=== PATIENT | female | born 1990 | race Caucasian/White ===

== ENCOUNTER 2025-02-07 14:58 | Inpatient (IN) | payer OTHER, SELFPAY ==
[2025-02-07] VITALS (12 sets, daily range): BP systolic 97–109; BP diastolic 59–80; PULSE 79–98; RESP 16–17; TEMP 36.7; O2SAT 99–100
--- NOTE | ~2025-02-07 | CT_ITS ---
EXAMINATION: CT pelvis w con DATE: 02/07/2025 20:36 INDICATION: Right patella compression, necrotic TECHNIQUE: Computed tomography (CT) of the pelvis was performed without intravenous contrast. Automat ed exposure control and iterative reconstruction technique were employed. The dose-length product was 733.20 mGy-cm. COMPARISON: X-ray hips and pelvis, same date FINDINGS: Skin defects over the posterior medial upper left thigh and the medial upper right thigh an d perineal soft tissues, with induration extending to the tissues of the vagina, anus, and distal tru cyx. Subcutaneous stranding largely involving the medial left ischial and peroneal fat. No definite o sseous erosion. Postsurgical or congenital posterior fusion defects at multiple levels in the lower l umbar spine. Gracile bones. Bilateral coxa valga. Osteopenia. Bilateral hip joint effusions with syno vial thickening. Large volume of colonic stool. The distal end of a catheter is seen in the lower abd omen. Irregular trabeculation of the bladder with wall edema. IMPRESSION: Medial facet thigh and perineal skin defects with underlying cellulitis, likely extending to and invo lving the vagina and anus. No definite findings of acute or chronic ostium myelitis, although the induration does extend to the tip of the coccyx. No focal soft tissue fluid collection to suggest abscess. Bilateral hip joint effusions with synovitis, septic arthritis is not excluded. Cystitis. Reviewed, dictated and finalized at location K. IMPRESSION: Medial facet thigh and perineal skin defects with underlying cellulitis, likely extending to and involving the vagina and anus. No definite findings of acute or chronic ostium myelitis, although the indurati on does extend to the tip of the coccyx. No focal soft tissue fluid collection to suggest abscess. Bilateral hip joint effusions with synovitis, septic arthritis is not excluded. Cystitis.
--- NOTE | ~2025-02-07 | XR_ITS ---
EXAMINATION: XR hip BI 2V w AP pelvis DATE: 02/07/2025 16:03 INDICATION: Enlarging sore posterior to the right hip. TECHNIQUE: Anteroposterior view of the pelvis and anteroposterior and frog-leg lateral views of the l eft hip and anteroposterior and frog-leg lateral views of the right hip and were obtained. COMPARISON: None. FINDINGS: Bilateral coxa valga with gracile bones consistent with provided history of paraplegia. No fracture. No cortical erosions or periosteal reaction to suggest osteomyelitis. Catheter projects across the ab domen. Large amount of colonic stool which can be seen with constipation. Soft tissues are unremarkab le. IMPRESSION: 1. No cortical erosion/osteolysis or periosteal reaction to suggest osteomyelitis. 2. Gracile bones and bilateral coxa valga consistent with provided history of paraplegia. Reviewed, dictated and finalized at location A. IMPRESSION: 1. No cortical erosion/osteolysis or periosteal reaction to suggest osteomyelit is. 2. Gracile bones and bilateral coxa valga consistent with provided history of p araplegia.
--- NOTE | 2025-02-07 15:37 | ED.SKABFB ---
HPI - Skin/Abscess/Foreign Bdy General Chief complaint: Skin/Abscess/Foreign Body <Tracey Sarmiento APRN - Last Filed: 02/07/25 19:35> Stated complaint: Wound under right thigh-wheelchair bound <Tracey Sarmiento APRN - Last Filed: 02/07/25 19:35> Time Seen by Provider: 02/07/25 15:10 <Tracey Sarmiento APRN - Last Filed: 02/07/25 19:35> Focused HPI: Patient is a 34-year-old female who presents to the ER with concerns of a wound on her right thigh. She has a history of spina bifida and does not feel anything from her waist down. Patient's mother reports she 1st noticed the wound last week. She reports it started out as a small black area in patient's mother tried to treat it. Patient's mother reports the area has gotten larger and is approximately 2 in in size at this time. She also endorses redness around the site. Patient denies any recent fevers, shortness of breath, chills. According to patient medical records she has a history of PRACTICE REPRESENTATIVE shunt and seizures. GENERAL: Well-appearing, well-nourished, and in no acute distress. HEAD: Normocephalic, atraumatic. CHEST: Clear to auscultation. ?No respiratory distress. HEART: Regular rate and rhythm.? NEURO: ?Alert and oriented x3. Patient screened in triage and initial orders placed.? ?Additional care and disposition to be based upon?diagnostic testing and treatment. <Tracey Sarmiento APRN - Last Filed: 02/07/25 19:35> Source: patient <Antelmo Perkins PA-C - Last Filed: 02/08/25 02:53> Mode of arrival: wheelchair <Antelmo Perkins PA-C - Last Filed: 02/08/25 02:53> Limitations: no limitations <Antelmo Perkins PA-C - Last Filed: 02/08/25 02:53> History of Present Illness HPI narrative: Agree with MSE note above. <Antelmo Perkins PA-C - Last Filed: 02/08/25 02:53> Related Data Home medications: Home Medications ?Medication ?Instructions ?Recorded ?Confirmed ?Last Taken ?Type bupropion HCl 150 mg 24 hr tablet, 150 mg PO DAILY 02/08/25 02/08/25 Unknown History extended release (Wellbutrin XL) docusate sodium 100 mg capsule 100 mg PO DAILY 02/08/25 02/08/25 Unknown History (Colace) fluoxetine 20 mg capsule 20 mg PO DAILY 02/08/25 02/08/25 Unknown History lamotrigine 100 mg tablet 300 mg PO QHS 02/08/25 02/08/25 Unknown History (Lamictal) lamotrigine 200 mg tablet 200 mg PO QAM 02/08/25 02/08/25 Unknown History (Lamictal) topiramate 50 mg tablet (Topamax) 50 mg PO Q12H PRN migraine headache 02/08/25 02/08/25 Unknown History <Tracey Sarmiento APRN - Last Filed: 02/07/25 19:35> Allergies/Adverse reactions: Allergies Allergy/AdvReac Type Severity Reaction Status Date / Time latex Allergy Severe Rash Verified 02/07/25 15:01 amoxicillin Allergy Intermediate Rash Verified 02/07/25 15:01 <Tracey Sarmiento APRN - Last Filed: 02/07/25 19:35> Review of Systems Review of Systems: All systems as dictated in HPI <Antelmo Perkins PA-C - Last Filed: 02/08/25 02:53> [facility] Past Medical History Medical History: Medical History Constipation History of seizures History of myelomeningocoele Spina bifida <Tracey Sarmiento APRN - Last Filed: 02/07/25 19:35> Surgical History Surgical History: Surgical History S/P PRACTICE REPRESENTATIVE shunt History of cholecystectomy <Tracey Sarmiento APRN - Last Filed: 02/07/25 19:35> Family History Family History: Family History Mother Diabetes mellitus Hypertension Breast cancer Father Diabetes mellitus Grandparent Diabetes mellitus Acute myocardial infarction Hypertension <Tracey Sarmiento APRN - Last Filed: 02/07/25 19:35> Social History Social History: Social History Smoking status: Never smoker Alcohol intake: never Substance use: never Do You Feel Safe in your Home?: Yes Lack of Transportation: No Lack of Food: Never True Current Housing: I Have Housing Concerned About Future Housing: No Difficulty Paying Gas/Electric Bills: No Difficulty Paying for Meds: No Currently Unemployed: No Education: High School Diploma/GED Difficulty w/ Childcare or Family Care: No Spiritual care concerns: No <Tracey LulyAny Sarmiento, BOX TOE BUFFER - Last Filed: 02/07/25 19:35> Exam Narrative: GENERAL: Well-appearing, well-nourished, and in no acute distress. HEAD: Normocephalic, atraumatic. EYES: PERRLA and EOMI. ENT: Nares clear, no rhinorrhea or epistaxis. Mucous membranes moist. Oropharynx without tonsillar hypertrophy exudate or other lesions. NECK: Supple. No adenopathy or masses. CHEST: No respiratory distress. Clear to auscultation. No wheezes rales or rhonchi HEART: Regular rate and rhythm. No murmur heard. Normal peripheral pulses. ABDOMEN: Soft, nontender, nondistended, normal active bowel sounds. MSK: Normal range of motion. No edema. SKIN: There is a 5-6 cm diameter pressure ulcer noted to the left inferior buttock/posterior thigh. Most of the area of wound bed is dark, necrotic appearing and surrounded by a thin line of erythematous appearing granulation tissue. The wound has a very small amount of erythema surrounding. It is not warm. There is no active purulent drainage. No surrounding indurated or necrotic appearing tissue. NEURO: Alert and oriented x4. No focal deficits. PSYCH: Normal mood and affect. <Antelmo Perkins PA-C - Last Filed: 02/08/25 02:53> Course PROGRAM DIRECTOR/TRAFFIC DIRECTOR/PA Physician Supervision Patient's HPI, Exam, and MDM were reviewed and I agreed with the workup and disposition done in the emergency department by the MLP. I was available for consultation, but was not directly involved with patient's care nor did I evaluate the patient. <Vinh Ely MD - Last Filed: 02/08/25 22:09> Vital Signs Vital signs: Vital Signs Temperature 36.7 C 02/07/25 15:02 Pulse Rate 98 02/07/25 15:02 Respiratory Rate 16 02/07/25 15:02 Blood Pressure 105/62 02/07/25 15:02 Pulse Oximetry 99 02/07/25 15:02 Oxygen Delivery Room Air 02/07/25 15:02 Temperature 37.0 C 02/08/25 21:56 Pulse Rate 112 H 02/08/25 21:56 Respiratory Rate 16 02/08/25 21:56 Blood Pressure 107/65 02/08/25 21:56 Pulse Oximetry 99 02/08/25 21:56 Oxygen Delivery Room Air 02/08/25 20:00 <Tracey Sarmiento APRN - Last Filed: 02/07/25 19:35> Vital Signs Temperature 36.7 C 02/07/25 15:02 Pulse Rate 98 02/07/25 15:02 Respiratory Rate 16 02/07/25 15:02 Blood Pressure 105/62 02/07/25 15:02 Pulse Oximetry 99 02/07/25 15:02 Oxygen Delivery Room Air 02/07/25 15:02 Temperature 37.0 C 02/08/25 21:56 Pulse Rate 112 H 02/08/25 21:56 Respiratory Rate 16 02/08/25 21:56 Blood Pressure 107/65 02/08/25 21:56 Pulse Oximetry 99 02/08/25 21:56 Oxygen Delivery Room Air 02/08/25 20:00 <Antelmo Perkins PA-C - Last Filed: 02/08/25 02:53> Vital Signs Temperature 36.7 C 02/07/25 15:02 Pulse Rate 98 02/07/25 15:02 Respiratory Rate 16 02/07/25 15:02 Blood Pressure 105/62 02/07/25 15:02 Pulse Oximetry 99 02/07/25 15:02 Oxygen Delivery Room Air 02/07/25 15:02 Temperature 37.0 C 02/08/25 21:56 Pulse Rate 112 H 02/08/25 21:56 Respiratory Rate 16 02/08/25 21:56 Blood Pressure 107/65 02/08/25 21:56 Pulse Oximetry 99 02/08/25 21:56 Oxygen Delivery Room Air 02/08/25 20:00 <Vinh Ely MD - Last Filed: 02/08/25 22:09> MDM - Skin/Abscess/Foreign Bdy MDM Narrative Medical decision making narrative: This is a 34-year-old female who with PMH of and bifida, paraplegia who presents to the ED for likely pressure ulcer to the posterior buttock. Vitals are normal on arrival. Exam remarkable for the above with a 5-6 cm pressure ulcer noted with necrotic appearing skin. There does appear to be some surrounding cellulitis. Lab work does show normal white count on CBC. ESR elevated at 23 and CRP elevated at 12.5. Pelvis CT: IMPRESSION: Medial facet thigh and perineal skin defects with underlying cellulitis, likely extending to and involving the vagina and anus. No definite findings of acute or chronic ostium myelitis, although the induration does extend to the tip of the coccyx. No focal soft tissue fluid collection to suggest abscess. Bilateral hip joint effusions with synovitis, septic arthritis is not excluded. Cystitis. Presentation consistent with necrotic pressure ulcer with surrounding cellulitis. There does not appear to be evidence of neck driving fasciitis or Cristine's gangrene on exam today. Vitals remained stable or throughout the entirety of her visit in the ED. She was started on 2 L of fluids for elevated lactate of 3.2. Lactate has normalized to 1.3 with use of fluids. She was started on Levaquin and Flagyl per Infectious ulcer protocol with potential allergy to Zosyn. Discussed the case with General surgery the patient will likely need wound debridement. They will consult on the patient and recommend admitting to Medicine. Discussed with hospitalist as well who agrees to admit the patient to medical floor. Patient and family are understanding and agreeable with this plan of admission. <Antelmo Perkins PA-C - Last Filed: 02/08/25 02:53> Lab Data Result diagrams: 02/07/25 16:40 02/07/25 16:40 <Tracey Sarmiento APRN - Last Filed: 02/07/25 19:35> Labs: Lab Results 02/07/25 02/07/25 02/07/25 Range/Units 16:40 21:11 21:28 WBC 10.0 (4.5-10.0) K/mm3 RBC 4.88 (4.2-5.4) M/mm3 Hgb 11.4 L (12.0-15.0) g/dL Hct 39.2 (37.0-47.0) % MCV 80.3 (80-100) fl MCH 23.4 L (26-34) pg MCHC 29.1 L (32-36) g/dl RDW 25.5 H (11.5-14.5) % Plt Count 405 H (150-375) k/mm3 MPV 9.0 (7.4-10.4) fl Immature Gran % (Auto) 1.7 H (0-0.5) % Neut % (Auto) 82.5 H (45.5-73.1) % Lymph % (Auto) 9.5 L (18.3-44.2) % [place] % (Auto) 4.8 (2.6-8.5) % Eos % (Auto) 1.1 (0-4.4) % Baso % (Auto) 0.4 (0.2-1.2) % Lymph # (Auto) 0.95 (0.9-3.2) K/mm3 [place] # (Auto) 0.5 (0.1-0.6) K/mm3 Eos # (Auto) 0.1 (0-0.3) K/mm3 Baso # (Auto) 0.0 (0.0-0.1) K/mm3 Abs Immat Gran (auto) 0.17 H (0.00-0.031) K/mm3 Absolute Neuts (auto) 8.3 H (1.3-6.7) K/mm3 Absolute Nucleated RBC 0.000 (0.0-0.012) K/mm3 Band Neutrophils % Not Reportable Nucleated RBC % 0.0 (0.0-0.2) % Platelet Estimate Adequate (Adequate) Hypochromasia 1+ Anisocytosis 1+ Ovalocytes 1+ Schistocytes None seen ESR 23 H (0-20) mm/hr PT 15.1 H (11.1-14.7) Seconds INR 1.1 APTT 31.0 (22.3-36.8) Seconds Sodium 139 (137-145) mmol/L Potassium 3.7 (3.4-5.0) mmol/L Chloride 105 (98-107) mmol/L Carbon Dioxide 22 (22-30) mmol/L Anion Gap 12 (4-12) mmol/L BUN 14 (7-17) mg/dL Creatinine 0.44 L (0.7-1.0) mg/dL Estim Creat Clear Calc Not Reportable Estimated GFR > 60 (59 - ) Glucose 153 H (65-110) mg/dL Lactic Acid 3.2 H 1.3 (0.7-2.0) mmol/L Calcium 8.9 (8.4-10.2) mg/dL Total Bilirubin 0.3 (0.2-1.3) mg/dL AST 13 L (14-36) U/L ALT 14 (6-35) U/L Alkaline Phosphatase 99 (38-126) U/L C-Reactive Protein 12.5 H (<1.0) mg/dL Total Protein 7.0 (6.3-8.2) g/dL Albumin 4.1 (3.5-5.1) g/dL Urine Color Yellow (Yellow) Urine Appearance Cloudy H (Clear) Urine pH 7.5 (5.0-9.0) Ur Specific [place] 1.034 (1.001-1.035) Urine Protein Negative (Negative) mg/dL Urine Glucose (UA) Negative (Negative) mg/dL Urine Ketones Negative (Negative) mg/dL Ur Blood (Man) Negative (Negative) Urine Nitrate Positive H (Negative) Urine Bilirubin Negative (Negative) Urine Urobilinogen 1.0 (<2.0) mg/dL Add Ur Microanalysis Reviewed Leukocyte Esterase Rfl 1+ H (Negative) HANNAH/UL Urine RBC 0-2 (0-2) /hpf Urine WBC 21-50 H (0-3) /hpf Ur Squamous Epith Cells Few (Few) /hpf Urine Bacteria 4+ H /hpf Urine Casts 3-5 <Tracey Sarmiento, BOX TOE BUFFER - Last Filed: 02/07/25 19:35> Lab Results 02/07/25 02/07/25 02/07/25 Range/Units 16:40 21:11 21:28 WBC 10.0 (4.5-10.0) K/mm3 RBC 4.88 (4.2-5.4) M/mm3 Hgb 11.4 L (12.0-15.0) g/dL Hct 39.2 (37.0-47.0) % MCV 80.3 (80-100) fl MCH 23.4 L (26-34) pg MCHC 29.1 L (32-36) g/dl RDW 25.5 H (11.5-14.5) % Plt Count 405 H (150-375) k/mm3 MPV 9.0 (7.4-10.4) fl Immature Gran % (Auto) 1.7 H (0-0.5) % Neut % (Auto) 82.5 H (45.5-73.1) % Lymph % (Auto) 9.5 L (18.3-44.2) % [place] % (Auto) 4.8 (2.6-8.5) % Eos % (Auto) 1.1 (0-4.4) % Baso % (Auto) 0.4 (0.2-1.2) % Lymph # (Auto) 0.95 (0.9-3.2) K/mm3 [place] # (Auto) 0.5 (0.1-0.6) K/mm3 Eos # (Auto) 0.1 (0-0.3) K/mm3 Baso # (Auto) 0.0 (0.0-0.1) K/mm3 Abs Immat Gran (auto) 0.17 H (0.00-0.031) K/mm3 Absolute Neuts (auto) 8.3 H (1.3-6.7) K/mm3 Absolute Nucleated RBC 0.000 (0.0-0.012) K/mm3 Band Neutrophils % Not Reportable Nucleated RBC % 0.0 (0.0-0.2) % Platelet Estimate Adequate (Adequate) Hypochromasia 1+ Anisocytosis 1+ Ovalocytes 1+ Schistocytes None seen ESR 23 H (0-20) mm/hr PT 15.1 H (11.1-14.7) Seconds INR 1.1 APTT 31.0 (22.3-36.8) Seconds Sodium 139 (137-145) mmol/L Potassium 3.7 (3.4-5.0) mmol/L Chloride 105 (98-107) mmol/L Carbon Dioxide 22 (22-30) mmol/L Anion Gap 12 (4-12) mmol/L BUN 14 (7-17) mg/dL Creatinine 0.44 L (0.7-1.0) mg/dL Estim Creat Clear Calc Not Reportable Estimated GFR > 60 (59 - ) Glucose 153 H (65-110) mg/dL Lactic Acid 3.2 H 1.3 (0.7-2.0) mmol/L Calcium 8.9 (8.4-10.2) mg/dL Total Bilirubin 0.3 (0.2-1.3) mg/dL AST 13 L (14-36) U/L ALT 14 (6-35) U/L Alkaline Phosphatase 99 (38-126) U/L C-Reactive Protein 12.5 H (<1.0) mg/dL Total Protein 7.0 (6.3-8.2) g/dL Albumin 4.1 (3.5-5.1) g/dL Urine Color Yellow (Yellow) Urine Appearance Cloudy H (Clear) Urine pH 7.5 (5.0-9.0) Ur Specific [place] 1.034 (1.001-1.035) Urine Protein Negative (Negative) mg/dL Urine Glucose (UA) Negative (Negative) mg/dL Urine Ketones Negative (Negative) mg/dL Ur Blood (Man) Negative (Negative) Urine Nitrate Positive H (Negative) Urine Bilirubin Negative (Negative) Urine Urobilinogen 1.0 (<2.0) mg/dL Add Ur Microanalysis Reviewed Leukocyte Esterase Rfl 1+ H (Negative) HANNAH/UL Urine RBC 0-2 (0-2) /hpf Urine WBC 21-50 H (0-3) /hpf Ur Squamous Epith Cells Few (Few) /hpf Urine Bacteria 4+ H /hpf Urine Casts 3-5 <Antelmo Perkins PA-C - Last Filed: 02/08/25 02:53> Lab Results 02/07/25 02/07/25 02/07/25 Range/Units 16:40 21:11 21:28 WBC 10.0 (4.5-10.0) K/mm3 RBC 4.88 (4.2-5.4) M/mm3 Hgb 11.4 L (12.0-15.0) g/dL Hct 39.2 (37.0-47.0) % MCV 80.3 (80-100) fl MCH 23.4 L (26-34) pg MCHC 29.1 L (32-36) g/dl RDW 25.5 H (11.5-14.5) % Plt Count 405 H (150-375) k/mm3 MPV 9.0 (7.4-10.4) fl Immature Gran % (Auto) 1.7 H (0-0.5) % Neut % (Auto) 82.5 H (45.5-73.1) % Lymph % (Auto) 9.5 L (18.3-44.2) % [place] % (Auto) 4.8 (2.6-8.5) % Eos % (Auto) 1.1 (0-4.4) % Baso % (Auto) 0.4 (0.2-1.2) % Lymph # (Auto) 0.95 (0.9-3.2) K/mm3 [place] # (Auto) 0.5 (0.1-0.6) K/mm3 Eos # (Auto) 0.1 (0-0.3) K/mm3 Baso # (Auto) 0.0 (0.0-0.1) K/mm3 Abs Immat Gran (auto) 0.17 H (0.00-0.031) K/mm3 Absolute Neuts (auto) 8.3 H (1.3-6.7) K/mm3 Absolute Nucleated RBC 0.000 (0.0-0.012) K/mm3 Band Neutrophils % Not Reportable Nucleated RBC % 0.0 (0.0-0.2) % Platelet Estimate Adequate (Adequate) Hypochromasia 1+ Anisocytosis 1+ Ovalocytes 1+ Schistocytes None seen ESR 23 H (0-20) mm/hr PT 15.1 H (11.1-14.7) Seconds INR 1.1 APTT 31.0 (22.3-36.8) Seconds Sodium 139 (137-145) mmol/L Potassium 3.7 (3.4-5.0) mmol/L Chloride 105 (98-107) mmol/L Carbon Dioxide 22 (22-30) mmol/L Anion Gap 12 (4-12) mmol/L BUN 14 (7-17) mg/dL Creatinine 0.44 L (0.7-1.0) mg/dL Estim Creat Clear Calc Not Reportable Estimated GFR > 60 (59 - ) Glucose 153 H (65-110) mg/dL Lactic Acid 3.2 H 1.3 (0.7-2.0) mmol/L Calcium 8.9 (8.4-10.2) mg/dL Total Bilirubin 0.3 (0.2-1.3) mg/dL AST 13 L (14-36) U/L ALT 14 (6-35) U/L Alkaline Phosphatase 99 (38-126) U/L C-Reactive Protein 12.5 H (<1.0) mg/dL Total Protein 7.0 (6.3-8.2) g/dL Albumin 4.1 (3.5-5.1) g/dL Urine Color Yellow (Yellow) Urine Appearance Cloudy H (Clear) Urine pH 7.5 (5.0-9.0) Ur Specific [place] 1.034 (1.001-1.035) Urine Protein Negative (Negative) mg/dL Urine Glucose (UA) Negative (Negative) mg/dL Urine Ketones Negative (Negative) mg/dL Ur Blood (Man) Negative (Negative) Urine Nitrate Positive H (Negative) Urine Bilirubin Negative (Negative) Urine Urobilinogen 1.0 (<2.0) mg/dL Add Ur Microanalysis Reviewed Leukocyte Esterase Rfl 1+ H (Negative) HANNAH/UL Urine RBC 0-2 (0-2) /hpf Urine WBC 21-50 H (0-3) /hpf Ur Squamous Epith Cells Few (Few) /hpf Urine Bacteria 4+ H /hpf Urine Casts 3-5 <Vinh Ely MD - Last Filed: 02/08/25 22:09> Discharge Plan Discharge Clinical Impression: Pressure ulcer due to spina bifida, Cellulitis <Tracey Sarmiento APRN - Last Filed: 02/07/25 19:35> Patient Disposition: Still a Patient <Tracey Sarmiento APRN - Last Filed: 02/07/25 19:35> Condition: Stable <Tracey Sarmiento APRN - Last Filed: 02/07/25 19:35>
--- NOTE | 2025-02-07 16:41 | PC.NURSE ---
this RN attempts to get blood work from pt with no success. quality control lab technician Liza able to get blood work and one set of cultures. unable to find venous access for 2nd set at this time. pt sent back to waiting room while waiting for ED room assignment.
[2025-02-07 16:47] LABS: Basophils Percent Auto 0.4 % (0.2-1.2); Eosinophils Absolute Auto 0.1 K/mm3 (0-0.3); Eosinophils Percent Auto 1.1 % (0-4.4); Hematocrit 39.2 % (37.0-47.0); Hemoglobin 11.4 g/dL (12.0-15.0); Immature Granulocyte Absolute 0.17 K/mm3 (0.00-0.031); Immature Granulocyte Percent A 1.7 % (0-0.5); Lymphocytes Absolute Auto 0.95 K/mm3 (0.9-3.2); Lymphocytes Percent Auto 9.5 % (18.3-44.2); Mean Corpuscular HGB Conc 29.1 g/dl (32-36); Mean Corpuscular Hemoglobin 23.4 pg (26-34); Mean Corpuscular Volume 80.3 fl (80-100); Monocytes Absolute Auto 0.5 K/mm3 (0.1-0.6); Monocytes Percent Auto 4.8 % (2.6-8.5); Neutrophils Absolute Auto 8.3 K/mm3 (1.3-6.7); Neutrophils Percent Auto 82.5 % (45.5-73.1); Platelet Count Result 405 k/mm3 (150-375); Red Blood Count 4.88 M/mm3 (4.2-5.4); Red Cell Distribution Width 25.5 % (11.5-14.5)
[2025-02-07 16:56] LABS: Lactic Acid Reflex 3.2 mmol/L (0.7-2.0)
--- OUTSIDE RECORDS SUMMARY | 2025-02-07 16:58 | XMS_ITS | Encounter Summary ---
Author Organization [facility] Address [address] [place] [id number] Care Team Providers Care Powerhouse Mechanic Name Role Phone Juarez Alaniz DO Primary Care Provider [phone] Encounter Details Date Type Department Care Team (Late st Contact Info) Description 03/26/2023 [employer] Message Enc [facility] Medical Group Family Medicine [address] [phone] [facility], [facility] Provider [employer] Social History Tobacco Use Types Packs/Day Years Used Date Smoking Tobacco: Never Smokeless Tobacco: Never Alcohol Use Standard Drinks/Week Comments Never 0 (1 standard drink = 0.6 oz pur e alcohol) PHQ-2 Answer Date Recorded Patient Health Questionnaire-2 Score 0 01/16/2023 Comments No Sex and Gender Information Value Date Recorded Sex Assigned at Not on file Legal Sex Female 5:02 PM CDT Gender Identity Not on file Sexual Orientation Not on file documented as of this encounter Plan of Treatment Not on file documented as of this encounter Visit Diagnoses Not on filedocumented in this encounter Care Teams Powerhouse Mechanic Relationship Specialty Start Date End Date Juarez Alaniz DO [address] [place] [id number] PCP - General FAMILY PRACTICE 01/03/23 documented as of this encounter
--- OUTSIDE RECORDS SUMMARY | 2025-02-07 16:58 | XMS_ITS | Data Portability ---
Author Organization [facility]N Lucia ala, [facility], [facility], [facility] Address [address] [place] [address] Care Team Providers Care Rehabilitation Psychologist Name Role Phone [facility] Referring Provide r Assessment Encounter Date Assessment Date Assessment LastModified by Organization Details LastModified Time 08/25/2017 08/25/2017 Seizures, absence seizures, myoclonic seizures, Generalized tonic clonic seizures. She is unable to give too many details about her seizures. T12 spina bifida, paraplegia, hydrocephalus, s/p BURN [employer]W [employer]BER shunt placement, neurogenic bowel and bladder. Comorbid medical conditions include depression, anxiety disorder. Order EEG for further characterization of the spells/seizures. Continue Keppra 250mg bid, Trileptal 300mg am and 450mg pm. We had a long discussion about the seizures, risks due to seizures including the risk for Sudden Unexpectedly in Epilepsy (SUDEP). We also discussed the importance of not being left alone and turning the patient to the side while seizing. We have discussed the factors that lower the seizure threshold, which include alcohol, sleep deprivation, infections etc. Our seizure protocol and handouts were provided. Advised the patient/Family to contact our office for any adverse effects with the medications we prescribed and for any breakthrough seizures. As most seizures usually last for less then 3 minutes, if a patient has a seizure that lasts for >3 min or if there is no recovery of consciousness in between seizures, patient needs to be transported to the nearest ER. Advised to maintain a seizure log and triggers. Patient/Family was ready to learn and no apparent learning barriers were identified. Explained the diagnosis and treatment plan, patient/Family expressed understanding of the content. Not available 08/26/2017 23:03:59 09/29/2017 09/29/2017 Miss Bauer is being followed in our clinic for Seizures, she has absence seizures, myoclonic seizures, Generalized tonic clonic seizures. She is unable to give too many details about her seizures. Her mom reports intractable staring spells concerning for complex partial seizures. T12 spina bifida, paraplegia, hydrocephalus, s/p BURN [employer] MEMBER shunt placement, neurogenic bowel and bladder. Comorbid medical conditions include depression, anxiety disorder. Continue Keppra 250mg bid, Trileptal 300mg am and 450mg pm. Add Vimpat 50mg bid and advace as tolerated, slowly taper off the Keppra. We had a long discussion about the seizures, risks due to seizures including the risk for Sudden Unexpectedly in Epilepsy (SUDEP). We also discussed the importance of not being left alone and turning the patient to the side while seizing. We have discussed the factors that lower the seizure threshold, which include alcohol, sleep deprivation, infections etc. Our seizure protocol and handouts were provided. Advised the patient/Family to contact our office for any adverse effects with the medications we prescribed and for any breakthrough seizures. As most seizures usually last for less then 3 minutes, if a patient has a seizure that lasts for >3 min or if there is no recovery of consciousness in between seizures, patient needs to be transported to the nearest ER. Advised to maintain a seizure log and triggers. Patient/Family was ready to learn and no apparent learning barriers were identified. Explained the diagnosis and treatment plan, patient/Family expressed understanding of the content. Not available 10/05/2017 17:22:10 Plan of Treatment Reminders Order Date Submit Date Provider Last Modified By Organization Details Last Modified Time Details Appointments None recorded . Lab None recorded . Referral None recorded . Procedures None recorded . Surgeries None recorded . Imaging None recorded . Medication Orders Vimpat 50 mg tablet 017 09/29/20 17 [id number], [address] [facility], [place], [place], [id number], 7 12:54:19 Patient TargetsNo targets recorded. Patient InstructionsNo instructions recorded. Reason for Referral None Reported. Results Created Date Observation Date Name Description Value Unit Range Abnormal Flag Note LastModifiedBy Organization Detail LastModifiedTime 09/17/20 17 elect roenc ephal ogram No observ ation record ed. [email or web address] Not Available 09/19 12:48:27 Result Notes None recorded. Procedures Surgical History Date Name Laterality Status Provider Name and Address Organization Details Recorded Time 09/10/20 17 EEG completed Nkechi Salgado MD [address] [facility] [address], [place], [address], ROSELYN Salgado MD, 09/15/2017 12:19:39 10/20/19 03 Carotid Endarterectomy completed Rosana Salgado [facility] 08/25/2017 16:24:43 10/20/18 88 Carotid Endarterectomy completed Rosana Salgado MD, PC 08/25/2017 16:22:11 Carotid Endarterectomy completed Rosana Salgado MD, [facility] 08/25/2017 16:22:44 Imaging Results Imaging Date Name Status LastModified by Organization Details LastModified Time 09/17/2017 electroencephalogram completed Inf ormation not available 09/29/2017 12:48:27 Procedure Notes None recorded. Medical Equipment None Reported. Allergies Allergen ID Allergen Name Allergen Category Reaction Reaction Severity Criticality Documentation Date Start Date Code Code System Note Provider Name and Address Organization Details Recorded Time 34321 latex environme nt,medica tion rash Not available Not available 08/25/2017 76031 91 RxNorm sneez ing, swell ing [facility]N Paredes [facility] 7 16:14:42 80984 amoxicill in medicatio n rash Not available Not available 08/25/2017 723 RxNorm body [facility] P[facility]es [facility] 7 16:15:03 Medications Name Sig Start Date Stop Date Status Note LastModified by Organization Details LastModified Time oxcarbazepin e 150 mg tablet 2 tab po am & 3 tab po PM active Not Available Not Available No t Available Colace 100 mg capsule Take 1 capsule every day by oral route. active Not Available Not Available No t Available venlafaxine ER 37.5 mg capsule,exte nded release 24 hr 08/25 completed Not Available Not Available Not Available nitrofuranto in macrocrystal 50 mg capsule 08/25 completed Not Available Not Available Not Available levetiraceta m 500 mg tablet .5 tab bid active Not Available Not Available No t Available oxcarbazepin e 300 mg tablet 08/25 completed Not Available Not Available Not Available citalopram 20 mg tablet 1 tab po qd active Not Available Not Available No t Available nitrofuranto in monohydrate/ macrocrystal s 100 mg capsule 08/25 completed Not Available Not Available Not Available Tylenol 250 mg po bid prn active Not Available Not Available No t Available Vimpat 50 mg tablet Take 1 tablet twice a day by oral route. active Not Available Not Available No t Available Vitals Date Recorded Body weight Body height Body mass index (BMI) Oxygen saturation Oxygen saturation in Arterial blood by Pulse oximetry Heart rate Respiratory rate Body temperature Systolic blood pressure Diastolic blood pressure Provider Name and Address Organization Details Last Updated DateTime 7 30748.1 9 g 167.64 cm 21.3 kg/m2 98 % 98 % 102 /min 19 /min 97.8 [degF] 132 mm[Hg] 84 mm[Hg] Cecelia Salgado [facility] 7 16:21:10 Date Recorded Body height Body mass index (BMI) Body weight Body temperature Respiratory rate Heart rate Oxygen saturation Oxygen saturation in Arterial blood by Pulse oximetry Systolic blood pressure Diastolic blood pressure Provider Name and Address Organization Details Last Updated DateTime 7 167.64 cm 21.8 kg/m2 54703.9 7 g 97.7 [degF] 20 /min 85 /min 95 % 95 % 118 mm[Hg] 84 mm[Hg] Norma Salgado [facility] 7 12:42:43 Social History Question Answer Notes LastModified by Organizat ion Details LastModified Time Tobacco Smoking Status Never Smoker [facility] 08/25/2017 16:20:40 What Is Your Level Of Alcohol Consumption? Occasional [email or web address] Information not available 09/29/2017 How Much Tobacco Do You Chew? None Information not available 08/25/2017 As A Passenger In A Car For An Hour Without A Break 2 Information not available 08/25/2017 Chance Of Dozing Sitting, Inactive In A Public Place (e.g. A Theatre Or A Meeting) 0 Information not available 08/25/2017 Chance Of Dozing Sitting And Reading? 1 Information not available 08/25/2017 Chance Of Dozing Watching TV? 1 Information not available 08/25/2017 In A Car, While Stopped For A Few Minutes In The Traffic 2 Information not available 08/25/2017 Lying Down To Rest In The Afternoon When Circumstances Permit 2 Information not available 08/25/2017 Sitting And Talking To Someone 0 Information n ot available 08/25/2017 Sitting Quietly After A Lunch Without Alcohol 2 Information not available 08/25/2017 Any Illicit Drug Usage No Information not available 08/25/2017 Marital Status Single Informatio n not available 08/25/2017 What Was The Date Of Your Most Recent Tobacco Screening? 09/29/2017 Information not available 05/13/2019 How Much Tobacco Do You Smoke? No Information not available 08/25/2017 Sex: Unknown Functional Status None recorded. Mental Status None recorded. Family History Relationship Description Onset Age of this Age Resolved Age Notes LastModified by Organization Details LastModified Time Mother Depressive disorder 53 Not available 08/25 16:15:32 Mother Bipolar disorder 53 Not available 08/25 16:15:50 Mother Sleep apnea 53 Not avai lable 08/25/2017 16:16:08 Mother Acid reflux 53 Not avai lable 08/25/2017 16:16:31 Mother Malignant neoplastic disease 53 Ductal carcin jerry in situ (DCIS) Not available 08/25/2017 16:18:19 Father Diabetes mellitus 54 Not available 08/25 16:18:31 Father Hypokalemia 54 Not avai lable 08/25/2017 16:18:56 Maternal Grandmother Hypertensive disorder 78 Not available 08/25 16:19:15 Maternal Grandmother Heart disease 78 Not available 08/25 16:19:29 Maternal Grandmother Thyroiditis 78 Not available 08/25/2017 16:19:52 Maternal Grandfather Heart disease 59 Not available 08/25 16:20:09 Paternal Grandfather Diabetes mellitus 66 Not available 08/25 16:20:23 Sister Asthma 27 Not available 08/25/2017 16:20:34 Medical History Condition Response Anxiety Disorder Y Circulation problems Y Seizures/Epilepsy Y Kidney/Bladder problems Y Headaches Y Back Problems Y Depression Y Gynecological HistoryNo gynecological history recorded. Obstetrics History GPAL:G 0 P 0 0 0 0 Past Encounters Encounter ID Performer Location Encounter Start Date Encounter Closed Date Diagnosis/Indication Diagnosis SNOMED-CT Code Diagnosis ICD10 Code Diagnosis Note [id number] Nkechi Salgado MD [address] [address] 08/25/2017 16:02:48 08/25/2017 17:21:27 Epilepsy 51010738 G40.909 Spina bifida 76089718 Q0 5.1 Depressive disorder 3548 9007 F33.0 Ventricula r shunt in situ 515061110 Z98.2 [id number] Nkechi Salgado MD [address] [address] 09/10/2017 14:25:09 09/10/2017 16:33:24 Seizure 21754025 R56.9 [id number] Nkechi Salgado MD [address] [address] 09/29/2017 12:23:28 09/29/2017 13:03:01 Epilepsy 38027578 G40.919 Spina bifida 69946655 Q0 5.1 Depressive disorder 3548 9007 F33.0 Ventricula r shunt in situ 178156056 Z98.2 Health Concerns Section Related Observation LastModified by Organization Detai ls LastModified Time None Recorded Concern Status LastModified by Organization Details LastModified Time None Recorded Advance Directives Directive None Recorded Payers Encounter Date Sequence Insurance Name Policy Number Policy Gtz Covered Member ID Gtz Member ID Guarantor Name 08/25/2017 1 [place] Vera Bauer [id number] Vera Bauer 09/10/2017 1 [place] Bauer [id number] Vera Bauer 09/29/2017 1 [place] Vera Bauer [id number] Vera Bauer Notes Date Note Type Note Provider Name and Address Organization Details Recorded Time 08/25/2017 text/html Generic HPI TemplateReported bypatient.Problem:China boyd is a right handed / female who presents to the clinic as a referral for a seizure disorder. Patient also has a diagnosis of spina bifida at T12, and hydrocephalus, she is s/p BURN CREW MEMBER shunt placement. She cant walk, she has neurogenic bladder, she does straight cath herself. Onset of seizures started in 2003. She has documented episodes of Grand mal, petit mal, starring episodes, and myoclonic jerks. Confirms tongue and cheek biting. She uses a straight catheter daily after a bladder augmentation. Patient is amnesiac of episodes and expresses memory loss after episodes. Reports trouble falling asleep. Experiences stomach, arm and neck weakness and pain. Has no feeling from the waist down. Patient states she has nightmares/terrors after seizure episodes. Denies knowledge of seizure activity. Patient states she gets a warning in the form of a ringing, or voices in her head before her seizures occur as well as an arm weakness. Patient states she hears voices and sees people who are not there. Her last seizure was unknown. Duration:30-120 seconds Onset/Timing:Patient had first grand mal [place] age of 14 [place]. Quality:Grand mal, petit mal, starring episodes, and myoclonic jerks. Confirms tongue and cheek biting. Experiences stomach, arm and neck weakness and pain, muscle spasms. Denies knowledge of nocturnal seizure activity. Aggravating factors/Triggers:Lack of sleep, dehydration, stress, heat, and low blood sugar are all triggers that the patient is aware of for her seizures. Alleviating factors:none Associated Symptoms:Patient states she has nightmares/terrors after seizure episodes. Patient uses a straight catheter. Possible visual and auditory hallucinations. Imaging:No recent or pertinent imaging Labs:Labs ordered last week, pending results with Dr. Moore. Treatments/Meds/Proced ures/Therapies tried so far:Trileptal 300mg am and 450mg pm and Keppra 250mg bid effective in controlling seizure activity. Medical history:Spina bifida, Hydrocephalus, Epilepsy, Bladder Augmentation. Anxiety disorder. She has stage 2 heel ulcer on [facility] left foot. Mood symptoms:Anxiety and depressive disorder taking citalopram 20 mg. Alcohol or any recreational drug abuse:none reported.Notes:She lives with her parents. Nkechi Salgado MD [address] [address], [place], [address], [facility] - Nkechi Salgado MD, 08/26/2017 23:04:17 09/29/2017 text/html Generic HPI TemplateReported bypatient.Problem:China boyd is a right handed / female who presents to the clinic as a referral for a seizure disorder. Patient also has a diagnosis of spina bifida at T12, and hydrocephalus, she is s/p BURN CREW MEMBER shunt placement. She cant walk, she has neurogenic bladder, she does straight cath herself. Onset of seizures started in 2003. She has documented episodes of Grand mal, petit mal, starring episodes, and myoclonic jerks. Confirms tongue and cheek biting. She uses a straight catheter daily after a bladder augmentation. Patient is amnesiac of episodes and expresses memory loss after episodes. Reports trouble falling asleep. Experiences stomach, arm and neck weakness and pain. Has no feeling from the waist down. Patient states she has nightmares/terrors after seizure episodes. Denies knowledge of seizure activity. Patient states she gets a warning in the form of a ringing, or voices in her head before her seizures occur as well as an arm weakness. Patient states she hears voices and sees people who are not there. Her last seizure was unknown. Duration:30-120 seconds Onset/Timing:Patient had first grand mal seizure at the age of 14 [place]. Quality:Grand mal, petit mal, starring episodes, and myoclonic jerks. Confirms tongue and cheek biting. Experiences stomach, arm and neck weakness and pain, muscle spasms. Denies knowledge of nocturnal seizure activity. Aggravating factors/Triggers:Lack of sleep, dehydration, stress, heat, and low blood sugar are all triggers that the patient is aware of for her seizures. Alleviating factors:none Associated Symptoms:Patient states she has nightmares/terrors after seizure episodes. Patient uses a straight catheter. Possible visual and auditory hallucinations. Imaging:No recent or pertinent imaging Treatments/Meds/Proced ures/Therapies tried so far:Trileptal 300mg am and 450mg pm and Keppra 250mg bid effective in controlling seizure activity. Medical history:Spina bifida, Hydrocephalus, Epilepsy, Bladder Augmentation. Anxiety disorder. She has stage 2 heel ulcer on hitesh left foot. Mood symptoms:Anxiety and depressive disorder taking citalopram 20 mg. Alcohol or any recreational drug abuse:none reported.Notes:She lives with her parents. INTERVAL CHANGES She comes with her mom today. Her 90 min EEG was normal. Her mom reports frequent staring spells concerning for seizures. Nkechi Salgado MD [address], [address], [facility] - Nkechi Salgado MD, 10/05/2017 17:22:24 OBGyn Episode No OBEpisode recorded.
--- OUTSIDE RECORDS SUMMARY | 2025-02-07 16:58 | XMS_ITS | Encounter Summary ---
Author Organization [facility] Address [facility] [place] [address] Care Team Providers Care Tool Crib Lead Name Role Phone Juarez Alaniz DO Primary Care Provider [phone] Encounter Details Date Type Department Care Team (Late st Contact Info) Description 03/12/2023 MyCTruVitalst Message Enc [facility] Family Medicine - [address] [phone] Juarez Alaniz DO [address] [place] [id number] [employer] Social History Tobacco Use Types Packs/Day Years [...] on file documented as of this encounter Progress Notes * Sujatha Gardner MA - 03/26/2023 3:36 PM CDT [facility] [place] [phone]. She said the case was closed when Janet (Patient's mom) called to let them know that she was going to go with a different company. She said that since the patient lives in [place] now the case will need to be opened with [employer] in [place]. The phone number is [phone]. * Sujatha Gardner MA - 03/25/2023 5:28 PM CDT I have a call into the company, have not heard back. I will f/u tomorrow to see what they need fromus for the parts. * Sujatha Gardner MA - 03/13/2023 4:00 PM CDT Called [employer] [phone], spoke to Rosanna. She said that Vera's mother called yesterday and cancelled the order since it is taking so long to get parts. Called Janet (patient's mom) and told her that I spoke to [employer]. She said she cancelled that order. I told her that there is a company in [place] that might be able to help with the parts for the wheelchair. I gave her the number for [employer] and told her they might be able to help her or at least get her in the right direction to order parts. She said ok andthanked me. documented in this encounter Plan of Treatment Not on file documented as of this encounter Visit Diagnoses Not on filedocumented in this encounter Care Teams Tool Crib Lead Relationship Specialty Start Date End Date Juarez Alaniz DO [address] [place] [address] PCP - General FAMILY PRACTICE 01/03/23 documented as of this encounter
--- OUTSIDE RECORDS SUMMARY | 2025-02-07 16:58 | XMS_ITS | Encounter Summary ---
Author Organization [facility] Address [address] [place] [address] Phone Care Team Providers Care Visual And Stock Associate Name Role Phone Kandis Robb NP Primary Care Provider [phone] Encounter Details Date Type Department Care Team (Late st Contact Info) Description 01/24/2025 Results Follow-Up [facility] [address] [facility] Medicine 12th [place] [address] [place] [address] Rosanna Partida NP [address] [place] [address] Social History Tobacco Use Types Packs/Day Years Used Date Smoking Tobacco: Never Passive Smoke Exposure: Past Smokeless Tobacco: Never AUDIT-C Answer Date Recorded Q1: How often do you have a drink containing alc ohol? Never 01/20/2024 Average Number of Drinks Not on file 024 Frequency of Binge Drinking Not on file 11/2023 PHQ-2 Answer Date Recorded PHQ-2 Total Score (If total score is 3 or more points, staff should administer the PHQ-9) 5 01/19/2025 PHQ-9 Answer Date Recorded PHQ-9 Total Score 14 01/19/2025 Personal Safety Answer Date Recorded Have you ever been in or are you currently in a harmful physical or emotional relationship or is someone making you feel afraid or unsafe? Denies 01/20/2024 Comments No Sex and Gender Information Value Date Recorded Sex Assigned at Not on file Legal Sex Female 9:03 PM CORPORATE INTERN Gender Identity Female 04/06/2023 2:19 PM CDT Sexual Orientation Straight 04/06/2023 2: 19 PM CDT documented as of this encounter Miscellaneous Notes * Result Encounter Note - Rosanna Partida NP - 01/24/2025 1:54 AM CDT ALP improved, down to 133. Normal GGT. Will repeat HFP with alk phos isoenzyme in 3 months. Sent [employer] message. documented in this encounter Plan of Treatment Not on file documented as of this encounter Visit Diagnoses Not on filedocumented in this encounter Care Teams Visual And Stock Associate Relationship Specialty Start Date End Date Kandis Robb NP PCP - General Nurse Practitioner 05/13/24 documented as of this encounter
--- OUTSIDE RECORDS SUMMARY | 2025-02-07 16:58 | XMS_ITS | Referral Summary ---
Author Organization [facility] [address] [facility] Address [address] [place] [address] Care Team Providers Care Activity Therapist Name Role Phone Kandis Robb SHEET ROCK APPLICATOR Primary Care Provider [phone] Encounters Date Type Department Care Team Description 01/24/2025 Documentation [facility] Gastroenterology [address] [facility] 12th [place] [address] [place] [address] Sai Mack, SAVANNA 01/24/2025 Results Follow-Up [facility] Gasteroenterology [address] [facility] 12th [place] [address] [place] [address] Rosanna Partida NP 01/21/2025 Telephone [facility] Complete Care [address] [place] [address] [address], [address] [place] [address] Georgia Fairchild, SAVANNA 01/20/2025 Telephone [facility] [address] [place] [address] [address], [address] [place] [address] Edith Miguel RN Forms/questionnaires 01/20/2025 Results Follow-Up [facility] Clinic [address] [facility] 12th [place] [address] [place] [address] Kandis Robb NP 01/19/2025 7:15 PM CDT Lab [facility] ([facility]) [address] [place] [phone] Liver lesion 01/19/2025 7:00 PM CDT Lab [facility] ([facility]) [address] [place] [phone] Screening for diabetes mellitus; Screening for cholesterol level 01/19/2025 3:40 PM CDT Office Visit [facility] [address] [place] [address] 12th [place] [address] [place] [address] Kandis Robb NP Wellness examination (Primary Dx); Screening for diabetes mellitus; Screening for cholesterol level; Iron deficiency anemia, unspecified iron deficiency anemia type; Anxiety disorder, unspecified type; Spina bifida, unspecified hydrocephalus presence, unspecified spinal region (HCC) 01/18/2025 3:00 PM CDT Infusion [facility] [address] [facility] [address] [place] [address] Iron deficiency anemia, unspecified iron deficiency anemia type (Primary Dx) 01/11/2025 3:00 PM CDT Infusion [facility] - Infusion [address] 6 [place] [address] Iron deficiency anemia, unspecified iron deficiency anemia type (Primary Dx) 01/04/2025 3:00 PM CDT Infusion [facility]fusion [address] 6 [place] [address] Iron deficiency anemia, unspecified iron deficiency anemia type (Primary Dx) 12/22/2024 Telephone [facility] Gastroenterology [address] [place] [address] 12th [place] [address] [place] [address] Genesis Silverman Labs due late December to late 12/20/2024 Orders Only [facility] Hematology [facility] Floor 6 [place] [address] Fiordaliza, Fidelina M., RN Iron deficiency anemia, unspecified iron deficiency anemia type (Primary Dx) 12/16/2024 Orders Only [facility] Hematology [address] [facility] Floor 6 [place] [phone] Maya Farfan 12/15/2024 Results Follow-Up [facility] Gasteroenterology [address] [facility] 12th [place] [address] [place] [address] Rosnana Partida NP 12/11/2024 Documentation [facility] Surgery [address] [place] [address] Ashley Alexandra 12/09/2024 10:35 AM AGENT BROKER Lab [facility] ([facility]) [address] [place] [phone] Iron deficiency anemia due to chronic blood loss 12/09/2024 9:00 AM AGENT BROKER Office Visit [facility] Gastroenterology [address] [place] [address] 12th [place] [address] [place] [address] Rosanna Partida NP Iron deficiency anemia due to chronic blood loss (Primary Dx); Liver lesion from Last 3 Months Allergies Active Allergy Reactions Criticality Noted Date Comments Amoxicillin Rash Medium 11/28/2014 Banana Rash,Other (See comments) Medium 08/28/2021 Allergic to the peel Cefazolin Other (See comments),Unknown Low 07/24/2023 Pt states she had some mild allergy reactions. Kiwi Unknown 09/16/2023 Latex Anaphylaxis,Shortnes s of breath,Itching,Nausea And Vomiting,Swelling,Rash High 11/28/2014 Penicillins Unknown 02/06/2023 Medications docusate sodium (Colace) 100 mg capsuleIndicatio ns:constipation Take 1 capsule (100 mg total) by mouth daily as needed for constipation Active multivit with calcium,iron,min (WOMEN'S DAILY MULTIVITAMIN ORAL)Indications :Supplement Take 1 tablet by mouth orthotist prosthetist before breakfast Active acetaminophen (TYLENOL) 325 mg tabletIndication s:Pain Take 2 tablets (650 mg total) by mouth every 6 (six) hours as needed for pain Active FLUoxetine (PROzac) 20 mg capsuleIndicatio ns:depression,An xiety Take 1 capsule (20 mg total) by mouth daily 90 capsule 1 07/30/20 24 Active lamoTRIgine (LaMICtal) 100 mg tablet Take 2 tablets (200 mg total) by mouth daily AND 3 tablets (300 mg total) nightly. 450 tablet 3 08/18/20 24 025 Active topiramate (TOPAMAX) 25 mg tablet Take 1 tablet (25 mg total) by mouth 2 (two) times a day 180 tablet 3 08/18/20 24 025 Active lamoTRIgine (LaMICtal) 200 mg tablet TAKE 1 TABLET BY MOUTH EVERY DAY IN THE EVENING WITH 100MG TABLET 09/30/20 24 Active buPROPion XL (WELLBUTRIN XL) 300 mg 24 hr tablet Take 1 tablet (300 mg total) by mouth daily 01/03/20 25 Active buPROPion XL (WELLBUTRIN XL) 150 mg 24 hr tablet Take 1 tablet (150 mg total) by mouth every morning 04/28/20 24 025 Discontin ued(Thera py completed ) Active Problems Problem Noted Date Diagnosed Date Liver lesion 12/09/2024 Assessment & Plan (12/09/2024 9:50 AM AGENT BROKER): Patient with liver lesions incidentally found during workup for anemia. Lesion in right posterior section is likely hepatic adenoma, 3.5 cm. For this, patient will need annual surveillance imaging with MR given it's low risk for malignant transformation. She is to avoid estrogen/oral contraception and work on weight loss. Her next MR will be done with eovist and occur in September. She is to contact me if she develops any abnormal abdominal symptoms. 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 No follow-up imaging or workup is needed for FNH as these are benign. I will get updated liver labs on patient as it has been 6 months since her last set of labs. She will return to clinic in 1 year. Wound of abdomen 05/13/2024 Overview (05/13/2024): -wound present for 2 weeks -due to diaper rubbing skin -mother has been applying some wound care at home, unsure names of what she is using -encouraged warm soap and water, no scrubbing, can apply gauze as barrier -denies fevers Wound care clinic referral placed. Acne 07/24/2023 Attention deficit hyperactivity disorder (ADHD) 07/24/2023 Clubfoot 07/24/2023 Decubitus ulcer 07/24/2023 Hyperglycemia 07/24/2023 Overview (07/24/2023): Repeat fasting glucose Major depression, recurrent 07/24/2023 Myopia 07/24/2023 Overview (07/24/2023): SRx: MR Assessment & Plan (10/21/2024 2:13 PM AGENT BROKER): Update specs as desired. Nosophobia 07/24/2023 Overview (07/24/2023): No UTI. Encouraged increase of PO fluids. F/U prn. Neurogenic bowel 07/24/2023 Obesity 07/24/2023 Palpitations 07/24/2023 Peripheral venous insufficiency 07/24/2023 Recurrent urinary tract infection 07/24/2023 Severe episode of recurrent major depressive disorder, with psychotic features 07/24/2023 Symptoms involving urinary system 07/24/2023 Overview (07/24/2023): Patient with most likely at UTI causing recent fever, urine color/smell changes, and overall tired feelings. May have decreased seizure threshold last evening. Will do UA/Ucx and give Cipro and start treating today. If UA/Ucx negative will stop abx. Chose Cipro based on her last UTI--E.coli sensitive to this. Will call mom tomorrow with results and discuss treatment plan. If patient has po intolerance, develops pain, mental status changes, persistent seizures mom to bring her into clinic/ED. Otherwise she will follow up next Friday. Unspecified otitis externa, bilateral 07/24/2023 Seizure disorder 07/24/2023 Overview (07/24/2023): Folic acid refilled. 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 Acute serous otitis media, right ear 06/27/2023 Suppurative otitis media, unspecified, left ear 06/27/2023 Acute streptococcal tonsillitis, unspecified 02/2023 Otitis media, unspecified, bilateral 06/24/2023 Chronic antral gastritis 06/09/2023 Localization-related (focal) (partial) symptomatic epilepsy and epileptic syndromes with simple partial seizures, intractable, without status epilepticus 06/09/2023 Neurogenic bladder 06/09/2023 Pica 06/09/2023 Spina bifida without hydrocephalus 06/09/2023 Chiari malformation type II 01/16/2023 Clubfoot of both lower extremities 01/16/2023 Hydrocephalus with operating shunt 01/16/2023 Assessment & Plan (10/21/2024 2:15 PM AGENT BROKER): Stable exam with excellent visual function (BCVA, color and Ladd visual field (HVF)). No evidence of papilledema on exam and stable OCT RNFL. Will continue to monitor. TO call / RTC w any vision changes Assessment & Plan (07/25/2023 1:21 PM CDT): Excellent afferent function without evidence of papilledema, distinct margins both eyes (OU). Excellent BCVA, color vision, and no evidence of disc swelling with DFE or OCT. No retinal holes/tears/detachments noted in either eye. Educated on findings. Will monitor again in 6mo or sooner with any new/worsening visual symptoms. Will continue close f/u with neurology Intellectual disability 01/16/2023 Iron deficiency anemia 01/16/2023 Overview (01/20/2025): -follows with hematology -last infusion yesterday Assessment & Plan (12/09/2024 9:51 AM AGENT BROKER): Has upcoming appt with hematology. Ordered CBC, ferritin and iron profile as she is complaining of feeling cold, tired, and eating ice. She may need to restart iron infusions. Anxiety state 01/16/2023 Neuromuscular dysfunction of bladder 01/16/2023 Overview (05/13/2024): -follows with urology -suprapubic catheter use Continue with urology. Suprapubic catheter 01/16/2023 Nonintractable epilepsy without status epileptic us 01/16/2023 Spina bifida of thoracic region with hydrocephal us 01/16/2023 Overview (05/13/2024): -follows with Dr. Kevin in ortho spine -no movement in lower extremities -she is able to transfer self in electric chair at home -she is in need of a new transfer board, wood and is creating slivers -she needs a new shower chair, at least 9 years old, the seat is loose Continue with ortho, will assist with slide board and chair. Anxiety disorder, unspecified 11/25/2022 Overview (01/20/2025): -follows with psychiatry monthly -fluoxetine 20mg daily -wellbutrin 300mg, dose recently increased due to anxiety Continue with psychiatrist. Localization-related epilepsy, intractable 04/10 Meningomyelocele 04/10/2018 Paraparesis 04/10/2018 Arnold-Chiari malformation, type II 04/10/2018 Hydrocephalus 04/10/2018 Lumbar spina bifida without hydrocephalus 2014 Scoliosis 04/21/2015 Immunizations Immunization Administration Dates Next Due Influenza, Quadrivalent, Spl it, Preservative Free, Intramuscular 08/01/2015 Influenza, Unspecified 08/01/2015 Social History Tobacco Use Types Packs/Day Years Used Date Smoking Tobacco: Never Passive Smoke Exposure: Past Smokeless Tobacco: Never AUDIT-C Answer Date Recorded Q1: How often do you have a drink containing alc ohol? Never 01/20/2024 Average Number of Drinks Not on file Frequency of Binge Drinking Not on file [...] on file Legal Sex Female 9:03 PM AGENT BROKER Gender Identity Female 04/06/2023 2:19 PM CDT Sexual Orientation Straight 04/06/2023 2: 19 PM CDT Last Filed Vital Signs Vital Sign Reading Time Taken Comments Blood Pressure 107/66 01/19/2025 3:38 PM CDT Pulse 82 01/19/2025 3:38 PM CDT Temperature 36.9 C (98.4 F) 01/19/2025 3:38 PM CDT Respiratory Rate 18 01/18/2025 5:07 PM CDT Oxygen Saturation 100% 01/18/2025 5:0 7 PM CDT Inhaled Oxygen Concentration - - Weight 74.8 kg (165 lb) 11/03/2024 2:07 PM AGENT BROKER manufacture chair weighs 138.6lb + 165.0lbs total would equal 303lbs. Patient also stated possible weight Height 149.9 cm (4' 11 ) 01/19/2025 3:3 8 PM CDT Body Mass Index 33.33 08/18/2024 10:43 AM CDT Plan of Treatment Not on file Medical Devices Implanted Type Area Amf Mechanic Device Identifier Shelf Expiration Date Model / Serial / Lot Shunt Shunt Neck Procedures Procedure Name Priority Date/Time Associated Diagnosis Comments HEPATIC FUNCTION PANEL Routine 5:02 PM CDT Liver lesion GAMMA GT Routine 01/19/2025 5:02 PM CDT Liver lesion LIPID PANEL Routine 01/19/2025 5:02 PM CDT Screening for cholesterol level HEMOGLOBIN A1C Routine 01/19/2025 5:02 PM CDT Screening for diabetes mellitus COMPREHENSIVE METABOLIC PANEL Routine 12/09/2024 10:35 AM AGENT BROKER Iron deficiency anemia due to chronic blood loss EGFR Routine 12/09/2024 10:35 AM AGENT BROKER FERRITIN Routine 12/09/2024 10:35 AM AGENT BROKER Iron deficiency anemia due to chronic blood loss IRON PROFILE W/ IBC Routine 12/09/2024 1 0:35 AM AGENT BROKER Iron deficiency anemia due to chronic blood loss DIFFERENTIAL AUTO Routine 12/09/2024 10: 07 AM AGENT BROKER Iron deficiency anemia due to chronic blood loss CBC WITH AUTO DIFFERENTIAL Routine 12/09/2024 10:07 AM AGENT BROKER Iron deficiency anemia due to chronic blood loss from Last 3 Months Results * Hemoglobin A1c (01/19/2025 5:02 PM CDT) Hgb A1C 4.8 4.0 - 5.6 % Estimated Average Glucose 91 mg/dL [facility] Comment: The ADA recommends reporting an estimated Average Glucose (eAG) with all Hemoglobin A1c results using the equation derived from a study of 507 normal and diabetic adults. Minority populations were underrepresented and children were not included. (Diabetes Care 2020; 43(S1): S66-S76). The eAG is not equivalent to a fasting glucose. Blood 01/19/2025 5:02 PM CDT 01/19/2025 5:39 PM CDT us Kandis Robb SHEET ROCK APPLICATOR LAB BLOOD ORDERABLES Katie l Result Performing Organization Address [facility] Co de Phone Number [facility] Department [place] [address] * Gamma GT (01/19/2025 5:02 PM CDT) Pathologist [facility] GGT 9 5 - 35 Units/L Blood 01/19/2025 5:02 PM CDT 01/19/2025 5:39 PM CDT Narrative [facility] - 01/19/2025 6:19 PM CDT Vera, Please take these orders to any lab to be completed in late December . If you do not use a [place] lab, please call [phone] when you complete the lab with the name of the lab so we can obtain results. Please fax results to [phone] call [phone] with any questions. Rosanna Partida SHEET ROCK APPLICATOR LAB BLOOD ORDERABLES Fin al Result Performing Organization Address [facility] Co de Phone Number [facility] Department [place] [address] * (ABNORMAL) Hepatic function panel (01/19/2025 5:02 PM CDT) [facility] Bilirubin, total 0.2 0.1 - 1.2 mg/dL Bilirubin, direct <0.2 0.1 - 0.3 mg/dL [facility] Protein, pl 6.9 6.5 - 8.5 g/dL [facility] Albumin 4.4 3.5 - 5.0 g/dL [facility] Alk phos 133(H) 40 - 130 Units/L [facility] ALT 14 7 - 45 Units/L [facility] AST 13 10 - 45 Units/L [facility] Blood 01/19/2025 5:02 PM CDT 01/19/2025 5:39 PM CDT Narrative [facility] - 01/19/2025 6:19 PM CDT Vera, Please take these orders to any lab to be completed in late December . If you do not use a [place] lab, please call [phone] when you complete the lab with the name of the lab so we can obtain results. Please fax results to [phone] call [phone] with any questions. us Rosanna Partida NP LAB BLOOD ORDERABLES Fin al Result [facility] Department [place] [address] * Lipid panel (01/19/2025 5:02 PM CDT) Cholesterol 139 30 - 199 mg/dL Comment: Interpretive Data Ages < or = 19 years Acceptable: <170 mg/dL Borderline high: 170-199 mg/dL High: >or= 200 mg/dL Ages > or = 20 years Desirable: <200 mg/dL Borderline high: 200-239 mg/dL High: >or= 240 mg/dL Literature References: 1. Expert Panel on Integrated Guidelines for Cardiovascular Health and Risk Reduction in Children and Adolescents. Pediatrics 2011;128:S213 2. NCEP Expert Panel. Circulation 2004;110:227 Current Interpretive Data was last revised on 2018. Triglycerides 60 <=149 mg/dL [facility] Comment: Interpretive Data Ages < or = 9 years Acceptable: <75 mg/dL Borderline high: 75-99 mg/dL High: >or= 100 mg/dL Ages 10 to 20 years Acceptable: <90 mg/dL Borderline high: 90-129 mg/dL High: >or= 130 mg/dL Ages > or = 20 years Desirable: <150 mg/dL Borderline high: 150-199 mg/dL High: 200-499 mg/dL Very high: >or= 499 mg/dL Literature References: 1. Expert Panel on Integrated Guidelines for Cardiovascular Health and Risk Reduction in Children and Adolescents. Pediatrics 2011;128:S213 2. NCEP Expert Panel. Circulation 2004;110:227 Current Interpretive Data was last revised on 2018. HDL 51 >=40 mg/dL [facility] Comment: Interpretive Data Ages < or = 19 years Acceptable: >45 mg/dL Borderline low: 40-45 mg/dL Low: <40 mg/dL Ages > or = 20 years Desirable: >or= 60 mg/dL Low: <40 mg/dL Literature References: 1. Expert Panel on Integrated Guidelines for Cardiovascular Health and Risk Reduction in Children and Adolescents. Pediatrics 2011;128:S213 2. NCEP Expert Panel. Circulation 2004;110:227 Current Interpretive Data was last revised on 2018. LDL, calculated 75 <=129 mg/dL [facility] Comment: Interpretive Data Ages < or = 19 years Acceptable: <110 mg/dL Borderline high: 110-129 mg/dL High: >or= 130 mg/dL Ages > or = 20 years Optimal: <100 mg/dL Near optimal: 100-129 mg/dL Borderline high: 130-159 mg/dL High: >160 mg/dL Calculated using the Vladislav LDL-C estimating equation. This equation was implemented on 2024. Prior to this date LDL-C was estimated using the Friedewald equation. Literature References: 1. Expert Panel on Integrated Guidelines for Cardiovascular Health and Risk Reduction in Children and Adolescents. Pediatrics 2011;128:S213 2. NCEP Expert Panel. Circulation 2004;110:227 3. Vladislav Alford et al. EDITH Cardiol. 2019February 17;5(5):540-548. doi: 10.1001/jamacardio.2020.0013 Current Interpretive Data was last revised on 2024. Non-HDL Cholesterol 88 mg/dL [facility] Comment: Interpretive Data Ages < or = 19 years Acceptable: <120 mg/dL Borderline high: 120-144 mg/dL High: >145 mg/dL Ages > or = 20 years When triglycerides are >200 mg/dL, Non-HDL cholesterol is a secondary target of therapy with treatment goals that are 30 mg/dL greater than the LDL cholesterol target. Literature References: 1. Expert Panel on Integrated Guidelines for Cardiovascular Health and Risk Reduction in Children and Adolescents. Pediatrics 2011;128:S213 2. NCEP Expert Panel. Circulation 2004;110:227 Current Interpretive Data was last revised on 2018. Chol/HDL ratio 3 [facility] Blood 01/19/2025 5:02 PM CDT 01/19/2025 5:39 PM CDT us Kandis Edouard Robb SHEET ROCK APPLICATOR LAB BLOOD ORDERABLES Katie l Result Performing Organization Address [facility] Co de Phone Number [facility] Department [place] [address] * eGFR (12/09/2024 10:35 AM AGENT BROKER) eGFR >90 >=60 mL/min/1. 73 m2 Comment: Interpretive Data Reference Interval Normal >/= 90 mL/min/1.73m2 Mildly decreased* 60 - 89 mL/min/1.73m2 Mildly to moderately decreased 45 - 59 mL/min/1.73m2 Moderately to severely decreased 30 - 44 mL/min/1.73m2 Severely decreased 15 - 29 mL/min/1.73m2 Kidney Failure < 15 mL/min/1.73m2 *Relative to young adult level Estimated glomerular filtration rate is determined by the 2020 CKD-EPI equation recommended by the National Kidney Foundation (A Unifying Approach to GFR Estimation: Recommendations of the NKF-ASK Task Force on Reassessing the Inclusion of Race in Diagnosing Kidney Disease, JASN 2020). The CKD-EPI equation should not be used for patients with unstable renal function and has not been validated in children and those over 70. Current interpretive data was last reviewed 2021. Blood 12/09/2024 10:3 5 AM AGENT BROKER 12/09/2024 10:49 AM AGENT BROKER us Rosanna Partida SHEET ROCK APPLICATOR LAB BLOOD ORDERABLES Fin al Result Performing Organization Address [facility] Co de Phone Number [facility] Department [place] [address] * (ABNORMAL) Iron profile w/ IBC (12/09/2024 10:35 AM AGENT BROKER) Iron 18(L) 35 - 145 mcg/dL TIBC 239(L) 250 - 400 mcg/dL [facility] Transferrin saturation 8(L) 20 - 50 % [facility] Blood 12/09/2024 10:3 5 AM AGENT BROKER 12/09/2024 10:35 AM AGENT BROKER Rosanna Partida SHEET ROCK APPLICATOR LAB BLOOD ORDERABLES Fin al Result Performing Organization Address [facility] Co de Phone Number [facility] Department [place] [address] * Ferritin (12/09/2024 10:35 AM AGENT BROKER) [facility] Ferritin 45 13 - 150 ng/mL Blood 12/09/2024 10:3 5 AM AGENT BROKER 12/09/2024 10:35 AM AGENT BROKER Rosanna Partida SHEET ROCK APPLICATOR LAB BLOOD ORDERABLES Fin al Result Performing Organization Address [facility] de Phone Number [facility] Department [place] [address] * (ABNORMAL) Comprehensive metabolic panel (12/09/2024 10:35 AM AGENT BROKER) [facility] Sodium 145 135 - 145 mmol/L Potassium, pl 4.9 3.3 - 4.9 mmol/L [facility] Chloride 111(H) 97 - 110 mmol/L [facility] CO2 25 22 - 32 mmol/L [facility] Anion gap 9 2 - 15 mmol/L [facility] BUN 14 6 - 25 mg/dL [facility] Creatinine 0.40(L) 0.60 - 1.10 mg/dL [facility] Glucose 88 70 - 199 mg/dL [facility] Comment: Interpretive Data Fasting glucose >/= 126 mg/dl is diagnostic for diabetes. Fasting is defined as no caloric intake for at least 8 hours. Fasting glucose between 100 mg/dl to 125 mg/dl is diagnostic of prediabetes. In a patient with classic symptoms of hyperglycemia or hyperglycemic crisis, a random glucose >/= 200 mg/dl is diagnostic for diabetes. In the absence of unequivocal hyperglycemia, results should be confirmed by repeat testing. The classification and Diagnosis of Diabetes Diabetes Care 2021; 46: S19-S40. Current interpretive data was last revised 2022. Calcium 9.2 8.5 - 10.3 mg/dL [facility] Bilirubin, total 0.2 0.1 - 1.2 mg/dL [facility] SYSTEMS Protein, pl 6.9 6.5 - 8.5 g/dL [facility] Albumin 4.4 3.5 - 5.0 g/dL [facility] Alk phos 155(H) 40 - 130 Units/L [facility] ALT 13 7 - 45 Units/L [facility] AST 16 10 - 45 Units/L [facility] Blood 12/09/2024 10:3 5 AM AGENT BROKER 12/09/2024 10:35 AM AGENT BROKER Rosanna Partida SHEET ROCK APPLICATOR LAB BLOOD ORDERABLES Fin al Result [facility] Department [place] [address] * Differential, auto (12/09/2024 10:07 AM AGENT BROKER) Neutrophil abs 3.7 1.5 - 6.5 K/cumm Imm gran abs 0.0 0.0 - 0.1 K/cumm [facility] Lymphocyte abs 1.1 0.8 - 3.3 K/cumm [facility] Monocyte abs 0.3 0.2 - 0.8 K/cumm [facility] Eosinophil abs 0.0 0.0 - 0.5 K/cumm [facility] Basophil abs 0.0 0.0 - 0.1 K/cumm [facility] Neutrophil pct 71.1 % [facility] Comment: Interpretive Data Percent cell count reference ranges are not reported, since discordance with absolute values may lead to misinterpretation of CBC data. Current Interpretive Data was last revised on 2018. Imm gran pct 0.4 % [facility] Comment: Interpretive Data Percent cell count reference ranges are not reported, since discordance with absolute values may lead to misinterpretation of CBC data. Current Interpretive Data was last revised on 2018. Lymphocyte pct 21.9 % [facility] Comment: Interpretive Data Percent cell count reference ranges are not reported, since discordance with absolute values may lead to misinterpretation of CBC data. Current Interpretive Data was last revised on 2018. Monocyte pct 6.0 % [facility] Comment: Interpretive Data Percent cell count reference ranges are not reported, since discordance with absolute values may lead to misinterpretation of CBC data. Current Interpretive Data was last revised on 2018. Eosinophil pct 0.2 % [facility] Comment: Interpretive Data Percent cell count reference ranges are not reported, since discordance with absolute values may lead to misinterpretation of CBC data. Current Interpretive Data was last revised on 2018. Basophil pct 0.4 % [facility] Comment: Interpretive Data Percent cell count reference ranges are not reported, since discordance with absolute values may lead to misinterpretation of CBC data. Current Interpretive Data was last revised on 2018. Blood 12/09/2024 10:0 7 AM AGENT BROKER 12/09/2024 10:49 AM AGENT BROKER Rosanna Partida SHEET ROCK APPLICATOR LAB BLOOD ORDERABLES Fin al Result [facility] Department [place] [address] * (ABNORMAL) CBC with auto differential (12/09/2024 10:07 AM AGENT BROKER) WBC 5.2 3.8 - 9.9 K/cumm Hgb 9.5(L) 11.9 - 15.5 g/dL [facility] Hct 34.3(L) 35.6 - 45.5 % [facility] Plt 339 150 - 400 K/cumm [facility] MPV 9.9 9.1 - 12.3 fL [facility] RBC 4.70 3.90 - 5.20 M/cumm [facility] MCV 73.0(L) 81.3 - 96.4 fL [facility] MCH 20.2(L) 27.1 - 33.3 pg [facility] MCHC 27.7(L) 32.3 - 35.7 g/dL [facility] RDW CV 21.1(H) 11.1 - 14.9 % [facility] RDW SD 55.0(H) 35.7 - 48.1 fL [facility] NRBC abs 0.00 0.00 - 0.01 K/cumm [facility] Blood 12/09/2024 10:0 7 AM AGENT BROKER 12/09/2024 10:49 AM AGENT BROKER Rosanna Partida SHEET ROCK APPLICATOR LAB BLOOD ORDERABLES Fin al Result [facility] Department [place] [address] from Last [address] [place] [address] [place] [address] [place] [address] [facility] Advance Directives For more information, please contact: [phone] * Full Code (Latest Code Status on File) Date Activated Date Inactivated Comments 01/20/2024 9:37 AM 01/20/2024 5:42 PM * Full Code Date Activated Date Inactivated Comments 04/29/2023 10:54 AM 04/30/2023 5:26 AM Care Teams Activity Therapist Relationship Specialty Start Date End Date Kandis Robb NP PCP - General Nurse Practitioner 05/13/24
--- OUTSIDE RECORDS SUMMARY | 2025-02-07 16:58 | XMS_ITS | Clinical Summary ---
Author Organization [facility] Address [facility] [place] [address] Care Team Providers Care Vamp Presser Name Role Phone Katty Juarez Prashanth Primary Care Provider [phone] Allergies Active Allergy Reactions Criticality Noted Date Comments Amoxicillin Rash Low 01/16/2023 Latex Itching,Nausea and Vomiting,Rash,Shortness of Breath,Swelling,Unknown High 01/30/2015 Medications acetaminophen (TYLENOL) 500 MG tablet Tylenol 250 mg po bid prn Active lamoTRIgine (LAMICTAL) 200 MG tabletIndication s:Nonintractable epilepsy without status epilepticus, unspecified epilepsy type ([facility]) Take 1 tablet (200 mg total) by mouth 2 (two) times daily. With 100 mg qhs for a total of 300 mg qhs. 180 tablet 1 05/02/2023 Active Active Problems Problem Noted Date Diagnosed Date Spina bifida of thoracic reg ion with hydrocephalus ([facility]) 01/16/2023 Hydrocephalus with operating shunt ([facility]) 01/16/2023 Neuromuscular dysfunction of bladder 01/16/2023 Chiari malformation type II ([facility]) Nonintractable epilepsy with out status epilepticus, unspecified epilepsy type ([facility]) 01/16/2023 Scoliosis, unspecified scoli osis type, unspecified spinal region 01/16/2023 Clubfoot of both lower extremities 01/16/2023 Mixed anxiety and depressive disorder 01/16/2023 Intellectual disability 01/16/2023 Iron deficiency anemia, unsp ecified iron deficiency anemia type 01/16/2023 Suprapubic catheter ([facility]) 01/16/2023 Immunizations Immunization Administration Dates Next Due Influenza Adult (Generic) 08/01/2015 Family History Relation Status Comments Brother Alive Father Alive Maternal Grandfather Maternal Grandmother Alive Mother Alive Paternal Grandfather Paternal Grandmother Sister Alive Social History Tobacco Use Types Packs/Day Years Used Date Smoking Tobacco: Never Smokeless Tobacco: Never Tobacco Cessation:Counseling Given: Not Answered Alcohol Use Standard Drinks/Week Comments Never 0 (1 standard drink = 0.6 oz pur e alcohol) PHQ-2 Answer Date Recorded Patient Health Questionnaire-2 Score 0 01/16/2023 Comments No Sex and Gender Information Value Date Recorded Sex Assigned at Not on file Legal Sex Female 5:02 PM CDT Gender Identity Not on file Sexual Orientation Not on file Last Filed Vital Signs Vital Sign Reading Time Taken Comments Blood Pressure 96/66 01/16/2023 1:47 PM CDT Pulse 109 01/16/2023 1:47 PM CDT Temperature 37 C (98.6 F) 01/16/2023 1:47 PM CDT Respiratory Rate 22 01/16/2023 1:47 PM CDT Oxygen Saturation 100% 01/16/2023 1:47 PM CDT Inhaled Oxygen Concentration - - Weight 62.6 kg (138 lb) 10/23/2015 10:48 AM [employer] LE[employer] Height - - Body Mass Index - - Plan of Treatment Health Maintenance Due Date Last Done Comments Cervical Cancer Screening Pa p Smear (Age 30 to 64) Every 3 Years 1988 Annual Physical 1991 Hepatitis C 2006 DTaP, Tdap and Td Vaccines ( 1 - Tdap) 2007 Hepatitis B Vaccines (1 of 3 - 19+ 3-dose series) 2007 Cervical Cancer Screening Pa p with HPV Testing (Age 30 to 64) Every 5 Years 2018 Cervical Cancer Screening with HPV 2018 COVID-19 Vaccine (2023-2 5 season) 2024 PHQ-2 (Physician [place]) 10/20/2024 HPV Vaccines Aged Out No longer eligi ble based on patient's age to complete this topic Meningococcal B Vaccine Aged Out No l onger eligible based on patient's age to complete this topic Meningococcal Vaccine Aged Out No sebastian karen eligible based on patient's age to complete this topic Pneumococcal Vaccine: Pediat rics (0 to 5 Years) and At-Risk Patients (6 to 49 Years) Aged Out No longer eligible b ased on patient's age to complete this topic RSV Immunizations Under 20 Months Aged Out No longer eligible based on patient's age to complete this topic Insurance [facility] [facility] Care Teams Vamp Presser Relationship Specialty Start Date End Date Juarez Alaniz DO [address] [place], [place] [id number] PCP - General FAMILY PRACTICE 01/03/23
--- OUTSIDE RECORDS SUMMARY | 2025-02-07 16:58 | XMS_ITS | Encounter Summary ---
Author Organization [facility] Address [address] [place] [address] Phone Care Team Providers Care Insecticide Maker Name Role Phone Kandis Robb MARKETING OPERATIONS SPECIALIST Primary Care Provider [phone] Encounter Details Date Type Department Care Team (Late st Contact Info) Description 01/20/2025 Results Follow-Up [facility] [address] [facility] [address] [place] [address] [place] [address] Kandis Robb NP [address] [place] [address] Social History Tobacco Use Types Packs/Day Years [...] on file Legal Sex Female 9:03 PM MILLWRIGHT HELPER Gender Identity Female 04/06/2023 2:19 PM CDT Sexual Orientation Straight 04/06/2023 2: 19 PM CDT documented as of this encounter Plan of Treatment Not on file documented as of this encounter Visit Diagnoses Not on filedocumented in this encounter Care Teams Insecticide Maker Relationship Specialty Start Date End Date Kandis Robb NP PCP - General Nurse Practitioner 05/13/24 documented as of this encounter
--- OUTSIDE RECORDS SUMMARY | 2025-02-07 16:58 | XMS_ITS | Clinical Summary ---
Author Organization [place] [id number] [facility] Address [address] [place] [address] Care Team Providers Care Needle Setter Name Role Phone Kandis Robb PINSETTER MECHANIC AUTOMATIC Primary Care Provider [phone] Allergies Active Allergy Reactions Criticality Noted Date [...] ORAL)Indications :Supplement Take 1 tablet by mouth dog groomer before breakfast Active acetaminophen (TYLENOL) 325 mg [...] 12/09/2024 Assessment & Plan (12/09/2024 9:50 AM DICER MACHINE OPERATOR): Patient with liver lesions incidentally found during [...] MR Assessment & Plan (10/21/2024 2:13 PM DICER MACHINE OPERATOR): Update specs as desired. Nosophobia 07/24/2023 Overview [...] Depression 07/24/2023 Overview (07/24/2023): POORLY CONTROLLED W/ [id number] WORSENING PAST FEW MONTHS Dysthymia 07/24/2023 Kyphosis 07/24/2023 Spina bifida 07/24/2023 Overview (01/21/2025): -still has not received shower chair -mother states she is needing a shower bench but having trouble finding one -also needs a new transfer board, her current board is chipping Will see if we can clarify with [facility]. Acute serous otitis media, right ear 06/27/2023 [...] 01/16/2023 Assessment & Plan (10/21/2024 2:15 PM DICER MACHINE OPERATOR): Stable exam with excellent visual function (BCVA, [...] yesterday Assessment & Plan (12/09/2024 9:51 AM DICER MACHINE OPERATOR): Has upcoming appt with hematology. Ordered CBC, [...] spina bifida without hydrocephalus 2014 Scoliosis 04/21/2015 Encounters Date Type Department Care Team Description 01/24/2025 Documentation [facility] [address] [facility] 12th [place] [address] [place] [address] Sai Mack, SAVANNA 01/24/2025 Results Follow-Up [facility] [address] [facility] 12th [place] [address] [place] [address] Rosanna Partida, GAVINO 01/21/2025 Telephone [facility] [address] [place] [address] Medical Office Building [address], [address] [place] [address] Georgia Fairchild, SAVANNA 01/20/2025 Telephone [facility] [address] [place] [address] Medical Office Building [address], [address] [place] [address] Edith Miguel RN Forms/questionnaires 01/20/2025 Results Follow-Up [facility] [address] [place] [address] [place] [address] Kandis Robb, GAVINO 01/19/2025 7:15 PM CDT Lab [facility] ([facility]) [address] [place] [phone] Liver lesion 01/19/2025 7:00 PM CDT Lab [facility] ([facility]) [address] [place] [phone] Screening for diabetes mellitus; Screening for cholesterol level 01/19/2025 3:40 PM CDT Office Visit [facility] [address] [facility] 12th [place] [address] [place] [address] Kandis Robb, GAVINO Wellness examination (Primary Dx); Screening for diabetes mellitus; Screening for cholesterol level; Iron deficiency anemia, unspecified iron deficiency anemia type; Anxiety disorder, unspecified type; Spina bifida, unspecified hydrocephalus presence, unspecified spinal region (HCC) 01/18/2025 3:00 PM CDT Infusion [facility] - Infusion [address] [facility] Floor 5 [place] [address] Iron deficiency anemia, unspecified iron deficiency anemia type (Primary Dx) 01/11/2025 3:00 PM CDT Infusion [facility] - [facility]fusion [address] [facility] Floor 6 [place] [address] Iron deficiency anemia, unspecified iron deficiency anemia type (Primary Dx) 01/04/2025 3:00 PM CDT Infusion [facility] - Infusion [address] [facility] Floor 6 [place] [address] Iron deficiency anemia, unspecified iron deficiency anemia type (Primary Dx) 12/22/2024 Telephone [facility] [address] [place] [address] Advanced Medicine 12th [place] [address] [place] [address] Genesis Silverman Labs due late December to late 12/20/2024 Orders Only [facility] Floor 6 [place] [address] Fidelina Mancera RN Iron deficiency anemia, unspecified iron deficiency anemia type (Primary Dx) 12/16/2024 Orders Only [facility] Floor 6 [place] [address] Maya Farfan 12/15/2024 Results Follow-Up [facility] [address] [place] [address] [place] [address] [place] [address] Rosanna Partida NP 12/11/2024 Documentation [facility] [address] [place] [address] Ashley Alexandra 12/09/2024 10:35 AM DICER MACHINE OPERATOR Lab [facility] ([facility]) [address] [place] [phone] Iron deficiency anemia due to chronic blood loss 12/09/2024 9:00 AM DICER MACHINE OPERATOR Office Visit [facility] [address] [place] [address] Medicine 12th [place] [address] [place] [address] Rosanna Partida NP Iron deficiency anemia due to chronic blood loss (Primary Dx); Liver lesion from Last 3 Months Immunizations Immunization Administration Dates Next Due Influenza, Quadrivalent, Spl it, Preservative Free, Intramuscular 08/01/2015 Influenza, Unspecified 08/01/2015 Surgical History Surgery Date Site/Laterality Comments COTTON PICKER OPERATOR SHUNT INSERTION BLADDER AUGMENTATION SUPRAPUBIC CATHETER INSERTION VENTRICULOPERITONEAL SHUNT Medical History Medical History Date Comments Spina bifida (HCC) T 12 level Hydrocephalus (HCC) with COTTON PICKER OPERATOR shun t Chiari malformation type II (HCC) Epilepsy (HCC) Scoliosis Cervical kyphosis Clubfoot Anxiety and depression Frequent UTI Intellectual disability Anemia Migraines Neuromuscular disorder (HCC) Ear problems History of transfusion Motion sickness Arnold-Chiari malformation, type II (HCC) Hydrocephalus with operating shunt (HCC) Epilepsy (HCC) Neuromuscular dysfunction of bladder Bowel dysfunction Scoliosis Family History Medical History Relation Name Comments Diabetes Father Heart disease Father Kidney disease Father Heart disease Maternal Grandmother Hypertension Maternal Grandmother Arthritis Mother Cancer Mother Diabetes Mother Hypertension Mother Mental illness Mother Hypertension Mother's Sister Diabetes Paternal Grandfather Heart disease Paternal Grandfather Anesthesia problems Neg Hx Malig Hypertension Neg Hx Malig Hyperthermia Neg Hx Pseudochol deficiency Neg Hx Relation Name Status Comments Father Maternal Grandmother Mother Mother's Sister Paternal Grandfather Social History Tobacco Use Types Packs/Day Years [...] on file Legal Sex Female 9:03 PM DICER MACHINE OPERATOR Gender Identity Female 04/06/2023 2:19 PM CDT Sexual Orientation Straight 04/06/2023 2: 19 PM CDT Obstetrics History Last Filed Vital Signs Vital Sign Reading Time Taken Comments Blood Pressure 107/66 01/19/2025 3:38 PM CDT Pulse 82 01/19/2025 3:38 PM CDT Temperature 36.9 C (98.4 F) 01/19/2025 3:38 PM CDT Respiratory Rate 18 01/18/2025 5:07 PM CDT Oxygen Saturation 100% 01/18/2025 5:0 7 PM CDT Inhaled Oxygen Concentration - - Weight 74.8 kg (165 lb) 11/03/2024 2:07 PM DICER MACHINE OPERATOR manufacture chair weighs 138.6lb + 165.0lbs total would equal 303lbs. Patient also stated possible weight Height 149.9 cm (4' 11 ) 01/19/2025 3:3 8 PM CDT Body Mass Index 33.33 08/18/2024 10:43 AM CDT Plan of Treatment Health Maintenance Due Date Last Done Comments Cervical Cancer Screening 1988 Hepatitis C Screening 1988 DTaP/Tdap/Td Vaccine (1 - Tdap) 1999 Pneumococcal vaccine <65 (1 of 2 - PCV) 2007 Influenza Vaccine (Season Ended) 2025 08/01/2015, 08/01/2015 Depression Screening 01/19/2026 01/19/2025, 01/19/2025 Regular Well Visit/Exam 18-64 01/19/2026 01/19/2025 HPV Vaccines Aged Out No longer eligi ble based on patient's age to complete this topic Varicella Vaccines Discontinued Medical Devices Implanted Type Area Computational Physicist Device Identifier Shelf Expiration Date Model / [...] COMPREHENSIVE METABOLIC PANEL Routine 12/09/2024 10:35 AM DICER MACHINE OPERATOR Iron deficiency anemia due to chronic blood loss EGFR Routine 12/09/2024 10:35 AM DICER MACHINE OPERATOR FERRITIN Routine 12/09/2024 10:35 AM DICER MACHINE OPERATOR Iron deficiency anemia due to chronic blood loss IRON PROFILE W/ IBC Routine 12/09/2024 1 0:35 AM DICER MACHINE OPERATOR Iron deficiency anemia due to chronic blood loss DIFFERENTIAL AUTO Routine 12/09/2024 10: 07 AM DICER MACHINE OPERATOR Iron deficiency anemia due to chronic blood loss CBC WITH AUTO DIFFERENTIAL Routine 12/09/2024 10:07 AM DICER MACHINE OPERATOR Iron deficiency anemia due to chronic blood loss from Last 3 Months Results * Hemoglobin A1c (01/19/2025 5:02 PM CDT) [facility] Hgb A1C 4.8 4.0 - 5.6 % Estimated Average Glucose 91 mg/dL [facility] Comment: The ADA recommends reporting an estimated Average Glucose (eAG) with all Hemoglobin A1c results using the equation derived from a study of 507 normal and diabetic adults. Minority populations were underrepresented and children were not included. (Diabetes Care 2020; 43(S1): S66-S76). The eAG is not equivalent to a fasting glucose. Blood 01/19/2025 5:02 PM CDT 01/19/2025 5:39 PM CDT us Kandis Robb NP LAB BLOOD ORDERABLES Katie l Result [facility] Department [place] [address] * Gamma GT (01/19/2025 5:02 PM CDT) [facility] GGT 9 5 - 35 Units/L Blood 01/19/2025 5:02 PM CDT 01/19/2025 5:39 PM CDT Narrative [facility] - 01/19/2025 6:19 PM CDT Vera, Please take these orders to any lab to be completed in late December . If you do not use a [facility] lab, please call [phone] when you complete the lab with the name of the lab so we can obtain results. Please fax results to [phone] call [phone] with any questions. Rosanna Partida NP LAB BLOOD ORDERABLES Fin al Result Performing Organization Address [facility] Co de Phone Number [facility] [employer] [place], [place] [id number] * (ABNORMAL) Hepatic function panel (01/19/2025 5:02 PM CDT) Pathologist [facility] Bilirubin, total 0.2 0.1 - 1.2 mg/dL Bilirubin, direct <0.2 0.1 - 0.3 mg/dL [facility] Protein, pl 6.9 6.5 - 8.5 g/dL [facility] Albumin 4.4 3.5 - 5.0 g/dL [facility] Alk phos 133(H) 40 - 130 Units/L [facility] ALT 14 7 - 45 Units/L [facility] AST 13 10 - 45 Units/L [facility] Blood 01/19/2025 5:02 PM CDT 01/19/2025 5:39 PM CDT Narrative [facility] - 01/19/2025 6:19 PM CDT Vera, Please take these orders to any lab to be completed in december . If you do not use a [facility] lab, please call [phone] when you complete the lab with the name of the lab so we can obtain results. Please fax results to [phone] call [phone] with any questions. Rosanna Partida NP LAB BLOOD ORDERABLES Fin al Result Performing Organization Address [facility] Co de Phone Number [facility] [employer] [place], [place] [id number] * Lipid panel (01/19/2025 5:02 PM CDT) [...] revised on 2018. Triglycerides 60 <=149 mg/dL [facility] Comment: Interpretive Data Ages < or = [...] revised on 2018. HDL 51 >=40 mg/dL [facility] Comment: Interpretive Data Ages < or = [...] on 2018. LDL, calculated 75 <=129 mg/dL [facility] Comment: Interpretive Data Ages < or = [...] revised on 2024. Non-HDL Cholesterol 88 mg/dL [facility] Comment: Interpretive Data Ages < or = [...] last revised on 2018. Chol/HDL ratio 3 [facility] Blood 01/19/2025 5:02 PM CDT 01/19/2025 5:39 PM CDT us Kandis Robb PINSETTER MECHANIC AUTOMATIC LAB BLOOD ORDERABLES Katie leonardo Result [facility] Department [place] [address] * eGFR (12/09/2024 10:35 AM DICER MACHINE OPERATOR) eGFR >90 >=60 mL/min/1. 73 m2 Comment: [...] reviewed 2021. Blood 12/09/2024 10:3 5 AM DICER MACHINE OPERATOR 12/09/2024 10:49 AM DICER MACHINE OPERATOR Rosanna Partida NP LAB BLOOD ORDERABLES Fin al Result Performing Organization Address City/[facility]/ZIP Co de Phone Number [facility] [place] [employer] [place] [address] * (ABNORMAL) Iron profile w/ IBC (12/09/2024 10:35 AM DICER MACHINE OPERATOR) Iron 18(L) 35 - 145 mcg/dL TIBC 239(L) 250 - 400 mcg/dL [facility] Transferrin saturation 8(L) 20 - 50 % [facility] Blood 12/09/2024 10:3 5 AM DICER MACHINE OPERATOR 12/09/2024 10:35 AM DICER MACHINE OPERATOR Rosanna Partida NP LAB BLOOD ORDERABLES Fin al Result [facility] [place] [employer] [place] [address] * Ferritin (12/09/2024 10:35 AM DICER MACHINE OPERATOR) Ferritin 45 13 - 150 ng/mL Blood 12/09/2024 10:3 5 AM DICER MACHINE OPERATOR 12/09/2024 10:35 AM DICER MACHINE OPERATOR Rosanna Partida NP LAB BLOOD ORDERABLES Fin al Result [facility] Department [place] [address] * (ABNORMAL) Comprehensive metabolic panel (12/09/2024 10:35 AM DICER MACHINE OPERATOR) Sodium 145 135 - 145 mmol/L Potassium, pl 4.9 3.3 - 4.9 mmol/L [facility] Chloride 111(H) 97 - 110 mmol/L [facility] CO2 25 22 - 32 mmol/L [facility] Anion gap 9 2 - 15 mmol/L [facility] BUN 14 6 - 25 mg/dL [facility] Creatinine 0.40(L) 0.60 - 1.10 mg/dL [facility] Glucose 88 70 - 199 mg/dL [facility] Comment: Interpretive Data Fasting glucose >/= 126 [...] 2022. Calcium 9.2 8.5 - 10.3 mg/dL [facility] Bilirubin, total 0.2 0.1 - 1.2 mg/dL [facility] Protein, pl 6.9 6.5 - 8.5 g/dL [facility] Albumin 4.4 3.5 - 5.0 g/dL [facility] Alk phos 155(H) 40 - 130 Units/L [facility] ALT 13 7 - 45 Units/L [facility] AST 16 10 - 45 Units/L [facility] Blood 12/09/2024 10:3 5 AM DICER MACHINE OPERATOR 12/09/2024 10:35 AM DICER MACHINE OPERATOR us Rosanna Partida NP LAB BLOOD ORDERABLES Fin al Result [facility] Department [place] [address] * Differential, auto (12/09/2024 10:07 AM DICER MACHINE OPERATOR) Neutrophil abs 3.7 1.5 - 6.5 K/cumm Imm gran abs 0.0 0.0 - 0.1 K/cumm [facility] Lymphocyte abs 1.1 0.8 - 3.3 K/cumm [facility] Monocyte abs 0.3 0.2 - 0.8 K/cumm [facility] Eosinophil abs 0.0 0.0 - 0.5 K/cumm [facility] Basophil abs 0.0 0.0 - 0.1 K/cumm [facility] Neutrophil pct 71.1 % [facility] Comment: Interpretive Data Percent cell count reference ranges are not reported, since discordance with absolute values may lead to misinterpretation of CBC data. Current Interpretive Data was last revised on 2018. Imm gran pct 0.4 % [facility] Comment: Interpretive Data Percent cell count reference ranges are not reported, since discordance with absolute values may lead to misinterpretation of CBC data. Current Interpretive Data was last revised on 2018. Lymphocyte pct 21.9 % [facility] Comment: Interpretive Data Percent cell count reference ranges are not reported, since discordance with absolute values may lead to misinterpretation of CBC data. Current Interpretive Data was last revised on 2018. Monocyte pct 6.0 % [facility] Comment: Interpretive Data Percent cell count reference ranges are not reported, since discordance with absolute values may lead to misinterpretation of CBC data. Current Interpretive Data was last revised on 2018. Eosinophil pct 0.2 % [facility] Comment: Interpretive Data Percent cell count reference ranges are not reported, since discordance with absolute values may lead to misinterpretation of CBC data. Current Interpretive Data was last revised on 2018. Basophil pct 0.4 % [facility] Comment: Interpretive Data Percent cell count reference ranges are not reported, since discordance with absolute values may lead to misinterpretation of CBC data. Current Interpretive Data was last revised on 2018. Blood 12/09/2024 10:0 7 AM DICER MACHINE OPERATOR 12/09/2024 10:49 AM DICER MACHINE OPERATOR Rosanna Partida NP LAB BLOOD ORDERABLES Fin al Result Performing Organization Address [facility] Co de Phone Number [facility] Department [place] [address] * (ABNORMAL) CBC with auto differential (12/09/2024 10:07 AM DICER MACHINE OPERATOR) WBC 5.2 3.8 - 9.9 K/cumm Hgb 9.5(L) 11.9 - 15.5 g/dL [facility] Hct 34.3(L) 35.6 - 45.5 % [facility] Plt 339 150 - 400 K/cumm [facility] MPV 9.9 9.1 - 12.3 fL [facility] RBC 4.70 3.90 - 5.20 M/cumm [facility] MCV 73.0(L) 81.3 - 96.4 fL [facility] MCH 20.2(L) 27.1 - 33.3 pg [facility] MCHC 27.7(L) 32.3 - 35.7 g/dL [facility] RDW CV 21.1(H) 11.1 - 14.9 % [facility] RDW SD 55.0(H) 35.7 - 48.1 fL [facility] NRBC abs 0.00 0.00 - 0.01 K/cumm [facility] Blood 12/09/2024 10:0 7 AM DICER MACHINE OPERATOR 12/09/2024 10:49 AM DICER MACHINE OPERATOR Rosanna Partida NP LAB BLOOD ORDERABLES Fin al Result Performing Organization Address [facility] Co de Phone Number [facility] Department [place] [address] from Last [address] [place] [address] [place] [address] [employer] Advance Directives For more information, please contact: [phone] * Full Code (Latest Code Status on File) Date Activated Date Inactivated Comments 01/20/2024 9:37 AM 01/20/2024 5:42 PM * Full Code Date Activated Date Inactivated Comments 04/29/2023 10:54 AM 04/30/2023 5:26 AM Care Teams Needle Setter Relationship Specialty Start Date End Date Kandis Robb NP PCP - General Nurse Practitioner 05/13/24
[2025-02-07 17:03] LABS: Alanine Aminotransferase 14 U/L (6-35); Albumin Level 4.1 g/dL (3.5-5.1); Alkaline Phosphatase 99 U/L (38-126); Anion Gap 12 mmol/L (4-12); Aspartate Amino Transferase 13 U/L (14-36); Bilirubin,Total 0.3 mg/dL (0.2-1.3); Blood Urea Nitrogen 14 mg/dL (7-17); Calcium 8.9 mg/dL (8.4-10.2); Carbon Dioxide 22 mmol/L (22-30); Chloride 105 mmol/L (98-107); Estimated Glomerular Filt Rate > 60; Glucose 153 mg/dL (65-110); INR 1.1; Potassium 3.7 mmol/L (3.4-5.0); Prothrombin Time 15.1 Seconds (11.1-14.7); Sodium 139 mmol/L (137-145)
[2025-02-07 17:09] LABS: Anisocytosis 1+; Hypochromasia 1+; Platelet Estimate Adequate (Adequate)
[2025-02-07 17:10] LABS: Ovalocytes 1+; Schistocytes None Seen
[2025-02-07 17:14] LABS: CRP 12.5 mg/dL (<1.0)
[2025-02-07 17:32] LABS: Erythrocyte Sedimentation Rate 23 mm/hr (0-20)
[2025-02-07] MEDS: SODIUM CHLORIDE 0.9% IV 1,000 ML 999 ML IV CONT ×2 (18:36→18:37)
[2025-02-07 18:45] LABS: Reflex Lactic Acid Yes or No Add Lactic
--- OUTSIDE RECORDS SUMMARY | 2025-02-07 18:45 | XMS_ITS | Clinical Summary ---
Author Organization [place] [id number] [facility] Address [address] [place] [address] Care Team Providers Care Vpk Teacher Name Role Phone Kandis Robb PHYSICAL THERAPY COORDINATOR Primary Care Provider [phone] Allergies Active Allergy Reactions Criticality Noted Date [...] ORAL)Indications :Supplement Take 1 tablet by mouth promotions executive producer before breakfast Active acetaminophen (TYLENOL) 325 mg [...] 12/09/2024 Assessment & Plan (12/09/2024 9:50 AM SHELTER DIRECTOR): Patient with liver lesions incidentally found during [...] MR Assessment & Plan (10/21/2024 2:13 PM SHELTER DIRECTOR): Update specs as desired. Nosophobia 07/24/2023 Overview [...] Depression 07/24/2023 Overview (07/24/2023): POORLY CONTROLLED W/ [id number] WORSENING PAST FEW MONTHS Dysthymia 07/24/2023 Kyphosis 07/24/2023 Spina bifida 07/24/2023 Overview (01/21/2025): -still has not received shower chair -mother states she is needing a shower bench but having trouble finding one -also needs a new transfer board, her current board is chipping Will see if we can clarify with [facility]. Acute serous otitis media, right ear [...] 01/16/2023 Assessment & Plan (10/21/2024 2:15 PM SHELTER DIRECTOR): Stable exam with excellent visual function (BCVA, [...] yesterday Assessment & Plan (12/09/2024 9:51 AM SHELTER DIRECTOR): Has upcoming appt with hematology. Ordered CBC, [...] Type Department Care Team Description 01/24/2025 Documentation [facility] Gastroenterology [address] [facility] [address] 12th [place] [address] [place] [address] Sai Mack, SAVANNA 01/24/2025 Results Follow-Up [facility] Gasteroenterology [address] 12th [place] [address] [place] [address] Rosanna Partida, GAVINO 01/21/2025 Telephone [facility] Complete Care [address] [place] [address] Medical Office Building [address], [address] [place] [address] [place] Fairchild, SAVNANA 01/20/2025 Telephone [facility] Complete Care [address] [place] [address] Medical Office Building [address], [address] [place] [address] Edith Miguel RN Forms/questionnaires 01/20/2025 Results Follow-Up [facility] [address] [place] [address] [place] [address] Kandis Robb, GAVINO 01/19/2025 7:15 PM CDT Lab [facility] Advanced [facility] ([facility]) [address] [place] [address] Liver lesion 01/19/2025 7:00 PM CDT Lab [facility] ([facility]) [address] [place] [address] Screening for diabetes mellitus; Screening for cholesterol level 01/19/2025 3:40 PM CDT Office Visit [facility] Complete [facility] [address] 12th [place] [address] [place] [address] Kandis Robb, GAVINO Wellness examination (Primary Dx); Screening for diabetes mellitus; Screening for cholesterol level; Iron deficiency anemia, unspecified iron deficiency anemia type; Anxiety disorder, unspecified type; Spina bifida, unspecified hydrocephalus presence, unspecified spinal region (HCC) 01/18/2025 3:00 PM CDT Infusion [facility] - Infusion [address] [facility] [address] 5 [place] [address] Iron deficiency anemia, unspecified iron deficiency anemia type (Primary Dx) 01/11/2025 3:00 PM CDT Infusion [facility] [place] - Infusion [address] [facility] Floor 6 [place] [address] Iron deficiency anemia, unspecified iron deficiency anemia type (Primary Dx) 01/04/2025 3:00 PM CDT Infusion [facility] - Infusion [address] [facility] Floor 6 [place] [address] Iron deficiency anemia, unspecified iron deficiency anemia type (Primary Dx) 12/22/2024 Telephone [facility] Gastroenterology [address] [place] [address] Advanced Medicine 12th [place] [address] [place] [address] Genesis Silverman Labs due late December to late 12/20/2024 Orders Only [facility] Hematology [facility] Floor 6 [place] [address] Fidelina Mancera RN Iron deficiency anemia, unspecified iron deficiency anemia type (Primary Dx) 12/16/2024 Orders Only [facility] Hematology [facility] Floor 6 [place] [address] Maya Farfan 12/15/2024 Results Follow-Up [facility] Gasteroenterology [address] [place] [address] [place] [address] [place] [address] Rosanna Partida NP 12/11/2024 Documentation [facility] Surgery [address] [place] [address] Ashley Alexandra 12/09/2024 10:35 AM SHELTER DIRECTOR Lab [facility] ([facility]) [address] [place] [address] Iron deficiency anemia due to chronic blood loss 12/09/2024 9:00 AM SHELTER DIRECTOR Office Visit [facility] Gastroenterology [address] [place] [address] Medicine 12th [place] [address] [place] [address] Rosanna Partida NP Iron deficiency anemia due to chronic blood loss (Primary Dx); Liver lesion from Last 3 Months Immunizations Immunization Administration Dates Next Due Influenza, Quadrivalent, Spl it, Preservative Free, Intramuscular 08/01/2015 Influenza, Unspecified 08/01/2015 Surgical History Surgery Date Site/Laterality Comments PROFESSOR OF SPECIAL EDUCATION SHUNT INSERTION BLADDER AUGMENTATION SUPRAPUBIC CATHETER INSERTION VENTRICULOPERITONEAL SHUNT Medical History Medical History Date Comments Spina bifida (HCC) T 12 level Hydrocephalus (HCC) with PROFESSOR OF SPECIAL EDUCATION shun t Chiari malformation type II (HCC) [...] on file Legal Sex Female 9:03 PM SHELTER DIRECTOR Gender Identity Female 04/06/2023 2:19 PM CDT [...] 74.8 kg (165 lb) 11/03/2024 2:07 PM SHELTER DIRECTOR manufacture chair weighs 138.6lb + 165.0lbs total [...] Vaccines Discontinued Medical Devices Implanted Type Area Mill Machinist Device Identifier Shelf Expiration Date Model / [...] COMPREHENSIVE METABOLIC PANEL Routine 12/09/2024 10:35 AM SHELTER DIRECTOR Iron deficiency anemia due to chronic blood loss EGFR Routine 12/09/2024 10:35 AM SHELTER DIRECTOR FERRITIN Routine 12/09/2024 10:35 AM SHELTER DIRECTOR Iron deficiency anemia due to chronic blood loss IRON PROFILE W/ IBC Routine 12/09/2024 1 0:35 AM SHELTER DIRECTOR Iron deficiency anemia due to chronic blood loss DIFFERENTIAL AUTO Routine 12/09/2024 10: 07 AM SHELTER DIRECTOR Iron deficiency anemia due to chronic blood loss CBC WITH AUTO DIFFERENTIAL Routine 12/09/2024 10:07 AM SHELTER DIRECTOR Iron deficiency anemia due to chronic blood loss from Last 3 Months Results * Hemoglobin A1c (01/19/2025 5:02 PM CDT) [facility] Hgb A1C 4.8 4.0 - 5.6 % [...] ORDERABLES Katie l Result [facility] [place] [address] * Gamma GT (01/19/2025 5:02 PM CDT) [facility] GGT 9 5 - 35 Units/L Blood 01/19/2025 5:02 PM CDT 01/19/2025 5:39 PM CDT Narrative [facility] - 01/19/2025 6:19 PM CDT Vera, Please take these orders to any lab to be completed in late December . If you do not use a [employer] lab, please call [phone] when you complete the lab with the name of the lab so we can obtain results. Please fax results to [phone] call [phone] with any questions. Rosanna Partida NP LAB BLOOD ORDERABLES Fin al Result Performing Organization Address [facility] Co de Phone Number [facility]rell [facility] [employer] [place], [place] [id number] * (ABNORMAL) Hepatic function panel (01/19/2025 5:02 PM CDT) Pathologist [facility] Bilirubin, total 0.2 0.1 - 1.2 mg/dL Bilirubin, direct <0.2 0.1 - 0.3 mg/dL [facility] Protein, pl 6.9 6.5 - 8.5 g/dL [facility] Albumin 4.4 3.5 - 5.0 g/dL [facility] Alk phos 133(H) 40 - 130 Units/L [facility] ALT 14 7 - 45 Units/L [facility] AST 13 10 - 45 Units/L [facility] Blood 01/19/2025 5:02 PM CDT 01/19/2025 5:39 PM CDT Narrative [facility] - 01/19/2025 6:19 PM CDT Vera, Please take these orders to any lab to be completed in december . If you do not use a [facility] lab, please call [phone] when you complete the lab with the name of the lab so we can obtain results. Please fax results to [phone] call [phone] with any questions. Rosanna Partida NP LAB BLOOD ORDERABLES Fin al Result Performing Organization Address [facility] Co de Phone Number [facility] [employer] [place], [place] [id number] * Lipid panel (01/19/2025 5:02 PM CDT) [...] revised on 2018. Triglycerides 60 <=149 mg/dL [facility] Comment: Interpretive Data Ages < or [...] revised on 2018. HDL 51 >=40 mg/dL [facility] Comment: Interpretive Data Ages < or [...] on 2018. LDL, calculated 75 <=129 mg/dL [facility] Comment: Interpretive Data Ages < or [...] revised on 2024. Non-HDL Cholesterol 88 mg/dL [facility] Comment: Interpretive Data Ages < or [...] last revised on 2018. Chol/HDL ratio 3 [facility] Blood 01/19/2025 5:02 PM CDT 01/19/2025 5:39 PM CDT us Kandis Robb PHYSICAL THERAPY COORDINATOR LAB BLOOD ORDERABLES Katie leonardo Result [facility] Department [place] [address] * eGFR (12/09/2024 10:35 AM SHELTER DIRECTOR) eGFR >90 >=60 mL/min/1. 73 m2 Comment: [...] reviewed 2021. Blood 12/09/2024 10:3 5 AM SHELTER DIRECTOR 12/09/2024 10:49 AM SHELTER DIRECTOR Rosanna Partida NP LAB BLOOD ORDERABLES Fin al Result Performing Organization Address City/[facility]/ZIP Co de Phone Number [facility] Department [place] [address] * (ABNORMAL) Iron profile w/ IBC (12/09/2024 10:35 AM SHELTER DIRECTOR) Iron 18(L) 35 - 145 mcg/dL TIBC 239(L) 250 - 400 mcg/dL [facility] Transferrin saturation 8(L) 20 - 50 % [facility] Blood 12/09/2024 10:3 5 AM SHELTER DIRECTOR 12/09/2024 10:35 AM SHELTER DIRECTOR Rosanna Partida NP LAB BLOOD ORDERABLES Fin al Result [facility] Department [place] [address] * Ferritin (12/09/2024 10:35 AM SHELTER DIRECTOR) Ferritin 45 13 - 150 ng/mL Blood 12/09/2024 10:3 5 AM SHELTER DIRECTOR 12/09/2024 10:35 AM SHELTER DIRECTOR Rosanna Partida NP LAB BLOOD ORDERABLES Fin al Result [facility] Department [place] [address] * (ABNORMAL) Comprehensive metabolic panel (12/09/2024 10:35 AM SHELTER DIRECTOR) Sodium 145 135 - 145 mmol/L Potassium, pl 4.9 3.3 - 4.9 mmol/L [facility] Chloride 111(H) 97 - 110 mmol/L [facility] CO2 25 22 - 32 mmol/L [facility] Anion gap 9 2 - 15 mmol/L [facility] BUN 14 6 - 25 mg/dL [facility] Creatinine 0.40(L) 0.60 - 1.10 mg/dL [facility] Glucose 88 70 - 199 mg/dL [facility] Comment: Interpretive Data Fasting glucose >/= [...] Calcium 9.2 8.5 - 10.3 mg/dL [facility] Bilirubin, total 0.2 0.1 - 1.2 mg/dL [facility] Protein, pl 6.9 6.5 - 8.5 g/dL [facility] Albumin 4.4 3.5 - 5.0 g/dL [facility] Alk phos 155(H) 40 - 130 Units/L [facility] ALT 13 7 - 45 Units/L [facility] AST 16 10 - 45 Units/L [facility] Blood 12/09/2024 10:3 5 AM SHELTER DIRECTOR 12/09/2024 10:35 AM SHELTER DIRECTOR us Rosanna Partida NP LAB BLOOD ORDERABLES Fin al Result [facility] Department [place] [address] * Differential, auto (12/09/2024 10:07 AM SHELTER DIRECTOR) Neutrophil abs 3.7 1.5 - 6.5 K/cumm Imm gran abs 0.0 0.0 - 0.1 K/cumm [facility] Lymphocyte abs 1.1 0.8 - 3.3 K/cumm [facility] Monocyte abs 0.3 0.2 - 0.8 K/cumm [facility] Eosinophil abs 0.0 0.0 - 0.5 K/cumm [facility] Basophil abs 0.0 0.0 - 0.1 K/cumm [facility] Neutrophil pct 71.1 % [facility] Comment: Interpretive Data Percent cell count reference ranges are not reported, since discordance with absolute values may lead to misinterpretation of CBC data. Current Interpretive Data was last revised on 2018. Imm gran pct 0.4 % [facility] Comment: Interpretive Data Percent cell count reference ranges are not reported, since discordance with absolute values may lead to misinterpretation of CBC data. Current Interpretive Data was last revised on 2018. Lymphocyte pct 21.9 % [facility] Comment: Interpretive Data Percent cell count reference ranges are not reported, since discordance with absolute values may lead to misinterpretation of CBC data. Current Interpretive Data was last revised on 2018. Monocyte pct 6.0 % [facility] Comment: Interpretive Data Percent cell count reference ranges are not reported, since discordance with absolute values may lead to misinterpretation of CBC data. Current Interpretive Data was last revised on 2018. Eosinophil pct 0.2 % [facility] Comment: Interpretive Data Percent cell count reference ranges are not reported, since discordance with absolute values may lead to misinterpretation of CBC data. Current Interpretive Data was last revised on 2018. Basophil pct 0.4 % [facility] Comment: Interpretive Data Percent cell count reference ranges are not reported, since discordance with absolute values may lead to misinterpretation of CBC data. Current Interpretive Data was last revised on 2018. Blood 12/09/2024 10:0 7 AM SHELTER DIRECTOR 12/09/2024 10:49 AM SHELTER DIRECTOR Rosanna Partida NP LAB BLOOD ORDERABLES Fin al Result Performing Organization Address [facility] Co de Phone Number [facility] Department [place] [address] * (ABNORMAL) CBC with auto differential (12/09/2024 10:07 AM SHELTER DIRECTOR) WBC 5.2 3.8 - 9.9 K/cumm Hgb 9.5(L) 11.9 - 15.5 g/dL [facility] Hct 34.3(L) 35.6 - 45.5 % [facility] Plt 339 150 - 400 K/cumm [facility] MPV 9.9 9.1 - 12.3 fL [facility] RBC 4.70 3.90 - 5.20 M/cumm [facility] MCV 73.0(L) 81.3 - 96.4 fL [facility] MCH 20.2(L) 27.1 - 33.3 pg [facility] MCHC 27.7(L) 32.3 - 35.7 g/dL [facility] RDW CV 21.1(H) 11.1 - 14.9 % [facility] RDW SD 55.0(H) 35.7 - 48.1 fL [facility] NRBC abs 0.00 0.00 - 0.01 K/cumm [facility] Blood 12/09/2024 10:0 7 AM SHELTER DIRECTOR 12/09/2024 10:49 AM SHELTER DIRECTOR Rosanna Partida NP LAB BLOOD ORDERABLES Fin al Result Performing Organization Address [facility] Co de Phone Number [facility] Department [place] [address] from Last [address] [place] [address] [place] [address] IDPA Advance Directives For more information, please contact: [phone] * Full Code (Latest Code Status on File) Date Activated Date Inactivated Comments 01/20/2024 9:37 AM 01/20/2024 5:42 PM * Full Code Date Activated Date Inactivated Comments 04/29/2023 10:54 AM 04/30/2023 5:26 AM Care Teams Vpk Teacher Relationship Specialty Start Date End Date Kandis Robb NP PCP - General Nurse Practitioner 05/13/24
--- OUTSIDE RECORDS SUMMARY | 2025-02-07 18:45 | XMS_ITS | Encounter Summary ---
Author Organization [facility] Address [address] [place] [address] Care Team Providers Care Clinical Rehabilitation Coordinator Name Role Phone Juarez Alaniz DO Primary Care Provider [phone] Encounter Details Date Type Department Care Team (Late st Contact Info) Description 03/26/2023 Sinobpo Message Enc [facility] Medical Group Family Medicine [address] [phone] [facility] [place] [facility] Provider [employer] Social History Tobacco [...] on filedocumented in this encounter Care Teams Clinical Rehabilitation Coordinator Relationship Specialty Start Date End Date Juarez Alaniz DO [address] [place] [id number] PCP - General FAMILY PRACTICE 01/03/23 documented as of this encounter
--- OUTSIDE RECORDS SUMMARY | 2025-02-07 18:45 | XMS_ITS | Encounter Summary ---
Author Organization [facility] Address [address] [place] [address] Phone Care Team Providers Care Origination Specialist Name Role Phone Kandis Robb NP Primary Care Provider [phone] Encounter Details Date Type Department Care Team (Late st Contact Info) Description 01/24/2025 Results Follow-Up [facility] Gasteroenterology [address] [facility] Medicine 12th [place] [address] [place] [address] Rosanna Partida NP [address] [place] [address] Social History Tobacco Use Types Packs/Day Years [...] on file Legal Sex Female 9:03 PM DELINQUENT ACCOUNT CLERK Gender Identity Female 04/06/2023 2:19 PM CDT Sexual Orientation Straight 04/06/2023 2: 19 PM CDT documented as of this encounter Miscellaneous Notes * Result Encounter Note - Rosanna Partida NP - 01/24/2025 1:54 AM CDT ALP improved, down to 133. Normal GGT. Will repeat HFP with alk phos isoenzyme in 3 months. Sent [employer] message. documented in this encounter Plan of Treatment Not on file documented as of this encounter Visit Diagnoses Not on filedocumented in this encounter Care Teams Origination Specialist Relationship Specialty Start Date End Date Kandis Robb NP PCP - General Nurse Practitioner 05/13/24 documented as of this encounter
--- OUTSIDE RECORDS SUMMARY | 2025-02-07 18:45 | XMS_ITS | Encounter Summary ---
Author Organization [facility] Address [facility] [place] [address] Care Team Providers Care Special Educator Name Role Phone Juarez Alaniz DO Primary Care Provider [phone] Encounter Details Date Type Department Care Team (Late st Contact Info) Description 03/12/2023 [employer] Message Enc [facility] Medical Group Family Medicine - [address] [phone] Juarez Alaniz DO [address] [place] [address] [employer] Social History Tobacco Use [...] PM CDT [facility] [place] [phone]. She said the case was closed when Janet (Patient's mom) called to let them know that she was going to go with a different company. She said that since the patient lives in [place] now the case will need to be opened with [employer] in [place]. The phone number is [phone]. * Sujatha Gardner MA - 03/25/2023 5:28 PM CDT I have a call into the company, have not heard back. I will f/u tomorrow to see what they need fromus for the parts. * Sujatha Gardner MA - 03/13/2023 4:00 PM CDT Called [employer] [phone], spoke to Rosanna. She said that Vera's mother called yesterday and cancelled the order since it is taking so long to get parts. Called Janet (patient's mom) and told her that I spoke to [employer]. She said she cancelled that order. I told her that there is a company in [place] that might be able to help with [...] on filedocumented in this encounter Care Teams Special Educator Relationship Specialty Start Date End Date Juarez Alaniz DO [address] [place] [address] PCP - General FAMILY PRACTICE 01/03/23 documented as of this encounter
--- OUTSIDE RECORDS SUMMARY | 2025-02-07 18:45 | XMS_ITS | Referral Summary ---
Author Organization [facility] [address] [facility] Address [address] [place] [address] Care Team Providers Care Svp Name Role Phone Kandis Robb PREPARATION ROOM MANAGER Primary Care Provider [phone] Encounters Date Type Department Care Team Description 01/24/2025 Documentation [facility] Gastroenterology [address] [facility] 12th [place] [address] [place] [address] Sai Mack, SAVANNA 01/24/2025 Results Follow-Up [facility] Gasteroenterology [address] [facility] 12th [place] [address] [place] [address] Rosanna Partida NP 01/21/2025 Telephone [facility] Complete Care [address] [place] [address] [address] [place] [address] Georgia Fairchild, SAVANNA 01/20/2025 Telephone [facility] Complete Care [address] [place] [address] Office [address], [address] [place] [address] Edith Miguel RN Forms/questionnaires 01/20/2025 Results Follow-Up [facility] Clinic [address] [facility] 12th [place] [address] [place] [address] Kandis Robb NP 01/19/2025 7:15 PM CDT Lab [facility] ([facility]) [address] [place] [phone] Liver lesion 01/19/2025 7:00 PM CDT Lab [facility] (CAM) [address] [place] [phone] Screening for diabetes mellitus; Screening for cholesterol level 01/19/2025 3:40 PM CDT Office Visit [facility] [address] [place] [address] [address]th [place] [address] [place] [address] Kandis Robb NP Wellness examination (Primary Dx); Screening for diabetes mellitus; Screening for cholesterol level; Iron deficiency anemia, unspecified iron deficiency anemia type; Anxiety disorder, unspecified type; Spina bifida, unspecified hydrocephalus presence, unspecified spinal region (HCC) 01/18/2025 3:00 PM CDT Infusion [facility] - Infusion [address] [place] [address] Iron deficiency anemia, unspecified iron deficiency anemia type (Primary Dx) 01/11/2025 3:00 PM CDT Infusion [facility] - Infusion [address] 6 [place] [address] Iron deficiency anemia, unspecified iron deficiency anemia type (Primary Dx) 01/04/2025 3:00 PM CDT Infusion [facility] - Infusion [address] 6 [place] [address] Iron deficiency anemia, unspecified iron deficiency anemia type (Primary Dx) 12/22/2024 Telephone [facility] Gastroenterology [address] [place] [address] [address]th [place] [address] [place] [address] [facility] due late December to late 12/20/2024 Orders Only [facility] Hematology [facility] Floor 6 [place] [address] Fiordaliza, Fidelina M., RN Iron deficiency anemia, unspecified iron deficiency anemia type (Primary Dx) 12/16/2024 Orders Only [facility] Hematology [address] [facility] Floor 6 [place] [phone] Maya Farfan 12/15/2024 Results Follow-Up [facility] Gasteroenterology [address] [facility] 12th [place] [address] [place] [address] Rosanna Partida NP 12/11/2024 Documentation [facility] Surgery [address] [place] [address] Ashley Alexandra 12/09/2024 10:35 AM DIRECTOR OF OPERATIONS FOR THERAPY Lab [facility] ([facility]) [address] [place] [address] Iron deficiency anemia due to chronic blood loss 12/09/2024 9:00 AM DIRECTOR OF OPERATIONS FOR THERAPY Office Visit [facility] Gastroenterology [address] [place] [address] [address]th [place] [address] [place] [address] Rosanna Partida NP Iron deficiency anemia due [...] ORAL)Indications :Supplement 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 Acute serous otitis media, right ear 06/27/2023 [...] 01/16/2023 Assessment & Plan (10/21/2024 2:15 PM DIRECTOR OF OPERATIONS FOR THERAPY): Stable exam with excellent visual function (BCVA, [...] yesterday Assessment & Plan (12/09/2024 9:51 AM DIRECTOR OF OPERATIONS FOR THERAPY): Has upcoming appt with hematology. Ordered CBC, [...] on file Legal Sex Female 9:03 PM DIRECTOR OF OPERATIONS FOR THERAPY Gender Identity Female 04/06/2023 2:19 PM CDT [...] 74.8 kg (165 lb) 11/03/2024 2:07 PM DIRECTOR OF OPERATIONS FOR THERAPY manufacture chair weighs 138.6lb + 165.0lbs total would equal 303lbs. Patient also stated possible weight Height 149.9 cm (4' 11 ) 01/19/2025 3:3 8 PM CDT Body Mass Index 33.33 08/18/2024 10:43 AM CDT Plan of Treatment Not on file Medical Devices Implanted Type Area Cloth Hauler Device Identifier Shelf Expiration Date Model / [...] COMPREHENSIVE METABOLIC PANEL Routine 12/09/2024 10:35 AM DIRECTOR OF OPERATIONS FOR THERAPY Iron deficiency anemia due to chronic blood loss EGFR Routine 12/09/2024 10:35 AM DIRECTOR OF OPERATIONS FOR THERAPY FERRITIN Routine 12/09/2024 10:35 AM DIRECTOR OF OPERATIONS FOR THERAPY Iron deficiency anemia due to chronic blood loss IRON PROFILE W/ IBC Routine 12/09/2024 1 0:35 AM DIRECTOR OF OPERATIONS FOR THERAPY Iron deficiency anemia due to chronic blood loss DIFFERENTIAL AUTO Routine 12/09/2024 10: 07 AM DIRECTOR OF OPERATIONS FOR THERAPY Iron deficiency anemia due to chronic blood loss CBC WITH AUTO DIFFERENTIAL Routine 12/09/2024 10:07 AM DIRECTOR OF OPERATIONS FOR THERAPY Iron deficiency anemia due to chronic blood loss from Last 3 Months Results * Hemoglobin A1c (01/19/2025 5:02 PM CDT) Hgb A1C 4.8 4.0 - 5.6 % Estimated Average Glucose 91 mg/dL [facility] Comment: The ADA recommends reporting an estimated Average Glucose (eAG) with all Hemoglobin A1c results using the equation derived from a study of 507 normal and diabetic adults. Minority populations were underrepresented and children were not included. (Diabetes Care 2020; 43(S1): S66-S76). The eAG is not equivalent to a fasting glucose. Blood 01/19/2025 5:02 PM CDT 01/19/2025 5:39 PM CDT us Kandis Robb PREPARATION ROOM MANAGER LAB BLOOD ORDERABLES Katie l Result Performing Organization Address [facility] Co de Phone Number [facility] Department [place] [address] * Gamma GT (01/19/2025 5:02 PM CDT) Pathologist [facility] GGT 9 5 - 35 Units/L Blood 01/19/2025 5:02 PM CDT 01/19/2025 5:39 PM CDT Narrative [facility] - 01/19/2025 6:19 PM CDT Vera, Please take these orders to any lab to be completed in late December . If you do not use a [facility] lab, please call [phone] when you complete the lab with the name of the lab so we can obtain results. Please fax results to [phone] call [phone] with any questions. Rosanna Partida PREPARATION ROOM MANAGER LAB BLOOD ORDERABLES Fin al Result Performing Organization Address [facility] Co de Phone Number [facility] Department [place] [address] * (ABNORMAL) Hepatic function panel (01/19/2025 5:02 PM CDT) [facility] Bilirubin, total 0.2 0.1 - 1.2 mg/dL [...] . If you do not use a [facility], please call [phone] when you complete the lab with the name of the lab so we can obtain results. Please fax results to [phone] call [phone] with any questions. us Rosanna Partida NP LAB BLOOD ORDERABLES Fin al Result [facility] Department [place] [address] * Lipid panel (01/19/2025 5:02 PM CDT) [...] revised on 2018. Triglycerides 60 <=149 mg/dL [facility] Comment: Interpretive Data Ages < or = [...] on 2018. LDL, calculated 75 <=129 mg/dL [facility] Comment: Interpretive Data Ages < or = [...] 5:39 PM CDT us Kandis Edouard Robb PREPARATION ROOM MANAGER LAB BLOOD ORDERABLES Katie l Result Performing Organization Address [facility] Co de Phone Number [facility] [place] [address] * eGFR (12/09/2024 10:35 AM DIRECTOR OF OPERATIONS FOR THERAPY) eGFR >90 >=60 mL/min/1. 73 m2 Comment: [...] reviewed 2021. Blood 12/09/2024 10:3 5 AM DIRECTOR OF OPERATIONS FOR THERAPY 12/09/2024 10:49 AM DIRECTOR OF OPERATIONS FOR THERAPY us Rosanna Partida PREPARATION ROOM MANAGER LAB BLOOD ORDERABLES Fin al Result Performing Organization Address [facility] Co de Phone Number [facility] Department [place] [address] * (ABNORMAL) Iron profile w/ IBC (12/09/2024 10:35 AM DIRECTOR OF OPERATIONS FOR THERAPY) Iron 18(L) 35 - 145 mcg/dL TIBC 239(L) 250 - 400 mcg/dL [facility] Transferrin saturation 8(L) 20 - 50 % [facility] Blood 12/09/2024 10:3 5 AM DIRECTOR OF OPERATIONS FOR THERAPY 12/09/2024 10:35 AM DIRECTOR OF OPERATIONS FOR THERAPY Rosanna Partida PREPARATION ROOM MANAGER LAB BLOOD ORDERABLES Fin al Result Performing Organization Address City/[facility] Co de Phone Number [facility] Department [place] [address] * Ferritin (12/09/2024 10:35 AM DIRECTOR OF OPERATIONS FOR THERAPY) [facility] Ferritin 45 13 - 150 ng/mL Blood 12/09/2024 10:3 5 AM DIRECTOR OF OPERATIONS FOR THERAPY 12/09/2024 10:35 AM DIRECTOR OF OPERATIONS FOR THERAPY Rosanna Partida PREPARATION ROOM MANAGER LAB BLOOD ORDERABLES Fin al Result Performing Organization Address [facility] de Phone Number [facility] Department [place] [address] * (ABNORMAL) Comprehensive metabolic panel (12/09/2024 10:35 AM DIRECTOR OF OPERATIONS FOR THERAPY) [facility] Sodium 145 135 - 145 mmol/L Potassium, pl 4.9 3.3 - 4.9 mmol/L [facility] Chloride 111(H) 97 - 110 mmol/L [facility] CO2 25 22 - 32 mmol/L [facility] Anion gap 9 2 - 15 mmol/L [facility] BUN 14 6 - 25 mg/dL [facility] Creatinine 0.40(L) 0.60 - 1.10 mg/dL [facility] Glucose 88 70 - 199 mg/dL [...] 2022. Calcium 9.2 8.5 - 10.3 mg/dL [facility] Bilirubin, total 0.2 0.1 - 1.2 mg/dL [facility] Protein, pl 6.9 6.5 - 8.5 g/dL [facility] Albumin 4.4 3.5 - 5.0 g/dL [facility] Alk phos 155(H) 40 - 130 Units/L [facility] ALT 13 7 - 45 Units/L [facility] AST 16 10 - 45 Units/L [facility] Blood 12/09/2024 10:3 5 AM DIRECTOR OF OPERATIONS FOR THERAPY 12/09/2024 10:35 AM DIRECTOR OF OPERATIONS FOR THERAPY Rosanna Partida PREPARATION ROOM MANAGER LAB BLOOD ORDERABLES Fin al Result [facility] Department [place] [address] * Differential, auto (12/09/2024 10:07 AM DIRECTOR OF OPERATIONS FOR THERAPY) Neutrophil abs 3.7 1.5 - 6.5 K/cumm [...] on 2018. Blood 12/09/2024 10:0 7 AM DIRECTOR OF OPERATIONS FOR THERAPY 12/09/2024 10:49 AM DIRECTOR OF OPERATIONS FOR THERAPY Rosanna Partida PREPARATION ROOM MANAGER LAB BLOOD ORDERABLES Fin al Result [facility] Department [place] [address] * (ABNORMAL) CBC with auto differential (12/09/2024 10:07 AM DIRECTOR OF OPERATIONS FOR THERAPY) WBC 5.2 3.8 - 9.9 K/cumm Hgb [...] [facility] Blood 12/09/2024 10:0 7 AM DIRECTOR OF OPERATIONS FOR THERAPY 12/09/2024 10:49 AM DIRECTOR OF OPERATIONS FOR THERAPY Rosanna Partida PREPARATION ROOM MANAGER LAB BLOOD ORDERABLES Fin al Result [facility] Department [place] [address] from Last [address] [place] [address] [place] [address] [place] [address] [facility] Advance Directives For more information, please contact: [phone] * Full Code (Latest Code Status on File) Date Activated Date Inactivated Comments 01/20/2024 9:37 AM 01/20/2024 5:42 PM * Full Code Date Activated Date Inactivated Comments 04/29/2023 10:54 AM 04/30/2023 5:26 AM Care Teams Svp Relationship Specialty Start Date End Date Kandis Robb NP PCP - General Nurse Practitioner 05/13/24
--- OUTSIDE RECORDS SUMMARY | 2025-02-07 18:45 | XMS_ITS | Encounter Summary ---
Author Organization [facility] Address [address] [place] [address] Phone Care Team Providers Care Manager Food Name Role Phone Kandis Robb CHARTER PILOT Primary Care Provider [phone] Encounter Details Date Type Department Care Team (Late st Contact Info) Description 01/20/2025 Results Follow-Up [facility] [address] 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
--- OUTSIDE RECORDS SUMMARY | 2025-02-07 18:45 | XMS_ITS | Clinical Summary ---
Author Organization [facility] Address [facility] [place] [address] Care Team Providers Care Carpet Sewer Name Role Phone Katty Juarez Prashanth Primary Care Provider [phone] Allergies Active Allergy Reactions Criticality Noted Date Comments Amoxicillin Rash Low 01/16/2023 Latex Itching,Nausea and Vomiting,Rash,Shortness of Breath,Swelling,Unknown High 01/30/2015 Medications acetaminophen (TYLENOL) 500 MG tablet Tylenol 250 mg po bid prn Active lamoTRIgine (LAMICTAL) 200 MG tabletIndication s:Nonintractable epilepsy without status epilepticus, unspecified epilepsy type ([facility]) Take 1 tablet (200 mg total) by mouth 2 (two) times daily. With 100 mg qhs for a total of 300 mg qhs. 180 tablet 1 05/02/2023 Active Active Problems Problem Noted Date Diagnosed Date Spina bifida of thoracic reg ion with hydrocephalus ([facility]) 01/16/2023 Hydrocephalus with operating shunt ([facility]) 01/16/2023 Neuromuscular dysfunction of bladder 01/16/2023 Chiari malformation type II ([facility]) Nonintractable epilepsy with out status epilepticus, unspecified epilepsy type ([facility]) 01/16/2023 Scoliosis, unspecified scoli osis type, unspecified spinal region 01/16/2023 Clubfoot of both lower extremities 01/16/2023 Mixed anxiety and depressive disorder 01/16/2023 Intellectual disability 01/16/2023 Iron deficiency anemia, unsp ecified iron deficiency anemia type 01/16/2023 Suprapubic catheter ([facility]) 01/16/2023 Immunizations Immunization Administration Dates Next Due [...] 62.6 kg (138 lb) 10/23/2015 10:48 AM 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
--- NOTE | 2025-02-07 18:51 | PC.NURSE ---
per VERÓNICA Sofia, repeat Lactic to wait until after IVF are done.
[2025-02-07] MEDS: metroNIDAZOLE 500 MG/ISO 100ML 500 MG/100 ML BAG 100 MG IVPB (19:10)
[2025-02-07] MEDS: levoFLOXacin 750 MG/D5W 150 ML 750 MG/150 ML BAG 100 MG IVPB (19:13)
[2025-02-07 21:35] LABS: Lactic Acid 1.3 mmol/L (0.7-2.0)
[2025-02-07] MEDS: SODIUM CHLORIDE 0.9% IV 1,000 ML 100 ML IV CONT (23:20)
[2025-02-08] VITALS (10 sets, daily range): BP systolic 90–108; BP diastolic 50–65; PULSE 84–112; RESP 16–20; TEMP 36.6–37; O2SAT 92–99; BMI 30.3
[2025-02-08] MEDS: lamoTRIgine 100 MG TABLET 300 MG PO ×2 (00:46→20:22)
--- NOTE | 2025-02-08 00:49 | ADMGEN ---
This patient, Maddie Bauer, was admitted to Medical Room 261-01. Patient/family oriented to hospital policies and general routines including ID bracelet, bed and alarms, visiting hours, pain management, procedures, bathroom and other care routines, personal items, smoking policy, room service/diet, and visiting hours. Information on how to activate the Rapid Response Team has been discussed. Patient/Family are encouraged to report perceived risks to care and to ask questions if they do not understand what they are told or what they should do.
[2025-02-08 02:43] LABS: Bacteria Urine 4+ /hpf; Need Manual Microscopic Reviewed; RBC Urine 0-2 /hpf (0-2); Squamous Epithelial Cell Urine Few /hpf (Few); WBC Urine 21-50 /hpf (0-3)
[2025-02-08 02:53] LABS: Add Urine Microscopic? YES; Appearance Urine Cloudy (Clear); Bilirubin Urine Negative (Negative); Blood Urine Negative (Negative); Color Urine Yellow (Yellow); Glucose Urine UA Negative (Negative); Ketones Urine Negative (Negative); Leukocyte Esterase Ur 1+ LEU/UL (Negative); Nitrate Urine Positive (Negative); Protein Urine Negative (Negative); Specific Grav Ur 1.034 (1.001-1.035); pH Urine 7.5 (5.0-9.0)
[2025-02-08] MEDS: metroNIDAZOLE 500 MG/ISO 100ML 500 MG/100 ML BAG 100 MG IVPB ×3 (04:14→21:54)
--- NOTE | 2025-02-08 07:56 | PM.IMHP ---
H&P: [facility] History of Present Illness Date/Time: 02/08/25 07:56 Chief Complaint: Pressure ulcer Narrative: There is 34-year-old female with the past medical history of spina bifida with myelomeningocele, Arnold Chiari syndrome, seizures, multiple IT HELP DESK ANALYST shunt replacement, bladder augmentation, depression, anxiety presented to the ER due to wound on her right thigh. As per ED the patient wound has been gradually increasing in size which is associated with necrotic skin and cellulitis. Pertinent ED labs: WBC 10, hemoglobin 11.4, MCV 80.3, platelet 405, sodium 139, potassium 3.7, creatinine 0.4, GFR greater than 60, glucose 153, lactic acid 3.2< 1.3 ESR 23, CRP 12.5 UA: Positive for nitrate and leukocyte esterase Patient was started on Levaquin and metronidazole for cellulitis. Consulted surgery for debridement. Neurology was consulted during the admission and recommend CT scan if necessary. Review of Systems Review of Systems: All systems as dictated in [facility] Past Medical History Medical History Constipation History of seizures History of myelomeningocoele Spina bifida Surgical History Surgical History S/P IT HELP DESK ANALYST shunt History of cholecystectomy Family History Family History Mother Diabetes mellitus Hypertension Breast cancer Father Diabetes mellitus Grandparent Diabetes mellitus Acute myocardial infarction Hypertension Social History Social History Smoking status: Never smoker Alcohol intake: never Substance use: never Do You Feel Safe in your Home?: Yes Lack of Transportation: No Lack of Food: Never True Current Housing: I Have Housing Concerned About Future Housing: No Difficulty Paying Gas/Electric Bills: No Difficulty Paying for Meds: No Currently Unemployed: No Education: High School Diploma/GED Difficulty w/ Childcare or Family Care: No Spiritual care concerns: No Meds Home Medications and Allergies Home Medications ?Medication ?Instructions ?Recorded ?Confirmed ?Type bupropion HCl 150 mg 24 hr tablet, 150 mg PO DAILY 02/08/25 02/08/25 History extended release (Wellbutrin XL) docusate sodium 100 mg capsule 100 mg PO DAILY 02/08/25 02/08/25 History (Colace) fluoxetine 20 mg capsule 20 mg PO DAILY 02/08/25 02/08/25 History lamotrigine 100 mg tablet 300 mg PO QHS 02/08/25 02/08/25 History (Lamictal) lamotrigine 200 mg tablet 200 mg PO QAM 02/08/25 02/08/25 History (Lamictal) topiramate 50 mg tablet (Topamax) 50 mg PO Q12H PRN migraine headache 02/08/25 02/08/25 History Allergies Allergy/AdvReac Type Severity Reaction Status Date / Time latex Allergy Severe Rash Verified 02/07/25 15:01 amoxicillin Allergy Intermediate Rash Verified 02/07/25 15:01 Vital Signs Vital Signs - 24 hr 02/07/25 15:02 02/07/25 17:45 02/07/25 18:28 Temperature 98.1 F Pulse Rate 98 Respiratory Rate 16 Blood Pressure 105/62 109/80 105/67 Pulse Oximetry 99 100 100 Oxygen Delivery Room Air 02/07/25 18:29 02/07/25 18:30 02/07/25 19:00 Temperature Pulse Rate 92 Respiratory Rate 16 Blood Pressure 105/67 101/60 101/64 Pulse Oximetry 100 100 100 Oxygen Delivery 02/07/25 19:15 02/07/25 19:30 02/07/25 19:45 Temperature Pulse Rate 79 Respiratory Rate 17 Blood Pressure 107/72 104/63 108/60 Pulse Oximetry 100 100 100 Oxygen Delivery 02/07/25 20:00 02/07/25 20:41 02/07/25 20:45 Temperature Pulse Rate Respiratory Rate Blood Pressure 105/59 L 97/66 L 97/61 L Pulse Oximetry 100 100 100 Oxygen Delivery 02/08/25 00:00 02/08/25 00:50 02/08/25 04:00 Temperature 98.1 F Pulse Rate 99 104 H 89 Respiratory Rate 18 Blood Pressure 90/50 L Pulse Oximetry 97 Oxygen Delivery 02/08/25 05:09 Temperature 97.9 F Pulse Rate 94 Respiratory Rate 18 Blood Pressure 100/59 L Pulse Oximetry 95 Oxygen Delivery Exam Narrative: GENERAL: Well-appearing, well-nourished, and in no acute distress. HEAD: Normocephalic, atraumatic. EYES: PERRLA and EOMI. ENT: Nares clear, no rhinorrhea or epistaxis. Mucous membranes moist. Oropharynx without tonsillar hypertrophy exudate or other lesions. NECK: Supple. No adenopathy or masses. CHEST: No respiratory distress. Clear to auscultation. No wheezes rales or rhonchi HEART: Regular rate and rhythm. No murmur heard. Normal peripheral pulses. ABDOMEN: Soft, nontender, nondistended, normal active bowel sounds. MSK: Normal range of motion. No edema. SKIN: There is a 5-6 cm diameter pressure ulcer noted to the left inferior buttock/posterior thigh. Most of the area of wound bed is dark, necrotic appearing and surrounded by a thin line of erythematous appearing granulation tissue. The wound has a very small amount of erythema surrounding. It is not warm. There is no active purulent drainage. No surrounding indurated or necrotic appearing tissue. NEURO: Alert and oriented x4. No focal deficits. PSYCH: Normal mood and affect. H&P: Results Labs Labs: Short CBC 02/07/25 Range/Units 16:40 WBC 10.0 (4.5-10.0) K/mm3 Hgb 11.4 L (12.0-15.0) g/dL Hct 39.2 (37.0-47.0) % Plt Count 405 H (150-375) k/mm3 BMP 02/07/25 16:40 Sodium 139 Potassium 3.7 Chloride 105 Carbon Dioxide 22 BUN 14 Creatinine 0.44 L Glucose 153 H Calcium 8.9 Liver Function 02/07/25 Range/Units 16:40 Total Bilirubin 0.3 (0.2-1.3) mg/dL AST 13 L (14-36) U/L ALT 14 (6-35) U/L Alkaline Phosphatase 99 (38-126) U/L Albumin 4.1 (3.5-5.1) g/dL Urine 02/07/25 Range/Units 21:28 Urine Color Yellow (Yellow) Urine Appearance Cloudy H (Clear) Urine pH 7.5 (5.0-9.0) Ur Specific [place] 1.034 (1.001-1.035) Urine Protein Negative (Negative) mg/dL Urine Glucose (UA) Negative (Negative) mg/dL Assessment and Plan Assessment and plan (1) Cellulitis: Code(s): L03.90 - Cellulitis, unspecified Status: Acute (2) Pressure ulcer due to spina bifida: Code(s): L89.90 - Pressure ulcer of unspecified site, unspecified stage; Q05.9 - Spina bifida, unspecified Status: Deleted Plan Cellulitis Debridement with surgery Continue Levaquin and metronidazole CT pelvis:Medial facet thigh and perineal skin defects with underlying cellulitis, likely extending to and involving the vagina and anus. No definite findings of acute or chronic ostium myelitis, although the induration does extend to the tip of the coccyx. No focal soft tissue fluid collection to suggest abscess. Bilateral hip joint effusions with synovitis, septic arthritis is not excluded. Cystitis. Nasal MRSA pending Pain management with Tylenol Will monitor signs of systemic involvement(sepsis, worsening erythema or lymphangitis) Will consider culture of wound if no improvement Order HbA1c Surgery consulted. Wound Care consulted Epilepsy Continue lamotrigine Depression/anxiety Continue home medications DVT prophylaxis Lovenox 40 mg subcutaneous Hospitalist MIPS Advance Care Plan I have confirmed that the patient's Advanced Care Plan is present, code status is documented, or surrogate decision maker is listed in patient medical record.: Yes Medication Reconciliation I have utilized all available resources to obtain, update and review the patients current medications (includes all prescriptions, OTC, herbals, cannabis, and nutritional supplements).: Yes
[2025-02-08] MEDS: lamoTRIgine 100 MG TABLET 200 MG PO (08:27)
[2025-02-08] MEDS: DOCUSATE SODIUM 100 MG CAPSULE PO (08:27)
[2025-02-08] MEDS: buPROPion HCL XL (24 HR) 150 MG TABCR PO (08:27)
[2025-02-08] MEDS: FLUoxetine HCL 20 MG CAPSULE PO (08:27)
[2025-02-08] MEDS: TOPIRAMATE 25 MG TABLET 50 MG PO ×2 (09:07→20:23)
[2025-02-08] MEDS: SODIUM CHLORIDE 0.9% IV 1,000 ML 100 ML IV CONT ×2 (09:10→21:54)
[2025-02-08 09:46] LABS: Hemoglobin A1C 4.5 % (<5.7)
--- NOTE | 2025-02-08 10:30 | PM.CNGS ---
Assessment and Plan Assessment and plan (1) Decubitus ulcer of left ischial area: Code(s): L89.329 - Pressure ulcer of left buttock, unspecified stage Status: Acute Assessment and Plan: Unstageable left ischial decubitus ulcer. This is likely related to pressure from positioning in her wheelchair throughout the day. The ulcer is covered by a large eschar with a foul odor and will need surgical debridement. Will keep her NPO for now, continue IV antibiotics, and plan to add her onto the surgery schedule for Dr. Castillo. I discussed the procedure, risks, benefits, and alternatives to the patient today. Also discussed the need for long-term wound care even after debridement. Continue frequent turning and repositioning for pressure offloading. (2) Cellulitis: Code(s): L03.90 - Cellulitis, unspecified Status: Acute Assessment and Plan: Pelvis CT suggest cellulitis extending towards the perineum in anus, but no soft tissue gas or findings to suggest a necrotizing infection. There is slight erythema, but no clinical findings of an abscess or induration (3) Spina bifida: Code(s): Q05.9 - Spina bifida, unspecified Status: Chronic (4) UTI (urinary tract infection): Code(s): N39.0 - Urinary tract infection, site not specified Status: Acute Assessment and Plan: UA abnormal, urine culture pending. She self caths herself home. Antibiotic management per hospitalist. Plan I have discussed the patient's case and plan of care with Dr. Castillo. History of Present Illness Consult details Consult date: 02/08/25 Reason for consult: other (Wound debridement) Requesting physician: Antelmo Perkins PA-C Narrative: This is a 34-year-old woman with PMH of spina bifida who is paraplegic and wheelchair-bound, seizures, FABRICATION AND ASSEMBLY SUPERVISOR shunt, who we were asked to see for possible surgical debridement. She lives at home with her mom, but reportedly is fairly independent. She typically spends most of her day in her wheelchair and is able to transfer from bed to chair on her own. She also Bays on her own in a shower chair. She states that her mom noticed a wound about a week ago and has gradually increased in size and was dark in color. They decided come into the ED for evaluation yesterday. Labs showed a white blood cell count [id number] with a left shift, lactic acid 3.2 with repeat down to 1.3. CRP 12.5. Hemoglobin A1c checked in 4.5. Denies a history of diabetes. UA with positive nitrates and leukocytes, WBC 20 1-50, bacteria 4+. Hip/pelvis x-rays showed no osteomyelitis. Pelvis CT showed medial thigh and perineal skin defect with underlying cellulitis likely extending to and involving the vagina and anus, no definite findings osteomyelitis or abscess, cystitis, and bilateral hip joint effusions with synovitis. She was admitted and started on IV Levaquin and Flagyl. Review of Systems Review of Systems: All systems reviewed & are unremarkable except as noted in HPI and below PMFSH Past Medical History Medical History Constipation History of seizures History of myelomeningocoele Spina bifida Surgical History Surgical History S/P FABRICATION AND ASSEMBLY SUPERVISOR shunt History of cholecystectomy Family History Family History Mother Diabetes mellitus Hypertension Breast cancer Father Diabetes mellitus Grandparent Diabetes mellitus Acute myocardial infarction Hypertension Social History Social History Smoking status: Never smoker Alcohol intake: never Substance use: never Do You Feel Safe in your Home?: Yes Lack of Transportation: No Lack of Food: Never True Current Housing: I Have Housing Concerned About Future Housing: No Difficulty Paying Gas/Electric Bills: No Difficulty Paying for Meds: No Currently Unemployed: No Education: High School Diploma/GED Difficulty w/ Childcare or Family Care: No Spiritual care concerns: No Meds Home Medications and Allergies Home Medications ?Medication ?Instructions ?Recorded ?Confirmed ?Type bupropion HCl 150 mg 24 hr tablet, 150 mg PO DAILY 02/08/25 02/08/25 History extended release (Wellbutrin XL) docusate sodium 100 mg capsule 100 mg PO DAILY 02/08/25 02/08/25 History (Colace) fluoxetine 20 mg capsule 20 mg PO DAILY 02/08/25 02/08/25 History lamotrigine 100 mg tablet 300 mg PO QHS 02/08/25 02/08/25 History (Lamictal) lamotrigine 200 mg tablet 200 mg PO QAM 02/08/25 02/08/25 History (Lamictal) topiramate 50 mg tablet (Topamax) 50 mg PO Q12H PRN migraine headache 02/08/25 02/08/25 History Allergies Allergy/AdvReac Type Severity Reaction Status Date / Time latex Allergy Severe Rash Verified 02/07/25 15:01 amoxicillin Allergy Intermediate Rash Verified 02/07/25 15:01 Vital Signs Vital Signs - 24 hr 02/07/25 15:02 02/07/25 17:45 02/07/25 18:28 Temperature 98.1 F Pulse Rate 98 Respiratory Rate 16 Blood Pressure 105/62 109/80 105/67 Pulse Oximetry 99 100 100 Oxygen Delivery Room Air 02/07/25 18:29 02/07/25 18:30 02/07/25 19:00 Temperature Pulse Rate 92 Respiratory Rate 16 Blood Pressure 105/67 101/60 101/64 Pulse Oximetry 100 100 100 Oxygen Delivery 02/07/25 19:15 02/07/25 19:30 02/07/25 19:45 Temperature Pulse Rate 79 Respiratory Rate 17 Blood Pressure 107/72 104/63 108/60 Pulse Oximetry 100 100 100 Oxygen Delivery 02/07/25 20:00 02/07/25 20:41 02/07/25 20:45 Temperature Pulse Rate Respiratory Rate Blood Pressure 105/59 L 97/66 L 97/61 L Pulse Oximetry 100 100 100 Oxygen Delivery 02/08/25 00:00 02/08/25 00:50 02/08/25 04:00 Temperature 98.1 F Pulse Rate 99 104 H 89 Respiratory Rate 18 Blood Pressure 90/50 L Pulse Oximetry 97 Oxygen Delivery 02/08/25 05:09 Temperature 97.9 F Pulse Rate 94 Respiratory Rate 18 Blood Pressure 100/59 L Pulse Oximetry 95 Oxygen Delivery Exam Const: General: comfortable and no acute distress Orientation/consciousness: patient oriented x3 HENMT: Ears: hearing grossly normal bilaterally Mouth: Yes moist mucous membranes Eyes: General: appearance normal, both eyes and all related structures Pupils: Equal, round and reactive pupils present Neck: Neck: normal visual inspection and full ROM Resp: Effort & Inspection: no respiratory distress Auscultation: clear to auscultation bilaterally Cardio: Rate: regular rate Rhythm: regular rhythm GI: Inspection: non-distended and scar (Large lower midline scar, right upper quadrant transverse scar) GI Palp: Yes Soft to palpation, No Tenderness to palpation present (GI), No Guarding due to palpation present (GI) and No Rebound tenderness present Auscultation: normal bowel sounds Rectal Exam: deferred, visual inspection normal, No External hemorrhoid(s) present and No abscess Back/Spine/Pelvis: Other: Unstageable left ischial decubitus ulcer measuring 8 x 10 cm with nearly the entire wound bed covered with a soft black/brown eschar, small area of crepitus felt, odor, but no purulence drainage. Circumferential rim of the wound has some yellow slough and appears at the eschar is from the skin. There is superficial ulceration extending towards the perineum, but not involving the vulva. Skin: General skin exam: normal color Neuro: General: other (Paraplegic with contracted lower extremities) Extrem: General: other (Contracted lower extremities that are flaccid) Psych: Mental Status: mental status grossly normal Attitude: cooperative Insight: Good insight present (Psych) Judgement: Good judgement present (Psych) Results Labs 02/07/25 16:40 02/07/25 16:40 Labs: Abnormal lab results 02/07/25 02/07/25 Range/Units 16:40 21:28 Hgb 11.4 L (12.0-15.0) g/dL MCH 23.4 L (26-34) pg MCHC 29.1 L (32-36) g/dl RDW 25.5 H (11.5-14.5) % Plt Count 405 H (150-375) k/mm3 Immature Gran % (Auto) 1.7 H (0-0.5) % Neut % (Auto) 82.5 H (45.5-73.1) % Lymph % (Auto) 9.5 L (18.3-44.2) % Abs Immat Gran (auto) 0.17 H (0.00-0.031) K/mm3 Absolute Neuts (auto) 8.3 H (1.3-6.7) K/mm3 ESR 23 H (0-20) mm/hr PT 15.1 H (11.1-14.7) Seconds Creatinine 0.44 L (0.7-1.0) mg/dL Glucose 153 H (65-110) mg/dL Lactic Acid 3.2 H (0.7-2.0) mmol/L AST 13 L (14-36) U/L C-Reactive Protein 12.5 H (<1.0) mg/dL Urine Appearance Cloudy H (Clear) Urine Nitrate Positive H (Negative) Leukocyte Esterase Rfl 1+ H (Negative) HANNAH/UL Urine WBC 21-50 H (0-3) /hpf Urine Bacteria 4+ H /hpf Diabetes panel 02/07/25 02/08/25 Range/Units 16:40 09:27 Sodium 139 (137-145) mmol/L Potassium 3.7 (3.4-5.0) mmol/L Chloride 105 (98-107) mmol/L Carbon Dioxide 22 (22-30) mmol/L BUN 14 (7-17) mg/dL Creatinine 0.44 L (0.7-1.0) mg/dL Glucose 153 H (65-110) mg/dL Hemoglobin A1c 4.5 (<5.7) % Calcium 8.9 (8.4-10.2) mg/dL AST 13 L (14-36) U/L ALT 14 (6-35) U/L Alkaline Phosphatase 99 (38-126) U/L Total Protein 7.0 (6.3-8.2) g/dL Albumin 4.1 (3.5-5.1) g/dL Calcium panel 02/07/25 Range/Units 16:40 Calcium 8.9 (8.4-10.2) mg/dL Albumin 4.1 (3.5-5.1) g/dL Pituitary panel 02/07/25 Range/Units 16:40 Sodium 139 (137-145) mmol/L Potassium 3.7 (3.4-5.0) mmol/L Chloride 105 (98-107) mmol/L Carbon Dioxide 22 (22-30) mmol/L BUN 14 (7-17) mg/dL Creatinine 0.44 L (0.7-1.0) mg/dL Glucose 153 H (65-110) mg/dL Calcium 8.9 (8.4-10.2) mg/dL Adrenal panel 02/07/25 Range/Units 16:40 Sodium 139 (137-145) mmol/L Potassium 3.7 (3.4-5.0) mmol/L Chloride 105 (98-107) mmol/L Carbon Dioxide 22 (22-30) mmol/L BUN 14 (7-17) mg/dL Creatinine 0.44 L (0.7-1.0) mg/dL Glucose 153 H (65-110) mg/dL Calcium 8.9 (8.4-10.2) mg/dL Total Bilirubin 0.3 (0.2-1.3) mg/dL AST 13 L (14-36) U/L ALT 14 (6-35) U/L Alkaline Phosphatase 99 (38-126) U/L Total Protein 7.0 (6.3-8.2) g/dL Albumin 4.1 (3.5-5.1) g/dL All other labs normal. Imaging Additional studies: ITS Impressions Hip/Pelvis X-Ray 02/07/25 16:18 IMPRESSION: 1. No cortical erosion/osteolysis or periosteal reaction to suggest osteomyelitis. 2. Gracile bones and bilateral coxa valga consistent with provided history of paraplegia. Pelvis CT 02/07/25 20:38 IMPRESSION: Medial facet thigh and perineal skin defects with underlying cellulitis, likely extending to and involving the vagina and anus. No definite findings of acute or chronic ostium myelitis, although the induration does extend to the tip of the coccyx. No focal soft tissue fluid collection to suggest abscess. Bilateral hip joint effusions with synovitis, septic arthritis is not excluded. Cystitis.
[2025-02-08 11:25] LABS: MRSA (PCR) NOT DETECTED (NOT DETECTE)
--- NOTE | 2025-02-08 12:55 | WPDNEURCNPN ---
Assessment and Plan Assessment and plan (1) Spina bifida: Code(s): Q05.9 - Spina bifida, unspecified Status: Chronic (2) Hydrocephalus: Code(s): G91.9 - Hydrocephalus, unspecified Status: Acute Plan 1. Decubitus ulcer of the left ischial area with cellulitis 2. Spina bifid the with chronic neurological deficit and also with no history of seizures plan is to continue the treatment as such for her general medical problems there is no specific reason to pursue further neurologically but once she is here we can obtain the CT scan of the head make sure the ventricles are not getting enlarged. Consult date: 02/08/25 HPI: Maddie Bauer is a 34 year old female admitted to the hospital through the emergency room for the concerns regarding the wound on her right thigh but in addition she has a history of spina bifid done and neurology consultation has been obtained for that reason. She has been taking multiple medications including Wellbutrin 150mg daily, fluoxetine 20mg daily, lamotrigine 300mg at night, and 200mg in the morning, in addition to topiramate 50mg as a preventive medication for the migraine headaches. She is allergic to amoxicillin. She is never a smoker or alcohol intake on initial exam in the emergency room she was in no acute distress she was found to have 6cm diameter pressure ulcer on her left inferior buttock and posterior thigh dark in color necrotic in appearance surrounded by 3 in line of erythema that is granulation tissue, vital signs were normal 6 CBC was normal BMP was normal except blood sugar 153 and mast scan was negative she had a pelvic CT scan which documented no focal tissue fluid collection but bilateral hip joint effusion with synovitis possibility of septic arthritis could not be excluded. As mentioned before CBC had not shown any leukocytosis and the hemoglobin was 11.4 Review of Systems Review of Systems: All systems reviewed & are unremarkable except as noted in HPI and below PMFSH Past Medical History Medical History Constipation History of seizures History of myelomeningocoele Spina bifida Surgical History Surgical History S/P GROUND SYSTEMS ENGINEER shunt History of cholecystectomy Family History Family History Mother Diabetes mellitus Hypertension Breast cancer Father Diabetes mellitus Grandparent Diabetes mellitus Acute myocardial infarction Hypertension Social History Social History Smoking status: Never smoker Alcohol intake: never Substance use: never Do You Feel Safe in your Home?: Yes Lack of Transportation: No Lack of Food: Never True Current Housing: I Have Housing Concerned About Future Housing: No Difficulty Paying Gas/Electric Bills: No Difficulty Paying for Meds: No Currently Unemployed: No Education: High School Diploma/GED Difficulty w/ Childcare or Family Care: No Spiritual care concerns: No Meds Home Medications and Allergies Home Medications ?Medication ?Instructions ?Recorded ?Confirmed ?Type bupropion HCl 150 mg 24 hr tablet, 150 mg PO DAILY 02/08/25 02/08/25 History extended release (Wellbutrin XL) docusate sodium 100 mg capsule 100 mg PO DAILY 02/08/25 02/08/25 History (Colace) fluoxetine 20 mg capsule 20 mg PO DAILY 02/08/25 02/08/25 History lamotrigine 100 mg tablet 300 mg PO QHS 02/08/25 02/08/25 History (Lamictal) lamotrigine 200 mg tablet 200 mg PO QAM 02/08/25 02/08/25 History (Lamictal) topiramate 50 mg tablet (Topamax) 50 mg PO Q12H PRN migraine headache 02/08/25 02/08/25 History Allergies Allergy/AdvReac Type Severity Reaction Status Date / Time latex Allergy Severe Rash Verified 02/07/25 15:01 amoxicillin Allergy Intermediate Rash Verified 02/07/25 15:01 Vital Signs Vital Signs - 24 hr 02/07/25 15:02 02/07/25 17:45 02/07/25 18:28 Temperature 36.7 C Pulse Rate 98 Respiratory Rate 16 Blood Pressure 105/62 109/80 105/67 Pulse Oximetry 99 100 100 Oxygen Delivery Room Air 02/07/25 18:29 02/07/25 18:30 02/07/25 19:00 Temperature Pulse Rate 92 Respiratory Rate 16 Blood Pressure 105/67 101/60 101/64 Pulse Oximetry 100 100 100 Oxygen Delivery 02/07/25 19:15 02/07/25 19:30 02/07/25 19:45 Temperature Pulse Rate 79 Respiratory Rate 17 Blood Pressure 107/72 104/63 108/60 Pulse Oximetry 100 100 100 Oxygen Delivery 02/07/25 20:00 02/07/25 20:41 02/07/25 20:45 Temperature Pulse Rate Respiratory Rate Blood Pressure 105/59 L 97/66 L 97/61 L Pulse Oximetry 100 100 100 Oxygen Delivery 02/08/25 00:00 02/08/25 00:50 02/08/25 04:00 Temperature 36.7 C Pulse Rate 99 104 H 89 Respiratory Rate 18 Blood Pressure 90/50 L Pulse Oximetry 97 Oxygen Delivery 02/08/25 05:09 02/08/25 08:00 Temperature 36.6 C Pulse Rate 94 Respiratory Rate 18 Blood Pressure 100/59 L Pulse Oximetry 95 Oxygen Delivery Room Air Exam Narrative: revealed her to be awake alert cooperative in no obvious acute distress, head normocephalic with no bruit, ear nose throat examination normal, neck supple with no bruits, heart regular with no murmur, lungs clear to auscultation, abdomen is soft nontender, neurologically she is awake alert she knows that she is in the hospital and oriented in time and place, his speech not dysphasic not dysarthric not dysphonic, pupils round regular [place] of vision full extraocular movements full face symmetrical tongue midline uvula midline motor examination revealed her to have paraplegia with deformities of the lower extremities no deep tendon reflexes and no response to plantar response though upper extremity exam nonfocal. Results Labs 02/07/25 16:40 02/07/25 16:40 Labs: Short CBC 02/07/25 Range/Units 16:40 WBC 10.0 (4.5-10.0) K/mm3 Hgb 11.4 L (12.0-15.0) g/dL Hct 39.2 (37.0-47.0) % Plt Count 405 H (150-375) k/mm3 BMP 02/07/25 16:40 Sodium 139 Potassium 3.7 Chloride 105 Carbon Dioxide 22 BUN 14 Creatinine 0.44 L Glucose 153 H Calcium 8.9 Liver Function 02/07/25 Range/Units 16:40 Total Bilirubin 0.3 (0.2-1.3) mg/dL AST 13 L (14-36) U/L ALT 14 (6-35) U/L Alkaline Phosphatase 99 (38-126) U/L Albumin 4.1 (3.5-5.1) g/dL Urine 04/21/25 Range/Units 21:28 Urine Color Yellow (Yellow) Urine Appearance Cloudy H (Clear) Urine pH 7.5 (5.0-9.0) Ur Specific [place] 1.034 (1.001-1.035) Urine Protein Negative (Negative) mg/dL Urine Glucose (UA) Negative (Negative) mg/dL
[2025-02-08] MEDS: levoFLOXacin 750 MG/D5W 150 ML 750 MG/150 ML BAG 100 MG IVPB (20:22)
[2025-02-09] VITALS (17 sets, daily range): BP systolic 93–133; BP diastolic 57–86; PULSE 65–108; RESP 16–24; TEMP 36.5–37.5; O2SAT 94–100; BMI 30.3
[2025-02-09] MEDS: metroNIDAZOLE 500 MG/ISO 100ML 500 MG/100 ML BAG 100 MG IVPB ×3 (05:21→22:05)
[2025-02-09 05:42] LABS: Hematocrit 31.3 % (37.0-47.0); Mean Corpuscular HGB Conc 28.8 g/dl (32-36); Mean Corpuscular Hemoglobin 23.8 pg (26-34); Mean Corpuscular Volume 82.8 fl (80-100); Mean Platelet Volume 9.4 fl (7.4-10.4); Platelet Count Result 338 k/mm3 (150-375); Red Blood Count 3.78 M/mm3 (4.2-5.4); Red Cell Distribution Width 25.6 % (11.5-14.5); White Blood Count 7.8 K/mm3 (4.5-10.0)
[2025-02-09 06:01] LABS: Alanine Aminotransferase 8 U/L (6-35); Albumin Level 2.8 g/dL (3.5-5.1); Alkaline Phosphatase 73 U/L (38-126); Anion Gap 8 mmol/L (4-12); Aspartate Amino Transferase 12 U/L (14-36); Bilirubin,Total 0.2 mg/dL (0.2-1.3); Blood Urea Nitrogen 4 mg/dL (7-17); Calcium 7.7 mg/dL (8.4-10.2); Carbon Dioxide 17 mmol/L (22-30); Chloride 112 mmol/L (98-107); Estimated Glomerular Filt Rate > 60; Glucose 86 mg/dL (65-110); Potassium 3.7 mmol/L (3.4-5.0); Sodium 137 mmol/L (137-145)
[2025-02-09] MEDS: lamoTRIgine 100 MG TABLET 200 MG PO (08:28)
[2025-02-09] MEDS: TOPIRAMATE 25 MG TABLET 50 MG PO ×2 (08:28→20:02)
[2025-02-09] MEDS: FLUoxetine HCL 20 MG CAPSULE PO (08:28)
[2025-02-09] MEDS: buPROPion HCL XL (24 HR) 150 MG TABCR PO (08:29)
[2025-02-09 08:58] LABS: Beta HCG Quantitative < 2.39 mIU/ML
--- NOTE | 2025-02-09 09:22 | WPDHPUPDATE1 ---
History and Physical Update Update Date/Time: 02/09/25 09:22 History and Physical has been reviewed, including an updated exam of the patient. There are NO changes in the patient's condition. Risks, benefits, and alternatives have been discussed and questions answered. Patient agrees to proceed with procedure.
--- NOTE | 2025-02-09 09:52 | PM.IMPN ---
Progress Note: A&P Assessment and Plan (1) Cellulitis: Code(s): L03.90 - Cellulitis, unspecified Status: Acute (2) Pressure ulcer due to spina bifida: Code(s): L89.90 - Pressure ulcer of unspecified site, unspecified stage; Q05.9 - Spina bifida, unspecified Status: Deleted Plan Cellulitis Debridement with surgery Continue Levaquin and metronidazole CT pelvis:Medial facet thigh and perineal skin defects with underlying cellulitis, likely extending to and involving the vagina and anus. No definite findings of acute or chronic ostium myelitis, although the induration does extend to the tip of the coccyx. No focal soft tissue fluid collection to suggest abscess. Bilateral hip joint effusions with synovitis, septic arthritis is not excluded. Cystitis. Nasal MRSA pending Pain management with Tylenol Will monitor signs of systemic involvement(sepsis, worsening erythema or lymphangitis) Will consider culture of wound if no improvement Order HbA1c Surgery consulted. Wound Care consulted Epilepsy Continue lamotrigine Depression/anxiety Continue home medications DVT prophylaxis Lovenox 40 mg subcutaneous Subjective Date/time seen: 02/09/25 09:52 Interval history: Consult dietitian for nutrition recommendation. Albumin infusion will be done. Patient underwent debridement Review of Systems Review of Systems: All systems as dictated in HPI Exam Narrative: GENERAL: Well-appearing, well-nourished, and in no acute distress. HEAD: Normocephalic, atraumatic. EYES: PERRLA and EOMI. ENT: Nares clear, no rhinorrhea or epistaxis. Mucous membranes moist. Oropharynx without tonsillar hypertrophy exudate or other lesions. NECK: Supple. No adenopathy or masses. CHEST: No respiratory distress. Clear to auscultation. No wheezes rales or rhonchi HEART: Regular rate and rhythm. No murmur heard. Normal peripheral pulses. ABDOMEN: Soft, nontender, nondistended, normal active bowel sounds. MSK: Normal range of motion. No edema. SKIN: There is a 5-6 cm diameter pressure ulcer noted to the left inferior buttock/posterior thigh. Most of the area of wound bed is dark, necrotic appearing and surrounded by a thin line of erythematous appearing granulation tissue. The wound has a very small amount of erythema surrounding. It is not warm. There is no active purulent drainage. No surrounding indurated or necrotic appearing tissue. NEURO: Alert and oriented x4. No focal deficits. PSYCH: Normal mood and affect. Objective Data Vital Signs Vital Signs: Vital Signs - 24 hr 02/08/25 12:00 02/08/25 14:00 02/08/25 16:00 Temperature 98 F Pulse Rate 87 92 112 H Respiratory Rate 20 Blood Pressure 108/57 L Pulse Oximetry 92 Oxygen Delivery 02/08/25 20:00 02/08/25 20:00 02/08/25 21:56 Temperature 98.6 F Pulse Rate 103 H 112 H Respiratory Rate 16 Blood Pressure 107/65 Pulse Oximetry 99 Oxygen Delivery Room Air 02/09/25 00:00 02/09/25 04:00 02/09/25 07:00 Temperature 98.0 F Pulse Rate 108 H 75 82 Respiratory Rate 16 Blood Pressure 98/57 L Pulse Oximetry 100 Oxygen Delivery Intake/Output Intake/Output: Intake & Output 02/06/25 02/07/25 02/08/25 02/09/25 23:59 23:59 23:59 23:59 Intake Total 2250 2863.3 100 Output Total 100 100 Balance 2250 2763.3 0 Meds/Results Medications: Active Medications Generic Name Dose Route Start Last Admin Trade Name Freq PRN Reason Stop Dose Admin Bupropion HCl 150 mg 02/09/25 09:00 02/09/25 08:29 Bupropion Hcl Xl (24 Hr) 150 Mg Tabcr PO 150 mg DAILY DANIELLE Administration Docusate Sodium 100 mg 02/09/25 09:00 02/09/25 08:29 Docusate Sodium 100 Mg Capsule PO Not Given DAILY DANIELLE Enoxaparin Sodium 40 mg 02/09/25 09:00 02/09/25 08:29 Enoxaparin 40 Mg/0.4 Ml Syringe SUB-Q Not Given DAILY DANIELLE Fluoxetine HCl 20 mg 02/09/25 09:00 02/09/25 08:28 Fluoxetine Hcl 20 Mg Capsule PO 20 mg DAILY DANIELLE Administration Sodium Chloride 1,000 mls @ 100 mls/hr 02/07/25 21:40 02/08/25 21:54 Normal Saline Iv IV CONT 100 mls/hr .Q10H DANIELLE Administration Levofloxacin/Dextrose 750 mg in 150 mls @ 100 mls/hr 02/08/25 20:00 02/08/25 21:52 Levaquin 750 Mg/D5w 150 Ml IVPB Infused Q24H DANIELLE Infusion Metronidazole 500 mg in 100 mls @ 100 mls/hr 02/08/25 05:00 02/09/25 05:21 Flagyl 500 Mg/Iso Soln 100 Ml IVPB 100 mls/hr Q8HR DANIELLE Administration Lamotrigine 300 mg 02/08/25 21:00 02/08/25 20:22 Lamotrigine 100 Mg Tablet PO 300 mg QHS DANIELLE Administration Lamotrigine 200 mg 02/09/25 09:00 02/09/25 08:28 Lamotrigine 100 Mg Tablet PO 200 mg QAM DANIELLE Administration Topiramate 50 mg 02/08/25 09:00 02/09/25 08:28 Topiramate 25 Mg Tablet PO 50 mg Q12H DANIELLE Administration Radiology Results: ITS Impressions Hip/Pelvis X-Ray 02/07/25 16:18 IMPRESSION: 1. No cortical erosion/osteolysis or periosteal reaction to suggest osteomyelitis. 2. Gracile bones and bilateral coxa valga consistent with provided history of paraplegia. Pelvis CT 02/07/25 20:38 IMPRESSION: Medial facet thigh and perineal skin defects with underlying cellulitis, likely extending to and involving the vagina and anus. No definite findings of acute or chronic ostium myelitis, although the induration does extend to the tip of the coccyx. No focal soft tissue fluid collection to suggest abscess. Bilateral hip joint effusions with synovitis, septic arthritis is not excluded. Cystitis. Labs Labs: Laboratory Results - last 24 hr 02/08/25 02/09/25 02/09/25 09:53 04:57 05:11 WBC 7.8 RBC 3.78 L Hgb 9.0 L Hct 31.3 L MCV 82.8 MCH 23.8 L MCHC 28.8 L RDW 25.6 H Plt Count 338 MPV 9.4 Sodium 137 Potassium 3.7 Chloride 112 H Carbon Dioxide 17 L Anion Gap 8 BUN 4 L D Creatinine 0.25 L Estim Creat Clear Calc Not Reportable Estimated GFR > 60 Glucose 86 Calcium 7.7 L Total Bilirubin 0.2 AST 12 L ALT 8 Alkaline Phosphatase 73 Total Protein 5.0 L Albumin 2.8 L Beta HCG, Quant < 2.39 Nasal MRSA (PCR) Not detected Hospitalist [facility] Advance Care Plan I have confirmed that the patient's Advanced Care Plan is present, code status is documented, or surrogate decision maker is listed in patient medical record.: Yes Medication Reconciliation I have utilized all available resources to obtain, update and review the patients current medications (includes all prescriptions, OTC, herbals, cannabis, and nutritional supplements).: Yes
[2025-02-09] MEDS: LACTATED RINGERS 1,000 ML 30 ML IV CONT (10:05)
[2025-02-09 10:17] LABS: Immature Reticulocyte Fraction 22.8 % (3.0-15.9); Reticulocyte Hemoglobin Conten 26.8 pg (28.2-36.6); Reticulocyte Percent 1.12 % (0.7-4.3); Reticulocytes Absolute 0.04 10^6/uL (0.02-0.10)
[2025-02-09 10:27] LABS: Iron 36 ug/dL (37-170)
[2025-02-09 10:36] LABS: Transferrin 94 mg/dL (206-381)
[2025-02-09 10:36] LABS: Percent Iron Saturation 21 % (20-50)
--- NOTE | 2025-02-09 10:39 | WPDANESEPPF ---
Anes - Initial Pre Proc Eval Procedure: Operation Date: 02/09/25 11:00 Proposed Procedures p Debridement Left Ischial Wound - Angelica Castillo MD Date/Time: 02/09/25 10:39 Surgeon: Kelli Mejia MD Pre Op Diagnosis: Cellulitis, Necrotic pressure ulcer Patient Data Age: 34 Gender: F Height: 1.47 m Weight: 65.9 kg Last Vital Signs Temp 36.7 C 02/09/25 07:00 Pulse 74 02/09/25 08:00 Resp 16 02/09/25 07:00 BP 98/57 L 02/09/25 07:00 Pulse Ox 100 02/09/25 07:00 O2 Del Method Room Air 02/08/25 20:00 Allergies Allergy/AdvReac Type Severity Reaction Status Date / Time latex Allergy Severe Rash Verified 02/09/25 10:13 amoxicillin Allergy Intermediate Rash Verified 02/09/25 10:13 Home Medications ?Medication ?Instructions ?Recorded ?Confirmed ?Type bupropion HCl 150 mg 24 hr tablet, 150 mg PO DAILY 02/08/25 02/08/25 History extended release (Wellbutrin XL) docusate sodium 100 mg capsule 100 mg PO DAILY 02/08/25 02/08/25 History (Colace) fluoxetine 20 mg capsule 20 mg PO DAILY 02/08/25 02/08/25 History lamotrigine 100 mg tablet 300 mg PO QHS 02/08/25 02/08/25 History (Lamictal) lamotrigine 200 mg tablet 200 mg PO QAM 02/08/25 02/08/25 History (Lamictal) topiramate 50 mg tablet (Topamax) 50 mg PO Q12H PRN migraine headache 02/08/25 02/08/25 History Laboratory Tests 02/08/25 02/09/25 02/09/25 09:53 04:57 05:11 WBC 7.8 K/mm3 (4.5-10.0) RBC 3.78 L M/mm3 (4.2-5.4) Hgb 9.0 L g/dL (12.0-15.0) Hct 31.3 L % (37.0-47.0) MCV 82.8 fl (80-100) MCH 23.8 L pg (26-34) MCHC 28.8 L g/dl (32-36) RDW 25.6 H % (11.5-14.5) Plt Count 338 k/mm3 (150-375) MPV 9.4 fl (7.4-10.4) Absolute Retic 0.04 10^6/uL (0.02-0.10) Percent Retic 1.12 % (0.7-4.3) Immature Retic Fraction 22.8 H % (3.0-15.9) Retic Hgb Content 26.8 L pg (28.2-36.6) Haptoglobin Pending Sodium 137 mmol/L (137-145) Potassium 3.7 mmol/L (3.4-5.0) Chloride 112 H mmol/L (98-107) Carbon Dioxide 17 L mmol/L (22-30) Anion Gap 8 mmol/L (4-12) BUN 4 L D mg/dL (7-17) Creatinine 0.25 L mg/dL (0.7-1.0) Estim Creat Clear Calc Not Reportable Estimated GFR > 60 (59 - ) Glucose 86 mg/dL (65-110) Calcium 7.7 L mg/dL (8.4-10.2) Iron 36 L ug/dL (37-170) TIBC 172 L ug/dL (261-462) % Saturation Pending Transferrin 94 L mg/dL (206-381) Ferritin Pending Total Bilirubin 0.2 mg/dL (0.2-1.3) Direct Bilirubin 0.0 mg/dL (0-0.3) AST 12 L U/L (14-36) ALT 8 U/L (6-35) Alkaline Phosphatase 73 U/L (38-126) Total Protein 5.0 L g/dL (6.3-8.2) Albumin 2.8 L g/dL (3.5-5.1) Vitamin B12 Pending Folate Pending Beta HCG, Quant < 2.39 mIU/ML Nasal MRSA (PCR) Not detected (NOT DETECTE) Patient hx anesthesia problems: none Family hx anesthesia problems: none Results Review: All pre-operative results and documents have been reviewed as part of the pre-operative evaluation. 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 History of cholecystectomy Family History Family History Mother Diabetes mellitus Hypertension Breast cancer Father Diabetes mellitus Grandparent Diabetes mellitus Acute myocardial infarction Hypertension Social History Social History Smoking status: Never smoker Alcohol intake: never Substance use: never Do You Feel Safe in your Home?: Yes Lack of Transportation: No Lack of Food: Never True Current Housing: I Have Housing Concerned About Future Housing: No Difficulty Paying Gas/Electric Bills: No Difficulty Paying for Meds: No Currently Unemployed: No Education: High School Diploma/GED Difficulty w/ Childcare or Family Care: No Spiritual care concerns: No Anes - Eval Final PreProcedure Day of Procedure 02/09/25 10:39 Patient weight: obese Heart: regular rate and rhythm Lungs: clear to auscultation Airway: Mallampati scale class III Neurological: alert and oriented Last oral intake: >/= 8 hours ASA classification: III Emergent: no Anesthetic plan: proceed Anesthesia type and monitoring: general GIVS and standard monitoring Results Review: All pre-operative results and documents have been reviewed as part of the pre-operative evaluation. Informed Consent: The patient's anesthetic plan and its attendant risks and benefits were discussed with the patient/family/POA. Questions were solicited and answers provided to the satisfaction of the patient/family/POA.
--- NOTE | 2025-02-09 11:44 | W.PM.PROC2 ---
Procedure Note - Detailed Date of Procedure 02/09/25 Pre-op Diagnosis left ischial decubitus ulcer Post-op Diagnosis Other ( stage III left ischial decubitus ulcer) Procedure Performed complex debridement and washout stage III left ischial decubitus ulcer Surgeon Angelica Castillo MD Anesthesia General Indications 34-year-old female with a history of spina bifida presenting with a left ischial decubitus ulcer Findings 8 x 7 cm stage III left ischial decubitus ulcer involving full thickness dermis, partial subcutaneous fat Description of Procedure The patient was taken the operating room placed in the lateral position. After adequate induction of general anesthesia, the patient prepped and draped in the normal sterile fashion. A time-out was then done to verify the patient's identity, as well as the procedure being performed. I began by using a 11 blade scalpel to sharply debride the full-thickness dermal eschar overlying the wound. This measured 8 x 7 cm. The necrosis involved the full thickness of the dermis and extended into the superficial subcutaneous fat. The debridement was taken down to healthy, bleeding subcutaneous fat. The wound did not involve the underlying fascia or muscle. The eschar was then completely removed and sent to pathology for further review. I then gained hemostasis with the Bovie cautery. Wound was extensively washed out and examined. No tunneling or areas of active infection were noted. The eschar did have some liquified necrosis of the subcutaneous fat associated with some foul-smelling fluid. The wound was then packed with Betadine-soaked Kerlix. Sterile dressing was then placed. The patient tolerated the procedure well and was extubated postoperatively. She will be sent to the recovery room in stable condition. Estimated Blood Loss 20 Urine Output 100 Drains No Packing Yes Pathology Yes Complications No immediate complications Condition Stable Disposition PACU [facility] Billing Surgery - Charge Forward: Surgery Billing
--- NOTE | 2025-02-09 13:01 | PC.NURSE ---
Returned from OR at 1300. Report received from SAVANNA Ho.
[2025-02-09] MEDS: ALBUMIN HUMAN 25% 25 GM/100 ML 100 ML IVPB (13:09)
[2025-02-09] MEDS: SODIUM CHLORIDE 0.9% IV 1,000 ML 100 ML IV CONT (13:09)
[2025-02-09] MEDS: levoFLOXacin 750 MG/D5W 150 ML 750 MG/150 ML BAG 100 MG IVPB (19:59)
[2025-02-09] MEDS: lamoTRIgine 100 MG TABLET 300 MG PO (20:01)
[2025-02-09 20:32] LABS: Folic Acid 6.6 ng/mL (2.76->20)
[2025-02-10] VITALS: PULSE 94
[2025-02-10] MEDS: SODIUM CHLORIDE 0.9% IV 1,000 ML 100 ML IV CONT (03:49)
[2025-02-10 04:00] VITALS: PULSE 82
[2025-02-10] MEDS: metroNIDAZOLE 500 MG/ISO 100ML 500 MG/100 ML BAG 100 MG IVPB (05:04)
[2025-02-10 06:08] LABS: Hematocrit 32.6 % (37.0-47.0); Hemoglobin 9.3 g/dL (12.0-15.0); Mean Corpuscular HGB Conc 28.5 g/dl (32-36); Mean Corpuscular Hemoglobin 24.1 pg (26-34); Mean Corpuscular Volume 84.5 fl (80-100); Mean Platelet Volume 9.5 fl (7.4-10.4); Platelet Count Result 365 k/mm3 (150-375); Red Blood Count 3.86 M/mm3 (4.2-5.4); Red Cell Distribution Width 25.5 % (11.5-14.5); White Blood Count 9.5 K/mm3 (4.5-10.0)
[2025-02-10 06:14] LABS: Haptoglobin 139 mg/dL (43-212)
[2025-02-10 06:26] LABS: Alanine Aminotransferase 9 U/L (6-35); Albumin Level 3.3 g/dL (3.5-5.1); Alkaline Phosphatase 75 U/L (38-126); Anion Gap 10 mmol/L (4-12); Aspartate Amino Transferase 10 U/L (14-36); Bilirubin,Total 0.1 mg/dL (0.2-1.3); Calcium 8.4 mg/dL (8.4-10.2); Carbon Dioxide 19 mmol/L (22-30); Chloride 110 mmol/L (98-107); Estimated Glomerular Filt Rate > 60; Glucose 99 mg/dL (65-110); Potassium 3.9 mmol/L (3.4-5.0); Sodium 139 mmol/L (137-145)
[2025-02-10 07:25] VITALS: BP 100/59; PULSE 93; RESP 16; TEMP 36.9; O2SAT 99
[2025-02-10 07:27] LABS: Blood Urea Nitrogen < 2 mg/dL (7-17)
--- NOTE | 2025-02-10 09:07 | P.PNIM_ITS ---
Progress Note: A&P Assessment and Plan (1) Cellulitis: Code(s): L03.90 - Cellulitis, unspecified Status: Acute (2) Pressure ulcer due to spina bifida: Code(s): L89.90 - Pressure ulcer of unspecified site, unspecified stage; Q05.9 - Spina bifida, unspecified Status: Deleted Plan Cellulitis Debridement with surgery Continue Levaquin and metronidazole CT pelvis:Medial facet thigh and perineal skin defects with underlying cellulitis, likely extending to and involving the vagina and anus. No definite findings of acute or chronic ostium myelitis, although the induration does extend to the tip of the coccyx. No focal soft tissue fluid collection to suggest abscess. Bilateral hip joint effusions with synovitis, septic arthritis is not excluded. Cystitis. Nasal MRSA pending Pain management with Tylenol Will monitor signs of systemic involvement(sepsis, worsening erythema or lymphangitis) Will consider culture of wound if no improvement Order HbA1c Surgery consulted. Wound Care consulted Epilepsy Continue lamotrigine Depression/anxiety Continue home medications UTI UC resulted Providencia rettgeri. Started Bactrim DS and will continue Metronidazole. 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 As per ED the patient wound has been gradually increasing in size which is associated with necrotic skin and cellulitis.UA: Positive for nitrate and leukocyte esterase.Patient was started on Levaquin and metronidazole for cellulitis. Consulted surgery and underwent complex debridement and washout stage III left ischial decubitus ulcer 0 02/10:UC resulted Providencia rettgeri. Patient is currently on Levaquin and Metronidazole. Review of Systems Review of Systems: All systems as dictated in HPI Exam Narrative: GENERAL: Well-appearing, well-nourished, and in no acute distress. HEAD: Normocephalic, atraumatic. EYES: PERRLA and EOMI. ENT: Nares clear, no rhinorrhea or epistaxis. Mucous membranes moist. Oropharynx without tonsillar hypertrophy exudate or other lesions. NECK: Supple. No adenopathy or masses. CHEST: No respiratory distress. Clear to auscultation. No wheezes rales or rhonchi HEART: Regular rate and rhythm. No murmur heard. Normal peripheral pulses. ABDOMEN: Soft, nontender, nondistended, normal active bowel sounds. MSK: Normal range of motion. No edema. SKIN: There is a 5-6 cm diameter pressure ulcer noted to the left inferior buttock/posterior thigh. Most of the area of wound bed is dark, necrotic appearing and surrounded by a thin line of erythematous appearing granulation tissue. The wound has a very small amount of erythema surrounding. It is not warm. There is no active purulent drainage. No surrounding indurated or necrotic appearing tissue. NEURO: Alert and oriented x4. No focal deficits. PSYCH: Normal mood and affect. Objective Data Vital Signs Vital Signs: Vital Signs - 24 hr 02/09/25 10:05 02/09/25 11:34 02/09/25 11:45 Temperature 99.5 F 97.7 F Pulse Rate 81 65 79 Respiratory Rate 18 22 H 24 H Blood Pressure 105/65 133/76 132/86 Pulse Oximetry 100 100 100 Oxygen Delivery Room Air Simple Face Mask Room Air Oxygen Flow Rate 8 02/09/25 12:00 02/09/25 12:15 02/09/25 12:30 Temperature 97.8 F Pulse Rate 72 75 89 Respiratory Rate 19 23 H 16 Blood Pressure 125/75 120/70 107/70 Pulse Oximetry 100 100 100 Oxygen Delivery Room Air Room Air Room Air Oxygen Flow Rate 02/09/25 12:45 02/09/25 13:10 02/09/25 13:25 Temperature 98.0 F 98.0 F Pulse Rate 84 91 86 Respiratory Rate 23 H 18 18 Blood Pressure 106/65 101/59 L 93/59 L Pulse Oximetry 100 100 100 Oxygen Delivery Room Air Oxygen Flow Rate 02/09/25 13:55 02/09/25 16:00 02/09/25 20:00 Temperature 98.0 F Pulse Rate 98 105 H 105 H Respiratory Rate 18 Blood Pressure 106/58 L Pulse Oximetry 94 Oxygen Delivery Oxygen Flow Rate 02/09/25 21:10 02/10/25 00:00 02/10/25 04:00 Temperature 98.6 F Pulse Rate 102 H 94 82 Respiratory Rate 16 Blood Pressure 101/58 L Pulse Oximetry 100 Oxygen Delivery Oxygen Flow Rate 02/10/25 07:25 Temperature 98.5 F Pulse Rate 93 Respiratory Rate 16 Blood Pressure 100/59 L Pulse Oximetry 99 Oxygen Delivery Oxygen Flow Rate Intake/Output Intake/Output: Intake & Output 02/07/25 02/08/25 02/09/25 02/10/25 23:59 23:59 23:59 23:59 Intake Total 2250 2863.3 3744.5 300 Output Total 100 200 Balance 2250 2763.3 3544.5 300 Meds/Results Medications: Active Medications Generic Name Dose Route Start Last Admin Trade Name Freq PRN Reason Stop Dose Admin Bupropion HCl 150 mg 02/09/25 09:00 02/09/25 08:29 Bupropion Hcl Xl (24 Hr) 150 Mg Tabcr PO 150 mg DAILY DANIELLE Administration Docusate Sodium 100 mg 02/09/25 09:00 02/09/25 08:29 Docusate Sodium 100 Mg Capsule PO Not Given DAILY DANIELLE Enoxaparin Sodium 40 mg 02/09/25 09:00 02/09/25 08:29 Enoxaparin 40 Mg/0.4 Ml Syringe SUB-Q Not Given DAILY DANIELLE Fluoxetine HCl 20 mg 02/09/25 09:00 02/09/25 08:28 Fluoxetine Hcl 20 Mg Capsule PO 20 mg DAILY DANIELLE Administration Sodium Chloride 1,000 mls @ 100 mls/hr 02/07/25 21:40 02/10/25 03:49 Normal Saline Iv IV CONT 100 mls/hr .Q10H DANIELLE Administration Levofloxacin/Dextrose 750 mg in 150 mls @ 100 mls/hr 02/08/25 20:00 02/09/25 21:29 Levaquin 750 Mg/D5w 150 Ml IVPB Infused Q24H DANIELLE Infusion Metronidazole 500 mg in 100 mls @ 100 mls/hr 02/08/25 05:00 02/10/25 06:04 Flagyl 500 Mg/Iso Soln 100 Ml IVPB Infused Q8HR DANIELLE Infusion Lamotrigine 300 mg 02/08/25 21:00 02/09/25 20:01 Lamotrigine 100 Mg Tablet PO 300 mg QHS DANIELLE Administration Lamotrigine 200 mg 02/09/25 09:00 02/09/25 08:28 Lamotrigine 100 Mg Tablet PO 200 mg QAM DANIELLE Administration Topiramate 50 mg 02/08/25 09:00 02/09/25 20:02 Topiramate 25 Mg Tablet PO 50 mg Q12H DANIELLE Administration Radiology Results: ITS Impressions Hip/Pelvis X-Ray 02/07/25 16:18 IMPRESSION: 1. No cortical erosion/osteolysis or periosteal reaction to suggest osteomyelitis. 2. Gracile bones and bilateral coxa valga consistent with provided history of paraplegia. Pelvis CT 02/07/25 20:38 IMPRESSION: Medial facet thigh and perineal skin defects with underlying cellulitis, likely extending to and involving the vagina and anus. No definite findings of acute or chronic ostium myelitis, although the induration does extend to the tip of the coccyx. No focal soft tissue fluid collection to suggest abscess. Bilateral hip joint effusions with synovitis, septic arthritis is not excluded. Cystitis. Labs Labs: Laboratory Results - last 24 hr 02/08/25 02/09/25 02/09/25 09:22 04:57 05:11 WBC RBC Hgb Hct MCV MCH MCHC RDW Plt Count MPV Absolute Retic 0.04 Percent Retic 1.12 Immature Retic Fraction 22.8 H Retic Hgb Content 26.8 L Haptoglobin 139 Sodium Potassium Chloride Carbon Dioxide Anion Gap BUN Creatinine Estim Creat Clear Calc Estimated GFR Glucose Calcium Iron 36 L TIBC 172 L % Saturation 21 Transferrin 94 L Ferritin 84.70 Total Bilirubin Direct Bilirubin 0.0 AST ALT Alkaline Phosphatase Total Protein Albumin Vitamin B12 501.0 Folate 6.6 FERNANDO, IgG Interpret TNP FERNANDO, Poly Interpret Negative FERNANDO, Complement Interp TNP 02/10/25 05:54 WBC 9.5 RBC 3.86 L Hgb 9.3 L Hct 32.6 L MCV 84.5 MCH 24.1 L MCHC 28.5 L RDW 25.5 H Plt Count 365 MPV 9.5 Absolute Retic Percent Retic Immature Retic Fraction Retic Hgb Content Haptoglobin Sodium 139 Potassium 3.9 Chloride 110 H Carbon Dioxide 19 L Anion Gap 10 BUN < 2 L Creatinine 0.23 L Estim Creat Clear Calc Not Reportable Estimated GFR > 60 Glucose 99 Calcium 8.4 Iron TIBC % Saturation Transferrin Ferritin Total Bilirubin 0.1 L Direct Bilirubin AST 10 L ALT 9 Alkaline Phosphatase 75 Total Protein 6.0 L Albumin 3.3 L Vitamin B12 Folate FERNANDO, IgG Interpret FERNANDO, Poly Interpret FERNANDO, Complement Interp
[2025-02-10] MEDS: FLUoxetine HCL 20 MG CAPSULE PO (09:35)
[2025-02-10] MEDS: lamoTRIgine 100 MG TABLET 200 MG PO (09:36)
[2025-02-10] MEDS: buPROPion HCL XL (24 HR) 150 MG TABCR PO (09:36)
[2025-02-10] MEDS: DOCUSATE SODIUM 100 MG CAPSULE PO (09:36)
[2025-02-10 09:37] VITALS: PULSE 82; PULSE 93; RESP 16; O2SAT 99
[2025-02-10] MEDS: TOPIRAMATE 25 MG TABLET 50 MG PO (09:37)
[2025-02-10] MEDS: ENOXAPARIN 40 MG/0.4 ML SYRINGE SUB-Q (09:37)
--- NOTE | 2025-02-10 10:28 | PM.PNGS ---
Progress Note: A&P Assessment and Plan (1) Decubitus ulcer of left ischial area: Code(s): L89.329 - Pressure ulcer of left buttock, unspecified stage Status: Acute Assessment and Plan: POD1 and wound appears clean, no necrotic tissue or purulent drainage. Will start Santyl dressing changes for enzymatic debridement of the yellow slough. Educated her mother on dressing changes. She is set up with home health to come out as well to follow the wound. Okay to d/c on oral antibiotics with local wound care. Follow-up in [address] Castillo. (2) Cellulitis: Code(s): L03.90 - Cellulitis, unspecified Status: Acute Assessment and Plan: Transitioned to oral antibiotics. Surgically stable for discharge. Plan I have discussed the patient's case and plan of care with Dr. Castillo. Subjective Subjective Date/Time Seen: 02/10/25 10:28 Patient reports: no new complaints and afebrile Interval history: No acute changes overnight. No complaints. Exam Narrative: Left ischial ulcer with 40% pink healthy tissue and 60% pale yellow subcutaneous tissue, no purulent drainage or necrotic tissue. Const: General: comfortable and no acute distress Objective Data Vital Signs Vital Signs: Vital Signs - 24 hr 02/09/25 11:34 02/09/25 11:45 02/09/25 12:00 Temperature 97.7 F 97.8 F Pulse Rate 65 79 72 Respiratory Rate 22 H 24 H 19 Blood Pressure 133/76 132/86 125/75 Pulse Oximetry 100 100 100 Oxygen Delivery Simple Face Mask Room Air Room Air Oxygen Flow Rate 8 02/09/25 12:15 02/09/25 12:30 02/09/25 12:45 Temperature Pulse Rate 75 89 84 Respiratory Rate 23 H 16 23 H Blood Pressure 120/70 107/70 106/65 Pulse Oximetry 100 100 100 Oxygen Delivery Room Air Room Air Room Air Oxygen Flow Rate 02/09/25 13:10 02/09/25 13:25 02/09/25 13:55 Temperature 98.0 F 98.0 F 98.0 F Pulse Rate 91 86 98 Respiratory Rate 18 18 18 Blood Pressure 101/59 L 93/59 L 106/58 L Pulse Oximetry 100 100 94 Oxygen Delivery Oxygen Flow Rate 02/09/25 16:00 02/09/25 20:00 02/09/25 21:10 Temperature 98.6 F Pulse Rate 105 H 105 H 102 H Respiratory Rate 16 Blood Pressure 101/58 L Pulse Oximetry 100 Oxygen Delivery Oxygen Flow Rate 02/10/25 00:00 02/10/25 04:00 02/10/25 07:25 Temperature 98.5 F Pulse Rate 94 82 93 Respiratory Rate 16 Blood Pressure 100/59 L Pulse Oximetry 99 Oxygen Delivery Oxygen Flow Rate 02/10/25 09:37 02/10/25 09:37 Temperature Pulse Rate 93 93 Respiratory Rate 16 Blood Pressure Pulse Oximetry 99 Oxygen Delivery Room Air Oxygen Flow Rate Intake/Output Intake/Output: Intake & Output 02/07/25 02/08/25 02/09/25 02/10/25 23:59 23:59 23:59 23:59 Intake Total 2250 2863.3 3744.5 440 Output Total 100 200 Balance 2250 2763.3 3544.5 440 Meds/Results Medications: Active Medications Generic Name Dose Route Start Last Admin Trade Name Freq PRN Reason Stop Dose Admin Bupropion HCl 150 mg 02/09/25 09:00 02/10/25 09:36 Bupropion Hcl Xl (24 Hr) 150 Mg Tabcr PO 150 mg DAILY DANIELLE Administration Collagenase 1 applic 02/10/25 10:25 Collagenase Oint 30 Gm Tube TOPICAL QAM DANIELLE Docusate Sodium 100 mg 02/09/25 09:00 02/10/25 09:36 Docusate Sodium 100 Mg Capsule PO 100 mg DAILY DANIELLE Administration Enoxaparin Sodium 40 mg 02/09/25 09:00 02/10/25 09:37 Enoxaparin 40 Mg/0.4 Ml Syringe SUB-Q 40 mg DAILY DANIELLE Administration Fluoxetine HCl 20 mg 02/09/25 09:00 02/10/25 09:35 Fluoxetine Hcl 20 Mg Capsule PO 20 mg DAILY DANIELLE Administration Sodium Chloride 1,000 mls @ 100 mls/hr 02/07/25 21:40 02/10/25 03:49 Normal Saline Iv IV CONT 100 mls/hr .Q10H DANIELLE Administration Lamotrigine 300 mg 02/08/25 21:00 02/09/25 20:01 Lamotrigine 100 Mg Tablet PO 300 mg QHS DANIELLE Administration Lamotrigine 200 mg 02/09/25 09:00 02/10/25 09:36 Lamotrigine 100 Mg Tablet PO 200 mg QAM DANIELLE Administration Metronidazole 500 mg 02/10/25 14:00 Metronidazole 500 Mg Tablet PO 02/16/25 22:01 Q8HR [facility] Topiramate 50 mg 02/08/25 09:00 02/10/25 09:37 Topiramate 25 Mg Tablet PO 50 mg Q12H DANIELLE Administration Trimethoprim/Sulfamethoxazole 1 tab 02/10/25 10:00 Sulfamethoxazole/Trimethoprim 800/160 Mg Ds Tablet PO 02/16/25 21:01 Q12HR [facility] Radiology Results: ITS Impressions Hip/Pelvis X-Ray 02/07/25 16:18 IMPRESSION: 1. No cortical erosion/osteolysis or periosteal reaction to suggest osteomyelitis. 2. Gracile bones and bilateral coxa valga consistent with provided history of paraplegia. Pelvis CT 02/07/25 20:38 IMPRESSION: Medial facet thigh and perineal skin defects with underlying cellulitis, likely extending to and involving the vagina and anus. No definite findings of acute or chronic ostium myelitis, although the induration does extend to the tip of the coccyx. No focal soft tissue fluid collection to suggest abscess. Bilateral hip joint effusions with synovitis, septic arthritis is not excluded. Cystitis. Labs Labs: Laboratory Results - last 24 hr 02/08/25 02/09/25 02/09/25 09:22 04:57 05:11 WBC RBC Hgb Hct MCV MCH MCHC RDW Plt Count MPV Haptoglobin 139 Sodium Potassium Chloride Carbon Dioxide Anion Gap BUN Creatinine Estim Creat Clear Calc Estimated GFR Glucose Calcium TIBC 172 L % Saturation 21 Transferrin 94 L Ferritin 84.70 Total Bilirubin Direct Bilirubin 0.0 AST ALT Alkaline Phosphatase Total Protein Albumin Vitamin B12 501.0 Folate 6.6 FERNANDO, IgG Interpret TNP FERNANDO, Poly Interpret Negative FERNANDO, Complement Interp TNP 02/10/25 05:54 WBC 9.5 RBC 3.86 L Hgb 9.3 L Hct 32.6 L MCV 84.5 MCH 24.1 L MCHC 28.5 L RDW 25.5 H Plt Count 365 MPV 9.5 Haptoglobin Sodium 139 Potassium 3.9 Chloride 110 H Carbon Dioxide 19 L Anion Gap 10 BUN < 2 L Creatinine 0.23 L Estim Creat Clear Calc Not Reportable Estimated GFR > 60 Glucose 99 Calcium 8.4 TIBC % Saturation Transferrin Ferritin Total Bilirubin 0.1 L Direct Bilirubin AST 10 L ALT 9 Alkaline Phosphatase 75 Total Protein 6.0 L Albumin 3.3 L Vitamin B12 Folate FERNANDO, IgG Interpret FERNANDO, Poly Interpret FERNANDO, Complement Interp
[2025-02-10] MEDS: SULFAMETHOXAZOLE/TRIMETHOPRIM 800/160 MG DS TABLET 1 TAB PO (11:39)
[2025-02-10 12:00] VITALS: PULSE 82
--- NOTE | 2025-02-10 12:41 | P.DS_ITS ---
DS: Admitting Diagnosis Discharge Date 02/10/2025 Admitting Diagnosis Pressure ulcer DS: Discharge Diagnosis Discharge Diagnosis (1) Cellulitis: Code(s): L03.90 - Cellulitis, unspecified Status: Acute (2) Pressure ulcer due to spina bifida: Code(s): L89.90 - Pressure ulcer of unspecified site, unspecified stage; Q05.9 - Spina bifida, unspecified Status: Deleted Plan Cellulitis Debridement with surgery Continue Levaquin and metronidazole CT pelvis:Medial facet thigh and perineal skin defects with underlying cellulitis, likely extending to and involving the vagina and anus. No definite findings of acute or chronic ostium myelitis, although the induration does extend to the tip of the coccyx. No focal soft tissue fluid collection to suggest abscess. Bilateral hip joint effusions with synovitis, septic arthritis is not excluded. Cystitis. Nasal MRSA pending Pain management with Tylenol Will monitor signs of systemic involvement(sepsis, worsening erythema or ly mphangitis) Will consider culture of wound if no improvement Order HbA1c Surgery consulted. Wound Care consulted Epilepsy Continue lamotrigine Depression/anxiety Continue home medications UTI UC resulted Providencia rettgeri. Started Bactrim DS and will continue Metronidazole. DVT prophylaxis Lovenox 40 mg subcutaneous DS: Summary Hospital Course Hospital Course: 34-year-old female with the past medical history of spina bifida with myelomeningocele, Arnold Chiari syndrome, seizures, multiple LABORATORY MONITOR shunt replacement, bladder augmentation, depression, anxiety presented to the ER due to wound on her right thigh. As per ED the patient wound has been gradually increasing in size which is associated with necrotic skin and cellulitis.UA: Positive for nitrate and leukocyte esterase.Patient was started on Levaquin and metronidazole for cellulitis. Consulted surgery and underwent complex debridement and washout stage III left ischial decubitus ulcerUC resulted Providencia rettgeri. Patient is currently on Levaquin and Metronidazole. Status at Discharge Cognitive/behavioral status at discharge: Stable Time Spent with Patient Time attestation: Total time spent providing and/or coordinating discharge services:45 minutes Exam Narrative: GENERAL: Well-appearing, well-nourished, and in no acute distress. HEAD: Normocephalic, atraumatic. EYES: PERRLA and EOMI. ENT: Nares clear, no rhinorrhea or epistaxis. Mucous membranes moist. Oropharynx without tonsillar hypertrophy exudate or other lesions. NECK: Supple. No adenopathy or masses. CHEST: No respiratory distress. Clear to auscultation. No wheezes rales or rhonchi HEART: Regular rate and rhythm. No murmur heard. Normal peripheral pulses. ABDOMEN: Soft, nontender, nondistended, normal active bowel sounds. MSK: Normal range of motion. No edema. SKIN: There is a 5-6 cm diameter pressure ulcer noted to the left inferior buttock/posterior thigh. Most of the area of wound bed is dark, necrotic appearing and surrounded by a thin line of erythematous appearing granulation tissue. The wound has a very small amount of erythema surrounding. It is not warm. There is no active purulent drainage. No surrounding indurated or necrotic appearing tissue. NEURO: Alert and oriented x4. No focal deficits. PSYCH: Normal mood and affect. DS: Data Data Completed and Pending Labs on day of discharge: Labs from last 24 hours 02/10/25 02/09/25 02/09/25 05:54 05:11 04:57 WBC 9.5 RBC 3.86 L Hgb 9.3 L Hct 32.6 L MCV 84.5 MCH 24.1 L MCHC 28.5 L RDW 25.5 H Plt Count 365 MPV 9.5 Haptoglobin 139 Sodium 139 Potassium 3.9 Chloride 110 H Carbon Dioxide 19 L Anion Gap 10 BUN < 2 L Creatinine 0.23 L Estim Creat Clear Calc Not Reportable Estimated GFR > 60 Glucose 99 Calcium 8.4 Total Bilirubin 0.1 L AST 10 L ALT 9 Alkaline Phosphatase 75 Total Protein 6.0 L Albumin 3.3 L Vitamin B12 501.0 Folate 6.6 Preliminary micro results at discharge 02/07/25 16:40 Blood Culture - Preliminary Blood 02/07/25 18:19 Blood Culture - Preliminary Blood Imaging Radiologist's impression: ITS Impressions Hip/Pelvis X-Ray 02/07/25 16:18 IMPRESSION: 1. No cortical erosion/osteolysis or periosteal reaction to suggest osteomyelitis. 2. Gracile bones and bilateral coxa valga consistent with provided history of paraplegia. Pelvis CT 02/07/25 20:38 IMPRESSION: Medial facet thigh and perineal skin defects with underlying cellulitis, likely extending to and involving the vagina and anus. No definite findings of acute or chronic ostium myelitis, although the induration does extend to the tip of the coccyx. No focal soft tissue fluid collection to suggest abscess. Bilateral hip joint effusions with synovitis, septic arthritis is not excluded. Cystitis. Discharge Plan Discharge Attending physician on discharge: Mark Champion Consulting providers: Angelica Castillo Discharging Clinician: Mark Champion Patient Disposition: Home with Home Health Service Activity: as tolerated Diet: regular Discharge Instructions: Per Care Coordination, patient to discharge with [facility] ([phone]) for half-way and wound care. Agency will call to arrange initial visit. * Wound care: Apply Santyl to the left buttock wound and cover with Vaseline gauze and ABD pad or gauze, then apply tape. Change this daily. Okay to wash over wound daily with mild soap and water or wound cleanser. * Follow-up with Dr. Castillo in 2 weeks in our office. Call to schedule the appointment. [phone] * Avoid pressure on your ischial wound. You want to change position with using a pillow under one side or turning every 1-2 hours. Do not sit for prolonged periods in your wheelchair without turning. Patient Instructions: Antibiotic Form, Pain Management (DC) Patient Language: Tajik Stand Alone Forms: General Discharge Information Follow-up/Referrals: Angelica Castillo MD [Physician] - 2 Weeks Discharge Medications: New Santyl 250 unit/gram Ointment 1 applic topical QAM Qty: 30 0RF metronidazole 500 mg Tablet 500 mg PO Q8HR Qty: 21 0RF Rx Instructions: Please complete the course on 02/16 sulfamethoxazole-trimethoprim 800-160 mg Tablet 1 tablet PO Q12HR Qty: 14 0RF Rx Instructions: Please complete course on 02/16 Continued lamotrigine [Lamictal] 200 mg tablet 200 mg PO QAM lamotrigine [Lamictal] 100 mg tablet 300 mg PO QHS fluoxetine 20 mg capsule 20 mg PO DAILY docusate sodium [Colace] 100 mg capsule 100 mg PO DAILY topiramate [Topamax] 50 mg tablet 50 mg PO Q12H PRN (Reason: migraine headache) bupropion HCl [Wellbutrin XL] 150 mg tablet extended release 24 hr 150 mg PO DAILY Date of admission: 02/08/25 08:01 Primary Care Provider: Karthik Lawson Admitting Provider: Kelli Mejia Attending physician on admission: Kelli Mejia Condition: Stable
[2025-02-10] MEDS: COLLAGENASE OINT 30 GM TUBE 1 APPLIC TOPICAL (13:37)
== END 2025-02-10 14:41 | disposition home health service (06) | DRG 571 ==
LOC: ANHED 18:43 → ANH2MED 22:06
PROVIDERS: Anesthesiology; Registered Nurse; Surgery; Admitting Provider General Practice; Emergency Provider Physician Assistant; PCP Psychiatry & Neurology Neurology; Visit Provider General Practice
PROC: 0JB90ZZ Excision of Buttock Subcutaneous Tissue and Fascia, Open Approach (ICD-10-PCS; principal; 2025-02-09 11:00)
DX: L89.323 Pressure ulcer of left buttock, stage 3 (principal); G82.20 Paraplegia, unspecified; L03.317 Cellulitis of buttock; L03.116 Cellulitis of left lower limb; N39.0 Urinary tract infection, site not specified; G40.909 Epilepsy, unspecified, not intractable, without status epilepticus; F32.A Depression, unspecified; F41.9 Anxiety disorder, unspecified; Q05.9 Spina bifida, unspecified; Z98.2 Presence of cerebrospinal fluid drainage device; Z99.3 Dependence on wheelchair
CPT/HCPCS: 36415; 72193; 73521; 80053; 81001; 82248; 82607; 82728; 82746; 83010; 83036; 83540; 83550; 83605; 84466; 84702; 85025; 85027; 85046; 85610; 85652; 85730; 86140; 86880; 87040; 87086; 87186; 87641; 96365; 96367; 99212; 99285; A9270; G0378; G0463; J1650; J1836; J1956; J2003; J2250; J2371; J2405; J3010; J7030; J7120; P9047; Q9967

== ENCOUNTER 2025-03-30 13:52 | Outpatient (RCR) | payer OTHER, SELFPAY ==
[2025-03-30 15:33] LABS: Hematocrit 34.1 % (37.0-47.0); Hemoglobin 9.9 g/dL (12.0-15.0); Immature Granulocyte Percent A 1.0 % (0-0.5); Lymphocytes Absolute Auto 1.33 K/mm3 (0.9-3.2); Mean Corpuscular HGB Conc 29.0 g/dl (32-36); Mean Corpuscular Hemoglobin 25.6 pg (26-34); Mean Corpuscular Volume 88.3 fl (80-100); Nucleated Red Blood Cells Absolute Auto 0.000 K/mm3 (0.0-0.012); Nucleated Red Blood Cells Perc 0.0 % (0.0-0.2); Platelet Count Result 358 k/mm3 (150-375); Red Blood Count 3.86 M/mm3 (4.2-5.4); White Blood Count 5.9 K/mm3 (4.5-10.0)
[2025-03-30 15:46] LABS: Alanine Aminotransferase 9 U/L (6-35); Albumin Level 3.3 g/dL (3.5-5.1); Alkaline Phosphatase 86 U/L (38-126); Anion Gap 6 mmol/L (4-12); Aspartate Amino Transferase 20 U/L (14-36); Bilirubin,Total < 0.1 mg/dL (0.2-1.3); Blood Urea Nitrogen 12 mg/dL (7-17); CRP 1.5 mg/dL (<1.0); Calcium 8.7 mg/dL (8.4-10.2); Carbon Dioxide 27 mmol/L (22-30); Chloride 105 mmol/L (98-107); Estimated Glomerular Filt Rate > 60; Glucose 62 mg/dL (65-110); Potassium 4.0 mmol/L (3.4-5.0); Sodium 138 mmol/L (137-145); Total Protein 5.8 g/dL (6.3-8.2)
[2025-03-30 15:58] LABS: Anisocytosis 1+; Hypochromasia 1+; Schistocytes None Seen
--- OUTSIDE RECORDS SUMMARY | 2025-03-30 16:41 | XMS_ITS | Encounter Summary ---
Author Organization [facility] Healthcare Address [address] [place] [address] Care Team Providers Care Casino Duty Manager Name Role Phone Kandis Robb NP Primary Care Provider [phone] Pavan Rockwell MD Unavailable [phone] [place] [facility] Unavailable Unavailabl e Arnoldo Longoria [facility] Unavailable Unavail able Encounter Details Date Type Department Care Team (Late st Contact Info) Description 03/22/2025 Home Infusion [facility] Home Infusion Therapy [address] [place] [address] [place], [facility] Cellulitis and abscess of buttock (Primary Dx) Social History Tobacco Use Types Packs/Day Years [...] making you feel afraid or unsafe? 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 Gender Identity Female 04/06/2023 2:19 PM CDT Sexual Orientation Straight 04/06/2023 2: 19 PM CDT documented as of this encounter Ordered Prescriptions Prescription Sig Dispense Quantity Refills Last Filled Start Date End Date heparin 10 unit/mL syringe flush syringeIndication s:Maintain Patency of Indwelling Vascular Catheter Infuse 5 mL (50 Units total) IV as needed (line care) 45969 mL 03/22/2025 6 sodium chloride 0.9% flush syringeIndication s:Cellulitis and abscess of buttock Infuse 10 mL IV as needed for line care 73502 mL 03/22/2025 6 cefTRIAXone 2,000 mg in sodium chloride 0.9% 50 mL IVPB (elastomeric)Kiera cations:Celluliti s and abscess of buttock Infuse 50 mL (2,000 mg total) IV daily for 60 minutes for 19 days at 50 mL/hr via elastomeric device. Remove from refrigerator 1-2 hours before administration. 950 mL 03/18/2025 5 documented in this encounter Plan of Treatment Not on file documented as of this encounter Visit Diagnoses Diagnosis Cellulitis and abscess of buttock- Primary documented in this encounter Care Teams Casino Duty Manager Relationship Specialty Start Date End Date Kandis Robb NP [address] [place] [address] PCP - General Nurse Practitioner 03/08/25 Pavan Rockwell MD [address] DIV IM INFECTIOUS DISEASE, [address] [place] [address] PCP - Home Infusion Attending Infectious Diseases 03/22/25 [place], [facility] Pharmacist Pharmacy 03/22/25 03/22/25 Arnoldo Longoria, [facility] Pharmacist Pharmacy 03/22/25 documented as of this encounter
--- OUTSIDE RECORDS SUMMARY | 2025-03-30 16:42 | XMS_ITS ---
Author Organization [facility] [address] [facility] Address [address] [place] [address] Care Team Providers Care Systems Integration Analyst Name Role Phone Kandis Robb LASTING MACHINE OPERATOR Primary Care Provider [phone] Pavan Rockwell MD Unavailable Arnoldo Longoria [facility] Unavailable Unavail able Home Infusion Status:Benefit Investigation (Active) Start date:03/21/2025 Enrollment date:03/21/2025 Related service episodes:Antiemetic (Closed), Anti-Infective (Active) Overview Cutover complete Norm Smith 03/22/2025 9:28 AM Continued Care and Services Coordination
--- OUTSIDE RECORDS SUMMARY | 2025-03-30 16:42 | XMS_ITS | Encounter Summary ---
Author Organization [facility] Address [address] [place] [address] Phone Care Team Providers Care Geothermal Sheet Metal Worker Name Role Phone Kandis Robb NP Primary Care Provider [phone] Pavan Rockwell MD Unavailable [phone] Arnoldo Longoria [facility] Unavailable Unavail able Reason for Visit * Reason Onset Date Comments Labs Only 03/30/2025 Encounter Details Date Type Department Care Team (Late st Contact Info) Description 03/30/2025 Telephone [facility] Infectious Diseases [address] [place] [address] [address] [place] [address] Fadumo Addison Labs Only Social History Tobacco Use Types Packs/Day Years [...] on file 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 [facility] Have you seen any labs come through? documented in this encounter Plan of Treatment Not on file documented as of this encounter Visit Diagnoses Not on filedocumented in this encounter Care Teams Geothermal Sheet Metal Worker Relationship Specialty Start Date End Date Kandis Robb NP [address] [place] [address] PCP - General Nurse Practitioner 03/08/25 Pavan Rockwell MD [address] IM INFECTIOUS DISEASE, [address] [place] [address] PCP - Home Infusion Attending Infectious Diseases 03/22/25 Arnoldo Longoria, [facility] Pharmacist Pharmacy 03/22/25 documented as of this encounter
--- OUTSIDE RECORDS SUMMARY | 2025-03-30 16:43 | XMS_ITS | Clinical Summary ---
Author Organization [place] [place] [id number] Address [address] [place] [address] Care Team Providers Care Switchboard Mechanic Name Role Phone Kandis Robb NP Primary Care Provider [phone] Pavan Rockwell MD Unavailable [phone] Arnoldo Longoria [facility] Unavailable Unavail able Allergies Active Allergy Reactions Criticality Noted Date Comments Amoxicillin Rash Medium 11/28/2014 Banana Rash,Other (See comments) Medium 08/28/2021 Allergic to the peel Cefazolin Other (See comments),Unknown Low 07/24/2023 Pt states she had some mild allergy reactions. Kiwi Unknown 09/16/2023 Latex Anaphylaxis,Itching, Naus ea And Vomiting,Rash,Shortness of breath,Swelling High 11/28/2014 latex Penicillins Rash Medium 02/06/2023 Medications acetaminophen (TYLENOL) 325 mg tablet Take 2 tablets (650 mg total) by mouth every 6 (six) hours as needed for pain Active FLUoxetine (PROzac) 20 mg capsule Take 1 capsule (20 mg total) by mouth daily 90 capsule 1 024 Active lamoTRIgine (LaMICtal) 100 mg tablet Take 2 tablets (200 mg total) by mouth daily AND 3 tablets (300 mg total) nightly. 450 tablet 3 024 2024 Active topiramate (TOPAMAX) 25 mg tablet Take 1 tablet (25 mg total) by mouth 2 (two) times a day 180 tablet 3 024 2024 Active SantyL ointment Apply 1 Application topically 2 (two) times a day Active docusate sodium (COLACE) 100 mg capsule Take 1 capsule (100 mg total) by mouth daily Active doxycycline (MONODOX) 100 mg capsuleIndicati ons:Bone/Joint Infection Take 1 capsule (100 mg total) by mouth 2 (two) times a day for 19 days 38 capsule 025 2024 Active metroNIDAZOLE (FLAGYL) 500 mg tabletIndicatio ns:Bone/Joint Infection Take 1 tablet (500 mg total) by mouth 2 (two) times a day for 19 days 38 tablet 025 2024 Active ferrous sulfate 325 mg (65 mg of elemental iron) tabletIndicatio ns:Iron Deficiency Anemia Take 1 tablet (325 mg total) by mouth daily with breakfast 90 tablet 3 025 2025 Active polyethylene glycol (MIRALAX) 17 gram/dose bulk powderIndicatio ns:constipation Take 17 g by mouth daily 510 g 1 025 2024 Active cefTRIAXone (ROCEPHIN) 2 gram injectionIndica tions:Bone/Join t Infection Infuse 2,000 mg (2 g total) IV daily for 18 days 18 each 025 2024 Active cefTRIAXone 2,000 mg in sodium chloride 0.9% 50 mL IVPB (elastomeric)In dications:Cellu litis and abscess of buttock Infuse 50 mL (2,000 mg total) IV daily for 60 minutes for 19 days at 50 mL/hr via elastomeric device. Remove from refrigerator 1-2 hours before administration. 950 mL 025 2024 Active sodium chloride 0.9% flush syringeIndicati ons:Cellulitis and abscess of buttock Infuse 10 mL IV as needed for line care 62297 mL 025 2025 Active heparin 10 unit/mL syringe flush syringeIndicati ons:Maintain Patency of Indwelling Vascular Catheter Infuse 5 mL (50 Units total) IV as needed (line care) 20473 mL 025 2025 Active docusate sodium (Colace) 100 mg capsuleIndicati ons:constipatio n Take 1 capsule (100 mg total) by mouth daily as needed for constipation 2024 Discontinued(R eorder) multivit with calcium,iron,mi n (WOMEN'S DAILY MULTIVITAMIN ORAL)Indication s:Supplement Take 1 tablet by mouth script developer before breakfast 2024 Discontinued(E rror) lamoTRIgine (LaMICtal) 200 mg tablet TAKE 1 TABLET BY MOUTH EVERY DAY IN THE EVENING WITH 100MG TABLET 024 2024 Discontinued(E rror) docusate sodium (Colace) 100 mg capsuleIndicati ons:constipatio n Take 1 capsule (100 mg total) by mouth daily as needed for constipation 90 capsule 025 2024 Discontinued(E rror) cefTRIAXone (ROCEPHIN) 2 gram injectionIndica tions:Bone/Join t Infection Infuse 2,000 mg (2 g total) IV daily for 18 days 18 each 025 2024 Discontinued Active Problems Problem Noted Date Diagnosed Date Osteomyelitis 03/15/2025 Assessment & Plan (03/18/2025 10:32 AM CDT): Presented to the ED with left buttock pressure injury for which she was recently hospitalized at OSH. On arrival, patient is HDS and afebrile. Labs significant for leukocytosis and elevated ESR/CRP. CT pelvis demonstrates large necrotic abscess/ulceration involving the left gluteal fold with surrounding hyperenhacing stranding and edema consistent with ischial decubitus ulcer. No drainable fluid collection or osseous erosion. - S/p bedside debridement with ACCS 03/11. - S/p left ischium biopsy 03/15: - Aerobic/anaerobic culture/stain: no PMNs/organisms on stain, rare staph epi on culture. - Fungal culture/stain: no fungal elements seen, NGTD. - AFB culture/stain: no AFB on stain, NGTD. - Blood cultures (03/11): NGTD. - Continue doxycycline 100mg BID, ceftriaxone 2g q24hrs, Flagyl 500mg BID. - Wound care recs: gently pack sacral wound with vashe moistened kerlix, cover with dry dressing and secure with medipore tape BID and PRN soiling. Assessment & Plan (03/17/2025 2:50 PM CDT): Presented to the ED with left buttock pressure injury for which she was recently hospitalized at OSH. On arrival, patient is HDS and afebrile. Labs significant for leukocytosis and elevated ESR/CRP. CT pelvis demonstrates large necrotic abscess/ulceration involving the left gluteal fold with surrounding hyperenhacing stranding and edema consistent with ischial decubitus ulcer. No drainable fluid collection or osseous erosion. Negative BCx 03/11. S/p bedside debridement with ACCS 03/11. - S/p left ischium biopsy 03/15: - Aerobic/anaerobic culture/stain: Rare Staph Epi. Few PMNs on stain. - Fungal culture/stain: no fungal elements seen, NGTD. - AFB culture/stain: no AFB seen. - started 3 weeks of Antibiotics per ID: Doxy + IV CTX + Flagyl (03/16-04/06) Will follow up with ID clinic outpatient - Wound care recs: gently pack sacral wound with vashe moistened kerlix, cover with dry dressing and secure with medipore tape BID and PRN soiling. Assessment & Plan (03/16/2025 2:22 PM CDT): Presented to the ED with left buttock pressure injury for which she was recently hospitalized at OSH. On arrival, patient is HDS and afebrile. Labs significant for leukocytosis and elevated ESR/CRP. CT pelvis demonstrates large necrotic abscess/ulceration involving the left gluteal fold with surrounding hyperenhacing stranding and edema consistent with ischial decubitus ulcer. No drainable fluid collection or osseous erosion. - S/p bedside debridement with ACCS 03/11. - S/p left ischium biopsy 03/15. - Micro from bone biopsy (03/15): - Aerobic/anaerobic culture/stain: few PMNs on stain, NGTD on culture. - Fungal culture/stain: no fungal elements seen, NGTD. - AFB culture/stain: no AFB seen. - Blood cultures (03/11): NGTD. - Holding antibiotics due to absence of overlying skin, soft tissue infection. - Wound care recs: gently pack sacral wound with vashe moistened kerlix, cover with dry dressing and secure with medipore tape BID and PRN soiling. Pressure injury of left buttock, stage 3 03/11/ 025 Assessment & Plan (03/18/2025 10:32 AM CDT): Presented to the ED with left buttock pressure injury for which she was recently hospitalized at OSH. On arrival, patient is HDS and afebrile. Labs significant for leukocytosis and elevated ESR/CRP. CT pelvis demonstrates large necrotic abscess/ulceration involving the left gluteal fold with surrounding hyperenhacing stranding and edema consistent with ischial decubitus ulcer. No drainable fluid collection or osseous erosion. - S/p bedside debridement with ACCS 03/11. - S/p left ischium biopsy 03/15: - Aerobic/anaerobic culture/stain: no PMNs/organisms on stain, rare staph epi on culture. - Fungal culture/stain: no fungal elements seen, NGTD. - AFB culture/stain: no AFB on stain, NGTD. - Blood cultures (03/11): NGTD. - Continue doxycycline 100mg BID, ceftriaxone 2g q24hrs, Flagyl 500mg BID. - Wound care recs: gently pack sacral wound with vashe moistened kerlix, cover with dry dressing and secure with medipore tape BID and PRN soiling. Assessment & Plan (03/17/2025 2:50 PM CDT): Presented to the ED with left buttock pressure injury for which she was recently hospitalized at OSH. On arrival, patient is HDS and afebrile. Labs significant for leukocytosis and elevated ESR/CRP. CT pelvis demonstrates large necrotic abscess/ulceration involving the left gluteal fold with surrounding hyperenhacing stranding and edema consistent with ischial decubitus ulcer. No drainable fluid collection or osseous erosion. Negative BCx 03/11. S/p bedside debridement with ACCS 03/11. - S/p left ischium biopsy 03/15: - Aerobic/anaerobic culture/stain: Rare Staph Epi. Few PMNs on stain. - Fungal culture/stain: no fungal elements seen, NGTD. - AFB culture/stain: no AFB seen. - started 3 weeks of Antibiotics per ID: Doxy + IV CTX + Flagyl (03/16-04/06) Will follow up with ID clinic outpatient - Wound care recs: gently pack sacral wound with vashe moistened kerlix, cover with dry dressing and secure with medipore tape BID and PRN soiling. Assessment & Plan (03/16/2025 2:22 PM CDT): Presented to the ED with left buttock pressure injury for which she was recently hospitalized at OSH. On arrival, patient is HDS and afebrile. Labs significant for leukocytosis and elevated ESR/CRP. CT pelvis demonstrates large necrotic abscess/ulceration involving the left gluteal fold with surrounding hyperenhacing stranding and edema consistent with ischial decubitus ulcer. No drainable fluid collection or osseous erosion. - S/p bedside debridement with ACCS 03/11. - S/p left ischium biopsy 03/15. - Micro from bone biopsy (03/15): - Aerobic/anaerobic culture/stain: few PMNs on stain, NGTD on culture. - Fungal culture/stain: no fungal elements seen, NGTD. - AFB culture/stain: no AFB seen. - Blood cultures (03/11): NGTD. - Holding antibiotics due to absence of overlying skin, soft tissue infection. - Wound care recs: gently pack sacral wound with vashe moistened kerlix, cover with dry dressing and secure with medipore tape BID and PRN soiling. Assessment & Plan (03/15/2025 7:36 AM CDT): Presented to the ED with left buttock pressure injury for which she was recently hospitalized at OSH. On arrival, patient is HDS and afebrile. Labs significant for leukocytosis and elevated ESR/CRP. CT pelvis demonstrates large necrotic abscess/ulceration involving the left gluteal fold with surrounding hyperenhacing stranding and edema consistent with ischial decubitus ulcer. No drainable fluid collection or osseous erosion. Blood cultures drawn. - ACCS consulted- s/p bedside debridement 03/11. - ID consulted- recommend holding antibiotics, MRI pelvis. - MRI pelvis W/WO contrast to r/o osteomyelitis. - Vashe WTD packing BID to ischial wound. - Consult wound care. Assessment & Plan (03/14/2025 7:10 AM CDT): Presented to the ED with left buttock pressure injury for which she was recently hospitalized at OSH. On arrival, patient is HDS and afebrile. Labs significant for leukocytosis and elevated ESR/CRP. CT pelvis demonstrates large necrotic abscess/ulceration involving the left gluteal fold with surrounding hyperenhacing stranding and edema consistent with ischial decubitus ulcer. No drainable fluid collection or osseous erosion. Blood cultures drawn. - ACCS consulted- s/p bedside debridement 03/11. - ID consulted- recommend holding antibiotics, MRI pelvis. - MRI pelvis W/WO contrast to r/o osteomyelitis. - Vashe WTD packing BID to ischial wound. - Consult wound care. Assessment & Plan (03/13/2025 7:21 AM CDT): Presented to the ED with left buttock pressure injury for which she was recently hospitalized at OSH. On arrival, patient is HDS and afebrile. Labs significant for leukocytosis and elevated ESR/CRP. CT pelvis demonstrates large necrotic abscess/ulceration involving the left gluteal fold with surrounding hyperenhacing stranding and edema consistent with ischial decubitus ulcer. No drainable fluid collection or osseous erosion. Blood cultures drawn. - ACCS consulted- s/p bedside debridement 03/11. - ID consulted- recommend holding antibiotics, MRI pelvis. - MRI pelvis W/WO contrast to r/o osteomyelitis. - Vashe WTD packing BID to ischial wound. - Consult wound care. Assessment & Plan (03/12/2025 7:40 AM CDT): Presented to the ED with left buttock pressure injury for which she was recently hospitalized at OSH. On arrival, patient is HDS and afebrile. Labs significant for leukocytosis and elevated ESR/CRP. CT pelvis demonstrates large necrotic abscess/ulceration involving the left gluteal fold with surrounding hyperenhacing stranding and edema consistent with ischial decubitus ulcer. No drainable fluid collection or osseous erosion. Blood cultures drawn. - ACCS consulted- s/p bedside debridement 03/11. - ID consulted- recommend holding antibiotics, MRI pelvis. - MRI pelvis W/WO contrast to r/o osteomyelitis. - Vashe WTD packing BID to ischial wound. - Consult wound care. Assessment & Plan (03/11/2025 4:13 PM CDT): Presented to the ED with left buttock pressure injury for which she was recently hospitalized at OSH. On arrival, patient is HDS and afebrile. Labs significant for leukocytosis and elevated ESR/CRP. CT pelvis demonstrates large necrotic abscess/ulceration involving the left gluteal fold with surrounding hyperenhacing stranding and edema consistent with ischial decubitus ulcer. No drainable fluid collection or osseous erosion. Blood cultures drawn. - ACCS consulted- s/p bedside debridement 03/11. - ID consulted- recommend holding antibiotics, MRI pelvis. - MRI pelvis W/WO contrast to r/o osteomyelitis. - Vashe WTD packing BID to ischial wound. - Consult wound care. Liver lesion 12/09/2024 Assessment & Plan (12/09/2024 9:50 AM INTERVENTIONAL NURSE): Patient with liver lesions incidentally found during [...] Repeat fasting glucose Major depression, recurrent 07/24/2023 Assessment & Plan (03/18/2025 10:32 AM CDT): - Continue home fluoxetine 20mg daily. Assessment & Plan (03/17/2025 7:41 AM CDT): - Continue home fluoxetine 20mg daily. Assessment & Plan (03/16/2025 8:02 AM CDT): - Continue home fluoxetine 20mg daily. Assessment & Plan (03/15/2025 7:36 AM CDT): - Continue home fluoxetine 20mg daily. Assessment & Plan (03/14/2025 7:10 AM CDT): - Continue home fluoxetine 20mg daily. Assessment & Plan (03/13/2025 7:21 AM CDT): - Continue home fluoxetine 20mg daily. Assessment & Plan (03/12/2025 7:40 AM CDT): Continue home fluoxetine 20mg daily. Assessment & Plan (03/11/2025 1:53 PM CDT): Continue home fluoxetine 20mg daily. Myopia 07/24/2023 Overview (07/24/2023): SRx: Assessment & Plan (10/21/2024 2:13 PM INTERVENTIONAL NURSE): Update specs as desired. Nosophobia 07/24/2023 Overview (07/24/2023): No UTI. Encouraged increase of PO fluids. F/U prn. Neurogenic bowel 07/24/2023 Assessment & Plan (03/18/2025 10:32 AM CDT): - Miralax, senna/docusate daily. Assessment & Plan (03/17/2025 7:41 AM CDT): - Miralax, senna/docusate daily. Assessment & Plan (03/16/2025 8:02 AM CDT): - Miralax, senna/docusate daily. Assessment & Plan (03/15/2025 7:36 AM CDT): - Miralax, senna/docusate daily. Assessment & Plan (03/14/2025 7:10 AM CDT): - Miralax, senna/docusate daily. Assessment & Plan (03/13/2025 7:21 AM CDT): - Miralax, senna/docusate daily. Obesity 07/24/2023 Palpitations 07/24/2023 Peripheral venous insufficiency [...] PM -topiramate 25mg daily Continue with neurology. Assessment & Plan (03/18/2025 10:32 AM CDT): - Continue home lamotrigine 200mg daily and 300mg nightly. - Continue home topiramate 25mg BID. Assessment & Plan (03/17/2025 7:41 AM CDT): - Continue home lamotrigine 200mg daily and 300mg nightly. - Continue home topiramate 25mg BID. Assessment & Plan (03/16/2025 8:02 AM CDT): - Continue home lamotrigine 200mg daily and 300mg nightly. - Continue home topiramate 25mg BID. Assessment & Plan (03/15/2025 7:36 AM CDT): - Continue home lamotrigine 200mg daily and 300mg nightly. - Continue home topiramate 25mg BID. Assessment & Plan (03/14/2025 7:10 AM CDT): - Continue home lamotrigine 200mg daily and 300mg nightly. - Continue home topiramate 25mg BID. Assessment & Plan (03/13/2025 7:21 AM CDT): - Continue home lamotrigine 200mg daily and 300mg nightly. - Continue home topiramate 25mg BID. Assessment & Plan (03/12/2025 7:40 AM CDT): Continue home meds: lamotrigine 200mg daily and 300mg nightly, topiramate 25mg BID. Assessment & Plan (03/11/2025 2:18 PM CDT): Continue home meds: lamotrigine 200mg daily and 300mg nightly, topiramate 25mg BID. 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 Acute serous otitis media, right ear [...] 01/16/2023 Assessment & Plan (10/21/2024 2:15 PM INTERVENTIONAL NURSE): Stable exam with excellent visual function (BCVA, [...] hematology -last infusion yesterday Assessment & Plan (03/18/2025 10:32 AM CDT): Hgb 9.5 on admission. Follows with hematology, seen in clinic 02/24/2025. MARTHA etiology thought to be occult GI blood loss. Video capsule endoscopy 06/02/2024 demonstrated possible angioectasia without bleeding in the mid-small bowel. Anemia work-up significant for low iron, normal ferritin. - Ferrous sulfate 325mg daily PO Holding off on IV iron given concern for active infection - Follow up with hematology outpatient. Assessment & Plan (03/17/2025 7:41 AM CDT): Hgb 9.5 on admission. Follows with hematology, seen in clinic 02/24/2025. MARTHA etiology thought to be occult GI blood loss. Video capsule endoscopy 06/02/2024 demonstrated possible angioectasia without bleeding in the mid-small bowel. Anemia work-up significant for low iron, normal ferritin. - Ferrous sulfate 325mg daily PO Holding off on IV iron given concern for active infection - Follow up with hematology outpatient. Assessment & Plan (03/16/2025 2:22 PM CDT): Hgb 9.5 on admission. Follows with hematology, seen in clinic 02/24/2025. MARTHA etiology thought to be occult GI blood loss. Video capsule endoscopy 06/02/2024 demonstrated possible angioectasia without bleeding in the mid-small bowel. Anemia work-up significant for low iron, normal ferritin. - Ferrous sulfate 325mg daily. - Follow up with hematology outpatient. Assessment & Plan (03/15/2025 7:36 AM CDT): Hgb 9.5 on admission. Follows with hematology, seen in clinic 02/24/2025. MARTHA etiology thought to be occult GI blood loss. Video capsule endoscopy 06/02/2024 demonstrated possible angioectasia without bleeding in the mid-small bowel. - Check iron profile, ferritin, retic count, B12/folate. Assessment & Plan (03/14/2025 7:10 AM CDT): Hgb 9.5 on admission. Follows with hematology, seen in clinic 02/24/2025. MARTHA etiology thought to be occult GI blood loss. Video capsule endoscopy 06/02/2024 demonstrated possible angioectasia without bleeding in the mid-small bowel. - Check iron profile, ferritin, retic count, B12/folate. Assessment & Plan (03/13/2025 7:21 AM CDT): Hgb 9.5 on admission. Follows with hematology, seen in clinic 02/24/2025. MARTHA etiology thought to be occult GI blood loss. Video capsule endoscopy 06/02/2024 demonstrated possible angioectasia without bleeding in the mid-small bowel. - Check iron profile, ferritin, retic count, B12/folate. Assessment & Plan (03/12/2025 7:40 AM CDT): Hgb 9.5 on admission. Follows with hematology, seen in clinic 02/24/2025. MARTHA etiology thought to be occult GI blood loss. Video capsule endoscopy 06/02/2024 demonstrated possible angioectasia without bleeding in the mid-small bowel. - Check iron profile, ferritin, retic count, B12/folate. Assessment & Plan (03/11/2025 2:18 PM CDT): Hgb 9.5 on admission. Follows with hematology, seen in clinic 02/24/2025. MARTHA etiology thought to be occult GI blood loss. Video capsule endoscopy 06/02/2024 demonstrated possible angioectasia without bleeding in the mid-small bowel. - Check iron profile, ferritin, retic count, B12/folate. Assessment & Plan (12/09/2024 9:51 AM INTERVENTIONAL NURSE): Has upcoming appt with hematology. Ordered CBC, [...] Encounters Date Type Department Care Team Description 03/30/2025 Telephone [facility] Infectious Diseases [address] [place] [phone] Fadumo Addison Labs Only 03/28/2025 2:00 PM CDT Orders Only [facility] [address] [place] [address] 03/23/2025 11:47 PM CDT - 03/24/2025 1:01 AM CDT Emergency [facility] Emergency Department [address] [place] [address] Derrick Garza MD Malfunction of peripheral inserted central catheter, initial encounter (Primary Dx) Discharge Disposition: Discharge to home or self care 03/22/2025 Home Infusion [facility] Home Infusion Therapy [address] [place] [address] [place], [facility] Cellulitis and abscess of buttock (Primary Dx) 03/21/2025 1:00 PM CDT Orders Only [facility] [address] [place] [address] Pressure injury, unstageable, unspecified location (HCC) 03/21/2025 Transitional Care Outreach [facility] Care Coordination [address] [place] [address] Loni Nascimento RN 03/16/2025 Documentation [facility] Infectious Diseases [address] [facility] [address] [place] [phone] Joni Hernandez MD OPAT Sign-Off 03/15/2025 Orders Only [facility] Neuro Interventional Radiology [address] [place] [address] Jessica Schultz RN 03/11/2025 12:24 AM CDT - 03/18/2025 5:35 PM CDT Hospital Encounter [address] [id number] Ciera Browne MD Baum, MD Patel Siddiqui, MD Judson Hu, MD Renate Henry, MD Jonathan Singh, Lou Mendoza MD Pressure injury of left buttock, stage 3 (HCC) (Primary Dx); Cellulitis of buttock; Osteomyelitis, unspecified site, unspecified type (HCC); Acute hematogenous osteomyelitis of other site (HCC); Lumbar spina bifida without hydrocephalus (HCC); Paraparesis (HCC) Discharge Disposition: Discharge to home, home health skilled care 03/10/2025 Telephone [facility] Complete Care [address] [place] [address] Medical Office [address] [place] [address] Georgia Fairchild, steel die press set up operator Check 03/10/2025 Telephone [facility] Epilepsy [address] [facility] Advanced Medicine 6th [place] [address] [place] [phone] Gatito Foreman MD Med Refill 03/09/2025 Documentation [facility] Surgery [address] [place] [address] Ashley Alexandra 03/08/2025 Telephone [facility] Hematology [facility] Floor [address] [place] [phone] Fidelina Mancera, RN 02/28/2025 Telephone [facility] Complete Care [address] [place] [address] Medical Office [address] [place] [address] Valentine Murillo, SAVANNA Spoke With Home Health Provider 02/25/2025 Telephone [facility] Hematology [address] [place] [address] [address] [place] [phone] Fidelina Mancera RN 02/25/2025 Orders Only [facility] Hematology [facility] Floor [address] [place] [phone] Fidelina Mancera, RN Iron deficiency anemia, unspecified iron deficiency anemia type (Primary Dx) 02/24/2025 2:20 PM CDT Lab [facility] Advanced [facility] Advanced Medicine ([facility]) [address] [place] [phone] Iron deficiency anemia, unspecified iron deficiency anemia type 02/24/2025 1:15 PM CDT Office Visit [facility] Hematology [facility] Floor [address] [place] [phone] Emiliana Myles MD Iron deficiency anemia, unspecified iron deficiency anemia type (Primary Dx) 02/24/2025 12:15 PM CDT Lab [facility] Oncology Lab [address] [place] [address] 6 [place] [address] 02/21/2025 Telephone [facility] Complete [facility] [address] [place] [address] Medical Office Building 4, [address] [place] [address] Kandis Robb NP 02/17/2025 Telephone [facility] [address] [place] [address] Medical Office Building [address], [address] [place] [address] Georgia Fairchild, SAVANNA 02/16/2025 Telephone [facility] [address] [facility] Office Building [address], [address] [place] [address] Georgia Fairchild, SAVANNA 02/11/2025 Telephone [facility] [address] [facility] Office Building [address], [address] [place] [address] Georgia Fairchild, SAVANNA 02/10/2025 Telephone [facility] [address] [facility] Office Building [address], [address] [place] [phone] Georgia Fairchild, SAVANNA 01/24/2025 Documentation [facility] Gastroenterology [address] [facility] 12th [place] [address] [place] [address] Sai Mack, SAVANNA 01/24/2025 Results Follow-Up [facility] Gasteroenterology [address] [facility] 12th [place] [address] [place] [address] Rosanna Partida, GAVINO Gamma GT, Hepatic function panel 01/21/2025 Telephone [facility] Office Building [address], [address] [place] [phone] Georgia Fairchild, SAVANNA 01/20/2025 Telephone [facility] [address] [facility] Office Building [address], [address] [place] [phone] Edith Miguel, SAVANNA Forms/questionnaire s 01/20/2025 Results Follow-Up [facility] [address] [facility] 12th [place] [address] [place] [address] Kandis Robb NP Hemoglobin A1c 01/19/2025 7:15 PM CDT Lab [facility] [address] [phone] Liver lesion 01/19/2025 7:00 PM CDT Lab [facility] ([facility]) [address] [place] [phone] Screening for diabetes mellitus; Screening for cholesterol level 01/19/2025 3:40 PM CDT Office Visit [facility] [address] [place] [address] 12th [place] [address] [place] [address] Kandsi Robb NP Wellness examination (Primary Dx); Screening for diabetes mellitus; Screening for cholesterol level; Iron deficiency anemia, unspecified iron deficiency anemia type; Anxiety disorder, unspecified type; Spina bifida, unspecified hydrocephalus presence, unspecified spinal region (HCC) 01/18/2025 3:00 PM CDT Infusion [facility] - Infusion [address] Floor 5 [place] [address] Iron deficiency anemia, unspecified iron deficiency anemia type (Primary Dx) 01/11/2025 3:00 PM CDT Infusion [facility]fusion [address] Floor 6 [place] [address] Iron deficiency anemia, unspecified iron deficiency anemia type (Primary Dx) 01/04/2025 3:00 PM CDT Infusion [facility] [address] Floor 6 [place] [address] Iron deficiency anemia, unspecified iron deficiency anemia type (Primary Dx) from Last 3 Months Immunizations Immunization Administration Dates Next Due Hep B, Adolescent or Pediatric 08/13/1999,1997,1998 Influenza, Quadrivalent, Spl it, Preservative Free, Intramuscular 08/01/2015 Influenza, Unspecified 08/01/2015 Surgical History Surgery Date Site/Laterality Comments ENTRY LEVEL CIVIL ENGINEER SHUNT INSERTION BLADDER AUGMENTATION SUPRAPUBIC CATHETER INSERTION VENTRICULOPERITONEAL SHUNT BIOPSY DEEP BONE 03/15/2025 N/A Medical History Medical History Date Comments Spina bifida (HCC) T 12 level Hydrocephalus (HCC) with ENTRY LEVEL CIVIL ENGINEER shun t Chiari malformation type II (HCC) [...] Passive Smoke Exposure: Past Smokeless Tobacco: Never Tobacco Cessation:Counseling Given: No AUDIT-C Answer Date Recorded Q1: How often [...] on file 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 Gender Identity Female 04/06/2023 2:19 PM CDT Sexual Orientation Straight 04/06/2023 2: 19 PM CDT Obstetrics History Last Filed Vital Signs Vital Sign Reading Time Taken Comments Blood Pressure 105/56 03/23/2025 11:45 PM CDT Pulse 95 03/23/2025 11:45 PM CDT Temperature 36.6 C (97.8 F) 03/23/2025 11:45 PM CDT Respiratory Rate 18 03/23/2025 11:45 PM CDT Oxygen Saturation 99% 03/23/2025 11:45 PM CDT Inhaled Oxygen Concentration - - Weight 74.8 kg (165 lb) 03/23/2025 11:45 PM CDT Height 149.9 cm (4' 11) 03/23/2025 11:45 PM CDT Body Mass Index 33.33 03/23/2025 11:45 PM CDT Plan of Treatment Health Maintenance Due [...] Vaccines Discontinued Medical Devices Implanted Type Area Rug Washer Device Identifier Shelf Expiration Date Model / Serial / Lot Shunt Shunt Neck Procedures Procedure Name Priority Date/Time Associated Diagnosis Comments CBC WITHOUT DIFFERENTIAL Routine 03/17/2025 11:00 PM CDT EGFR Routine 03/16/2025 8:24 PM CDT BASIC METABOLIC PANEL Routine 03/16/2025 8:24 PM CDT CBC WITHOUT DIFFERENTIAL Routine 03/16/2025 8:24 PM CDT HEPATIC FUNCTION PANEL Routine 9:42 PM CDT EGFR Routine 03/15/2025 9:42 PM CDT BASIC METABOLIC PANEL Routine 03/15/2025 9:42 PM CDT CBC WITHOUT DIFFERENTIAL Routine 03/15/2025 9:42 PM CDT BIOPSY DEEP BONE IP Routine 03/15/2025 10:1 9 AM CDT TISSUE AEROBIC AND ANAEROBIC CULTURE AND GRAM STAIN Routine 03/15/2025 10:17 AM CDT MYCOLOGY (FUNGAL) CULTURE AND STAIN Routine 03/15/2025 10:17 AM CDT MYCOBACTERIOLOGY AFB CULTURE AND ACID-FAST STAIN Routine 03/15/2025 10:17 AM CDT MYCOLOGY (FUNGAL) CULTURE AND STAIN Routine 03/15/2025 10:17 AM CDT MYCOBACTERIOLOGY AFB CULTURE AND ACID-FAST STAIN Routine 03/15/2025 10:17 AM CDT AEROBIC AND ANAEROBIC CULTURE AND GRAM STAIN Routine 03/15/2025 10:17 AM CDT SURGICAL PATHOLOGY Routine 03/15/2025 10 :05 AM CDT Pressure injury of left buttock, stage 3 (HCC) Cellulitis of buttock EGFR Routine 03/14/2025 10:30 PM CDT BASIC METABOLIC PANEL Routine 03/14/2025 10:30 PM CDT CBC WITHOUT DIFFERENTIAL Routine 03/14/2025 10:30 PM CDT EGFR Routine 03/13/2025 8:47 PM CDT BASIC METABOLIC PANEL Routine 03/13/2025 8:47 PM CDT CBC WITHOUT DIFFERENTIAL Routine 03/13/2025 8:47 PM CDT EGFR Routine 03/12/2025 8:18 PM CDT BASIC METABOLIC PANEL Routine 03/12/2025 8:18 PM CDT CBC WITHOUT DIFFERENTIAL Routine 03/12/2025 8:18 PM CDT MRI PELVIS MSK W WO CONTRAST IP Routine 03/12/2025 2:18 PM CDT EGFR Routine 03/11/2025 9:49 PM CDT BASIC METABOLIC PANEL Routine 03/11/2025 9:49 PM CDT CBC WITHOUT DIFFERENTIAL Routine 03/11/2025 9:49 PM CDT FOLATE Routine 03/11/2025 2:51 PM CDT VITAMIN B12 Routine 03/11/2025 2:51 PM CDT IRON PROFILE W/ IBC Routine 03/11/2025 2 :51 PM CDT RETICULOCYTES Routine 03/11/2025 2:51 PM CDT FERRITIN Routine 03/11/2025 2:51 PM CDT WOUND CARE Routine 03/11/2025 12:04 PM CDT Pressure injury of left buttock, stage 3 (HCC) CRP (ACUTE PHASE) Routine 03/11/2025 9:0 8 AM CDT ERYTHROCYTE SEDIMENTATION RATE Routine 03/11/2025 9:08 AM CDT URINALYSIS AND REFLEX TO MICROSCOPIC AND CULTURE STAT 03/11/2025 4:[address] PELVIS W CONTRAST ED 03/11/2025 3:29 AM CDT POCT CREATININE - DEVICE Routine 03/11/2025 2:44 AM CDT EGFR STAT 03/11/2025 2:08 AM CDT DIFFERENTIAL AUTO STAT 03/11/2025 2:0 8 AM CDT SEPSIS LACTATE WITH REFLEX STAT 03/11/2025 2:08 AM CDT COMPREHENSIVE METABOLIC PANEL STAT 03/11/2025 2:08 AM CDT CBC WITH AUTO DIFFERENTIAL STAT 03/11/2025 2:08 AM CDT BLOOD CULTURE STAT 03/11/2025 2:08 AM CDT BLOOD CULTURE STAT 03/11/2025 2:08 AM CDT FERRITIN Routine 02/24/2025 12:59 PM CDT Iron deficiency anemia, unspecified iron deficiency anemia type IRON PROFILE W/ IBC Routine 02/24/2025 1 2:59 PM CDT Iron deficiency anemia, unspecified iron deficiency anemia type HEPATIC FUNCTION PANEL Routine 5:02 PM CDT Liver lesion GAMMA GT Routine 01/19/2025 5:02 PM CDT Liver lesion LIPID PANEL Routine 01/19/2025 5:02 PM CDT Screening for cholesterol level HEMOGLOBIN A1C Routine 01/19/2025 5:02 PM CDT Screening for diabetes mellitus from Last 3 Months Results * (ABNORMAL) CBC without differential (03/17/2025 11:00 PM CDT) [facility] WBC 13.28(H) 3.80 - 9.90 K/cumm Hgb 9.0(L) 11.9 - 15.5 g/dL [facility] Hct 28.3(L) 35.6 - 45.5 % [facility] Plt 486(H) 150 - 400 K/cumm [facility] MPV 8.9(L) 9.1 - 12.3 fL [facility] RBC 3.48(L) 3.90 - 5.20 M/cumm [facility] MCV 81.3 81.3 - 96.4 fL [facility] MCH 25.9(L) 27.1 - 33.3 pg [facility] MCHC 31.8(L) 32.3 - 35.7 g/dL [facility] RDW CV 21.1(H) 11.1 - 14.9 % [facility] RDW SD 62.4(H) 35.7 - 48.1 fL [facility] NRBC abs 0.00 0.00 - 0.01 K/cumm [facility] Blood 03/17/2025 11:0 0 PM CDT 03/17/2025 11:24 PM CDT Sophia George MD LAB BLOOD ORDERABLES Final Re sult Performing Organization Address City/[facility]/ZIP Co de Phone Number [facility] [place] [address] * eGFR (03/16/2025 8:24 PM CDT) eGFR >90 >=60 mL/min/1. 73 m2 Comment: [...] interpretive data was last reviewed 2021. Blood 03/16/2025 8:24 PM CDT 03/16/2025 10:35 PM CDT Sophia George MD LAB BLOOD ORDERABLES Final Re sult Performing Organization Address City/[facility]/ZIP Co de Phone Number [facility] [place] [address] * (ABNORMAL) CBC without differential (03/16/2025 8:24 PM CDT) WBC 17.04(H) 3.80 - 9.90 K/cumm Hgb 9.1(L) 11.9 - 15.5 g/dL [facility] Hct 29.7(L) 35.6 - 45.5 % [facility] Plt 504(H) 150 - 400 K/cumm [facility] MPV 9.3 9.1 - 12.3 fL [facility] RBC 3.59(L) 3.90 - 5.20 M/cumm [facility] MCV 82.7 81.3 - 96.4 fL [facility] MCH 25.3(L) 27.1 - 33.3 pg [facility] MCHC 30.6(L) 32.3 - 35.7 g/dL [facility] RDW CV 21.2(H) 11.1 - 14.9 % [facility] RDW SD 63.5(H) 35.7 - 48.1 fL [facility] NRBC abs 0.00 0.00 - 0.01 K/cumm [facility] Blood 03/16/2025 8:24 PM CDT 03/16/2025 10:43 PM CDT us Sophia George MD LAB BLOOD ORDERABLES Final Re sult [facility] [place] [address] * (ABNORMAL) Basic metabolic panel (03/16/2025 8:24 PM CDT) [facility] Sodium 134(L) 135 - 145 mmol/L Potassium, pl 3.9 3.3 - 4.9 mmol/L [facility] Chloride 100 97 - 110 mmol/L [facility] CO2 24 22 - 32 mmol/L [facility] Anion gap 10 2 - 15 mmol/L [facility] BUN 13 6 - 25 mg/dL [facility] Creatinine 0.35(L) 0.60 - 1.10 mg/dL [facility] Glucose 158 70 - 199 mg/dL [facility] Comment: Interpretive Data Fasting glucose >/= [...] interpretive data was last revised 2022. Calcium 8.3(L) 8.5 - 10.3 mg/dL [facility] Blood 03/16/2025 8:24 PM CDT 03/16/2025 10:35 PM CDT us Sophia George MD LAB BLOOD ORDERABLES Final Re sult [facility] One [facility] [place] [address] * eGFR (03/15/2025 9:42 PM CDT) eGFR >90 >=60 mL/min/1. 73 m2 Comment: [...] interpretive data was last reviewed 2021. Blood 03/15/2025 9:42 PM CDT 03/15/2025 10:35 PM CDT us Sophia George MD LAB BLOOD ORDERABLES Final Re sult [facility] [place] [address] * (ABNORMAL) CBC without differential (03/15/2025 9:42 PM CDT) Pathologist [facility] WBC 12.91(H) 3.80 - 9.90 K/cumm Hgb 10.0(L) 11.9 - 15.5 g/dL [facility] Hct 32.6(L) 35.6 - 45.5 % [facility] Plt 546(H) 150 - 400 K/cumm [facility] MPV 9.0(L) 9.1 - 12.3 fL [facility] RBC 3.96 3.90 - 5.20 M/cumm [facility] MCV 82.3 81.3 - 96.4 fL [facility] MCH 25.3(L) 27.1 - 33.3 pg [facility] MCHC 30.7(L) 32.3 - 35.7 g/dL [facility] RDW CV 21.3(H) 11.1 - 14.9 % [facility] RDW SD 63.5(H) 35.7 - 48.1 fL [facility] NRBC abs 0.00 0.00 - 0.01 K/cumm [facility] Blood 03/15/2025 9:42 PM CDT 03/15/2025 10:38 PM CDT us Sophia George MD LAB BLOOD ORDERABLES Final Re sult [facility] [place] [address] * Hepatic function panel (03/15/2025 9:42 PM CDT) Bilirubin, total <0.2 0.1 - 1.2 mg/dL Comment:Reviewed Bilirubin, direct <0.2 0.1 - 0.3 mg/dL [facility] Protein, pl 6.7 6.5 - 8.5 g/dL [facility] Albumin 3.6 3.5 - 5.0 g/dL [facility] Alk phos 94 40 - 130 Units/L [facility] ALT 13 7 - 45 Units/L [facility] AST 26 10 - 45 Units/L [facility] Blood 03/15/2025 9:42 PM CDT 03/15/2025 10:35 PM CDT us Lou Castillo MD LAB BLOOD ORDERABLES Final Result [facility] One [facility] [place] [address] * (ABNORMAL) Basic metabolic panel (03/15/2025 9:42 PM CDT) Pathologist [facility] Sodium 136 135 - 145 mmol/L Potassium, pl 4.1 3.3 - 4.9 mmol/L [facility] Chloride 105 97 - 110 mmol/L [facility] CO2 23 22 - 32 mmol/L [facility] Anion gap 8 2 - 15 mmol/L [facility] BUN 16 6 - 25 mg/dL [facility] Creatinine 0.49(L) 0.60 - 1.10 mg/dL [facility] Glucose 112 70 - 199 mg/dL [facility] Comment: Interpretive Data Fasting glucose >/= [...] classification and Diagnosis of Diabetes Diabetes Care 202; 46: S19-S40. Current interpretive data was last revised 2022. Calcium 8.7 8.5 - 10.3 mg/dL [facility] Blood 03/15/2025 9:42 PM CDT 03/15/2025 10:35 PM CDT us Sophia George MD LAB BLOOD ORDERABLES Final Re sult [facility] [place] [address] * IR Biopsy Deep Bone (03/15/2025 10:19 AM CDT) Anatomical Region Laterality Modality Body N/A Computed Tomogra phy 03/15/2025 10:2 5 AM CDT Impressions 03/15/2025 10:25 AM CDT 1. Left ischium bone biopsy under CT guidance. The bone core specimens were sent to surgical pathology and microbiology. Aspirate was sent to microbiology Electronically signed by: Curt Payne MD, PHD Narrative 03/15/2025 10:25 AM CDT EXAMINATION: Left ischium bone biopsy under CT guidance HISTORY: Left ischial decubitus ulcer with concern for underlying ischial osteomyelitis ATTENDING PRESENCE: Dr. Curt Payne MD, PHD, the attending radiologist, was present from the beginning to the end of the procedure. Dr. Omero Torrez was actively involved throughout the procedure. SEDATION: Minimal sedation was administered under the attending physician's direction and continuous monitoring by a trained nurse specialist who was independent from those actually performing the procedure. Total monitored sedation time was 30 minutes. Patient received intravenous fentanyl 100 mcg and Versed 2 mg. TECHNIQUE: The risks, benefits and alternatives were discussed and informed consent was obtained. Prior to beginning the procedure, [place] Protocol was performed to confirm the patient's identity and the planned procedure. The dose length product has been recorded in the electronic medical record. Sterile barriers used during the procedure included cap, mask, hand hygiene, sterile gloves, and sterile drape. Chloraprep was used for cutaneous antisepsis. The patient was placed prone on the CT table. The left ischium was localized with CT. 8 mL of a 1:1 mixture of 0.25% bupivacaine and 1% lidocaine was injected for subcutaneous and periosteal anesthesia. A 10-gauge/12-gauge ON control coaxial biopsy needle was inserted into the ischium in the region of the decubitus wounds/ulcer via a posterior lateral approach utilizing CT guidance. Appropriate needle position was confirmed with CT. 3 bone cores approximately 10 to 15 mm in length were obtained. 2 mL of aspirate was obtained. The needles were removed and the skin was cleansed with hydrogen peroxide. Skin glue was placed at the needle entry site. Complication: None Type: None ESTIMATED BLOOD LOSS: Less than 30 mL CONDITION: Stable condition. DISCHARGED TO: Inpatient care division FINDINGS: CT images demonstrate no change in the large left ischial decubitus ulcer with erosion of the underlying ischium concerning for osteomyelitis . Subsequent images demonstrate the biopsy needle within area of abnormality. Post biopsy images demonstrate no hematoma and the needle tract extending through the left ischium. Procedure Note Curt Payne MD PhD - 03/15/2025 EXAMINATION: Left ischium bone biopsy under CT guidance HISTORY: Left ischial decubitus ulcer with concern for underlying ischial osteomyelitis ATTENDING PRESENCE: Dr. Curt Payne MD, PHD, the attending radiologist, was present from the beginning to the end of the procedure. Dr. Omero Torrez was actively involved throughout the procedure. SEDATION: Minimal sedation was administered under the attending physician's direction and continuous monitoring by a trained nurse specialist who was independent from those actually performing the procedure. Total monitored sedation time was 30 minutes. Patient received intravenous fentanyl 100 mcg and Versed 2 mg. TECHNIQUE: The risks, benefits and alternatives were discussed and informed consent was obtained. Prior to beginning the procedure, Ogden Protocol was performed to confirm the patient's identity and the planned procedure. The dose length product has been recorded in the electronic medical record. Sterile barriers used during the procedure included cap, mask, hand hygiene, sterile gloves, and sterile drape. Chloraprep was used for cutaneous antisepsis. The patient was placed prone on the CT table. The left ischium was localized with CT. 8 mL of a 1:1 mixture of 0.25% bupivacaine and 1% lidocaine was injected for subcutaneous and periosteal anesthesia. A 10-gauge/12-gauge ON control coaxial biopsy needle was inserted into the ischium in the region of the decubitus wounds/ulcer via a posterior lateral approach utilizing CT guidance. Appropriate needle position was confirmed with CT. 3 bone cores approximately 10 to 15 mm in length were obtained. 2 mL of aspirate was obtained. The needles were removed and the skin was cleansed with hydrogen peroxide. Skin glue was placed at the needle entry site. Complication: None Type: None ESTIMATED BLOOD LOSS: Less than 30 mL CONDITION: Stable condition. DISCHARGED TO: Inpatient care division FINDINGS: CT images demonstrate no change in the large left ischial decubitus ulcer with erosion of the underlying ischium concerning for osteomyelitis . Subsequent images demonstrate the biopsy needle within area of abnormality. Post biopsy images demonstrate no hematoma and the needle tract extending through the left ischium. IMPRESSION: 1. Left ischium bone biopsy under CT guidance. The bone core specimens were sent to surgical pathology and microbiology. Aspirate was sent to microbiology Electronically signed by: Curt Payne MD, PHD Lew Dewitt MD IMG IR PROCEDURES Final R esult * (ABNORMAL) Tissue aerobic and anaerobic culture and gram stain Biopsy Pelvic (03/15/2025 10:17 AM CDT) Direct Specimen Exam Stain: No polymorphonuclear leukocytes seen. No organisms seen. Report Final Report: Rare Staphylococcus epidermidis (.) [facility] Organism STAPHYLOCOCCUS EPIDERMIDIS [facility] Biopsy (Pelvic) 03/15/2025 1 0:17 AM CDT 03/15/2025 2:07 PM CDT Narrative [facility] - 03/21/2025 1:44 PM CDT Testing performed by [facility] Microbiology Laboratory ([phone]) Specimens submitted from normally sterile body sites will have all bacterial morphotypes identified. Specimens that contain grossly mixed candido and/or are from body sites that are not normally sterile will be examined for Staphylococcus aureus, Pseudomonas aeruginosa, beta-hemolytic strep, vancomycin-resistant Enterococcus, Bacteroides, Parabacteroides, Clostridium perfringens and fungus. If any of these are isolated, the organism will be reported. Current interpretive data was last revised on 2019. Organism Antibiotic Method Susceptibility Staphylococcus epidermidis Daptomycin (BRENDON) (BRENDON) INTERPRETATION Susceptible Staphylococcus epidermidis Doxycycline (BRENDON) INTERPRETATION Susceptible Staphylococcus epidermidis Linezolid (BRENDON) INTERPRETATION Susceptible Staphylococcus epidermidis Trimethoprim with Sulfamethoxazole (BRENDON) INTERPRETATION Resistant Staphylococcus epidermidis Clindamycin (BRENDON) INTERPRETATION Susceptible Staphylococcus epidermidis Erythromycin (BRENDON) INTERPRETATION Resistant Staphylococcus epidermidis Vancomycin (BRENDON) INTERPRETATION Susceptible Staphylococcus epidermidis Oxacillin (BRENDON) INTERPRETATION Resistant Staphylococcus epidermidis Cefazolin (BRENDON) INTERPRETATION Resistant Staphylococcus epidermidis Ceftriaxone (BRENDON) INTERPRETATION Resistant Lou Castillo MD LAB MICROBIOLOGY - GE NERAL ORDERABLES Final Result Performing Organization Address [facility]/ZIP Co de Phone Number [facility] [place] [address] * Aerobic and anaerobic culture and gram stain Aspirate Pelvic (03/15/2025 10:17 AM CDT) Direct Specimen Exam Stain: Few polymorphonuclear leukocytes seen. No organisms seen. Report Final Report: No growth [facility] Aspirate (Pelvic) 03/15/2025 10:17 AM CDT 03/15/2025 2:06 PM CDT Narrative [facility] - 03/18/2025 12:35 PM CDT Left Ischium Aspiration Testing performed by [facility] Microbiology Laboratory ([phone]) Specimens submitted from normally sterile body sites will have all bacterial morphotypes identified. Specimens that contain grossly mixed candido and/or are from body sites that are not normally sterile will be examined for Staphylococcus aureus, Pseudomonas aeruginosa, beta-hemolytic strep, vancomycin-resistant Enterococcus, Bacteroides, Parabacteroides, Clostridium perfringens and fungus. If any of these are isolated, the organism will be reported. Current interpretive data was last revised on 2019. us Lew Dewitt MD LAB MICROBIOLOGY - GENERA L ORDERABLES Final Result Performing Organization Address [facility]/ZIP Co de Phone Number [facility] [place] [address] * Surgical pathology (03/15/2025 10:05 AM CDT) Tissue (Bone - Biopsy / Curettings) 03/15/2025 10:05 AM CDT Comment:Left Ischium Bone Bi opsy Narrative PATHOLOGY [facility] - 03/21/2025 9:31 AM CDT EPIC results best viewed via link to PDF [facility] [place] [address] Note to Patients: This report may contain a detailed description of human tissue sent by a health care provider to the laboratory for pathologic evaluation. The content of this report is essential for diagnosis and may provide important critical findings. This information may be unfamiliar to patients to review without a medical professional present. It is advised that the patient review this report in the presence of a health care provider who can answer questions and explain the details. SURGICAL PATHOLOGY REPORT FINAL Patient Name: KRISTEN BAUER Gender: F : 1990 (Age: 34) Address: [address] [place] [address] Hospital #: [id number] Taken:03/15/2025 Received:03/15/2025 Reported: 03/21/2025 Patient Type: [facility] Inpatient Service: Medical Location: [facility] Physician(s): Curt Payne M.D. Diagnosis: Bone, left ischium, biopsy - Bone with periosteal reaction (see comment) [facility]03/20/2025 13:38 By this signature, I attest that the above diagnosis is based upon my personal examination of the slides(and/or other material indicated in the diagnosis). Omero Forte M.D. Report Electronically Reviewed and Signed Out By Omero Forte M.D. 03/21/2025 09:31:39 Microscopic Description and Comment: The histologic features in this biopsy sample are not specific. Clinical, imaging and microbiological correlation is recommended and if clinical concern persists additional sampling may be helpful. Jennifer Reardon M.D. History: The patient is a 34-year-old woman with a past medical history of paraplegia 2/2 spina bifida (meningomyelocele) who presented to the ED with a left buttock pressure injury Operative procedure: Left ischium bone biopsy. Specimen(s) Received: A: Left ischium bone biopsy Gross Description: Received in formalin, labeled with the patient s identifiers and left ischium bone biopsy and consists of two martinez-red core(s) of bone (with attached hemorrhagic material measuring 1.1-1.7 cm in length by 0.3 cm in diameter). Labeled A1 with EDTA and acid decalcification. Jar 0. elsw/03/15/2025 13:03 PA(s): Anu Cordon By this signature, I attest that the above diagnosis is based upon my personal examination of the slides(and/or other material). Addenda/Procedures The performance characteristics of some immunohistochemical stains, fluorescence in-situ hybridization tests and immunophenotyping by flow cytometry cited in this report (if any) were determined by the Surgical Pathology and Flow Cytometry Departments at [facility] as part of an ongoing water quality analyst program and in compliance with federally mandated regulations drawn from the Clinical Laboratory Improvement Act of 1988 (CLIA '88). Some of these tests rely on the use of analyte specific reagents and are subject to specific labeling requirements by the US Food and Drug Administration. Such diagnostic tests may only be performed in a facility that is certified by the Department of Health and Human Services as a high complexity laboratory under CLIA '88. The FDA has determined that such clearance or approval is not necessary. This test is used for clinical purposes. It should not be regarded as investigational or for research. Nevertheless, federal rules concerning the medical use of analyte specific reagents require that the following disclaimer be attached to the report: This test was developed and its performance characteristics determined by the Surgical Pathology and Flow Cytometry Departments of [facility]. It has not been cleared or approved by the U. S. Food and Drug Administration. IMAGES AND SCANNED DOCUMENTS, IF INCLUDED, ONLY VIEWABLE IN PDF VERSION OF REPORT us Lew Dewitt MD LAB PATHOLOGY ORDERABLES Final Result PATHOLOGY [facility] [address] Floor [place], [place] [phone] * eGFR (03/14/2025 10:30 PM CDT) eGFR >90 >=60 mL/min/1. 73 m2 Comment: [...] of Race in Diagnosing Kidney Disease, JASN 202). The CKD-EPI equation should not be used for patients with unstable renal function and has not been validated in children and those over 70. Current interpretive data was last reviewed 2021. Blood 03/14/2025 10:3 0 PM CDT 03/14/2025 10:46 PM CDT us Sophia George MD LAB BLOOD ORDERABLES Final Re sult [facility] [place] [address] * (ABNORMAL) CBC without differential (03/14/2025 10:30 PM CDT) WBC 12.38(H) 3.80 - 9.90 K/cumm Hgb 9.5(L) 11.9 - 15.5 g/dL [facility] Hct 31.2(L) 35.6 - 45.5 % [facility] Plt 581(H) 150 - 400 K/cumm [facility] MPV 9.1 9.1 - 12.3 fL [facility] RBC 3.78(L) 3.90 - 5.20 M/cumm [facility] MCV 82.5 81.3 - 96.4 fL [facility] MCH 25.1(L) 27.1 - 33.3 pg [facility] MCHC 30.4(L) 32.3 - 35.7 g/dL [facility] RDW CV 21.6(H) 11.1 - 14.9 % [facility] RDW SD 63.4(H) 35.7 - 48.1 fL [facility] NRBC abs 0.00 0.00 - 0.01 K/cumm [facility] Blood 03/14/2025 10:3 0 PM CDT 03/14/2025 10:46 PM CDT Sophia George MD LAB BLOOD ORDERABLES Final Re sult Performing Organization Address City/[facility]/ZIP Co de Phone Number [facility] [place] [address] * (ABNORMAL) Basic metabolic panel (03/14/2025 10:30 PM CDT) Pathologist [facility] Sodium 136 135 - 145 mmol/L Potassium, pl 4.3 3.3 - 4.9 mmol/L [facility] Chloride 104 97 - 110 mmol/L [facility] CO2 24 22 - 32 mmol/L [facility] Anion gap 8 2 - 15 mmol/L [facility] BUN 10 6 - 25 mg/dL [facility] Creatinine 0.29(L) 0.60 - 1.10 mg/dL [facility] Glucose 146 70 - 199 mg/dL [facility] Comment: Interpretive Data Fasting glucose >/= [...] classification and Diagnosis of Diabetes Diabetes Care 202; 46: S19-S40. Current interpretive data was last revised 2022. Calcium 8.6 8.5 - 10.3 mg/dL [facility] Blood 03/14/2025 10:3 0 PM CDT 03/14/2025 10:46 PM CDT Sophia George MD LAB BLOOD ORDERABLES Final Re sult Performing Organization Address City/[facility]/ZIP Co de Phone Number [facility] [place] [address] * eGFR (03/13/2025 8:47 PM CDT) Pathologist [facility] eGFR >90 >=60 mL/min/1. 73 m2 Comment: [...] interpretive data was last reviewed 2021. Blood 03/13/2025 8:47 PM CDT 03/13/2025 9:03 PM CDT us Sophia George MD LAB BLOOD ORDERABLES Final Re sult Performing Organization Address City/[facility]/ZIP Co de Phone Number [facility] [place] [address] * (ABNORMAL) CBC without differential (03/13/2025 8:47 PM CDT) Pathologist [facility] WBC 12.42(H) 3.80 - 9.90 K/cumm Hgb 10.4(L) 11.9 - 15.5 g/dL [facility] Hct 33.6(L) 35.6 - 45.5 % [facility] Plt 575(H) 150 - 400 K/cumm [facility] MPV 9.2 9.1 - 12.3 fL [facility] RBC 4.06 3.90 - 5.20 M/cumm [facility] MCV 82.8 81.3 - 96.4 fL [facility] MCH 25.6(L) 27.1 - 33.3 pg [facility] MCHC 31.0(L) 32.3 - 35.7 g/dL [facility] RDW CV 21.7(H) 11.1 - 14.9 % [facility] RDW SD 64.8(H) 35.7 - 48.1 fL [facility] NRBC abs 0.00 0.00 - 0.01 K/cumm [facility] Blood 03/13/2025 8:47 PM CDT 03/13/2025 9:03 PM CDT us Sophia George MD LAB BLOOD ORDERABLES Final Re sult [facility] [place] [address] * (ABNORMAL) Basic metabolic panel (03/13/2025 8:47 PM CDT) Sodium 139 135 - 145 mmol/L Potassium, pl 3.8 3.3 - 4.9 mmol/L [facility] Chloride 105 97 - 110 mmol/L [facility] CO2 24 22 - 32 mmol/L [facility] Anion gap 10 2 - 15 mmol/L [facility] BUN 14 6 - 25 mg/dL [facility] Creatinine 0.42(L) 0.60 - 1.10 mg/dL [facility] Glucose 127 70 - 199 mg/dL [facility] Comment: Interpretive Data Fasting glucose >/= [...] classification and Diagnosis of Diabetes Diabetes Care 2022; 46: S19-S40. Current interpretive data was last revised 2022. Calcium 9.0 8.5 - 10.3 mg/dL [facility] Blood 03/13/2025 8:47 PM CDT 03/13/2025 9:03 PM CDT Sophia George MD LAB BLOOD ORDERABLES Final Re sult Performing Organization Address [facility] Co de Phone Number [facility] [place] [address] * eGFR (03/12/2025 8:18 PM CDT) eGFR >90 >=60 mL/min/1. 73 m2 Comment: [...] of Race in Diagnosing Kidney Disease, JASN 202). The CKD-EPI equation should not be used for patients with unstable renal function and has not been validated in children and those over 70. Current interpretive data was last reviewed 2021. Blood 03/12/2025 8:18 PM CDT 03/12/2025 8:40 PM CDT Sophia George MD LAB BLOOD ORDERABLES Final Re sult Performing Organization Address [facility] Co de Phone Number [facility] [place] [address] * (ABNORMAL) CBC without differential (03/12/2025 8:18 PM CDT) [facility] WBC 9.00 3.80 - 9.90 K/cumm Hgb 9.1(L) 11.9 - 15.5 g/dL [facility] Hct 29.5(L) 35.6 - 45.5 % [facility] Plt 494(H) 150 - 400 K/cumm [facility] MPV 9.3 9.1 - 12.3 fL [facility] RBC 3.61(L) 3.90 - 5.20 M/cumm [facility] MCV 81.7 81.3 - 96.4 fL [facility] MCH 25.2(L) 27.1 - 33.3 pg [facility] MCHC 30.8(L) 32.3 - 35.7 g/dL [facility] RDW CV 21.7(H) 11.1 - 14.9 % [facility] RDW SD 63.7(H) 35.7 - 48.1 fL [facility] NRBC abs 0.00 0.00 - 0.01 K/cumm [facility] Blood 03/12/2025 8:18 PM CDT 03/12/2025 8:40 PM CDT Sophia George MD LAB BLOOD ORDERABLES Final Re sult [facility] [place] [address] * (ABNORMAL) Basic metabolic panel (03/12/2025 8:18 PM CDT) [facility] Sodium 141 135 - 145 mmol/L Potassium, pl 4.0 3.3 - 4.9 mmol/L [facility] Chloride 108 97 - 110 mmol/L [facility] CO2 24 22 - 32 mmol/L [facility] Anion gap 9 2 - 15 mmol/L [facility] BUN 15 6 - 25 mg/dL [facility] Creatinine 0.39(L) 0.60 - 1.10 mg/dL [facility] Glucose 163 70 - 199 mg/dL [facility] Comment: Interpretive Data Fasting glucose >/= [...] classification and Diagnosis of Diabetes Diabetes Care 202; 46: S19-S40. Current interpretive data was last revised 2022. Calcium 8.7 8.5 - 10.3 mg/dL [facility] Blood 03/12/2025 8:18 PM CDT 03/12/2025 8:40 PM CDT us Sophia George MD LAB BLOOD ORDERABLES Final Re sult [facility] [place] [address] * MRI Pelvis MSK W WO Contrast (03/12/2025 2:18 PM CDT) Anatomical Region Laterality Modality Body N/A Magnetic Resonan ce 03/12/2025 3:30 PM CDT Impressions 03/13/2025 9:36 AM CDT 1. Deep left ischial peripherally enhancing ulceration, regional synovitis, and left ischium acute osteomyelitis. Dictated by: Clovis Huddleston D.O. The radiology attending physician has personally reviewed this study, and had reviewed and/or edited this written report and agrees with it. Electronically signed by: Jadon Schultz MD Narrative 03/13/2025 9:36 AM CDT EXAMINATION: MRI PELVIS MSK W WO CONTRAST HISTORY: Decubitus ulcer. COMPARISON: 03/11/2025 CT. TECHNIQUE: Multiplanar, multisequence MR examination of the pelvis was performed before and after the administration of 14 mL intravenous Dotarem contrast. FINDINGS: Large left ischial decubitus ulcer which extends to the surface of the ischium with peripheral enhancement and enhancing edema throughout the subcutaneous fat in this region consistent with associated cellulitis. Enhancing T2 hyperintense signal seen extending along the left peroneal soft tissues and inferior left pelvic sidewall. No measurable peripherally enhancing fluid collection to indicate abscess. There is T2 hyperintensity and T1 marrow signal replacement within the ischium consistent with acute osteomyelitis with extensive involvement throughout the superior ischial ramus. The remainder of the marrow signal appears within normal limits. No acute fracture. Prominent left inguinal lymph nodes, likely reactive. There are trace bilateral hip effusions with mild synovitis on the right and no significant left hip synovitis. No convincing evidence for septic arthritis. There is severe diffuse atrophy of the musculature with complete fat replacement of the abdominal wall, pelvic girdle, and proximal lower extremity musculature. The left hamstring tendons are not well visualized with suboptimal evaluation on large field of view imaging. Partly imaged spina bifida. Atonic appearance of the urinary bladder. Limited evaluation intrapelvic viscera is otherwise unremarkable. Procedure Note Adrianna Schultz MD - 03/13/2025 EXAMINATION: MRI PELVIS MSK W WO CONTRAST HISTORY: Decubitus ulcer. COMPARISON: 03/11/2025 CT. TECHNIQUE: Multiplanar, multisequence MR examination of the pelvis was performed before and after the administration of 14 mL intravenous Dotarem contrast. FINDINGS: Large left ischial decubitus ulcer which extends to the surface of the ischium with peripheral enhancement and enhancing edema throughout the subcutaneous fat in this region consistent with associated cellulitis. Enhancing T2 hyperintense signal seen extending along the left peroneal soft tissues and inferior left pelvic sidewall. No measurable peripherally enhancing fluid collection to indicate abscess. There is T2 hyperintensity and T1 marrow signal replacement within the ischium consistent with acute osteomyelitis with extensive involvement throughout the superior ischial ramus. The remainder of the marrow signal appears within normal limits. No acute fracture. Prominent left inguinal lymph nodes, likely reactive. There are trace bilateral hip effusions with mild synovitis on the right and no significant left hip synovitis. No convincing evidence for septic arthritis. There is severe diffuse atrophy of the musculature with complete fat replacement of the abdominal wall, pelvic girdle, and proximal lower extremity musculature. The left hamstring tendons are not well visualized with suboptimal evaluation on large field of view imaging. Partly imaged spina bifida. Atonic appearance of the urinary bladder. Limited evaluation intrapelvic viscera is otherwise unremarkable. IMPRESSION: 1. Deep left ischial peripherally enhancing ulceration, regional synovitis, and left ischium acute osteomyelitis. Dictated by: Clovis Huddleston D.O. The radiology attending physician has personally reviewed this study, and had reviewed and/or edited this written report and agrees with it. Electronically signed by: Jadon Schultz MD us Joni Sweeney MD IMG MRI PROCE DURES Final Result * eGFR (03/11/2025 9:49 PM CDT) eGFR >90 >=60 mL/min/1. 73 m2 Comment: [...] of Race in Diagnosing Kidney Disease, JASN 202). The CKD-EPI equation should not be used for patients with unstable renal function and has not been validated in children and those over 70. Current interpretive data was last reviewed 2021. Blood 03/11/2025 9:49 PM CDT 03/11/2025 10:39 PM CDT us Sophia George MD LAB BLOOD ORDERABLES Final Re sult [facility] Department [place] [address] * (ABNORMAL) CBC without differential (03/11/2025 9:49 PM CDT) WBC 11.05(H) 3.80 - 9.90 K/cumm Hgb 9.1(L) 11.9 - 15.5 g/dL [facility] Hct 29.0(L) 35.6 - 45.5 % [facility] Plt 489(H) 150 - 400 K/cumm [facility] MPV 9.4 9.1 - 12.3 fL [facility] RBC 3.58(L) 3.90 - 5.20 M/cumm [facility] MCV 81.0(L) 81.3 - 96.4 fL [facility] MCH 25.4(L) 27.1 - 33.3 pg [facility] MCHC 31.4(L) 32.3 - 35.7 g/dL [facility] RDW CV 21.9(H) 11.1 - 14.9 % [facility] RDW SD 63.8(H) 35.7 - 48.1 fL [facility] NRBC abs 0.00 0.00 - 0.01 K/cumm [facility] Blood 03/11/2025 9:49 PM CDT 03/11/2025 10:41 PM CDT us Sophia George MD LAB BLOOD ORDERABLES Final Re sult [facility] [place] [address] * (ABNORMAL) Basic metabolic panel (03/11/2025 9:49 PM CDT) [facility] Sodium 138 135 - 145 mmol/L Potassium, pl 4.0 3.3 - 4.9 mmol/L [facility] Chloride 106 97 - 110 mmol/L [facility] CO2 25 22 - 32 mmol/L [facility] Anion gap 7 2 - 15 mmol/L [facility] BUN 15 6 - 25 mg/dL [facility] Creatinine 0.39(L) 0.60 - 1.10 mg/dL [facility] Glucose 100 70 - 199 mg/dL [facility] Comment: Interpretive Data Fasting glucose >/= [...] interpretive data was last revised 2022. Calcium 8.3(L) 8.5 - 10.3 mg/dL [facility] Blood 03/11/2025 9:49 PM CDT 03/11/2025 10:39 PM CDT us Sophia George MD LAB BLOOD ORDERABLES Final Re sult Performing Organization Address [facility]/ZIP Co de Phone Number [facility] [place] [address] * (ABNORMAL) Iron profile w/ IBC (03/11/2025 2:51 PM CDT) Pathologist [facility] Iron 17(L) 35 - 145 mcg/dL Comment:Reviewed TIBC 182(L) 250 - 400 mcg/dL [facility] Transferrin saturation 9(L) 20 - 50 % [facility] Blood 03/11/2025 2:51 PM CDT 03/11/2025 3:31 PM CDT us Joni Sweeney MD LAB BLOOD ORD ERABLES Final Result Performing Organization Address City/[facility]/ZIP Co de Phone Number [facility] [place] [address] * (ABNORMAL) Reticulocyte Count (03/11/2025 2:51 PM CDT) Retics, absolute 58 20 - 87 K/cumm Retics 1.6 0.4 - 2.9 % [facility] Reticulocyte Hgb 23.2(L) 30.5 - 38.0 pg [facility] Blood 03/11/2025 2:51 PM CDT 03/11/2025 3:42 PM CDT us Joni Sweeney MD LAB BLOOD ORD ERABLES Final Result Performing Organization Address [facility] Co de Phone Number [facility] [place] [address] * Folate (03/11/2025 2:51 PM CDT) Folic acid 10.5 >=5.0 ng/mL Blood 03/11/2025 2:51 PM CDT 03/11/2025 3:31 PM CDT us Joni Sweeney MD LAB BLOOD ORD ERABLES Final Result Performing Organization Address [facility] Co de Phone Number [facility] [place] [address] * Ferritin (03/11/2025 2:51 PM CDT) Ferritin 146 13 - 150 ng/mL Comment:Reviewed Blood 03/11/2025 2:51 PM CDT 03/11/2025 3:31 PM CDT us Joni Sweeney MD LAB BLOOD ORD ERABLES Final Result Performing Organization Address City/[facility] Co de Phone Number [facility] [address] * Vitamin B12 (03/11/2025 2:51 PM CDT) Vitamin B12 319 230 - 1,250 pg/mL Blood 03/11/2025 2:51 PM CDT 03/11/2025 3:31 PM CDT us Joni Sweeney MD LAB BLOOD ORD ERABLES Final Result Performing Organization Address City/[facility]/ZIP Co de Phone Number [facility] [place] [address] * Wound Care (03/11/2025 12:04 PM CDT) Narrative Elizabeth Caicedo MD - 03/11/2025 12:04 PM CDT Elizabeth Caicedo MD 03/12/2025 3:19 PM Wound Care Date/Time: 03/11/2025 12:04 PM Performed by: Nargis Mary MD Authorized by: Nargis Mary MD Consent: Consent obtained: Verbal Consent given by: Patient Risks, benefits, and alternatives were discussed: yes [place] protocol: Procedure explained and questions answered to patient or proxy's satisfaction: yes Imaging studies available: yes Patient identity confirmed: Verbally with patient and arm band Sedation: Sedation type: None Procedure details: Indications: open wounds Wound location: Pelvis Pelvis location: L buttock Wound age (days): >14 Wound surface area (sq cm): 24 Debridement performed: Yes Debridement type: excisional Debridement level: subcutaneous tissue Debridement mechanism: Blade Devitalized tissue debrided: necrotic debris and slough Dressing: Packing/drain action: new packing Dressing applied: Kerlix Post-procedure details: Procedure completion: Tolerated well, no immediate complications Nargis Mary MD IN CLINIC/BEDSIDE ORDERABLES Final Result * (ABNORMAL) Erythrocyte sedimentation rate (03/11/2025 9:08 AM CDT) Erythrocyte sedimentation rate 66(H) 1 - 20 mm/hr Blood 03/11/2025 9:08 AM CDT 03/11/2025 9:46 AM CDT us Joni Sweeney MD LAB BLOOD ORD ERABLES Final Result Performing Organization Address City/[facility]/ZIP Co de Phone Number [facility] [place] [address] * (ABNORMAL) CRP (acute phase) (03/11/2025 9:08 AM CDT) CRP 131.5(H) <=10.0 mg/L Blood 03/11/2025 9:08 AM CDT 03/11/2025 9:46 AM CDT Joni Sweeney MD LAB BLOOD ORD ERABLES Final Result [facility] [place] [address] * Urinalysis reflex to microscopic and culture Urine (03/11/2025 4:42 AM CDT) Color, ur Straw Yellow Clarity, ur Clear Clear [facility] Specific gravity, ur 1.008 1.003 - 1.030 [facility] pH, urine 6.5 [facility] Comment: Interpretive Data U rine pH is affected by diet, medications, systemic acid-base disturbances, and renal tubular function. pH may affect urinary stone formation. For example, urine pH below 6.0 may help reduce the tendency for calcium phosphate stones and pH greater than 6.0 may reduce the tendency for uric acid stone formation. Source: [facility] Current Interpretive Data was last revised on 2017 Protein, ur ql Negative Negative [facility] Glucose, ur ql Negative Negative [facility] Ketones, ur Negative Negative [facility] Bilirubin, ur Negative Negative [facility] Blood, ur Negative Negative [facility] Urobilinogen, ur <2.0 <2.0 mg/dL [facility] Nitrite, ur Negative Negative [facility] Leukocyte esterase, ur Negative Negative [facility] UA reflex comment Reflex conditions for microscopic UA and culture not met. [facility] Urine 03/11/2025 4:42 AM CDT 03/11/2025 4:59 AM CDT us Reymundo Sanchez MD LAB MICROBIOLOGY - GE NERAL ORDERABLES Final Result [facility] [place] [address] * CT Pelvis W Contrast (03/11/2025 3:29 AM CDT) Anatomical Region Laterality Modality Body N/A Computed Tomogra phy 03/11/2025 3:54 AM CDT Impressions 03/11/2025 9:04 AM CDT 1. Large necrotic abscess/ulceration involving the left gluteal fold with surrounding hyperenhancing stranding and edema consistent with ischial decubitus ulcer. No drainable fluid collection. There is no osseous erosion at this time to suggest osteomyelitis. 2. Irregular contour of the urinary bladder with foci of gas. Recommend correlation with urinalysis. 3. Trace fluid in the left hip joint may be reactive or related to infection. 4. Probable developing sacral ulcer. Dictated by: Feliberto Craig MD The radiology attending physician has personally reviewed this study, and had reviewed and/or edited this written report and agrees with it. Electronically signed by: Thom Celestin M.D. Narrative 03/11/2025 9:04 AM CDT EXAMINATION: Computed tomography of the pelvis with intravenous contrast HISTORY: Left gluteal fold soft tissue infection TECHNIQUE: Transaxial computed tomographic images of the pelvis were obtained with intravenous contrast according to the standard protocol after the uneventful administration of 80 mL Opti-Ray 350 intravenous contrast. COMPARISON: None FINDINGS: Within the left gluteal region, there is a large necrotic hyperattenuating region consistent with a large abscess with surrounding soft tissue stranding and edema. There are multiple reactive right inguinal lymph nodes. At this time, there is no extension into the bone to suggest osteomyelitis. Probable developing sacral ulcer. Diffuse muscular atrophy. Trace fluid in left hip joint. The imaged visceral organs reveal mildly distended urinary bladder with foci of gas and irregular contour. Uterus is normal. The imaged bowel is normal. Left sacroiliac joint osteoarthritis. Procedure Note Thom Celestin MD PhD - 03/11/2025 EXAMINATION: Computed tomography of the pelvis with intravenous contrast HISTORY: Left gluteal fold soft tissue infection TECHNIQUE: Transaxial computed tomographic images of the pelvis were obtained with intravenous contrast according to the standard protocol after the uneventful administration of 80 mL Opti-Ray 350 intravenous contrast. COMPARISON: None FINDINGS: Within the left gluteal region, there is a large necrotic hyperattenuating region consistent with a large abscess with surrounding soft tissue stranding and edema. There are multiple reactive right inguinal lymph nodes. At this time, there is no extension into the bone to suggest osteomyelitis. Probable developing sacral ulcer. Diffuse muscular atrophy. Trace fluid in left hip joint. The imaged visceral organs reveal mildly distended urinary bladder with foci of gas and irregular contour. Uterus is normal. The imaged bowel is normal. Left sacroiliac joint osteoarthritis. IMPRESSION: 1. Large necrotic abscess/ulceration involving the left gluteal fold with surrounding hyperenhancing stranding and edema consistent with ischial decubitus ulcer. No drainable fluid collection. There is no osseous erosion at this time to suggest osteomyelitis. 2. Irregular contour of the urinary bladder with foci of gas. Recommend correlation with urinalysis. 3. Trace fluid in the left hip joint may be reactive or related to infection. 4. Probable developing sacral ulcer. Dictated by: Feliberto Craig MD The radiology attending physician has personally reviewed this study, and had reviewed and/or edited this written report and agrees with it. Electronically signed by: Thom Celestin M.D. Ciera Browne MD IMG CT PROCEDURES Final Re sult * (ABNORMAL) POCT creatinine (03/11/2025 2:44 AM CDT) [facility] Creatinine POC <0.5(L) 0.6 - 1.1 mg/dL Blood 03/11/2025 2:44 AM CDT 03/11/2025 2:44 AM CDT Ciera Browne MD LAB POCT ORDERABLES - FARHAN CE Final Result [facility] Department [place] [address] * Sepsis Lactate w/ Reflex (03/11/2025 2:08 AM CDT) [facility] Sepsis Lactate 1.0 0.7 - 2.0 mmol/L Blood 03/11/2025 2:08 AM CDT 03/11/2025 2:16 AM CDT Ciera Browne MD LAB BLOOD ORDERABLES Final Result Performing Organization Address [facility] Co de Phone Number [facility] [place] [address] * eGFR (03/11/2025 2:08 AM CDT) [facility] eGFR >90 >=60 mL/min/1. 73 m2 Comment: [...] interpretive data was last reviewed 2021. Blood 03/11/2025 2:08 AM CDT 03/11/2025 2:19 AM CDT Ciera Browne MD LAB BLOOD ORDERABLES Final Result Performing Organization Address [facility]/ZIP Co de Phone Number [facility] [place] [address] * (ABNORMAL) Differential, auto (03/11/2025 2:08 AM CDT) Pathologist [facility] Neutrophil abs 12.27(H) 1.50 - 6.50 K/cumm Imm gran abs 0.17(H) 0.00 - 0.10 K/cumm [facility] Lymphocyte abs 1.80 0.80 - 3.30 K/cumm [facility] Monocyte abs 1.15(H) 0.20 - 0.80 K/cumm [facility] Eosinophil abs 0.20 0.00 - 0.50 K/cumm [facility] Basophil abs 0.05 0.00 - 0.10 K/cumm [facility] Neutrophil pct 78.4 % [facility] Comment: Interpretive Data Percent cell count reference ranges are not reported, since discordance with absolute values may lead to misinterpretation of CBC data. Current Interpretive Data was last revised on 2018. Imm gran pct 1.1 % [facility] Comment: Interpretive Data Percent cell count reference ranges are not reported, since discordance with absolute values may lead to misinterpretation of CBC data. Current Interpretive Data was last revised on 2018. Lymphocyte pct 11.5 % [facility] Comment: Interpretive Data Percent cell count reference ranges are not reported, since discordance with absolute values may lead to misinterpretation of CBC data. Current Interpretive Data was last revised on 2018. Monocyte pct 7.4 % [facility] Comment: Interpretive Data Percent cell count reference ranges are not reported, since discordance with absolute values may lead to misinterpretation of CBC data. Current Interpretive Data was last revised on 2018. Eosinophil pct 1.3 % [facility] Comment: Interpretive Data Percent cell count reference ranges are not reported, since discordance with absolute values may lead to misinterpretation of CBC data. Current Interpretive Data was last revised on 2018. Basophil pct 0.3 % [facility] Comment: Interpretive Data Percent cell count reference ranges are not reported, since discordance with absolute values may lead to misinterpretation of CBC data. Current Interpretive Data was last revised on 2018. Blood 03/11/2025 2:08 AM CDT 03/11/2025 2:19 AM CDT Ciera Browne MD LAB BLOOD ORDERABLES Final Result [facility] [place] [address] * (ABNORMAL) CBC with auto differential (03/11/2025 2:08 AM CDT) WBC 15.64(H) 3.80 - 9.90 K/cumm Hgb 9.5(L) 11.9 - 15.5 g/dL [facility] Hct 30.0(L) 35.6 - 45.5 % [facility] Plt 522(H) 150 - 400 K/cumm [facility] MPV 9.2 9.1 - 12.3 fL [facility] RBC 3.73(L) 3.90 - 5.20 M/cumm [facility] MCV 80.4(L) 81.3 - 96.4 fL [facility] MCH 25.5(L) 27.1 - 33.3 pg [facility] MCHC 31.7(L) 32.3 - 35.7 g/dL [facility] RDW CV 22.0(H) 11.1 - 14.9 % [facility] RDW SD 63.6(H) 35.7 - 48.1 fL [facility] NRBC abs 0.00 0.00 - 0.01 K/cumm [facility] Blood 03/11/2025 2:08 AM CDT 03/11/2025 2:19 AM CDT Ciera Browne MD LAB BLOOD ORDERABLES Final Result [facility] [place] [address] * Blood culture Blood Peripheral (03/11/2025 2:08 AM CDT) Report Final Report: No growth Blood (Peripheral) 03/11/2025 2:08 AM CDT 03/11/2025 2:19 AM CDT Narrative [facility] - 03/15/2025 7:01 AM CDT From a different site than #1. Draw Blood cultures before administration of Antibiotics Collection->Peripheral 1. Blood cultures are incubated for 4 days on a continuously monitored blood culture system. The first report of a negative culture is issued within 24 hours of receipt of the specimen in the laboratory. 2. Positive culture results are reported as soon as they are detected. 3. The most important factor for detection of microbes in the setting of bloodstream infection is the volume of blood submitted for culture. Failure to collect an optimal blood volume can result in false negative blood cultures. 4. For pediatric patients, the recommended blood volume to collect follows a weight based strategy. See the electronic test catalog for collection instructions. 5. For positive blood cultures, a rapid molecular test may be performed for organism identification using the ying ePlex blood culture identification panel for gram positive (BCID-GP) and gram negative (BCID-GN) organisms. This nucleic acid amplification test detects microbial DNA in positive blood culture broth. This assay has been cleared by the [place] Food and Drug Administration and its performance characteristics have been verified by the [facility] Microbiology Laboratory. For questions about this culture, contact the Microbiology Laboratory at [phone]. Interpretive data was last revised on 24. Ciera Browne MD LAB MICROBIOLOGY - GENERAL ORDERABLES Final Result [facility] [place] [address] * Blood culture Blood Peripheral (03/11/2025 2:08 AM CDT) Report Final Report: No growth Blood (Peripheral) 03/11/2025 2:08 AM CDT 03/11/2025 2:19 AM CDT [facility] - 03/15/2025 7:01 AM CDT Draw Blood cultures before administration of Antibiotics Collection->Peripheral 1. Blood cultures are incubated for 4 days on a continuously monitored blood culture system. The first report of a negative culture is issued within 24 hours of receipt of the specimen in the laboratory. 2. Positive culture results are reported as soon as they are detected. 3. The most important factor for detection of microbes in the setting of bloodstream infection is the volume of blood submitted for culture. Failure to collect an optimal blood volume can result in false negative blood cultures. 4. For pediatric patients, the recommended blood volume to collect follows a weight based strategy. See the electronic test catalog for collection instructions. 5. For positive blood cultures, a rapid molecular test may be performed for organism identification using the ying ePlex blood culture identification panel for gram positive (BCID-GP) and gram negative (BCID-GN) organisms. This nucleic acid amplification test detects microbial DNA in positive blood culture broth. This assay has been cleared by the [place] Food and Drug Administration and its performance characteristics have been verified by the [facility] Microbiology Laboratory. For questions about this culture, contact the Microbiology Laboratory at [phone]. Interpretive data was last revised on 24. Ciera Browne MD LAB MICROBIOLOGY - GENERAL ORDERABLES Final Result [facility] [place] [address] * (ABNORMAL) Comprehensive metabolic panel (03/11/2025 2:08 AM CDT) Sodium 134(L) 135 - 145 mmol/L Potassium, pl 3.8 3.3 - 4.9 mmol/L [facility] Chloride 99 97 - 110 mmol/L [facility] CO2 23 22 - 32 mmol/L [facility] Anion gap 12 2 - 15 mmol/L [facility] BUN 17 6 - 25 mg/dL [facility] Creatinine 0.32(L) 0.60 - 1.10 mg/dL [facility] Glucose 95 70 - 199 mg/dL [facility] Comment: Interpretive Data Fasting glucose >/= [...] classification and Diagnosis of Diabetes Diabetes Care 202; 46: S19-S40. Current interpretive data was last revised 2022. Calcium 8.6 8.5 - 10.3 mg/dL [facility] Bilirubin, total 0.2 0.1 - 1.2 mg/dL [facility] Protein, pl 6.8 6.5 - 8.5 g/dL [facility] Albumin 3.5 3.5 - 5.0 g/dL [facility] Alk phos 99 40 - 130 Units/L [facility] ALT 8 7 - 45 Units/L [facility] AST 12 10 - 45 Units/L [facility] Blood 03/11/2025 2:08 AM CDT 03/11/2025 2:19 AM CDT us Ciera Browne MD LAB BLOOD ORDERABLES Final Result Performing Organization Address [facility] Co de Phone Number [facility] [place] [address] * Iron profile w/ IBC (02/24/2025 12:59 PM CDT) Iron 35 35 - 145 mcg/dL TIBC See Comment 250 - 400 mcg/dL [facility] Comment:Unable to calculate Transferrin saturation See Comment 20 - 50 % [facility] Comment:Unable to calculate Blood 02/24/2025 12:5 9 PM CDT 02/24/2025 1:46 PM CDT us Emiliana Myles MD LAB BLOOD ORDERABLES Final R esult Performing Organization Address City/[facility]/ZIP Co de Phone Number [facility] [place] [address] * Ferritin (02/24/2025 12:59 PM CDT) Ferritin See Comment 13 - 150 ng/mL Comment:Credited; Hemolyzed Specimen Blood 02/24/2025 12:5 9 PM CDT 02/24/2025 1:46 PM CDT Emiliana Myles MD LAB BLOOD ORDERABLES Final R esult Performing Organization Address [facility] Co de Phone Number [facility] [place] [address] * Hemoglobin A1c (01/19/2025 5:02 PM CDT) [facility] Hgb A1C 4.8 4.0 - 5.6 % Estimated Average Glucose 91 mg/dL [facility] Comment: The ADA recommends reporting an estimated Average Glucose (eAG) with all Hemoglobin A1c results using the equation derived from a study of 507 normal and diabetic adults. Minority populations were underrepresented and children were not included. (Diabetes Care 2020; 43(S1): S66-S76). The eAG is not equivalent to a fasting glucose. Blood 01/19/2025 5:02 PM CDT 01/19/2025 5:39 PM CDT Kandis Robb [employer] LAB BLOOD ORDERABLES Katie l Result Performing Organization Address [facility] Co de Phone Number [facility] [address] * Gamma GT (01/19/2025 5:02 PM CDT) [facility] GGT 9 5 - 35 Units/L Blood 01/19/2025 5:02 PM CDT 01/19/2025 5:39 PM CDT Narrative [facility] - 01/19/2025 6:19 PM CDT Kristen, Please take these orders to any lab to be completed in late December . If you do not use a [place] lab, please call [phone] when you complete the lab with the name of the lab so we can obtain results. Please fax results to [phone] call [phone] with any questions. Rosanna Partida [employer]PER[employer] LAB BLOOD ORDERABLES Fin al Result Performing Organization Address [facility] de Phone Number [facility] [place] [address] * (ABNORMAL) Hepatic function panel (01/19/2025 5:02 PM CDT) Bilirubin, total 0.2 0.1 - 1.2 mg/dL Bilirubin, direct <0.2 0.1 - 0.3 mg/dL [facility] Protein, pl 6.9 6.5 - 8.5 g/dL [facility] Albumin 4.4 3.5 - 5.0 g/dL [facility] Alk phos 133(H) 40 - 130 Units/L [facility] ALT 14 7 - 45 Units/L [facility] AST 13 10 - 45 Units/L [facility] Blood 01/19/2025 5:02 PM CDT 01/19/2025 5:39 PM CDT Narrative [facility] - 01/19/2025 6:19 PM CDT Kristen, Please take these orders to any lab to be completed in late December . If you do not use a [place] lab, please call [phone] when you complete the lab with the name of the lab so we can obtain results. Please fax results to [phone] call [phone] with any questions. Rosanna Partida NP LAB BLOOD ORDERABLES Fin al Result Performing Organization Address [facility] Co de Phone Number [facility] [place] [address] * Lipid panel (01/19/2025 5:02 PM CDT) [...] revised on 2018. Triglycerides 60 <=149 mg/dL [facility] Comment: Interpretive Data Ages < or [...] revised on 2018. HDL 51 >=40 mg/dL [facility] Comment: Interpretive Data Ages < or [...] on 2018. LDL, calculated 75 <=129 mg/dL [facility] Comment: Interpretive Data Ages < or = 19 years Acceptable: <110 mg/dL Borderline high: 110-129 mg/dL High: >or= 130 mg/dL Ages > or = 20 years Optimal: <100 mg/dL Near optimal: 100-129 mg/dL Borderline high: 130-159 mg/dL High: >160 mg/dL Calculated using the [place] LDL-C estimating equation. This equation was implemented on 2024. Prior to this date LDL-C was estimated using the Friedewald equation. Literature References: 1. Expert Panel on Integrated Guidelines for Cardiovascular Health and Risk Reduction in Children and Adolescents. Pediatrics 2011;128:S213 2. NCEP Expert Panel. Circulation 2004;110:227 3. Vladislav M et al. EDITH Cardiol. 2020 February 17;5(5):540-548. doi: 10.1001/[email or web address].2020.0013 Current Interpretive Data was last revised on 2024. Non-HDL Cholesterol 88 mg/dL [facility] [...] last revised on 2018. Chol/HDL ratio 3 [facility] Blood 01/19/2025 5:02 PM CDT 01/19/2025 5:39 PM CDT us Kandis Robb NP LAB BLOOD ORDERABLES Katie patterson Result [facility] [place] [address] from Last 3 Months Insurance [facility] [place] [address] [facility] [address] [place] [address] [employer] Advance Directives For more information, please contact: [phone] * Full Code (Latest Code Status on File) Date Activated Date Inactivated Comments 03/11/2025 6:39 PM 03/18/2025 9:51 PM * Full Code Date Activated Date Inactivated Comments 01/20/2024 9:37 AM 01/20/2024 5:42 PM * Full Code Date Activated Date Inactivated Comments 04/29/2023 10:54 AM 04/30/2023 5:26 AM Care Teams Switchboard Mechanic Relationship Specialty Start Date End Date Kandis Robb, GAVINO [address] [place] [address] PCP - General Nurse Practitioner 03/08/25 Pavan Rockwell MD [address] DIV IM INFECTIOUS DISEASE, [address] [place] [address] PCP - Home Infusion Attending Infectious Diseases 03/22/25 Arnoldo Longoria, [facility] Pharmacist Pharmacy 03/22/25
--- OUTSIDE RECORDS SUMMARY | 2025-03-30 16:43 | XMS_ITS | Referral Summary ---
Author Organization [facility] [address] [facility] Address [address] [place] [address] Care Team Providers Care Senior Ui Software Engineer Name Role Phone Kandis Robb NP Primary Care Provider [phone] Pavan Rockwell MD Unavailable [phone] Arnoldo Longoria [facility] Unavailable Unavail able Encounters Date Type Department Care Team Description 03/30/2025 Telephone [facility] Infectious Diseases [address] [place] [phone] Fadumo Addison Labs Only 03/28/2025 2:00 PM CDT Orders Only [facility] [address] [place] [phone] 03/23/2025 11:47 PM CDT - 03/24/2025 1:01 AM CDT Emergency [facility] Emergency Department [address] [place] [address] Derrick Garza MD Malfunction of peripheral inserted central catheter, initial encounter (Primary Dx) Discharge Disposition: Discharge to home or self care 03/22/2025 Home Infusion [facility] [address] [place] [address] [place], [facility] Cellulitis and abscess of buttock (Primary Dx) 03/21/2025 [facility] Transitional Care Outreach [facility] Care Coordination [address] [place] [address] Loni Nascimento RN 03/21/2025 1:00 PM CDT Orders Only [facility] [address] [place] [phone] Pressure injury, unstageable, unspecified location (HCC) 03/11/2025 12:24 AM CDT - 03/18/2025 5:35 PM CDT Hospital Encounter [address] [phone] Ciera Browne MD Baum, MD Patel Siddiqui, MD Judson Hu, MD Renate Henry, MD Jonathan Singh, Lou Mendoza MD Pressure injury of left buttock, stage 3 (HCC) (Primary Dx); Cellulitis of buttock; Osteomyelitis, unspecified site, unspecified type (HCC); Acute hematogenous osteomyelitis of other site (HCC); Lumbar spina bifida without hydrocephalus (HCC); Paraparesis (HCC) Discharge Disposition: Discharge to home, home health skilled care 03/16/2025 Documentation [facility] Infectious Diseases [address] [place] [address] Joni Hernandez MD OPAT Sign-Off 03/15/2025 Orders Only [facility] Neuro Interventional Radiology [address] [place] [address] Jessica Schultz, SAVANNA 03/10/2025 Telephone [facility] Complete Care [address] [facility] Medical Office Building 4, [address] [place] [address] Georgia Fairchild RN Wound Check 03/10/2025 Telephone [facility] Epilepsy [address] [facility] Advanced Medicine 6th [place] [address] [place] [address] Gatito Foreman MD Med Refill 03/09/2025 Documentation [facility] Surgery [facility] [place] [phone] Ashley Alexandra 03/08/2025 Telephone [facility] Hematology [facility] 6 [place] [address] Fidelina Mancera RN 02/28/2025 Telephone [facility] Complete Care [address] [place] [address] Medical Office Building [address], [address] [place] [phone] Valentine Murillo, RN Spoke With Home Health Provider 02/25/2025 Telephone [facility] Hematology [address] [place] [address] 6 [place] [address] Fidelina Mancera RN 02/25/2025 Orders Only [facility] Hematology [address] [place] [address] 6 [place] [phone] Fidelina Mancera, SAVANNA Iron deficiency anemia, unspecified iron deficiency anemia type (Primary Dx) 02/24/2025 2:20 PM CDT Lab [facility] ([facility]) [address] [place] [phone] Iron deficiency anemia, unspecified iron deficiency anemia type 02/24/2025 12:15 PM CDT Lab [facility] Oncology Lab [address] [place] [phone] 02/24/2025 1:15 PM CDT Office Visit [facility] Hematology [address] [place] [phone] Emiliana Myles MD Iron deficiency anemia, unspecified iron deficiency anemia type (Primary Dx) 02/21/2025 Telephone [facility] Complete Care [address] [place] [address] Medical Office Building [address], [address] [place] [address] Kandis Robb NP 02/17/2025 Telephone [facility] Complete Care [address] [place] [address] Medical Office Building [address], [address] [place] [phone] Georgia Fairchild, SAVANNA 02/16/2025 Telephone [facility] Complete Care [address] [place] [address] Medical Office Building [address], [address] [place] [phone] Georgia Fairchild, SAVANNA 02/11/2025 Telephone [facility] Complete Care [address] [facility] Medical Office Building 4, [address] [place] [address] Georgia Fairchild, SAVANNA 02/10/2025 Telephone [facility] Complete Care [address] [facility] Office Building 4, [address] [place] [address] Georgia Fairchild, SAVANNA 01/24/2025 Documentation [facility] Gastroenterology [address] [facility] 12th [place] [address] [place] [address] Sai Mack RN 01/24/2025 Results Follow-Up [facility] Gasteroenterology [address] [place] [address] 12th [place] [address] [place] [address] Rosanna Partida NP Gamma GT, Hepatic function panel 01/21/2025 Telephone [facility] Complete Care [address] [place] [address] Medical Office Building [address], [address] [place] [address] Georgia Fairchild RN 01/20/2025 Telephone [facility] Complete Care [address] [place] [address] Medical Office Building [address], [address] [place] [address] Edith Miguel RN Forms/questionnaire s 01/20/2025 Results Follow-Up [facility] Complete [facility] 12th [place] [address] [place] [address] Kandis Robb NP Hemoglobin A1c 01/19/2025 7:15 PM CDT Lab [facility] Advanced [facility]) [address] [place] [phone] Liver lesion 01/19/2025 7:00 PM CDT Lab [facility] Advanced [facility] ([facility]) [address] [place] [phone] Screening for diabetes mellitus; Screening for cholesterol level 01/19/2025 3:40 PM CDT Office Visit [facility] [address] [facility] 12th [place] [address] [place] [address] Kandis Robb, GAVINO Wellness examination (Primary Dx); Screening for diabetes mellitus; Screening for cholesterol level; Iron deficiency anemia, unspecified iron deficiency anemia type; Anxiety disorder, unspecified type; Spina bifida, unspecified hydrocephalus presence, unspecified spinal region (HCC) 01/18/2025 3:00 PM CDT Infusion [facility]fusion [address] [place] [address] Iron deficiency anemia, unspecified iron deficiency anemia type (Primary Dx) 01/11/2025 3:00 PM CDT Infusion [facility] [address] 6 [place] [address] Iron deficiency anemia, unspecified iron deficiency anemia type (Primary Dx) 01/04/2025 3:00 PM CDT Infusion [facility] [address] [place] [address] Iron deficiency anemia, unspecified iron deficiency anemia type (Primary Dx) from Last 3 Months Allergies Active Allergy [...] mL IV as needed for line care 86240 mL 025 2025 Active heparin 10 unit/mL syringe flush syringeIndicati ons:Maintain Patency of Indwelling Vascular Catheter Infuse 5 mL (50 Units total) IV as needed (line care) 63473 mL 025 2025 Active docusate sodium (Colace) 100 mg capsuleIndicati ons:constipatio n Take 1 capsule (100 mg total) by mouth daily as needed for constipation 2024 Discontinued(R eorder) multivit with calcium,iron,mi n (WOMEN'S DAILY MULTIVITAMIN ORAL)Indication s:Supplement Take 1 tablet by mouth mascara molder before breakfast 2024 Discontinued(E rror) lamoTRIgine (LaMICtal) [...] 12/09/2024 Assessment & Plan (12/09/2024 9:50 AM FORKLIFT MATERIAL HANDLER): Patient with liver lesions incidentally found during [...] 20mg daily. Myopia 07/24/2023 Overview (07/24/2023): SRx: MR Assessment & Plan (10/21/2024 2:13 PM FORKLIFT MATERIAL HANDLER): Update specs as desired. 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 Acute serous otitis media, right [...] 01/16/2023 Assessment & Plan (10/21/2024 2:15 PM FORKLIFT MATERIAL HANDLER): Stable exam with excellent visual function (BCVA, [...] B12/folate. Assessment & Plan (12/09/2024 9:51 AM FORKLIFT MATERIAL HANDLER): Has upcoming appt with hematology. Ordered CBC, [...] 04/21/2015 Immunizations Immunization Administration Dates Next Due Hep [...] on file Legal Sex Female 9:03 PM FORKLIFT MATERIAL HANDLER Gender Identity Female 04/06/2023 2:19 PM CDT [...] 03/23/2025 11:45 PM CDT Plan of Treatment Not on file Medical Devices Implanted Type Area Employment Director Device Identifier Shelf Expiration Date Model / [...] CBC without differential (03/17/2025 11:00 PM CDT) [facility] WBC 13.28(H) 3.80 - 9.90 K/cumm Hgb 9.0(L) 11.9 - 15.5 g/dL [facility] Hct 28.3(L) 35.6 - 45.5 % [facility] Plt 486(H) 150 - 400 K/cumm [facility] MPV 8.9(L) 9.1 - 12.3 fL [facility] RBC 3.48(L) 3.90 - 5.20 M/cumm [facility] MCV 81.3 81.3 - 96.4 fL [facility] MCH 25.9(L) 27.1 - 33.3 pg [facility] MCHC 31.8(L) 32.3 - 35.7 g/dL [facility] RDW CV 21.1(H) 11.1 - 14.9 % [facility] RDW SD 62.4(H) 35.7 - 48.1 fL [facility] NRBC abs 0.00 0.00 - 0.01 K/cumm [facility] Blood 03/17/2025 11:0 0 PM CDT 03/17/2025 11:24 PM CDT us Sophia George MD LAB BLOOD ORDERABLES Final Re sult [facility] One [facility] Department [place] [address] * eGFR (03/16/2025 8:24 PM CDT) eGFR [...] ORDERABLES Final Re sult Performing Organization Address [facility] Co de Phone Number [facility] Department [place] [address] * (ABNORMAL) CBC without differential (03/16/2025 8:24 PM CDT) WBC 17.04(H) 3.80 - 9.90 K/cumm Hgb 9.1(L) 11.9 - 15.5 g/dL [facility] Hct 29.7(L) 35.6 - 45.5 % [facility] Plt 504(H) 150 - 400 K/cumm [facility] MPV 9.3 9.1 - 12.3 fL [facility] RBC 3.59(L) 3.90 - 5.20 M/cumm [facility] MCV 82.7 81.3 - 96.4 fL [facility] MCH 25.3(L) 27.1 - 33.3 pg [facility] MCHC 30.6(L) 32.3 - 35.7 g/dL [facility] RDW CV 21.2(H) 11.1 - 14.9 % [facility] RDW SD 63.5(H) 35.7 - 48.1 fL [facility] NRBC abs 0.00 0.00 - 0.01 K/cumm [facility] Blood 03/16/2025 8:24 PM CDT 03/16/2025 10:43 PM CDT us Sophia George MD LAB BLOOD ORDERABLES Final Re sult Performing Organization Address City/[facility]/ZIP Co de Phone Number [facility] Department [place] [address] * (ABNORMAL) Basic metabolic panel (03/16/2025 8:24 PM CDT) Pathologist [facility] Sodium 134(L) 135 - 145 mmol/L Potassium, pl 3.9 3.3 - 4.9 mmol/L [facility] Chloride 100 97 - 110 mmol/L [facility] CO2 24 22 - 32 mmol/L [facility] Anion gap 10 2 - 15 mmol/L [facility] BUN 13 6 - 25 mg/dL [facility] Creatinine 0.35(L) 0.60 - 1.10 mg/dL [facility] Glucose 158 70 - 199 mg/dL [facility] Comment: Interpretive Data Fasting glucose >/= 126 [...] 2022. Calcium 8.3(L) 8.5 - 10.3 mg/dL [facility] Blood 03/16/2025 8:24 PM CDT 03/16/2025 10:35 PM CDT us Sophia George MD LAB BLOOD ORDERABLES Final Re sult [facility] One [facility] Department [place] [address] * eGFR (03/15/2025 9:42 PM CDT) [facility] eGFR >90 >=60 mL/min/1. 73 m2 Comment: [...] data was last reviewed 2021. Blood 03/15/2025 9:4 2 PM CDT 03/15/2025 10:35 PM CDT us Sophia George MD LAB BLOOD ORDERABLES Final Re sult [facility] Department [place] [address] * (ABNORMAL) CBC without differential (03/15/2025 9:42 PM CDT) Pathologist [facility] WBC 12.91(H) 3.80 - 9.90 K/cumm Hgb 10.0(L) 11.9 - 15.5 g/dL [facility] Hct 32.6(L) 35.6 - 45.5 % [facility] Plt 546(H) 150 - 400 K/cumm [facility] MPV 9.0(L) 9.1 - 12.3 fL [facility] RBC 3.96 3.90 - 5.20 M/cumm [facility] MCV 82.3 81.3 - 96.4 fL [facility] MCH 25.3(L) 27.1 - 33.3 pg [facility] MCHC 30.7(L) 32.3 - 35.7 g/dL [facility] RDW CV 21.3(H) 11.1 - 14.9 % [facility] RDW SD 63.5(H) 35.7 - 48.1 fL [facility] NRBC abs 0.00 0.00 - 0.01 K/cumm [facility] Blood 03/15/2025 9:42 PM CDT 03/15/2025 10:38 PM CDT us Sophia George MD LAB BLOOD ORDERABLES Final Re sult Performing Organization Address [facility] Co de Phone Number [facility] [place] [address] * Hepatic function panel (03/15/2025 9:42 PM CDT) Pathologist [facility] Bilirubin, total <0.2 0.1 - 1.2 mg/dL Comment:Reviewed Bilirubin, direct <0.2 0.1 - 0.3 mg/dL [facility] Protein, pl 6.7 6.5 - 8.5 g/dL [facility] Albumin 3.6 3.5 - 5.0 g/dL [facility] Alk phos 94 40 - 130 Units/L [facility] ALT 13 7 - 45 Units/L [facility] AST 26 10 - 45 Units/L [facility] Blood 03/15/2025 9:42 PM CDT 03/15/2025 10:35 PM CDT us Lou Castillo MD LAB BLOOD ORDERABLES Final Result Performing Organization Address [facility] Co de Phone Number [facility] Department [place] [address] * (ABNORMAL) Basic metabolic panel (03/15/2025 9:42 PM CDT) Pathologist [facility] Sodium 136 135 - 145 mmol/L Potassium, pl 4.1 3.3 - 4.9 mmol/L [facility] Chloride 105 97 - 110 mmol/L [facility] CO2 23 22 - 32 mmol/L [facility] Anion gap 8 2 - 15 mmol/L [facility] BUN 16 6 - 25 mg/dL [facility] Creatinine 0.49(L) 0.60 - 1.10 mg/dL [facility] Glucose 112 70 - 199 mg/dL [facility] Comment: Interpretive Data Fasting glucose >/= 126 [...] 2022. Calcium 8.7 8.5 - 10.3 mg/dL [facility] Blood 03/15/2025 9:42 PM CDT 03/15/2025 10:35 PM CDT us Sophia George MD LAB BLOOD ORDERABLES Final Re sult [facility] One [facility] Department [place] [address] * IR Biopsy Deep Bone (03/15/2025 10:19 [...] was obtained. Prior to beginning the procedure, [place] Protocol was performed to confirm the patient's [...] was obtained. Prior to beginning the procedure, [place] Protocol was performed to confirm the patient's [...] Report Final Report: Rare Staphylococcus epidermidis (.) [facility] Organism STAPHYLOCOCCUS EPIDERMIDIS [facility] Biopsy (Pelvic) 03/15/2025 1 0:17 AM CDT 03/15/2025 2:07 PM CDT Narrative [facility] - 03/21/2025 1:44 PM CDT Testing performed by [facility] Microbiology Laboratory ([phone]) Specimens submitted from normally sterile body sites [...] Resistant Staphylococcus epidermidis Ceftriaxone (BRENDON) INTERPRETATION Resistant us Lou Castillo MD LAB MICROBIOLOGY - [facility] ORDERABLES Final Result [facility] Department [place] [address] * Aerobic and anaerobic culture and gram stain Aspirate Pelvic (03/15/2025 10:17 AM CDT) Direct Specimen Exam Stain: Few polymorphonuclear leukocytes seen. No organisms seen. Report Final Report: No growth [facility] Aspirate (Pelvic) 03/15/2025 10:17 AM CDT 03/15/2025 2:06 PM CDT Narrative [facility] - 03/18/2025 12:35 PM CDT Left Ischium Aspiration Testing performed by [facility] Microbiology Laboratory ([phone]) Specimens submitted from normally sterile body sites [...] interpretive data was last revised on 2019. Lew Dewitt MD LAB MICROBIOLOGY - GENERA L ORDERABLES Final Result [facility] Department [place] [address] * Surgical pathology (03/15/2025 10:05 AM CDT) Tissue (Bone - Biopsy / Curettings) 03/15/2025 10:05 AM CDT Comment:Left Ischium Bone Bi opsy Narrative PATHOLOGY [facility] - 03/21/2025 9:31 AM CDT EPIC results best viewed via link to PDF [facility] [place] [address] Note to Patients: This report may contain [...] Gender: F : 1990 (Age: 34) Address: [address] [place] [address] Hospital #: [id number] Taken:03/15/2025 Received:03/15/2025 Reported: 03/21/2025 Patient Type: [facility] Inpatient Service: Medical Location: [facility] Physician(s): Curt Payne M.D. Diagnosis: Bone, left ischium, biopsy - Bone with periosteal reaction (see comment) alpo/03/20/2025 13:38 By this signature, I attest that [...] Surgical Pathology and Flow Cytometry Departments at [facility] as part of an ongoing senior quality technician program and in compliance with federally mandated [...] Surgical Pathology and Flow Cytometry Departments of [facility]. It has not been cleared or approved by the U. S. Food and Drug Administration. IMAGES AND SCANNED DOCUMENTS, IF INCLUDED, ONLY VIEWABLE IN PDF VERSION OF REPORT us Lew Dewitt MD LAB PATHOLOGY ORDERABLES Final Result PATHOLOGY [facility] IO 3rd Floor [place], [place] [phone] * eGFR (03/14/2025 10:30 PM CDT) eGFR [...] ORDERABLES Final Re sult Performing Organization Address City/[facility]/ZIP Co de Phone Number [facility] One [facility] Department [place] [address] * (ABNORMAL) CBC without differential (03/14/2025 10:30 PM CDT) Pathologist [facility] WBC 12.38(H) 3.80 - 9.90 K/cumm Hgb 9.5(L) 11.9 - 15.5 g/dL [facility] Hct 31.2(L) 35.6 - 45.5 % [facility] Plt 581(H) 150 - 400 K/cumm [facility] MPV 9.1 9.1 - 12.3 fL [facility] RBC 3.78(L) 3.90 - 5.20 M/cumm [facility] MCV 82.5 81.3 - 96.4 fL [facility] MCH 25.1(L) 27.1 - 33.3 pg [facility] MCHC 30.4(L) 32.3 - 35.7 g/dL [facility] RDW CV 21.6(H) 11.1 - 14.9 % [facility] RDW SD 63.4(H) 35.7 - 48.1 fL [facility] NRBC abs 0.00 0.00 - 0.01 K/cumm [facility] Blood 03/14/2025 10:3 0 PM CDT 03/14/2025 10:46 PM CDT Sophia George MD LAB BLOOD ORDERABLES Final Re sult [facility] One [facility] Department [place] [address] * (ABNORMAL) Basic metabolic panel (03/14/2025 10:30 PM CDT) Sodium 136 135 - 145 mmol/L Potassium, pl 4.3 3.3 - 4.9 mmol/L [facility] Chloride 104 97 - 110 mmol/L [facility] CO2 24 22 - 32 mmol/L [facility] Anion gap 8 2 - 15 mmol/L [facility] BUN 10 6 - 25 mg/dL [facility] Creatinine 0.29(L) 0.60 - 1.10 mg/dL [facility] Glucose 146 70 - 199 mg/dL [facility] Comment: Interpretive Data Fasting glucose >/= 126 [...] 2022. Calcium 8.6 8.5 - 10.3 mg/dL [facility] Blood 03/14/2025 10:3 0 PM CDT 03/14/2025 10:46 PM CDT Sophia George MD LAB BLOOD ORDERABLES Final Re sult Performing Organization Address City/[facility]/ZIP Co de Phone Number [facility] [place] [address] * eGFR (03/13/2025 8:47 PM CDT) eGFR >90 >=60 mL/min/1. 73 [...] LAB BLOOD ORDERABLES Final Re sult [facility] Department [place] [address] * (ABNORMAL) CBC without differential (03/13/2025 8:47 PM CDT) [facility] WBC 12.42(H) 3.80 - 9.90 K/cumm Hgb 10.4(L) 11.9 - 15.5 g/dL [facility] Hct 33.6(L) 35.6 - 45.5 % [facility] Plt 575(H) 150 - 400 K/cumm [facility] MPV 9.2 9.1 - 12.3 fL [facility] RBC 4.06 3.90 - 5.20 M/cumm [facility] MCV 82.8 81.3 - 96.4 fL [facility] MCH 25.6(L) 27.1 - 33.3 pg [facility] MCHC 31.0(L) 32.3 - 35.7 g/dL [facility] RDW CV 21.7(H) 11.1 - 14.9 % [facility] RDW SD 64.8(H) 35.7 - 48.1 fL [facility] NRBC abs 0.00 0.00 - 0.01 K/cumm [facility] Blood 03/13/2025 8:47 PM CDT 03/13/2025 9:03 PM CDT us Sophia George MD LAB BLOOD ORDERABLES Final Re sult [facility] Department [place] [address] * (ABNORMAL) Basic metabolic panel (03/13/2025 8:47 PM CDT) [facility] Sodium 139 135 - 145 mmol/L Potassium, pl 3.8 3.3 - 4.9 mmol/L [facility] Chloride 105 97 - 110 mmol/L [facility] CO2 24 22 - 32 mmol/L [facility] Anion gap 10 2 - 15 mmol/L [facility] BUN 14 6 - 25 mg/dL [facility] Creatinine 0.42(L) 0.60 - 1.10 mg/dL [facility] Glucose 127 70 - 199 mg/dL [facility] Comment: Interpretive Data Fasting glucose >/= 126 [...] 2022. Calcium 9.0 8.5 - 10.3 mg/dL [facility] Blood 03/13/2025 8:47 PM CDT 03/13/2025 9:03 PM CDT Sophia George MD LAB BLOOD ORDERABLES Final Re sult [facility] Department [place] [address] * eGFR (03/12/2025 8:18 PM CDT) eGFR [...] ORDERABLES Final Re sult Performing Organization Address [facility] Co de Phone Number [facility] [employer] [place] [address] * (ABNORMAL) CBC without differential (03/12/2025 8:18 PM CDT) WBC 9.00 3.80 - 9.90 K/cumm Hgb 9.1(L) 11.9 - 15.5 g/dL [facility] Hct 29.5(L) 35.6 - 45.5 % [facility] Plt 494(H) 150 - 400 K/cumm [facility] MPV 9.3 9.1 - 12.3 fL [facility] RBC 3.61(L) 3.90 - 5.20 M/cumm [facility] MCV 81.7 81.3 - 96.4 fL [facility] MCH 25.2(L) 27.1 - 33.3 pg [facility] MCHC 30.8(L) 32.3 - 35.7 g/dL [facility] RDW CV 21.7(H) 11.1 - 14.9 % [facility] RDW SD 63.7(H) 35.7 - 48.1 fL [facility] NRBC abs 0.00 0.00 - 0.01 K/cumm [facility] Blood 03/12/2025 8:18 PM CDT 03/12/2025 8:40 PM CDT Sophia George MD LAB BLOOD ORDERABLES Final Re sult Performing Organization Address City/[facility]/ZIP Co de Phone Number [facility] [place] [place] [address] * (ABNORMAL) Basic metabolic panel (03/12/2025 8:18 PM CDT) Sodium 141 135 - 145 mmol/L Potassium, pl 4.0 3.3 - 4.9 mmol/L [facility] Chloride 108 97 - 110 mmol/L [facility] CO2 24 22 - 32 mmol/L [facility] Anion gap 9 2 - 15 mmol/L [facility] BUN 15 6 - 25 mg/dL [facility] Creatinine 0.39(L) 0.60 - 1.10 mg/dL [facility] Glucose 163 70 - 199 mg/dL [facility] Comment: Interpretive Data Fasting glucose >/= 126 [...] 2022. Calcium 8.7 8.5 - 10.3 mg/dL [facility] Blood 03/12/2025 8:18 PM CDT 03/12/2025 8:40 PM CDT us Sophia George MD LAB BLOOD ORDERABLES Final Re sult [facility] One [facility] Department [place] [address] * MRI Pelvis MSK W WO Contrast (03/12/2025 2:18 PM CDT) Anatomical Region Laterality Modality Body N/A Magnetic Resonan ce 03/12/2025 3:30 PM CDT Impressions 03/13/2025 9:36 AM CDT 1. Deep left ischial peripherally enhancing ulceration, regional synovitis, and left ischium acute osteomyelitis. Dictated by: Clovis Densley, D.O. The radiology attending physician has personally [...] it. Electronically signed by: Jadon Schultz MD Joni Sweeney MD IMG MRI [facility] TIFFANIE Final Result * eGFR (03/11/2025 9:49 PM [...] MD LAB BLOOD ORDERABLES Final Re sult [facility] Department [place] [address] * (ABNORMAL) CBC without differential (03/11/2025 9:49 PM CDT) Pathologist [facility] WBC 11.05(H) 3.80 - 9.90 K/cumm Hgb 9.1(L) 11.9 - 15.5 g/dL [facility] Hct 29.0(L) 35.6 - 45.5 % [facility] Plt 489(H) 150 - 400 K/cumm [facility] MPV 9.4 9.1 - 12.3 fL [facility] RBC 3.58(L) 3.90 - 5.20 M/cumm [facility] MCV 81.0(L) 81.3 - 96.4 fL [facility] MCH 25.4(L) 27.1 - 33.3 pg [facility] MCHC 31.4(L) 32.3 - 35.7 g/dL [facility] RDW CV 21.9(H) 11.1 - 14.9 % [facility] RDW SD 63.8(H) 35.7 - 48.1 fL [facility] NRBC abs 0.00 0.00 - 0.01 K/cumm [facility] Blood 03/11/2025 9:49 PM CDT 03/11/2025 10:41 PM CDT us Sophia George MD LAB BLOOD ORDERABLES Final Re sult [facility] Department [place] [address] * (ABNORMAL) Basic metabolic panel (03/11/2025 9:49 PM CDT) Sodium 138 135 - 145 mmol/L Potassium, pl 4.0 3.3 - 4.9 mmol/L [facility] Chloride 106 97 - 110 mmol/L [facility] CO2 25 22 - 32 mmol/L [facility] Anion gap 7 2 - 15 mmol/L [facility] BUN 15 6 - 25 mg/dL [facility] Creatinine 0.39(L) 0.60 - 1.10 mg/dL [facility] Glucose 100 70 - 199 mg/dL [facility] Comment: Interpretive Data Fasting glucose >/= 126 [...] 2022. Calcium 8.3(L) 8.5 - 10.3 mg/dL [facility] Blood 03/11/2025 9:49 PM CDT 03/11/2025 10:39 PM CDT us Sophia George MD LAB BLOOD ORDERABLES Final Re sult [facility] Department [place] [address] * (ABNORMAL) Iron profile w/ IBC (03/11/2025 2:51 PM CDT) Pathologist [facility] Iron 17(L) 35 - 145 mcg/dL Comment:Reviewed TIBC 182(L) 250 - 400 mcg/dL [facility] Transferrin saturation 9(L) 20 - 50 % [facility] Blood 03/11/2025 2:51 PM CDT 03/11/2025 3:31 PM CDT us Joni Sweeney MD LAB BLOOD ORD ERABLES Final Result Performing Organization Address [facility] [place] [address] * (ABNORMAL) Reticulocyte Count (03/11/2025 2:51 PM CDT) Pathologist [facility] Retics, absolute 58 20 - 87 K/cumm Retics 1.6 0.4 - 2.9 % [facility] Reticulocyte Hgb 23.2(L) 30.5 - 38.0 pg [facility] Blood 03/11/2025 2:51 PM CDT 03/11/2025 3:42 PM CDT Joni Sweeney MD LAB BLOOD ORD ERABLES Final Result Performing Organization Address [facility] [place] [address] * Folate (03/11/2025 2:51 PM CDT) [facility] Folic acid 10.5 >=5.0 ng/mL Blood 03/11/2025 2:51 PM CDT 03/11/2025 3:31 PM CDT Joni Sweeney MD LAB BLOOD ORD ERABLES Final Result Performing Organization Address [facility] [place] [address] * Ferritin (03/11/2025 2:51 PM CDT) [facility] Ferritin 146 13 - 150 ng/mL Comment:Reviewed Blood 03/11/2025 2:51 PM CDT 03/11/2025 3:31 PM CDT Joni Sweeney MD LAB BLOOD ORD ERABLES Final Result Performing Organization Address City/[facility] Co [facility] Department [place] [address] * Vitamin B12 (03/11/2025 2:51 PM CDT) Vitamin B12 319 230 - 1,250 pg/mL Blood 03/11/2025 2:51 PM CDT 03/11/2025 3:31 PM CDT us Joni Sweeney MD LAB BLOOD ORD ERABLES Final Result Performing Organization Address [facility] Co de Phone Number [facility] [place] [address] * Wound Care (03/11/2025 12:04 PM CDT) Narrative Elizabeth Caicedo MD - 03/11/2025 12:04 PM CDT Elizabeth Caicedo MD 03/12/2025 3:19 PM Wound Care Date/Time: 03/11/2025 12:04 PM Performed by: Nargis Mary MD Authorized by: Nargis Mary MD Consent: Consent obtained: Verbal Consent given by: Patient Risks, benefits, and alternatives were discussed: yes [place] protocol: Procedure explained and questions answered to [...] Procedure completion: Tolerated well, no immediate complications us Nargis Mary MD IN CLINIC/BEDSIDE ORDERABLES Final Result * (ABNORMAL) Erythrocyte sedimentation rate (03/11/2025 9:08 AM CDT) Erythrocyte sedimentation rate 66(H) 1 - 20 mm/hr Blood 03/11/2025 9:08 AM CDT 03/11/2025 9:46 AM CDT Joni Sweeney MD LAB BLOOD ORD ERABLES Final Result Performing Organization Address [facility] de Phone Number [facility] [place] [employer] [place] [address] * (ABNORMAL) CRP (acute phase) (03/11/2025 9:08 AM CDT) CRP 131.5(H) <=10.0 mg/L Blood 03/11/2025 9:08 AM CDT 03/11/2025 9:46 AM CDT Joni Sweeney MD LAB BLOOD ORD ERABLES Final Result Performing Organization Address [facility] [place] [address] * Urinalysis reflex to microscopic and culture Urine (03/11/2025 4:42 AM CDT) Color, ur Straw Yellow Clarity, ur Clear Clear [facility] Specific gravity, ur 1.008 1.003 - 1.030 [facility] pH, urine 6.5 [facility] Comment: Interpretive Data U rine pH is affected by diet, medications, systemic acid-base disturbances, and renal tubular function. pH may affect urinary stone formation. For example, urine pH below 6.0 may help reduce the tendency for calcium phosphate stones and pH greater than 6.0 may reduce the tendency for uric acid stone formation. Source: [place] [employer] Current Interpretive Data was last revised on 2017 Protein, ur ql Negative Negative [facility] [place] Glucose, ur ql Negative Negative [facility] [place] Ketones, ur Negative Negative [facility] Bilirubin, ur Negative Negative [facility] Blood, ur Negative Negative [facility] [place] Urobilinogen, ur <2.0 <2.0 mg/dL [facility] Nitrite, ur Negative Negative [facility] [place] Leukocyte esterase, ur Negative Negative [facility] [place] UA reflex comment Reflex conditions for microscopic UA and culture not met. [facility] Urine 03/11/2025 4:42 AM CDT 03/11/2025 4:59 AM CDT us Reymundo Sanchez MD LAB MICROBIOLOGY - NERKS ORDERABLES Final Result [facility] Department [place] [address] * CT Pelvis W Contrast (03/11/2025 3:29 [...] it. Electronically signed by: Thom Celestin M.D. us Ciera Browne MD IM CT PROCEDURES Final Re sult * (ABNORMAL) POCT creatinine (03/11/2025 2:44 AM CDT) Creatinine POC <0.5(L) 0.6 - 1.1 mg/dL Blood 03/11/2025 2:44 AM CDT 03/11/2025 2:44 AM CDT Ciera Browne MD LAB POCT ORDERABLES - FARHAN CE Final Result Performing Organization Address City/[facility] Co de Phone Number [facility] [place] [address] * Sepsis Lactate w/ Reflex (03/11/2025 2:08 AM CDT) Sepsis Lactate 1.0 0.7 - 2.0 mmol/L Blood 03/11/2025 2:08 AM CDT 03/11/2025 2:16 AM CDT Ciera Browne MD LAB BLOOD ORDERABLES Final Result Performing Organization Address [facility] Co de Phone Number [facility] Department [place] [address] * eGFR (03/11/2025 2:08 AM CDT) eGFR >90 >=60 mL/min/1. 73 m2 [...] Browne MD LAB BLOOD ORDERABLES Final Result [facility] Department [place] [address] * (ABNORMAL) Differential, auto (03/11/2025 2:08 AM CDT) Neutrophil abs 12.27(H) 1.50 - 6.50 K/cumm Imm gran abs 0.17(H) 0.00 - 0.10 K/cumm [facility] Lymphocyte abs 1.80 0.80 - 3.30 K/cumm [facility] Monocyte abs 1.15(H) 0.20 - 0.80 K/cumm [facility] Eosinophil abs 0.20 0.00 - 0.50 K/cumm [facility] Basophil abs 0.05 0.00 - 0.10 K/cumm [facility] Neutrophil pct 78.4 % [facility] Comment: Interpretive Data Percent cell count reference ranges are not reported, since discordance with absolute values may lead to misinterpretation of CBC data. Current Interpretive Data was last revised on 2018. Imm gran pct 1.1 % [facility] Comment: Interpretive Data Percent cell count reference ranges are not reported, since discordance with absolute values may lead to misinterpretation of CBC data. Current Interpretive Data was last revised on 2018. Lymphocyte pct 11.5 % [facility] Comment: Interpretive Data Percent cell count reference ranges are not reported, since discordance with absolute values may lead to misinterpretation of CBC data. Current Interpretive Data was last revised on 2018. Monocyte pct 7.4 % [facility] Comment: Interpretive Data Percent cell count reference ranges are not reported, since discordance with absolute values may lead to misinterpretation of CBC data. Current Interpretive Data was last revised on 2018. Eosinophil pct 1.3 % [facility] Comment: Interpretive Data Percent cell count reference ranges are not reported, since discordance with absolute values may lead to misinterpretation of CBC data. Current Interpretive Data was last revised on 2018. Basophil pct 0.3 % [facility] Comment: Interpretive Data Percent cell count reference ranges are not reported, since discordance with absolute values may lead to misinterpretation of CBC data. Current Interpretive Data was last revised on 2018. Blood 03/11/2025 2:08 AM CDT 03/11/2025 2:19 AM CDT us Ciera Browne MD LAB BLOOD ORDERABLES Final Result [facility] Department [place] [address] * (ABNORMAL) CBC with auto differential (03/11/2025 2:08 AM CDT) WBC 15.64(H) 3.80 - 9.90 K/cumm Hgb 9.5(L) 11.9 - 15.5 g/dL [facility] Hct 30.0(L) 35.6 - 45.5 % [facility] Plt 522(H) 150 - 400 K/cumm [facility] MPV 9.2 9.1 - 12.3 fL [facility] RBC 3.73(L) 3.90 - 5.20 M/cumm [facility] MCV 80.4(L) 81.3 - 96.4 fL [facility] MCH 25.5(L) 27.1 - 33.3 pg [facility] MCHC 31.7(L) 32.3 - 35.7 g/dL [facility] RDW CV 22.0(H) 11.1 - 14.9 % [facility] RDW SD 63.6(H) 35.7 - 48.1 fL [facility] NRBC abs 0.00 0.00 - 0.01 K/cumm [facility] Blood 03/11/2025 2:08 AM CDT 03/11/2025 2:19 AM CDT Ciera Browne MD LAB BLOOD ORDERABLES Final Result Performing Organization Address City/[facility]/ZIP Co de Phone Number [facility] Jarrell [facility] Department [place] [address] * Blood culture Blood Peripheral (03/11/2025 2:08 AM CDT) Report Final Report: No growth Blood (Peripheral) 03/11/2025 2:08 AM CDT 03/11/2025 2:19 AM CDT Ladarius VAUGHN - 03/15/2025 7:01 AM CDT From a [...] performance characteristics have been verified by the [facility] Microbiology Laboratory. For questions about this culture, contact the Microbiology Laboratory at [phone]. Interpretive data was last revised on 24. us Ciera Browne MD LAB MICROBIOLOGY - GENERAL ORDERABLES Final Result [facility] Jarrell [facility] Department [place] [address] * Blood culture Blood Peripheral (03/11/2025 2:08 AM CDT) Report Final Report: No growth Blood (Peripheral) 03/11/2025 2:08 AM CDT 03/11/2025 2:19 AM CDT Narrative [facility] - 03/15/2025 7:01 AM CDT Draw Blood [...] performance characteristics have been verified by the [facility] Microbiology Laboratory. For questions about this culture, contact the Microbiology Laboratory at [phone]. Interpretive data was last revised on 24. Ciera Browne MD LAB MICROBIOLOGY - GENERAL ORDERABLES Final Result [facility] Department [place] [address] * (ABNORMAL) Comprehensive metabolic panel (03/11/2025 2:08 AM CDT) Sodium 134(L) 135 - 145 mmol/L Potassium, pl 3.8 3.3 - 4.9 mmol/L [facility] Chloride 99 97 - 110 mmol/L [facility] CO2 23 22 - 32 mmol/L [facility] Anion gap 12 2 - 15 mmol/L [facility] BUN 17 6 - 25 mg/dL [facility] Creatinine 0.32(L) 0.60 - 1.10 mg/dL [facility] Glucose 95 70 - 199 mg/dL [facility] Comment: Interpretive Data Fasting glucose >/= 126 [...] 2022. Calcium 8.6 8.5 - 10.3 mg/dL [facility] Bilirubin, total 0.2 0.1 - 1.2 mg/dL [facility] Protein, pl 6.8 6.5 - 8.5 g/dL [facility] Albumin 3.5 3.5 - 5.0 g/dL [facility] Alk phos 99 40 - 130 Units/L [facility] ALT 8 7 - 45 Units/L [facility] AST 12 10 - 45 Units/L [facility] Blood 03/11/2025 2:08 AM CDT 03/11/2025 2:19 AM CDT us Ciera Browne MD LAB BLOOD ORDERABLES Final Result [facility] Department [place] [address] * Iron profile w/ IBC (02/24/2025 12:59 PM CDT) Iron 35 35 - 145 mcg/dL TIBC See Comment 250 - 400 mcg/dL [facility] Comment:Unable to calculate Transferrin saturation See Comment 20 - 50 % [facility] Comment:Unable to calculate Blood 02/24/2025 12:5 9 PM CDT 02/24/2025 1:46 PM CDT us Emiliana Myles MD LAB BLOOD ORDERABLES Final R esult [facility] [place] [address] * Ferritin (02/24/2025 12:59 PM CDT) [facility] Ferritin See Comment 13 - 150 ng/mL Comment:Credited; Hemolyzed Specimen Blood 02/24/2025 12:5 9 PM CDT 02/24/2025 1:46 PM CDT us Emiliana Myles MD LAB BLOOD ORDERABLES Final R esult Performing Organization Address [facility] Co de Phone Number [facility] [employer] [place] [address] * Hemoglobin A1c (01/19/2025 5:02 PM CDT) [facility] Hgb A1C 4.8 4.0 - 5.6 % Estimated Average Glucose 91 mg/dL [facility] Comment: The ADA recommends reporting an estimated Average Glucose (eAG) with all Hemoglobin A1c results using the equation derived from a study of 507 normal and diabetic adults. Minority populations were underrepresented and children were not included. (Diabetes Care 2020; 43(S1): S66-S76). The eAG is not equivalent to a fasting glucose. Blood 01/19/2025 5:02 PM CDT 01/19/2025 5:39 PM CDT us Kandis Robb THERAPIST ASST LAB BLOOD ORDERABLES Katie l Result Performing Organization Address City/[facility]/ZIP Co de Phone Number [facility] [place] [place] [address] * Gamma GT (01/19/2025 5:02 PM CDT) [facility] GGT 9 5 - 35 Units/L Blood 01/19/2025 5:02 PM CDT 01/19/2025 5:39 PM CDT Narrative [facility] - 01/19/2025 6:19 PM CDT Kristen, Please take these orders to any lab to be completed in late December . If you do not use a [facility] lab, please call [phone] when you complete the lab with the name of the lab so we can obtain results. Please fax results to [phone] call [phone] with any questions. Rosanna Partida NP LAB BLOOD ORDERABLES Fin al Result Performing Organization Address [facility] Co de Phone Number [facility] Department of Laboratories [place], [place] [id number] * (ABNORMAL) Hepatic function panel (01/19/2025 5:02 PM CDT) Pathologist [facility] Bilirubin, total 0.2 0.1 - 1.2 mg/dL Bilirubin, direct <0.2 0.1 - 0.3 mg/dL [facility] Protein, pl 6.9 6.5 - 8.5 g/dL [facility] Albumin 4.4 3.5 - 5.0 g/dL [facility] Alk phos 133(H) 40 - 130 Units/L [facility] ALT 14 7 - 45 Units/L [facility] AST 13 10 - 45 Units/L [facility] Blood 01/19/2025 5:02 PM CDT 01/19/2025 5:39 PM CDT Narrative [facility] - 01/19/2025 6:19 PM CDT Kristen, Please take these orders to any lab to be completed in late December . If you do not use a [facility] lab, please call [phone] when you complete the lab with the name of the lab so we can obtain results. Please fax results to [phone] call [phone] with any questions. Rosanna Partida NP LAB BLOOD ORDERABLES Fin al Result Performing Organization Address [facility]/ZIP Co de Phone Number [facility] Department [place] [address] * Lipid panel (01/19/2025 5:02 PM CDT) [...] on 2018. Triglycerides 60 <=149 mg/dL [facility] Comment: Interpretive Data Ages [...] on 2018. HDL 51 >=40 mg/dL [facility] Comment: Interpretive Data Ages < [...] on 2018. LDL, calculated 75 <=129 mg/dL [facility] Comment: Interpretive Data Ages [...] on 2024. Non-HDL Cholesterol 88 mg/dL [facility] Comment: Interpretive Data Ages < [...] last revised on 2018. Chol/HDL ratio 3 [facility] Blood 01/19/2025 5:02 PM CDT 01/19/2025 5:39 PM CDT us Kandis Robb NP LAB BLOOD ORDERABLES Katie patterson Result [facility] Department [place] [address] from Last [address] [place] [address] [place] [address] [place] [address] [employer] Advance Directives For more information, please contact: [phone] * Full Code (Latest Code Status on File) Date Activated Date Inactivated Comments 03/11/2025 6:39 PM 03/18/2025 9:51 PM * Full Code Date Activated Date Inactivated Comments 01/20/2024 9:37 AM 01/20/2024 5:42 PM * Full Code Date Activated Date Inactivated Comments 04/29/2023 10:54 AM 04/30/2023 5:26 AM Care Teams Senior Ui Software Engineer Relationship Specialty Start Date End Date Kandis Robb NP [address] [place] [address] PCP - General Nurse Practitioner 03/08/25 Pavan Rockwell MD [address] DIV IM INFECTIOUS DISEASE, [address] [place] [address] PCP - Home Infusion Attending Infectious Diseases 03/22/25 Arnoldo Longoria [facility] Pharmacist Pharmacy 03/22/25
--- OUTSIDE RECORDS SUMMARY | 2025-03-30 16:43 | XMS_ITS | Continuity of Care Document ---
Author Name [facility] Organization [facility] Care Team Providers Care Correspondence Specialist Name Role Phone [facility] Unavailable Unavailable Problems Combined list of problems from Department of Defense and Veterans Affairs facilities. It does not include entries that were removed or entered in error. 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 Encouraged increase of PO fluids. F/U prn. 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 Encouraged patient to get an abdominal Xray to check stool status. Patient was resistant in trying Miralax - so since she has responded to increasing her laxative for a few days, I told her that she could try that. I encouraged increased fluid intake and to F/U if symptoms worsened. Also order UA, Urine Culture, and TMA via [facility]. DoD MAJOR DEPRESSION, RECURRENT Active Condition DoD SEIZURE DISORDER Active Condition Fol ic acid refilled. 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 [facility] REFRACTIVE ERROR - MYOPIA Active Condition SRx: MR [facility] visit for: routine eye exam Inactive Condition Post. pole wnl OU; DFE at next exam DoD DEPRESSION Active Condition POORLY CONTROLLED W/ [id number] IC WORSENING PAST FEW MONTHS DoD visit for: exam following treatment Inactive Condition Urine cx repeated,m recommended freq catheterizatio n, defer vcug for now, d/w parent/patient UTI prophylaxis, will defer for now and encourage cath practice for prevention DoD Inquiry And Counseling: Contraceptive Practices Inactive Condition Patient does not desire use of contraception, was educated on partial ability of conception and risks for abuse; parent and patient aware of risks DoD Patient Counseling: Inactive Condition Discussed HEADSS issues and did motivationl interviewing. 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 Medication Details Route Status Patient Instructions Prescription Expires Prescription Number Last Dispense Date Ordering Provider Order Date Order Qty Source BUPROPION XL (bupropion HCl), 150 MG, TAB ER 24H, ORAL, Zadspace, 500 ea. BOTTLE Active [id number] 2023 30 Pharmac y Data Transac tion Service Facilit y citalopram 20 mg oral tablet 1 tab(s), Oral, Daily, # 90 tab(s), 3 total refill(s ), Yahaira medeirose, Pharmacy : [facility] Oral (given by mouth) Discont inued 08/06/2022 2 2021 90.0 0098C-[facility] citalopram 20 mg oral tablet 1 tab(s), Oral, Daily, # 90 tab(s), 3 total refill(s ), Yahaira zhu, Pharmacy : [facility] Oral (given by mouth) Discont inued 11/25/20222022 90.0 [facility]98C[facility] citalopram 20 mg oral tablet citalopr am 20 mg oral tablet Start Date: 01/11/21 Stop Date: 11/25/22 Status: Disconti nued Repeat number: 1 Discont inued 11/25/20222022 No Facilit y Access Clenpiq 12 g-3.5 g-10 mg/175 mL solution [350mL] See Instruct ions, # 350 mL, 0 total refill(s ), Hard Stop Complet ed 09/09/2024 3 2023 350.0 Ambulat ory Pharmac y Colace 100 mg oral capsule 1 cap(s), Oral, BID, PRN constipa tion, # 180 cap(s), 3 total refill(s ), Yahaira zhu Oral (given by mouth) Ordered 2022 180.0 [facility]98[facility] docusate sodium 100 mg capsule 100 mg, Oral, Daily, # 10 EA, 0 total refill(s ), Hard Stop Oral (given by mouth) Complet ed 11/06/2024 4 2024 10.0 Ambulat ory Pharmac y doxycycline hyclate 100 mg oral capsule 0 total refill(s ) Discont inued 11/25/20222022 No Facilit y Access FLUoxetine 20 mg capsule See Instruct ions, # 90 EA, 1 total refill(s ), Acute Complet ed 01/15/2024 3 2023 90.0 Ambulat ory Pharmac y FLUOXETINE HCL (FLUOXETINE HCL), 20MG, CAPSULE, ORAL, PLIVA[employer] INC, 100 ea. BOTTLE Active [id number] 2023 30 Pharmac y Data Transac tion Service Facilit y FLUOXETINE HCL (FLUOXETINE HCL), 20MG, CAPSULE, ORAL, PLIVA[employer] INC, 100 ea. BOTTLE Active [id number] 4 2023 30 Pharmac y Data Transac tion Service Facilit y LAMOTRIGINE (lamotrigin e), 100 MG, TABLET, ORAL, ALEMBIC PHARMAC, 100 ea. BOTTLE Cancele d [id number] : 2023 0 Pharmac y Data Transac tion Service Facilit y LAMOTRIGINE (lamotrigin e), 200 MG, TABLET, ORAL, ALEMBIC PHARMAC, 60 ea. BOTTLE Cancele d [id number] : 2023 0 Pharmac y Data Transac tion Service Facilit y LAMOTRIGINE (lamotrigin e), 200 MG, TABLET, ORAL, ALEMBIC PHARMAC, 60 ea. BOTTLE Active [id number] 4 2023 90 Pharmac y Data Transac tion Service Facilit y lamoTRIgine 100 mg oral tablet 1 tab(s), Oral, Daily, in combinat ion with 200mg tablet, # 90 tab(s), 3 total refill(s ), [facility], Pharmacy : [facility] Oral (given by mouth) Ordered 3 2021 90.0 0098C-[facility] lamoTRIgine 100 mg oral tablet lamoTRIg ine 100 mg oral tablet Start Date: 03/07/21 Stop Date: 08/06/22 Status: Mary Loui marleen Repeat number: 1 Discont inued 08/06/20222021 No Facilit y Access lamoTRIgine 200 mg oral tablet 1 tab(s), Oral, BID, # 180 tab(s), 3 total refill(s ), [facility], Pharmacy : [facility] Oral (given by mouth) Ordered 2021 180.0 0098C-[facility]an s-[facility] lamoTRIgine 200 mg oral tablet lamoTRIg ine 200 mg oral tablet Start Date: 03/07/21 Stop Date: 08/06/22 Status: Disconti marleen Repeat number: 1 Discont inued 08/06/20222021 No Facilit y Access lamoTRIgine [AvKare] 100 mg tablet See Instruct ions, 0, 0, # 90 EA, 3 total refill(s ), Hard Stop Discont inued 02/20/2024 4 2023 90.0 Ambulat ory Pharmac y lamoTRIgine [AvKare] 200 mg tablet See Instruct ions, # 180 EA, 1 total refill(s ), Hard Stop Complet ed 05/01/2024 4 2023 180.0 Ambulat ory Pharmac y lamoTRIgine [AvKare] 200 mg tablet See Instruct ions, # 60 EA, 11 total refill(s ), Hard Stop Complet ed 05/14/2024 3 2023 60.0 Ambulat ory Pharmac y levoFLOXaci n 500 mg oral tablet 0 total refill(s ) Discont inued 11/25/20222022 No Facilit y Access methenamine mandelate 1 g oral tablet 3 total refill(s ) Discont inued 11/25/20222022 No Facilit y Access prochlorper azine 10 mg oral tablet 1 tab(s), Oral, TID, PRN anxiety Oral (given by mouth) Ordered 2022 No Facilit y Access PROzac 20 mg oral capsule 1 cap(s), Oral, Daily, # 90 cap(s), 0 total refill(s ), Yahaira [facility], Pharmacy : [facility] Oral (given by mouth) Ordered 3 2022 90.0 0098C-[facility] sulfamethox azole-trime thoprim 800 mg-160 mg oral tablet 0 total refill(s ) Discont inued 11/25/20222022 No Facilit y Access topiramate 50 mg oral tablet topirama te 50 mg oral tablet Start Date: 06/19/21 Stop Date: 11/25/22 Status: Adrianonti marleen Repeat number: 1 Discont inued 11/25/20222022 No Facilit y Access topiramate 50 mg oral tablet 1 tab(s), Oral, BID Oral (given by mouth) Ordered 2022 No Facilit y Access topiramate [GSMS] 25 mg tablet See Instruct ions, 0, # 120 EA, 11 total refill(s ), Hard Stop Discont inued 06/27/2023 3 2022 120.0 Ambulat ory Pharmac y Allergies, Adverse Reactions, Alerts Combined list of allergies from Department of Defense and Veterans Affairs facilities. It does not include entries that were removed or entered in error. Substance Category Reaction Severity Reaction type Status Date Reported Comments Source AMOXICILLIN Drug allergy (disorder) active [address] [place] [address] Faheem [place] amoxicillin Propensity to adverse reactions to substance Active Reaction( s): Unknown; Note: 3066 12-10-20 Unknown Organizati on AMPICILLIN Drug allergy (disorder) active [address] [place] [address] Faheem [place] [facility] ampicillin Propensity to adverse reactions to substance Active Reaction( s): Unknown Unknown Organizati on ANCEF Drug allergy (disorder) active [address] [place] [address] Faheem MONRO[facility] ceFAZolin Propensity to adverse reactions to substance Active Reaction( s): Unknown Unknown Organizati on Latex Allergy to substance Swelling, Rash Mild Active Ambulatory Pharmacy LATEX (LATEX) Drug allergy (disorder) Rash or Itch active 8 [place], [place] OTHER Drug allergy (disorder) Unknown active 4 [facility] [place] [address] OTHER Drug allergy (disorder) active 8 [facility] [place] [address] Immunizations Combined list of available immunizations from the Department of Defense and Veterans Affairs facilities. Immunization Series Date Given Administered By Site Reaction Lot Number CVX Code Drug Floor Worker Transfer [place] Status Comments Source hepatitis B pediatric/ado lescent 1998 [id number] 08 GlaxoSmithKli ne complet ed hepatitis B pediatric /adolesce nt 08/13/99 Given Ambulat ory Pharmac y hepatitis B vaccine, pediatric or pediatric/ado lescent dosage 3 1998 Unknown, Provider [id number] 08 [facility] complet ed hepatitis B vaccine, pediatric or pediatric /adolesce nt dosage DoD hepatitis B pediatric/ado lescent 1997 [id number] 08 GlaxoSmithKli ne complet ed hepatitis B pediatric /adolesce nt 08/03/98 Given Ambulat ory Pharmac y hepatitis B vaccine, pediatric or pediatric/ado lescent dosage 2 1997 Unknown, Provider [id number] 08 Nikhil (RAYNA) complet ed hepatitis B vaccine, pediatric or pediatric /adolesce nt dosage DoD hepatitis B pediatric/ado lescent 1997 [id number] 08 GlaxoSmithKli ne complet ed hepatitis B pediatric /adolesce nt 04/03/98 Given Ambulat ory Pharmac y hepatitis B vaccine, pediatric or pediatric/ado lescent dosage 1 1997 Unknown, Provider [id number] 08 JhKlanais (RAYNA) complet ed hepatitis B vaccine, pediatric or pediatric /adolesce nt dosage DoD Vital Signs Combined list of inpatient and outpatient Vital Signs from Department of Defense and Veterans Affairs, ranging from 12 months to all on record, depending upon the facility. Vital Sign Value Date Comments Source BP Site Right arm 11/25/2022 19:34:00 [facility]98[facility] Respiratory Rate 18 br/min 11/25/2022 19:34:00 [facility] Systolic Blood Pressure 111 mm[Hg] 11/25/2022 19:34:00 [facility] Diastolic Blood Pressure 67 mm[Hg] 11/25/2022 19:34:00 [facility] Blood Pressure Manual Automatic 11/25/2022 19:34:00 [facility] Mean Arterial Pressure, Calc 82 mm[Hg] 11/25/2022 19:34:00 [facility] Temperature Oral 37.1 Kelsie 11/25/2022 19:34:00 [facility] Peripheral Pulse Rate 98 bpm 11/25/2022 19:34:00 [facility] Encounters Combined list of: 1) Encounters from Department of Veterans Affairs facilities going backup to the last 18 months, not all VA inpatient encounters are included; 2) Encounters from the Department of Defense facilities going backup to 280 months. Location Location Details Encounter Type Encounter Number Reason For Visit Attending Provider ADM Date DC Date Status Disposition Source [facility] [place] [address]([facility]) OUTPATIENT [id number] blood in urine CHA ROSE P 04/11 Released w/o Limitations [facility] [place] [address]([facility]) [place] [address]([facility]) TELE CONSULT [id number] UTI CHA ROSE P 04/12 [facility] [place] [address]([facility]) [place] [address]([facility]) TELE CONSULT [id number] f/u uti CHA ROSE P 04/15 [facility] [place] [address]([facility]) [place] [address](ZP ed Neurology [facility] OUTPATIENT [id number] f/up EUSEBIA GUILLORY W 05/13 Released w/o Limitations [facility] [place] [address](Z Ped Neurolo gy [facility] [place] [address](Wou nd and Ostomy Clinic [facility] OUTPATIENT [id number] Wound care ANGEL DEAN S 05/15 Released w/o Limitations [facility] [place] [address](W ound and Ostomy Clinic [facility] [place] [address](Ped iatrics, [facility]) OUTPATIENT [id number] AHLTA SYSTEM ADMINISTRA TOR 05/30 [facility] [place] [address](Marzena camarilloiatrosmin ramirez, [facility]) [place] [address]([facility]) OUTPATIENT [id number] CHA aLws P 07/25 Released w/o Limitations [facility] [place] [address]([facility]) [place] [address]([facility]) TELE CONSULT [id number] f/u labs CHA ROSE P 07/26 [facility] [place] [address]([facility]) [place] [address]([facility]) OUTPATIENT [id number] per CHA Caraballo P 08/14 Released w/o Limitations [facility] [place] [address]([facility]) [place] [address]([facility]) TELE CONSULT [id number] f/u uti CHA ROSE P 08/16 [facility] [place] [address]([facility]) [place] [address]([facility]) TELE CONSULT [id number] f/u CHA Flores P 08/28 [facility] [place] [address]([facility]) [place] [address]([facility]) TELE CONSULT [id number] f/u CHA Flores P 09/05 [facility] [place] [address]([facility]) [place] [address]([facility]) TELE CONSULT [id number] CHA ROSE P 09/09 [facility] [place] [address]([facility] [place] [address](BDO Optometry [facility]) OUTPATIENT [id number] gen eye exam... .appt sep 24 @ 1330... lve..ca SB Espitia 09/24 Released w/o Limitations [facility] [place] [address](B DO Optomet ry [facility]) [facility] [place] [address]([facility] ed Neurology [facility] TELE CONSULT [id number] EUSEBIA GUILLORY W 09/25 [facility] [place] [address]([facility]) [place] [address]([facility]) TELE CONSULT [id number] seizure at [facility] PAPO OZUNA A 09/26 [facility] [place] [address]([facility]) [facility] [place] [address]([facility] Neurology [facility] TELE CONSULT [id number] EUSEBIA GUILLORY W 12/11 [facility] [place] [address]([facility]) [place] [address]([facility]) TELE CONSULT [id number] r/o uti CHA ROSE P 12/17 [facility] [place] [address]([facility]) [place] [address]([facility]) TELE CONSULT [id number] CHA ROSE P 12/19 [facility] [place] [address]([facility]) [place] [address]([facility]) TELE CONSULT [id number] CHA ROSE P 12/24 [facility] [place] [address]([facility]) [place] [address](Ped Developme ntal, [facility]) OUTPATIENT [id number] SPINA BIFIDA CLINIC ANGEL TERRY 12/26 Released w/o Limitations [facility] [place] [address](P ed Develop mental, [facility]) [place] [address](ZZP ed Neurology [facility]) TELE CONSULT [id number] MOTHER CALLED SAID THAT PATIENT IS HAVING SOME MEMORY LOSS MOM CONCERN EUSEBIA GUILLORY W 01/24 [facility] [place] [address]([facility]) [place] [address]([facility] Neurology [facility] TELE CONSULT [id number] Seizure , Please call EUSEBIA GUILLORY W 01/28 [facility] [place] [address]([facility]) [place] [address]([facility]) TELE CONSULT [id number] f/u appt CHA ROSE P 01/31 [place] [address]([facility]) [place] [address]([facility]/) TELE CONSULT [id number] Shower chair presGUANAKO Bansal 02/20 [place] [address] [place] [address]([facility]) OUTPATIENT [id number] f/u CHA ROSE P 02/26 [facility] w/o Limitations [facility] [place] [address]([facility]) [place] [address]([facility]) TELE CONSULT [id number] CHA ROSE P 03/10 [facility] [address]([facility]) [place] [address]([facility]) TELE CONSULT [id number] CHA ROSE P 04/10 [place] [address]([facility]) [place] [address](Ped Developme ntal, [facility]) OUTPATIENT [id number] spina bifida clinic MARCOS RIOJAS 05/01 Released w/o Limitations [facility] [place] [address](P ed Develop mental, [facility]) [place] [address]([facility]) TELE CONSULT [id number] med statenv nt CHA ROSE P 05/05 [place] [address]([facility]) [place] [address]([facility]) TELE CONSULT [id number] f/u informa tion CHA ROSE P 05/28 [place] [address]([facility]) [place] [address]([facility] TELE CONSULT [id number] request s rx for shower chair GUANAKO MCCLOUD A 07/30 [place] [address](P hysical Med [facility] ) [place] [address]([facility] sical [facility]) TELE CONSULT [id number] DME Rx GUANAKO MCCLOUD A 08/14 [place] [address](P hysical [facility] ) [place] [address]([facility]) OUTPATIENT [id number] acut: painful urinati on DILMA HILL A 09/03 Released w/o Limitations [place] [address]([facility]) [place] [address]([facility]) TELE CONSULT [id number] Urine Culture Results DILMA HILL A 09/05 [place] [address]([facility]) [place] [address]([facility] Neurology [facility] TELE CONSULT [id number] MOTHER CALLED CHILD HAD A SEIZURE LASTED FOR AN HOUR PLEASE ADVISE MOM EUSEBIA GUILLORY W 09/22 [place] [address](Z ZPed Neurolo gy [facility] [place] [address] OUTPATIENT [id number] ALAYNA WALSH 11/11 Released w/o Limitations [place] [address](Bryan espinoza, [facility] [place] [address](Hol ter Event [facility] OUTPATIENT [id number] PALPITA TIONS ALAYNA WALSH 11/11 Released w/o Limitations [facility] [place] [address](H olter Event [facility] [place] [address]([facility] Neurology [facility] TELE CONSULT [id number] MOTHER CAME IN SAID THAT SHE NEEDS TO SPEAK TO YOU PLEASE ADVISE MOM EUSEBIA GUILLORY W 11/11 [facility] [place] [address](Z ZPed Neurolo [facility]) [place] [address] TELE CONSULT [id number] MONITOR RESULTS ALAYNA WALSH 11/14 [facility] [place] [address](Bryan espinoza, [facility] [place] [address](BDO Optometry [facility]) OUTPATIENT [id number] needing new rx for glasses GOLDMANJANICE-NOLVIA H T 11/26 Released w/o Limitations [facility] [place] [address](B DO Optomet ry [facility]) [place] [address]([facility] ed Neurology [facility] TELE CONSULT [id number] needs med alphonse EUSEBIA GUILLORY W 11/26 [facility] [place] [address](Z ZPed Neurolo gy [facility])) [place] [address](Ech o [facility] OUTPATIENT [id number] UZAIR KELLOGG 11/26 Released w/o Limitations [facility] [place] [address](E cho [facility] [place] [address]([facility]) OUTPATIENT [id number] acut: pts mother suspect s UTI GV_SWAPNA FERRO 12/03 Released w/o Limitations [employer] [place] [address]([facility]) [place] [address](Ped Developme ntal, [facility]) OUTPATIENT [id number] SPINA BIFIDA [facility]INIC ANGEL TERRY 01/29 Released w/o Limitations [facility] [place] [address](P ed Develop mental, [facility]) [place] [address](Phy sical Therapy, [facility]) OUTPATIENT [id number] CHRISTY TRUONG 01/29 Released w/o Limitations [facility] [place] [address](P hysical Therapy , [facility]) [place] [address](Kay rosurgery , [facility]) OUTPATIENT [id number] ARTIS WALSH JR 02/13 Released w/o Limitations [facility] [place] [address](N eurosur mateo, [facility]) [place] [address]([facility]) TELE CONSULT [id number] refill of CHA Copeland P 05/22 [facility] [place] [address]([facility]) [place] [address]([facility]) OUTPATIENT [id number] per CHA Caraballo P 06/02 Released w/o Limitations [facility] [place] [address]([facility]) [place] [address](Phy sical Med [facility]) TELE CONSULT [id number] Durable Medical Equipme nt TABARES EVERETT D 07/20 [facility] [place] [address](P hysical Med [facility] ) [place] [address](Phy sical Med [facility]) TELE CONSULT [id number] Medicai d keren gracesujey TABARESEVERETT D 07/21 [facility] [place] [address](P hysical Med [facility] ) [facility] [place] [address]([facility] Neurology [facility] TELE CONSULT [id number] needs refill on meds please call mom for more info [phone] EUSEBIA GUILLORY W 07/22 [facility] [place] [address](Z ZPed Neurolo gy [facility] [place] [address]([facility] TELE CONSULT [id number] refill of med GUILLORYEUSEBIA AJ W 07/28 [facility] [place] [address](Z ZPed Neurolo gy [facility] [place] [address]([facility] TELE CONSULT [id number] please call needs refill on meds [phone] EUSEBIA GUILLORY W 07/29 [facility] [place] [address](Z ZPed Neurolo gy [facility] [place] [address]([facility] OUTPATIENT [id number] f/u EUSEBIA GUILLORY W 09/07 Released w/o Limitations [facility] [place] [address](Z ZPed Neurolo gy [facility] [employer]([facility]) OUTPATIENT [id number] uti MARVIN MARRUFO D 10/22 Released w/o Limitations [employer]([facility]) [employer](Pha rmacy Care [facility]) OUTPATIENT [id number] TARAH PARIS 12/02 Released w/o Limitations [employer]([facility]) [employer] OUTPATIENT [id number] follow up on meds JAYCOB REYNOLDS Released w/o Limitations [employer](F amily Medicin e Residen cy) [employer]([facility] daniel Medicine Residency ) OUTPATIENT [id number] possibl e UTI FAHEEM CHINCHLILA 12/30 Released w/o Limitations [employer](F amily Medicin e Residen cy) [employer]([facility] daniel Medicine Residency ) TELE CONSULT [id number] PCM: Reynolds PRP: No SUB: paper RX JAYCOB REYNOLDS 03/16 [employer](F amily Medicin e Residen cy) [employer]([facility] daniel Medicine Residency ) TELE CONSULT [id number] PCM: Reynolds PRP: No SUB: referra ls and DME's needed JAYCOB REYNOLDS 03/17 [employer](F amily Medicin e Residen cy) [employer](Acu [facility]) OUTPATIENT [id number] uti 3-4 days ANGEL MONTELONGO 05/03 Released w/o Limitations [employer]([facility]) [employer] OUTPATIENT [id number] F/U Spina Bifida referra ls needed. JAYCOB REYNOLDS 05/12 Released w/o Limitations [employer](F amily Medicin e Residen cy) [employer]([facility] daniel Medicine Residency ) TELE CONSULT [id number] JAYCOB REYNOLDS 05/18 [employer](F amily Medicin e Residen cy) [employer]([facility]) TELE CONSULT [id number] appt resched BIANCA Lyons 06/07 [employer]([facility]) [employer]([facility] daniel Medicine Residency ) TELE CONSULT [id number] PCM- Reynolds SUB- differe nt Ref JAYCOB REYNOLDS 07/06 [employer](F amily Medicin e Residen cy) [employer](Fam daniel Medicine Residency ) TELE CONSULT [id number] PCM: Reynolds PRP: No SUB: referra ls needed JAYCOB REYNOLDS 07/14 [employer] [employer]([facility]) TELE CONSULT [id number] Resched BIANCA Hunt 07/20 [employer]([facility]) [employer]([facility]) OUTPATIENT [id number] BIANCA HENDRICKSON 08/05 Released w/o Limitations [employer]([facility]) [employer]([facility] Medicine Residency ) TELE CONSULT [id number] PCM Reynolds PRP No Sub referra l request ed JAYCOB REYNOLDS 08/10 [employer]( amily Medicin e Residen ) [employer]([facility]) OUTPATIENT [id number] BIANCA HENDRICKSON 08/16 Released w/o Limitations [employer]([facility]) [employer](Acu te [facility]) OUTPATIENT [id number] uti JEREMIAH BLAKELY 08/17 Released w/o Limitations [employer](A cute [facility]) [employer]([facility]) OUTPATIENT [id number] BIANCA HENDRICKSON 09/05 Released w/o Limitations [employer]([facility]) [facility]) OUTPATIENT [id number] BIANCA HENDRICKSON 09/28 Released w/o Limitations [employer]([facility]) [employer]([facility] Medicine Residency ) TELE CONSULT [id number] PCM- Reynolds SUB- needs appt and refils JAYCOB REYNOLDS 10/24 [employer](F amily Medicin e Residen ) [employer]([facility]) TELE CONSULT [id number] preop labs CRISTIAN DE LEON 11/02 [employer]([facility]) [employer]([facility] Medicine Residency ) OUTPATIENT [id number] H&P-nee ds med refills POLINA ROSE 11/04 Released w/o Limitations [employer](F amily Medicin e Residen cy) [employer]([facility] Medicine Residency ) TELE CONSULT [id number] PCM: Marie PRP: No SUB: med refills MALCOLMConrad FABIAN Quigley 03/27 [employer](F amily Medicin e Residen cy) [employer]([facility] Medicine Residency ) OUTPATIENT [id number] wanting referra l for spina bifida issues ROB MULLIGAN 02/06 Released w/o Limitations [employer](F amily Medicin e Residen cy) [employer] OUTPATIENT [id number] f/u for spina bifida/ scolios is--villa garibay ref to [facility] ELMIRA TAYLOR 09/05 Released w/o Limitations [employer](F amily Medicin e Residen cy) [employer]([facility] Medicine Residency ) OUTPATIENT [id number] RAI Khanna 09/17 Released w/o Limitations [employer](F amily Medicin e Residen cy) [employer]([facility] Medicine [facility]idency ) OUTPATIENT [id number] right foot hurting JESS BECKER 01/29 Released w/o Limitations [employer](F amily Medicin e Residen cy) [employer]([facility] Medicine Residency ) OUTPATIENT [id number] f/u for renewal of referra ls neurolo gy,urol ogy,lif t for electri c JAYCOB Anthony 02/27 Released w/o Limitations [employer](F amily Medicin e Residen cy) [employer]([facility] Medicine Residency ) OUTPATIENT [id number] POSSIBL E UTI DAVID SEWELL 07/02 Released w/o Limitations [employer](F amily Medicin e Residen cy) [employer]([facility]) OUTPATIENT [id number] Major depress ion, recurre nt ADELFO CARROLL 07/18 Released w/o Limitations [employer](B ehavior FMR) [employer]([facility]) OUTPATIENT [id number] recurre nt rosa depress ADELFO CARORLL R 08/01 Released w/o Limitations [employer]([facility]) [employer]([facility] Medicine Residency ) OUTPATIENT [id number] referra l for wheel chair AMITA GIBBS P 08/05 Released w/o Limitations [employer](F amily Medicin e Residen cy) [employer]([facility]) OUTPATIENT [id number] depress ADELFO CARROLL R 08/16 Released w/o Limitations [employer] [employer]([facility] Medicine Residency ) TELE CONSULT [id number] PCM Sai PRP No SUB referra l SAIAMITA Ahuja P 09/06 [employer](F amily Medicin e Residen cy) [employer]([facility]) OUTPATIENT [id number] resched uled; anger/a nxiety DONNAADELFO CRESPO R 09/19 Released w/o Limitations [employer]([facility]) [employer]([facility] Medicine Residency ) OUTPATIENT [id number] pt has blister @ bottom of foot-on left side. KARIS ANDREW 11/22 Released w/o Limitations [employer](F amily Medicin e Residen cy) [employer]([facility] Medicine Residency ) OUTPATIENT [id number] referre ls KARIS ANDREW 12/17 Released w/o Limitations [employer](F amily Medicin e Residen cy) [employer]([facility] Medicine Residency ) OUTPATIENT [id number] pt needs to have lab for UTI will report to lab 1 hour before EVA SANCHEZ 02/02 Released w/o Limitations [employer](F amily Medicin e Residen cy) [facility]SELYN [facility]) OUTPATIENT [id number] new patient /referr PAULINE Cisse 12/02 Released w/o Limitations [facility] [place]([facility] ) ROSELY[facility](Case Managemen t) OUTPATIENT [id number] Notes Entered by: Leigha COY 03 Dec 2017 1357 ------- ------- ------- ------- -- [facility] for [facility]ibl e CM service s BERT COY 12/03 Released w/o Limitations [facility] [place] [place] [facility] [place] OUTPATIENT [id number] Notes Entered by: Leigha COY 19 Dec 2017 1013 ------- ------- ------- ------- -- PCMH CM BERT COY 12/19 Released w/o Limitations [facility] [place] [place] [facility] [place] [place] TELE CONSULT [id number] Notes Entered by: Leigha COY 19 Dec 2017 1438 ------- ------- ------- ------- -- Home Health Request LORDPAULINE MARCUM Angelo 12/19 [facility] [place] [place] [place] [place] OUTPAT[place] [id number] Notes Entered by: Leigha COY 22 Dec 2017 1130 ------- ------- ------- ------- -- PCMH CM BERT COY 12/22 Released w/o Limitations [facility] [place] [place] [facility] [place] [id number] Other seizure s PABLO INTERIANO 12/23 Released w/o Limitations [facility] [place] [facility] [place] OUTPATIENT [id number] Notes Entered by: Leigha COY 05 Jan 2018 1022 ------- ------- ------- ------- -- PCMH CM BERT COY 01/05 Released w/o Limitations [facility] [place] [place] [facility] [place] TELE CONSULT [id number] Notes Entered by: Leigha COY 05 Jan 2018 1034 ------- ------- ------- ------- -- LAB RESULTS PABLO INTERIANO 01/05 [facility] [place] [facility] [place] [place] TELE CONSULT [id number] Notes Entered by: Leigha COY 24 Feb 2018 1102 ------- ------- ------- ------- -- Neurolo gy ANNA Hdz 02/24 [facility] [place] [place] [place] [facility] [place] [place] OUTPATIENT [id number] Notes Entered by: Leigha COY 24 Feb 2018 1558 ------- ------- ------- ------- -- [facility] BERT COY 02/24 Released w/o Limitations [facility] [place] [place] [place] [place] [facility] [place]) [place] [id number] F/u spina bifidia PABLO INTERIANO 02/27 Released w/o Limitations [facility] [place] [facility] [place] [place] TELE CONSULT [id number] Notes Entered by: Prashanth SHEPARD 03 Mar 2018 1333 ------- ------- ------- ------- -- prevent kristel ALLISON Guillen 03/03 [facility] [place] [place] [place] [facility] [place] [place] TELE CONSULT [id number] Notes Entered by: Prashanth SHEPARD 28 Jul 2018 1323 ------- ------- ------- ------- -- prevent kristel angeles ALLISON Gannon 07/28 [facility] [place] [place] [place] [facility] [place] [place] OUTPAT[place] [id number] Notes Entered by: Leigha COY 25 Aug 2018 1334 ------- ------- ------- ------- -- PCMH CM - Continu e BERT COY 08/25 Released w/o Limitations [facility] [place] [place] [facility] [place] [place] OUTPATIENT [id number] initial appt. med update ANNA BAINS 08/26 Released w/o Limitations [facility] [place] [place] [place] [facility] [place] [place] OUTPATIENT [id number] 0 check up/refe rral needed ANNA BAINS 12/22 Released w/o Limitations [facility] [place] [place] [place] [facility] [place] [place] OUTPATIENT [id number] Notes Entered by: Leigha COY 23 Dec 2018 0830 ------- ------- ------- ------- -- PCMH CM - Care Coordin BERT Redmond 12/23 Released w/o Limitations [facility] [place] [place] [facility] [place] OUT[place]IENT [id number] Notes Entered by: Leigha COY 28 Dec 2018 1450 ------- ------- ------- ------- -- PCMH CM - Care Coordin BERT Redmond 12/28 Released w/o Limitations [facility] [place] [place] [facility] [place] [place] [facility] TELE CONSULT [id number] Notes Entered by: Leigha COY 28 Dec 2018 1515 ------- ------- ------- ------- -- Referra l request for Psychol ANNA Enriquez 12/28 [facility] [place] [place] [facility] [place] [facility] [place] [id number] Spina bifida, unspeci PABLO Juarez 01/08 Released w/o Limitations [facility] [place] [place] [facility] [place] [place] TELE CONSULT [id number] 9 Notes Entered by: LAURENCE GRIJALVA 14 Jan 2019 1232 ------- ------- ------- ------- -- Provide r glenysq a call back DWAYNEJAC Tan 01/14 [facility] [place] [place] [place] [facility] [place] [place] [id number] Notes Entered by: Leigha COY 18 Jan 2019 1410 ------- ------- ------- ------- -- [facility] CM - update/ follow up BERT COY 01/18 Released w/o Limitations [facility] [place] [place] [facility] [place]) [place] [id number] 1 1 Mo F/U PABLO INTERIANO 02/09 Released w/o Limitations [facility] [place] [facility] [place] [place] TELE CONSULT [id number] 2 Notes Entered by: WEI MAN 15 Apr 2019 1348 ------- ------- ------- ------- -- ANNA Reyes 04/15 [facility] [place] [place] [place] [place] [facility] [place] [place] TELE CONSULT [id number] 6 Notes Entered by: CANDI PLASENCIA 20 Apr 2019 1325 ------- ------- ------- ------- -- KAMLESH Dickerson 04/20 [facility] [place] [place] [place] [place] [facility] [place] [place] TELE CONSULT [id number] 5 Notes Entered by: BEKAH TIRADO 09 Jun 2019 1121 ------- ------- ------- ------- -- Rx SHRAVAN Davis 06/09 [facility] [place] [place] [facility] [place] [place] [place] OUTPATIENT [id number] 0 bump on neck concern KAYLEN GOLDMAN 06/11 Released w/o Limitations [facility] [place] [place] [place] [facility] [place] [place]) [place] [id number] 3 3 mth f/u PABLO INTERIANO 06/11 Released w/o Limitations [facility] [place] [place] [facility] [place] [place] TELE CONSULT [id number] 9 Notes Entered by: KAYLEN GOLDMAN 12 Jun 2019 0852 ------- ------- ------- ------- -- EUGENE DIAZ 06/12 [facility] [place] [place] [place] [facility] [place] [place] TELE CONSULT [id number] 7 Notes Entered by: LETI POLLACK 17 Jun 2019 1551 ------- ------- ------- ------- -- paperwo rk/ lab results EUGENE LOVETT 06/17 [facility] [place] [place] [place] [facility] [place] [id number] 2 spina bifida, headach e, neck pain PABLO INTERIANO 06/23 Released w/o Limitations [facility] [place] [facility] [place] [place] [place] OUTPATIENT [id number] 3 per nurse KAYLEN GOLDMAN 06/23 Released w/o Limitations [facility] [place] [place] [place] [facility] [place] [place] TELE CONSULT [id number] 7 Notes Entered by: KAYLEN GOLDMAN 23 Jun 2019 1440 ------- ------- ------- ------- -- lab EUGENE LOVETT 06/23 [facility] [place] [place] [place] [facility] [place] [place] TELE CONSULT [id number] 4 Notes Entered by: KAYLEN GOLDMAN 24 Jun 2019 1032 ------- ------- ------- ------- -- labs KAYLEN GOLDMAN 06/24 [facility] [place] [place] [place] [facility] [place] [place] TELE CONSULT [id number] 3 Notes Entered by: BEKAH TIRADO 29 Jun 2019 1355 ------- ------- ------- ------- -- Medicat ion Issues PABLO INTERIANO 06/29 [facility] [place] [place] [facility] [place] [place] TELE CONSULT [id number] 6 Notes Entered by: LETI POLLACK 05 Jul 2019 1405 ------- ------- ------- ------- -- DidiertJAC Schofield 07/05 [facility] [place] [place] [place] [facility] [place] [place] TELE CONSULT [id number] 6 Notes Entered by: DAINA GARCIA 16 Jul 2019 1306 ------- ------- ------- ------- -- Patient dissati sfied with Fam Stacy JOYNITA 07/16 [facility] [place] [place] [place] [facility] [place] [place] TELE CONSULT [id number] 3 Notes Entered by: DAINA GARCIA 16 Jul 2019 1315 ------- ------- ------- ------- -- MOP is request ing a Neurolo gy referra l for [facility] BEKA Amado 07/16 [facility] [place] [place] [place] [facility] [place] [id number] 4 Spina bifida, unspeci fied DALIA DENIS 07/21 Released w/o Limitations [facility] [place] [place] [facility] [place] [place] TELE CONSULT [id number] 1 Notes Entered by: ABBY LEZAMA 21 Jul 2019 1408 ------- ------- ------- ------- -- DILMA Cano 07/21 [facility] [place] [place] [place] [facility] [place] [place] [id number] 5 Notes Entered by: RICHARD BOSCH 22 Jul 2019 0902 ------- ------- ------- ------- -- [facility] CM- Care Coordin axel RICHARD BOSCH 07/22 Released w/o Limitations [facility] [employer] [place] [facility] [employer] [place] [facility] OUTPATIENT [id number] initial visit DILMA RESENDIZ 07/27 Released w/o Limitations [facility] [place] [place] [place] [facility] [place] [place] TELE CONSULT [id number] 1 Notes Entered by: CHARLES FLEMING 09 Aug 2019 1127 ------- ------- ------- ------- -- BEKA COBURN 08/09 [facility] [place] [place] [place] [facility] [employer] [place] [place] TELE CONSULT [id number] 6 Notes Entered by: DAINA GARCIA 09 Aug 2019 1421 ------- ------- ------- ------- -- Servando ingram ed for DME DILMA RESENDIZ 08/09 [facility] [place] [place] [place] [facility] [place]) [place] [id number] 2 EMG-DALIA STORY 08/10 Released w/o Limitations [facility] [place] [place] [facility] [employer] [place] [place] TELE CONSULT [id number] 8 Notes Entered by: MATT COOK 16 Aug 2019 1440 ------- ------- ------- ------- -- fax number update BEKA VILLAGRAN 08/16 [facility] [place] [place] [place] [facility] [employer] [place] [place] OUT[place] [id number] 4 Notes Entered by: RICHARD BOSCH 03 Sep 2019 1556 ------- ------- ------- ------- -- PCMH CM-Cont inRICHARD Gómez Angelo 09/03 Released w/o Limitations [facility] [place] [place] [facility] [place] [place] TELE CONSULT [id number] 3 Notes Entered by: AMARJIT REED 09 Sep 2019 1621 ------- ------- ------- ------- -- Power of attorne [employer] AMARJIT REED 09/09 [facility] [place] [place] [place] [facility] [place] [place] OUT[place] [id number] Notes Entered by: RICHARD BOSCH 28 Oct 2019 1615 ------- ------- ------- ------- -- PCMH CM-Cont incammie BOSCHRICHARD 10/28 Released w/o Limitations [facility] [place] [place] [facility] [place] [place] TELE CONSULT [id number] 9 Notes Entered by: CANDI PLASENCIA 29 Dec 2019 1215 ------- ------- ------- ------- -- Refills BEKA VILLAGRAN 12/28 [facility] [place] [place] [place] [facility] [place]) [place] [id number] COVID19 SCREENI NILES MILNER 03/02 Released w/o Limitations [facility] [place] [facility] [place] [place] OUTPATIENT [id number] 3 well woman BEKA PLASCENCIA 03/19 Released w/o Limitations [facility] [place] [place] [place] [facility] [place] [place] TELE CONSULT [id number] 4 Notes Entered by: MATT COOK 05 Apr 2020 1401 ------- ------- ------- ------- -- DILMA Ramos 04/05 [facility] [place] [place] [place] [facility] [place] [place] TELE CONSULT [id number] 5 Notes Entered by: LAURENCE GRIJALVA 11 Apr 2020 1206 ------- ------- ------- ------- -- BEKA COBURN 04/11 [facility] [place] [place] [place] [facility] [place] [place] TELE CONSULT [id number] 3 Notes Entered by: LETI POLLACK 04 Jul 2020 1449 ------- ------- ------- ------- -- DILMA Morales 07/04 [facility] [place] [place] [place] [facility] [place] [place] TELE CONSULT [id number] 1 Notes Entered by: WEI MAN 29 Sep 2020 1506 ------- ------- ------- ------- -- BELKYS Lopez 09/29 [facility] [place] [place] [place] [facility] [place] [place] [id number] Notes Entered by: JERILYN VALVERDE 07 Oct 2020 1402 ------- ------- ------- ------- -- UMA Medina 10/07 Released w/o Limitations [facility] [place] [facility] [place] [place] TELE CONSULT [id number] 7 Notes Entered by: MATT COOK 24 Oct 2020 1149 ------- ------- ------- ------- -- pt request BELKYS Park 10/24 [facility] [place] [place] [place] [facility] [place] [place] OUTPATIENT [id number] Referra l/med refills /medica l device referra l DILMA RESENDIZ 10/30 Released w/o Limitations [facility] [employer] [place] [facility] [employer] TELE CONSULT [id number] Notes Entered by: DALIA MASTERS 31 Oct 2020 1344 ------- ------- ------- ------- -- Letter request DALIA MASTERS 10/31 [facility] [employer] [facility] [employer] TELE CONSULT [id number] Notes Entered by: WEI MAN 12 Dec 2020 1210 ------- ------- ------- ------- -- rxr ESTEBAN CLINE 12/12 [facility] [employer] [facility] [employer] TELE CONSULT [id number] 7 Notes Entered by: DILMA RAYMOND 25 Dec 2020 1604 ------- ------- ------- ------- -- lab results ESTEBAN CLINE 12/25 [facility] [employer] [facility] [employer] TELE CONS[place] [id number] 3 Notes Entered by: RICHARD BOSCH 05 Jan 2021 1353 ------- ------- ------- ------- -- PCMH CM-Care Coordin axel RICHARD BOSCH 01/05 [facility] [employer] [facility] [employer] TELE CONSULT [id number] 0 Notes Entered by: LUZ ENCISO 18 Jan 2021 1316 ------- ------- ------- ------- -- ESTEBAN [place] 01/18 [facility] [employer] [facility] [employer] OUTPAT[place] [id number] 9 Notes Entered by: RICHARD BOSCH 19 Jan 2021 1526 ------- ------- ------- ------- -- PCMH CM-Care Coordin axel RICHARD BOSCH 01/19 Released w/o Limitations [facility] [employer] [facility] [employer] TELE CONSULT [id number] 5 Notes Entered by: ENZO SCOTT 24 Jan 2021 1021 ------- ------- ------- ------- -- NETWORK RESULTS -HEMATO LOGY/ON COLOGY 01/16/20 21 LOOK IN ARTIFAC TS and IMAGES UMA MORALES 01/24 [facility] [employer] [facility] [employer] [id number] 1 Notes Entered by: RICHARD BOSCH 05 Feb 2021 1422 ------- ------- ------- ------- -- PCMH CM-Cont incammie RICHARD BOSCH 02/05 Released w/o Limitations [facility] [employer] [facility] [employer] TELE CONSULT [id number] 5 Notes Entered by: RICHARD BOSCH 06 Feb 2021 1402 ------- ------- ------- ------- -- Medicat ion Refill: Leyla west RICHARD BOSCH 02/06 [facility] [employer] [place] [place] [id number] 1 Notes Entered by: RICHARD BOSCH 16 Feb 2021 1449 ------- ------- ------- ------- -- PCMH CM-Cont inue RICHARD BOSCH 02/16 Released w/o Limitations [facility] [employer] [facility] [employer] [id number] Notes Entered by: RICHARD BOSCH 07 Mar 2021 0847 ------- ------- ------- ------- -- PCMH CM-Cont inue RICHARD BOSCH 03/07 Released w/o Limitations [facility] [employer] [facility] [employer] [place] TELE CONSULT [id number] Notes Entered by: RICHARD BOSCH 07 Mar 2021 1201 ------- ------- ------- ------- -- PCMH CM-Care Coordin axel KRAUSEBELKYS 03/07 [facility] [employer] [place] [facility] [employer] [id number] Notes Entered by: RICHARD BOSCH 02 Apr 2021 1502 ------- ------- ------- ------- -- PCMH CM-Cont inue RICHARD BOSCH 04/02 Released w/o Limitations [facility] [employer] [facility] [employer] TELE CONSULT [id number] Notes Entered by: WEI MAN 2021 1507 ------- ------- ------- ------- -- referra l request RICHARD BOSCH 04/03 [facility] [employer] [facility] [employer] [id number] Notes Entered by: RICHARD BOSCH 27 Apr 2021 1544 ------- ------- ------- ------- -- PCM CM-Cont inue RICHARD BOSCH 04/27 Released w/o Limitations [facility] [employer] [facility] [employer] TELE CONSULT [id number] Notes Entered by: RICHARD BOSCH 17 May 2021 1429 ------- ------- ------- ------- -- PCM CM-Care Coordin ation RICHARD BOSCH 05/17 [facility] [employer] [facility] [employer] [id number] 5 BACK PAIN DILMA RESENDIZ 05/18 Released w/o Limitations [facility] [employer] [facility] [employer] TELE CONSULT [id number] Notes Entered by: Stephie CHIN V 13 Jun 2021 1017 ------- ------- ------- ------- -- Referra patterson request ANDREEA CHIN V 06/13 [facility] [employer] [facility] [employer] TELE CONSULT [id number] Notes Entered by: KASSIE GARCIA 21 Jun 2021 1702 ------- ------- ------- ------- -- NETWORK RESULTS - PHYSICA L THERAPY 04/30/20 21 LOOK IN ARTIFAC TS AND IMAGES DILMA RESENDIZ 06/21 [facility] [employer] [facility] [employer] [id number] Notes Entered by: RICHARD BOSCH 27 Jun 2021 0932 ------- ------- ------- ------- -- PCMH CM-Cont inue RICHARD BOSCH 06/27 Released w/o Limitations [facility] [employer] [facility] [employer] [id number] Notes Entered by: RICHARD BOSCH 09 Jul 2021 0819 ------- ------- ------- ------- -- PCMH CM-Cont inue RICHARD BOSCH 07/09 Released w/o Limitations [facility] [employer] [facility] [employer] TELE CONSULT [id number] Notes Entered by: DILMA RAYMOND 23 Jul 2021 112 ------- ------- ------- ------- -- MRI results DILMA RESENDIZ 07/23 [facility] [employer] [facility] [employer] TELE CONSULT [id number] Notes Entered by: JORDON PINA 06 Aug 2021 1149 ------- ------- ------- ------- -- Network Results - Gastroe nterolo gy - 021 - Look in Artifac ts and Images UMA MORALES 08/06 [facility] [employer] [facility] [employer] [id number] Notes Entered by: RICHARD BOSCH 07 Aug 2021 1612 ------- ------- ------- ------- -- PCMH CM-Cont inue RICHARD BOSCH 08/07 Released w/o Limitations [facility] [employer] [facility] [employer] TELE CONSULT [id number] Notes Entered by: ALEKSANDR KISER ED 09 Aug 2021 0844 ------- ------- ------- ------- -- Network Results - Cervica l MRI 021 Look in Artifac ts and Images DILMA RESENDIZ 08/09 [facility] [employer] [facility] [employer] [id number] Notes Entered by: RICHARD BOSCH 19 Sep 2021 1236 ------- ------- ------- ------- -- PCMH CM-Cont inue RICHARD BOSCH 09/19 Released w/o Limitations [facility] [employer] [facility] [employer] [id number] Notes Entered by: RICHARD BOSCH 02 Oct 2021 1122 ------- ------- ------- ------- -- PCMH CM-Cont inue RICHARD BOSCH 10/02 Released w/o Limitations [facility] [employer] [facility] [employer] TELE CONSULT [id number] Notes Entered by: MORGAN LORENZANA 16 Oct 2021 0908 ------- ------- ------- ------- -- Servando Giordano s MELANIEJOI Tan ALFRED Carolee 10/16 [facility] [place] [facility] [place] TELE CONSULT [id number] Notes Entered by: CANDI PLASENCIA 22 Oct 2021 1237 ------- ------- ------- ------- -- Refills ESTEBAN CLINE 10/22 [facility] [place] [facility] TELE CONSULT [id number] 5 Notes Entered by: VIOLETA FELTON 06 Nov 2021 1009 ------- ------- ------- ------- -- [facility] pt need wound care at [facility] for two days ESTEBAN CLINE 11/06 [facility] [place] [place] [place] [id number] Notes Entered by: RICHARD BOSCH 06 Nov 2021 1329 ------- ------- ------- ------- -- PCMH CM-Cont inue RICHARD BOSCH 11/06 Released w/o Limitations [facility] [employer]Case Managem ent[place] [facility] [place] TELE CONSULT [id number] Notes Entered by: RICHARD BOSCH 07 Nov 2021 1603 ------- ------- ------- ------- -- PCMH CM-Care Coordin atsujey RICHARD BOSCH 11/07 [place] [facility] [place] [id number] Notes Entered by: RICHARD BOSCH 26 Nov 2021 1604 ------- ------- ------- ------- -- PCMH CM-Cont inue IRCHARD BOSCH 11/26 Released w/o Limitations [facility] [employer] [facility] [employer] TELE CONSULT [id number] Notes Entered [facility]: [facility] 05 Dec 2021 0813 ------- ------- ------- ------- -- Network Results - Wound Care 11/08/19 22 Look in Artifac ts and Images. UMA MORALES 12/05 [facility] [employer] [facility] [place] [place] [id number] OPEN WOUND ON BELLY FOLD ALSO FELL OUT SIDE INJURED LIP NIXON ALCARAZ I 12/22 Immediate Referral [facility] [place] [facility] [employer] [id number] Notes Entered by: RICHARD BOSCH 25 Dec 2021 1316 ------- ------- ------- ------- -- PCMH CM-Cont incammie RICHARD BOSCH 12/25 Released w/o Limitations [facility] [employer] [facility] [employer] TELE CONSULT [id number] Notes Entered by: LETI POLLACK 26 Dec 2021 1111 ------- ------- ------- ------- -- BELKYS Raymond 12/26 [facility] [employer] Procedures Combined list of: 1) Procedures from Department of Veterans Affairs facilities going back up to thelast 18 months, not all VA non-surgical procedures are included; 2) All procedures from the Department of Defense facilities. Procedure Procedure Type Code Date Perfomer Comments Sourc e MYRINGOTOMY WITH INSERTION OF TUBE 992 [facility] INDIVIDUAL PSYCHOTHERAPY, INSIGHT ORIENTED, BEHAVIOR MODIFYING AND/OR SUPPORTIVE, IN AN OFFICE OR OUTPATIENT FACILITY, APPROXIMATELY 45 TO 50 MINUTES [id number] WITH THE PATIENT DoD INDIVIDUAL PSYCHOTHERAPY, INSIGHT ORIENTED, BEHAVIOR MODIFYING AND/OR SUPPORTIVE, IN AN OFFICE OR OUTPATIENT FACILITY, APPROXIMATELY 45 TO 50 MINUTES [id number] WITH THE PATIENT DoD INDIVIDUAL PSYCHOTHERAPY, INSIGHT ORIENTED, BEHAVIOR MODIFYING AND/OR SUPPORTIVE, IN AN OFFICE OR OUTPATIENT FACILITY, APPROXIMATELY 45 TO 50 MINUTES [id number] WITH THE PATIENT [facility] HEALTH AND BEHAVIOR INTERVENTION, EACH 15 MINUTES, [id number]-AW-[id number]; INDIVIDUAL [facility] INDIVIDUAL PSYCHOTHERAPY, INSIGHT ORIENTED, BEHAVIOR MODIFYING AND/OR SUPPORTIVE, IN AN OFFICE OR OUTPATIENT FACILITY, APPROXIMATELY 20 TO 30 MINUTES [id number] WITH THE PATIENT DoD INDIVIDUAL PSYCHOTHERAPY, INSIGHT ORIENTED, BEHAVIOR MODIFYING AND/OR SUPPORTIVE, IN AN OFFICE OR OUTPATIENT FACILITY, APPROXIMATELY 20 TO 30 MINUTES [id number] WITH THE PATIENT DoD INDIVIDUAL PSYCHOTHERAPY, INSIGHT ORIENTED, BEHAVIOR MODIFYING AND/OR SUPPORTIVE, IN AN OFFICE OR OUTPATIENT FACILITY, APPROXIMATELY 45 TO 50 MINUTES [id number] WITH THE PATIENT [facility] PSYCHIATRIC DIAGNOSTIC INTERVIEW EXAMINATION [facility] MEDICATION THERAPY MANAGEMENT SERVICE(S) PROVIDED BY A PHARMACIST, INDIVIDUAL, [id number] WITH PATIENT, INITIAL 15 MINUTES, WITH ASSESSMENT, AND INTERVENTION IF PROVIDED; SUBSEQUENT ENCOUNTER [facility] CASE MANAGEMENT, EACH 15 MINUTES [facility] CASE MANAGEMENT, EACH 15 MINUTES [facility] CASE MANAGEMENT, EACH 15 MINUTES [facility] CASE MANAGEMENT, EACH 15 MINUTES [facility] CASE MANAGEMENT, EACH 15 MINUTES [facility] CASE MANAGEMENT, EACH 15 MINUTES [facility] CASE MANAGEMENT, EACH 15 MINUTES [facility] CASE MANAGEMENT, EACH 15 MINUTES DoD CASE MANAGEMENT, EACH 15 MINUTES [facility] CASE MANAGEMENT, EACH 15 MINUTES [facility] CASE MANAGEMENT, EACH 15 MINUTES DoD CASE MANAGEMENT, EACH 15 MINUTES [facility] CASE MANAGEMENT, EACH 15 MINUTES [facility] CASE MANAGEMENT, EACH 15 MINUTES [facility] CASE MANAGEMENT, EACH 15 MINUTES [facility] COORDINATED CARE FEE, RISK ADJUSTED MAINTENANCE [facility] CASE MANAGEMENT, EACH 15 MINUTES [facility] CASE MANAGEMENT, EACH 15 MINUTES [facility] CASE MANAGEMENT, EACH 15 MINUTES [facility] NEEDLE ELECTROMYOGRAPHY,EA EXTREMITY,W RELATED PARASPINAL AREAS,WHEN PERFORMED,DONE W NERVE CONDUCTION,AMP &LATENCY/VELOCITY STUDY;COMP,5/MORE MUSC STUDIED,INNERVATED,3 /MORE NERV/4/MORE SPINAL LEVELS [facility] CASE MANAGEMENT, EACH 15 MINUTES [facility] TELE ASSESS & MGT SRV PROV QUAL NONPHYS HLTH CARE PRO TO EST PAT,PARENT,GUARD NOT ORIG REL ASSESS & MGT SRV PROV W/IN PREV 7 DAYS NOR LEAD ASSESS & MGT SRV/PX W/IN NXT 24 HR/SOON APT;5-10 MIN MED DIS [facility] CASE MANAGEMENT, EACH 15 MINUTES [facility] CASE MANAGEMENT, EACH 15 MINUTES [facility] CASE MANAGEMENT, EACH 15 MINUTES [facility] CASE MANAGEMENT, EACH 15 MINUTES [facility] CASE MANAGEMENT, EACH 15 MINUTES [facility] CASE MANAGEMENT, EACH 15 MINUTES [facility] CASE MANAGEMENT, EACH 15 MINUTES [facility] CASE MANAGEMENT, EACH 15 MINUTES [facility] CASE MANAGEMENT, EACH 15 MINUTES DoD Case Management, each 15 minutes 018 BERT COY DoD Coordinated care fee, maintenance rate BERT COY DoD Coordinated care fee, risk adjusted maintenance BERT COY [facility] Case Management, each 15 minutes 018 BERT COY [facility] Case Management, each 15 minutes 018 BERT COY DoD Coordinated care fee, risk adjusted maintenance, Level 5 018 BERT COY DoD Case Management, each 15 minutes 018 BERT COY DoD Coordinated care fee, risk adjusted maintenance, Level 4 018 BERT COY [facility] Case Management, each 15 minutes 018 BERT COY [facility] Coordinated care fee, risk adjusted maintenance, Level 4 018 BERT COY [facility] Coordinated care fee, risk adjusted maintenance 018 BERT COY [facility] Case Management, each 15 minutes 018 BERT COY Social Work Individual Outpatient Counseling 45-50 Minutes Social Work Individual Outpatient Counseling 45-50 Minutes [id number] AEDLFO CARROLL Social Work Individual Outpatient Counseling 45-50 Minutes Social Work Individual Outpatient Counseling 45-50 Minutes [id number] ADELFO CARROLL Social Work Individual Outpatient Counseling 45-50 Minutes Social Work Individual Outpatient Counseling 45-50 Minutes [id number] ADELFO CARROLL Health And Behavior Intervention, Each 15 Minutes Individual Health And Behavior Intervention, Each 15 Minutes Individual [id number] ADELFO CARROLL Psychiatric Therapy Individual Approximately 20-30 Minutes Psychiatric Therapy Individual Approximately 20-30 Minutes [id number] BIANCA HENDRICKSON [facility] Psychiatric Therapy Individual Approximately 20-30 Minutes Psychiatric Therapy Individual Approximately 20-30 Minutes [id number] BIANCA HENDRICKSON [facility] Psychiatric Therapy Individual Approximately 45-50 Minutes Psychiatric Therapy Individual Approximately 45-50 Minutes [id number] BIANCA HENDRICKSON [facility] Psychiatric Evaluation Comprehensive Examination Psychiatric Evaluation Comprehensive Examination [id number] BIANCA HENDRICKSON [facility] Medication Management By Pharmacist Subsequent Encounter Medication Management By Pharmacist Subsequent Encounter [id number] TARAH PARIS [facility] Physical Medicine Physical Therapy Re-Evaluation Physical Medicine Physical Therapy Re-Evaluation [id number] CHRISTY TRUONG [facility] Echo (Doppler) Color Flow Velocity Mapping Echo (Doppler) Color Flow Velocity Mapping [id number] UZAIR SHAY Echo (Doppler) Echo (Doppler) [id number] UZAIR SHAY Echo (2-D) Mode Complete 007 UZAIR SHAY Holter Monitor 24-Hour 007 CARLTON POLINA [facility] Determination Of Refractive State Determination Of Refractive State [id number] JONESTANESHAJANICESBOsmani Martines [facility] Ophthalmological New Patient Start Comprehensive Care Ophthalmological New Patient Start Comprehensive Care [id number] JONESTANESHAJANICE-SOFIYA T [facility] ECG 12-Lead ECG 12-Lead [id number] ALAYNA WALSH [facility] Psychiatric Evaluation Comprehensive Examination Psychiatric Evaluation Comprehensive Examination [id number] JANNETH NGUYEN [facility] Ophthalmological Prior Patient Start Comprehensive Care Ophthalmological Prior Patient Start Comprehensive Care [id number] SB BROWN Determination Of Refractive State Determination Of Refractive State 43813 [id number] SB BROWN [facility] Wound cleansers, any type, any size 005 ANGEL DEAN Alginate or other fiber gelling pa ing, wound cover, sterile, pad size 16 sq. in. or le , each pa ing 005 ANGEL DEAN Gauze, non-impregnated, non-sterile, pad size 16 sq. in. or le , without adhesive border, each pa ing 005 ANGEL DEAN Coordinated care fee, maintenance rate BERT COY [facility] Case Management, each 15 minutes BERT COY [facility] Coordinated care fee, risk adjusted maintenance, Level 3 BERT COY [facility] Non-Physician Phone Call To Patient/Provider Brief (5-10min) Non-Physician Phone Call To Patient/Provider Brief (5-10min) [id number] SHRAVAN MARQUEZ [facility] Coordinated care fee, risk adjusted maintenance BOSCH, RICHARD E DoD Case Management, each 15 minutes BOSCH, RICHARD E AT:2,11,16,1 8 DoD Case Management, each 15 minutes BOSCH, RICHARD E AT:9,11x3,16 DoD Case Management, each 15 minutes BOSCH, RICHARD E AT:3,9,11x2, 16 DoD Case Management, each 15 minutes BOSCH, RICHARD E AT:9, 11x3, 16 DoD Case Management, each 15 minutes BOSCH, RICHARD E AT:11x2,16 DoD Case Management, each 15 minutes BOSCH, RICHARD E AT:3,9,11,16 ,18 DoD Case Management, each 15 minutes BOSCH, RICHARD E AT:3,5x2,9,1 1,16 DoD Case Management, each 15 minutes BOSCH, RICHARD E AT:3,9,11,16 DoD Case Management, each 15 minutes BOSCH, RICHARD E AT:11,16=Tot al time spent of 60min per Acuity Generator DoD Case Management, each 15 minutes BOSCH, RICHARD E AT:3,9,11x2, 16 =240 min total time spent per acuity generator DoD Case Management, each 15 minutes BOSCH, RICHARD E AT:9,11x3,16 =180 min total time spent per acuity generator DoD Case Management, each 15 minutes BOSCH, RICHARD E AT:3,9,11x2, 81=096 min total time spent per acuity generator DoD Case Management, each 15 minutes BOSCH, RICHARD E AT: 3,11,16,18=1 80 min total time spent per acuity generator DoD Case Management, each 15 minutes BOSCH, RICHARD E AT:9,11,16=1 20 min total time spent per acuity generator DoD Case Management, each 15 minutes BOSCH, RICHARD E AT:3,4,11,16 =210 min total time spent per acuity generator DoD Case Management, each 15 minutes BOSCH, RICHARD E AT:9,11=90 min total time spent per acuity generator DoD Case Management, each 15 minutes BOSCH, RICHARD E AT:3,9,11,16 =210 min total time spent per acuity generator DoD Case Management, each 15 minutes BOSCH, RICHARD E AT:3,9x3,11x 2,32d8=530 min total time spent per acuity generator DoD stent placed back of head 0098C-[facility] back closure T-12 8C- [facility] bladder augmentation 009 8C-[facility] ALUMINUM SIDING APPLICATOR shunt revisions x 12 8C-[facility] suprapubic in/out catheter 0098C-[facility] Abductor release [facility]98[facility] Social History Combined list of available smoking, tobacco, and other social history from Department of Defense and Veterans Affairs facilities. Social History Type Response Date Comment [facility] e Sex Representation Female (finding) 11/08/2021 Unknown Organization This section is an empty social history section. [facility] Tobacco Never-cigarette user Cigarette use:. Never-other tobacco user (not cigarettes) Other Tobacco use:. [facility] Pharm[facility] Sexual Orientation Ambula tory Pharmacy Gender identity Ambulator y Pharmacy Assessment and Plan Combined list of future care activities from Department of Defense and Veterans Affairs facilities (e.g., assessment and plan notes, appointments, orders, and referrals). Additional future care activities may be listed in the Plan of Care section. Result Assessment and Plan Date Source Assessment and Plan Extracted from:Title : Anxiety Author: DILMA RESENDIZ, DO Date: 11/25/22 1. A nxiety disorder, unspecified Will switch patient to prozac, and have patient follow up to monitor improvement. Orders: FLUoxetine(PROzac 20 mg oral capsule), 1 cap(s), Oral, Daily, # 90 cap(s), 0 total refill(s), Maintenance, 1 cap(s) Oral Daily, Pharmacy: [facility] [Not filled] 03/30/[address] [place] [address] Functional Status Combined list of recent functional and cognitive assessments recorded at Department of Defense and Veterans Affairs (VA).VA Functional [place] Measurement (FIM) Scale: 1 = Total Assistance (Subject = 0% +), 2 = Maximal Assistance (Subject = 25% +), 3 = Moderate Assistance (Subject = 50% +), 4 = Minimal Assistance (Subject = 75% +), 5 = Supervision, 6 = Modified [place] (Device), 7 = Complete [place] (Timely, Safely). Assessment Date/Time Source Assessment Type Assessment Skill Assessment Score Assessment Details No data available for this section
--- OUTSIDE RECORDS SUMMARY | 2025-03-30 16:43 | XMS_ITS ---
Author Organization [facility] [address] [facility] Address [address] [place] [address] Care Team Providers Care Physician Relations Manager Name Role Phone Kandis Robb INTERPERSONAL COMMUNICATIONS PROFESSOR Primary Care Provider [phone] Pavan Rockwell MD Unavailable [phone] Arnoldo Longoria [facility] Unavailable Unavail able Anti-Infective Status:Benefit Investigation (Active) Start date:03/22/2025 Enrollment date:03/22/2025 Linked medications:ceftriaxone sodium,0.9 % sodium chloride (Active) Related program episode:Home Infusion (Active) Case Team Name Relationship Phone Arnoldo Longoria [facility](Responsible Staff) Pharm acist Continued Care and Services Coordination This section includes services coordinated for Anti-Infective. Home Medical Care Name Services Phone [facility] Services Home Infusion and Injection [phone]
--- OUTSIDE RECORDS SUMMARY | 2025-03-30 16:44 | XMS_ITS | Patient Health Record ---
Author Organization [facility] Address [address] [place] [address] Care Team Providers Care Web Knitter Name Role Phone TristanbriannaAlvarado Primary Care Provider Unavailabl e Arnoldo Mckeon Unavailable Rudolph Doyle MD, [place] Unavailable Unavailabl e Allergies Allergen (clinical drug ingredient) Drug/Non Drug Allergy documented on EMR Reaction Allergy Type Onset Date Status banana allergenic extract banannas (uncoded) Unknown Allergy Active amoxicillin Amoxicillin Unknown Drug Allergy Act kristel LATEX Unknown Drug Allergy Active Penicillin Unknown Drug Allergy Active Reason For Referral No Information Medications Medication SIG (Take, Route, Frequency, Duration) Notes Start Date End Date Status Topamax 15 MG as directed Orally Active Motrin Not-Taking Tylenol 325 MG 1 tablet as needed Orally every 4 hrs Not-Taking lamoTRIgine 200 MG 1 tablet Orally Twice a day Not-Taking Wheelchair - 1 wheelchair sitting to recline with leg lift options daily Active Colace 100 MG 1 capsule as needed for constipation Orally Once a day Active Citalopram Hydrobromide 20 MG 1 tablet Orally Once a day for 30 Active MoviPrep 100 GM as directed Orally for 1 days 06/22/2021 Not-Taking lamoTRIgine 100 MG 2.5 tablet Orally Twice a day 200 mg AM, 300 mg PM Active Social History Tobacco Use: Social History Observation Description Date Details (start date - stop date) Never Smoker NA - NA Tobacco Use/Smoking: Question Answer Notes Are you a nonsmoker Alcohol Screen Question Answer Notes Did you have a drink containing alcohol in the p ast year? No Points 0 Interpretation Negative Have you fallen recently? Question Answer Notes Fall Risk Assessment Two or more falls w ithout injury in the past year Pt has fallen 5 times in the last year while transferring to wheelchair. Problems Problem Type SNOMED Code ICD Code Onset Dates Problem Status W/U Status Risk Notes Problem 359799560 Neurogenic bladd er (N31.9) Active confirmed Problem Iron deficiency anemia (34528079) Iron deficiency anemia (D50.9) Active confirmed Problem 857021154 Arnold-Chiari deformity (Q07.00) Active confirmed Problem 532892942 Hydrocephalus (G91.9) Active confirmed Problem Chronic antral gastritis (23830457) Chronic antral gastritis (K29.50) Active confirmed Problem 268565141 Myelomeningocele (Q05.9) Active confirmed Problem 92951805 Iron deficiency anemia, unspecified iron deficiency anemia type (D50.9) Active confirmed Problem Pica (64533218) Pica (F50.89) Active confirmed Problem 995725704 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, intract, 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) Active confirmed Problem 410898742 Arnold-Chiari malformation, 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) Active confirmed Problem 1872800 Paraparesis (G82.20) Active confirmed Problem 264547439 Ventricular shun t in place (Z98.2) Active confirmed Plan Of Treatment Pending Test Test Name Order Date CT ABD/PELVIS W/CONTRAST 09/21/2021 SARS-CoV-2 by PCR 06/22/2021 Insurance Providers Payer Name Payer Address Payer Phone Subscriber Number Group Number Insured Name Patient Relationship to Insured Coverage Start Date Coverage End Date [facility] [address] [place] [address] [id number] Prime Retired Lizette Roosevelt Handicapped Dependent 8 Medicaid Fee For Service [address] [address] [place] [address] [id number] Vera Bauer Self - patient is the insured 7 [place] Medicaid [place] Program [employer] [address] [place] [phone] [id number] Vera Singh Self - patient is the insured 7 [place] Medicaid FFS Program [employer] [address] [place] [phone] [id number] Lizette Vera Self - patient is the insured 1 Medical (General) History Medical History History ICD Code Spina Bifida Hydrocephalus bowel and bladder disorder Chiari Malformation II Epliepsy scoliosis club foot Anxiety depression Intelletual disabiity Surgical History Surgery Date(Month/Year) bladder augmentation shunt revision x2 SP catheter abductor release shunt placement back closure T12 Hospitalization History Reason Date(Month/Year) Katarina Cardenas, [facility]
== END 2025-06-28 23:59 | disposition home or self-care (01) ==
LOC: HOME HLTH 13:52
DX: L03.317 Cellulitis of buttock (principal); L89.323 Pressure ulcer of left buttock, stage 3; M86.08 Acute hematogenous osteomyelitis, other sites
CPT/HCPCS: 80053; 85025; 85652; 86140

== ENCOUNTER 2025-04-06 14:09 | Outpatient (NON) | payer OTHER, SELFPAY ==
--- OUTSIDE RECORDS SUMMARY | 2025-04-06 16:07 | XMS_ITS | Encounter Summary ---
Author Organization [facility] Healthcare Address [address] [place] [address] Care Team Providers Care Life Sciences Instructor Name Role Phone Kandis Robb NP Primary Care Provider [phone] Pavan Rockwell MD Unavailable [phone] Arnoldo Longoria [facility] Unavailable Unavail able Encounter Details Date Type Department Care Team (Late st Contact Info) Description 03/31/2025 Telephone [facility] Home Infusion Therapy [address] [place] [address] Arnoldo Longoria [facility] Social History Tobacco Use Types Packs/Day Years [...] on file Legal Sex Female 9:03 PM ACUTE CARE PHYSICAL THERAPIST Gender Identity Female 04/06/2023 2:19 PM CDT Sexual Orientation Straight 04/06/2023 2: 19 PM CDT documented as of this encounter Plan of Treatment Not on file documented as of this encounter Visit Diagnoses Not on filedocumented in this encounter Care Teams Life Sciences Instructor Relationship Specialty Start Date End Date Kandis Robb NP [address] [place] [address] PCP - General Nurse Practitioner 03/08/25 Pavan Rockwell MD [address] IM INFECTIOUS DISEASE, [address] [place] [address] PCP - Home Infusion Attending Infectious Diseases 03/22/25 Arnoldo Longoria, [facility] Pharmacist Pharmacy 03/22/25 documented as of this encounter
--- OUTSIDE RECORDS SUMMARY | 2025-04-06 16:07 | XMS_ITS | Encounter Summary ---
Author Organization [facility] Healthcare Address [address] [place] [address] Care Team Providers Care Watch Engine Operator Name Role Phone Kandis Robb NP Primary Care Provider [phone] Pavan Rockewll MD Unavailable [phone] Arnoldo Longoria [facility] Unavailable Unavail able Encounter Details Date Type Department Care Team (Late st Contact Info) Description 04/05/[address] 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 Remove from refrigerator 1-2 hours before administration. 550 mL 04/01/2025 documented in this encounter Plan of Treatment Not on file documented as of this encounter Procedures Procedure Name Priority Date/Time Associated Diagnosis Comments SCAN - LABS 04/05/2025 12:00 AM CDT documented in this encounter Results * SCAN - LABS (04/05/2025 12:00 AM CDT) us Provider Scanning Final Result documented in this encounter Visit Diagnoses Diagnosis Cellulitis and abscess of buttock documented in this encounter Discontinued Medications Medication Sig Discontinue Reason Start Date End Da te cefTRIAXone (ROCEPHIN) 2 gram injectionIndications: Bone/Joint Infection Infuse 2,000 mg (2 g total) IV daily for 18 days Duplicate order 03/19/2025 04/05/2025 cefTRIAXone 2,000 mg in sodium chloride 0.9% 50 mL IVPB (elastomeric)Indicati ons:Cellulitis and abscess of buttock Infuse 50 mL (2,000 mg total) IV daily for 60 minutes for 19 days at 50 mL/hr via elastomeric device. Remove from refrigerator 1-2 hours before administration. Reorder 03/18/2025 04/05/2025 documented as of this encounter Care Teams Watch Engine Operator Relationship Specialty Start Date End Date Kandis Robb NP [address] [place] [address] PCP - General Nurse Practitioner 03/08/25 Pavan Rockwell MD [address] IM INFECTIOUS DISEASE, [facility] [address] [place] [address] PCP - Home Infusion Attending Infectious Diseases 03/22/25 Arnoldo Longoria [facility] Pharmacist Pharmacy 03/22/25 documented as of this encounter
--- OUTSIDE RECORDS SUMMARY | 2025-04-06 16:08 | XMS_ITS | Clinical Summary ---
Author Organization [facility] Address Formerly [facility] [place] [address] Care Team Providers Care Superintendent Container Terminal Name Role Phone KattyByronJuarez Prashanth Primary Care Provider [phone] Allergies Active Allergy Reactions Criticality Noted Date Comments Amoxicillin Rash Low 01/16/2023 Latex Itching,Nausea and Vomiting,Rash,Shortness of Breath,Swelling,Unknown High 01/30/2015 Medications acetaminophen (TYLENOL) 500 MG tablet Tylenol 250 mg po bid prn Active lamoTRIgine (LAMICTAL) 200 MG tabletIndication s:Nonintractable epilepsy without status epilepticus, unspecified epilepsy type ([facility]) Take 1 tablet (200 mg total) by mouth 2 (two) times daily. With 100 mg qhs for a total of 300 mg qhs. 180 tablet 1 05/02/2023 Active Active Problems Problem Noted Date Diagnosed Date Spina bifida of thoracic reg ion with hydrocephalus ([facility]) 01/16/2023 Hydrocephalus with operating shunt ([facility]) 01/16/2023 Neuromuscular dysfunction of bladder 01/16/2023 Chiari malformation type II ([facility]) Nonintractable epilepsy with out status epilepticus, unspecified epilepsy type ([facility]) 01/16/2023 Scoliosis, unspecified scoli osis type, unspecified spinal region 01/16/2023 Clubfoot of both lower extremities 01/16/2023 Mixed anxiety and depressive disorder 01/16/2023 Intellectual disability 01/16/2023 Iron deficiency anemia, unsp ecified iron deficiency anemia type 01/16/2023 Suprapubic catheter ([facility]) 01/16/2023 Encounters Date Type Department Care Team Description 02/11/2025 Telephone [facility] Family Medicine - [place] [address] [place] [address] Juarez Alaniz, Error from Last 3 Months Immunizations Immunization Administration Dates Next Due Influenza [...] 62.6 kg (138 lb) 10/23/2015 10:48 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
--- OUTSIDE RECORDS SUMMARY | 2025-04-06 16:08 | XMS_ITS | Encounter Summary ---
Author Organization [facility] Address [address] [place] [address] Care Team Providers Care Advertising Dispatch Clerk Name Role Phone Juarez Alaniz DO Primary Care Provider [phone] Encounter Details Date Type Department Care Team (Late st Contact Info) Description 03/26/2023 Diligent Board Member Services Message Enc [facility] Family Medicine [address] [phone] [facility] Provider [employer] Se[employer] Mobility Social History Tobacco [...] on filedocumented in this encounter Care Teams Advertising Dispatch Clerk Relationship Specialty Start Date End Date Juarez Alaniz DO [address] [place] [address] PCP - General FAMILY PRACTICE 01/03/23 documented as of this encounter
--- OUTSIDE RECORDS SUMMARY | 2025-04-06 16:08 | XMS_ITS | Patient Health Record ---
Author Organization [facility] Address [address] [place] [address] Care Team Providers Care Stone Product Fabricator Name Role Phone TristanbriannaAlvarado Primary Care Provider Unavailabl e Arnoldo Mckeon Unavailable Rudolph Doyle MD, [place] Unavailable Unavailabl e Allergies Allergen (clinical drug [...] Problem Status W/U Status Risk Notes Problem 101007650 Neurogenic bladd er (N31.9) Active confirmed Problem Iron deficiency anemia (D50.9) Active confirmed Problem 990694705 Arnold-Chiari deformity (Q07.00) Active confirmed Problem 617633418 Hydrocephalus (G91.9) Active confirmed Problem Chronic antral gastritis (50542564) Chronic antral gastritis (K29.50) Active confirmed Problem 820624688 Myelomeningocele (Q05.9) Active confirmed Problem 06053588 Iron deficiency anemia, unspecified iron deficiency anemia type (D50.9) Active confirmed Problem Pica (26663407) Pica (F50.89) Active confirmed Problem 573504246 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, intract, 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) Active confirmed Problem 088089342 Arnold-Chiari malformation, 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) Active confirmed Problem 0817874 Paraparesis (G82.20) Active confirmed Problem 401392235 Ventricular shun t in place (Z98.2) Active confirmed Plan Of Treatment Pending Test Test Name Order Date CT ABD/PELVIS W/CONTRAST 09/21/2021 SARS-CoV-2 by PCR 06/22/2021 Insurance Providers Payer Name Payer Address Payer Phone Subscriber Number Group Number Insured Name Patient Relationship to Insured Coverage Start Date Coverage End Date [facility] [address] [place] [address] [id number] Prime Retired Roosevelt Bauer Handicapped Dependent 8 Medicaid Fee For Service [address] [address] [place] [id number] Vera Bauer Self - patient is the insured 7 [facility] Medicaid [place] Program [employer] [address] [place] [phone] [id number] Vera Singh Self - patient is the insured 7 [employer] Medicaid FFS Program [employer] [address] [place] [phone] [id number] Vera Bauer Self - patient is the insured 1 Medical (General) History Medical History History ICD Code Spina Bifida Hydrocephalus bowel and bladder disorder Chiari Malformation II Epliepsy scoliosis club foot Anxiety depression Intelletual disabiity Surgical History Surgery Date(Month/Year) bladder augmentation shunt revision x2 SP catheter abductor release shunt placement back closure T12 Hospitalization History Reason Date(Month/Year) Katarina Cardenas, [facility]
--- OUTSIDE RECORDS SUMMARY | 2025-04-06 16:09 | XMS_ITS ---
Author Organization [facility] [address] [facility] Address [address] [place] [address] Care Team Providers Care Study Abroad Coordinator Name Role Phone Kandis Robb UPHOLSTERER APPRENTICE Primary Care Provider [phone] Pavan Rockwell MD Unavailable Arnoldo Longoria [facility] Unavailable Unavail able Anti-Infective Status:Enrolled (Active) Start date:03/22/2025 Enrollment date:03/22/2025 Linked medications:ceftriaxone sodium,0.9 % sodium chloride (Active) Related program episode:Home Infusion (Active) Case Team Name Relationship Phone Arnoldo Longoria [facility](Responsible Staff) Pharm acist Continued Care and Services Coordination This section includes services coordinated for Anti-Infective. Home Medical Care Name Services Phone [facility] Home Infusion and Injection [phone]
--- OUTSIDE RECORDS SUMMARY | 2025-04-06 16:09 | XMS_ITS | Encounter Summary ---
Author Organization [facility] Healthcare Address [address] [place] [address] Care Team Providers Care Bodybuilder Name Role Phone Kandis Robb NP Primary Care Provider [phone] Pavan Rockwell MD Unavailable [phone] [place] [facility] Unavailable Unavailabl e Arnoldo Longoria [facility] Unavailable Unavail able Encounter Details Date Type Department Care Team (Late st Contact Info) Description 03/22/2025 Home Infusion [facility] Home Infusion Therapy [address] [place] [address] [place], [facility] Cellulitis and abscess of buttock (Primary Dx) [...] on file Legal Sex Female 9:03 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 Gender Identity Female 04/06/2023 2:19 PM CDT Sexual Orientation Straight 04/06/2023 2: 19 PM CDT documented as of this encounter Ordered Prescriptions Prescription Sig Dispense Quantity Refills Last Filled Start Date End Date heparin 10 unit/mL syringe flush syringeIndication s:Maintain Patency of Indwelling Vascular Catheter Infuse 5 mL (50 Units total) IV as needed (line care) 32749 mL 04/02/2025 11:59 PM CDT 03/22/2025 6 sodium chloride 0.9% flush syringeIndication s:Cellulitis and abscess of buttock Infuse 10 mL IV as needed for line care 50511 mL 04/02/2025 11:59 PM CDT 03/22/2025 6 cefTRIAXone 2,000 mg in sodium chloride 0.9% 50 mL IVPB (elastomeric)Kiera cations:Celluliti s and abscess of buttock Infuse 50 mL (2,000 mg total) IV daily for 60 minutes for 19 days at 50 mL/hr via elastomeric device. Remove from refrigerator 1-2 hours before administration. 950 mL 04/02/2025 11:59 PM CDT 03/18/2025 5 documented in this encounter Plan of Treatment Not on file documented as of this encounter Visit Diagnoses Diagnosis Cellulitis and abscess of buttock- Primary documented in this encounter Care Teams Bodybuilder Relationship Specialty Start Date End Date Kandis Robb NP [address] [place] [address] PCP - General Nurse Practitioner 03/08/25 Pavan Rockwell MD [address] IM INFECTIOUS DISEASE, [address] [place] [address] PCP - Home Infusion Attending Infectious Diseases 03/22/25 [place], [facility] Pharmacist Pharmacy 03/22/25 03/22/25 Arnoldo Longoria, [facility] Pharmacist Pharmacy 03/22/25 documented as of this encounter
--- OUTSIDE RECORDS SUMMARY | 2025-04-06 16:09 | XMS_ITS | Clinical Summary ---
Author Organization [place] [id number] [facility] Address [address] [place] [address] Care Team Providers Care Health And Safety Specialist Name Role Phone Kandis Robb NP Primary Care Provider [phone] Pavan Rockwell MD Unavailable [phone] Arnoldo Longoria [facility] Unavailable Unavail able Allergies Active Allergy Reactions [...] daily 510 g 1 025 2024 Active sodium chloride 0.9% flush syringeIndicati ons:Cellulitis and abscess of buttock Infuse 10 mL IV as needed for line care 42050 mL 5 11:59 PM CDT 025 2025 Active heparin 10 unit/mL syringe flush syringeIndicati ons:Maintain Patency of Indwelling Vascular Catheter Infuse 5 mL (50 Units total) IV as needed (line care) 59424 mL 5 11:59 PM CDT 025 2025 Active cefTRIAXone 2,000 mg in sodium chloride 0.9% 50 mL IVPB (elastomeric)In dications:Cellu litis and abscess of buttock Infuse 50 mL (2,000 mg total) IV daily for 60 minutes for 11 days at 50 mL/hr via elastomeric device. Remove from refrigerator 1-2 hours before administration. 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 Remove from refrigerator 1-2 hours before administration. 950 mL 11:59 PM CDT 025 2024 Discontinued(R eorder) Active Problems Problem Noted Date Diagnosed Date [...] Pressure injury of left buttock, stage 3 025 Assessment & Plan (03/18/2025 10:32 AM [...] 12/09/2024 Assessment & Plan (12/09/2024 9:50 AM BARREL RIB MATTING MACHINE OPERATOR): Patient with liver lesions incidentally [...] MR Assessment & Plan (10/21/2024 2:13 PM BARREL RIB MATTING MACHINE OPERATOR): Update specs as desired. Nosophobia [...] Depression 07/24/2023 Overview (07/24/2023): POORLY CONTROLLED W/ IPHIF-SJ-PIVEPOI WORSENING PAST FEW MONTHS Dysthymia 07/24/2023 Kyphosis 07/24/2023 Spina bifida 07/24/2023 Overview (01/21/2025): -still has not received shower chair -mother states she is needing a shower bench but having trouble finding one -also needs a new transfer board, her current board is chipping Will see if we can clarify with [facility]. Acute serous otitis media, right [...] 01/16/2023 Assessment & Plan (10/21/2024 2:15 PM BARREL RIB MATTING MACHINE OPERATOR): Stable exam with excellent visual [...] B12/folate. Assessment & Plan (12/09/2024 9:51 AM BARREL RIB MATTING MACHINE OPERATOR): Has upcoming appt with hematology. [...] Encounters Date Type Department Care Team Description 04/05/2025 Home Infusion [facility] Home Infusion Therapy [address] [place] [address] Arnoldo Longoria, [facility] Cellulitis and abscess of buttock 04/04/2025 2:00 PM CDT Orders Only [facility] [address] [place] [address] 03/31/2025 Telephone [facility] Home Infusion Therapy [address] [place] [address] Arnoldo Longoria RPh 03/31/[address] [facility] Infectious Diseases [address] [place] [phone] Fadumo Addison Opat Progress/Monitoring 03/30/[address] [facility] Infectious Diseases [address] [place] [phone] Fadumo Addison Labs Only 03/28/2025 2:00 PM CDT Orders Only [facility] [address] [place] [address] 03/23/2025 11:47 PM CDT - 03/24/2025 1:01 AM CDT Emergency [facility] Emergency Department [address] [place] [address] Derrick Garza MD Malfunction of peripheral inserted central catheter, initial encounter (Primary Dx) Discharge Disposition: Discharge to home or self care 03/22/2025 Home Infusion [facility] Home Infusion Therapy [address] [place] [address] Red Cota, [facility] Cellulitis and abscess of buttock (Primary Dx) 03/21/2025 1:00 PM CDT Orders Only [facility] [address] [place] [id number] Pressure injury, unstageable, unspecified location (HCC) 03/21/2025 [facility] Transitional Care Outreach [facility] Care Coordination [address] [place] [address] Loni Nascimento, SAVANNA 03/16/[address] [facility] Infectious Diseases [address] [place] [phone] Joni Hernandez MD OPAT Sign-Off 03/15/2025 Orders Only [facility] Neuro Interventional Radiology [address] [place] [address] Jessica Schultz, SAVANNA 03/11/2025 12:24 AM CDT - 03/18/2025 5:35 PM CDT Hospital Encounter [facility] [address] [place] [address] Ciera Browne MD Baum, MD Patel Siddiqui, [...] home, home health skilled care 03/10/[address] [facility] Complete Care [facility] Medical Office Building [address], [address] [place] [address] Georgia Fairchild, street light wirer Check 03/10/[address] [facility] Epilepsy [address] [facility] Advanced Medicine 6th [place] [address] [place] [phone] Gatito Foreman MD Med Refill 03/09/[address] [facility] Surgery [address] [place] [address] Ashley Alexandra 03/08/[address] [facility] Floor 6 [place] [address] Fidelina Mancera, SAVANNA 02/28/[address] [facility] Complete Care [address] [place] [address] Medical Office Building [address], [address] [place] [address] Valentine Murillo, SAVANNA Spoke With Home Health Provider 02/25/[address] [facility] H[facility] Floor 6 [place] [address] Fidelina Mancera, RN 02/25/2025 Orders Only [facility] H[facility] Floor 6 [place] [address] Fidelina Mancera RN Iron deficiency anemia, unspecified iron deficiency anemia type (Primary Dx) 02/24/2025 2:20 PM CDT Lab [facility] ([facility]) [address] [place] [address] Iron deficiency anemia, unspecified iron deficiency anemia type 02/24/2025 1:15 PM CDT Office Visit [facility] Hematology [address] [facility] Floor 6 [place] [phone] Emiliana Myles MD Iron deficiency anemia, unspecified iron deficiency anemia type (Primary Dx) 02/24/2025 12:15 PM CDT Lab [facility] Oncology Lab [address] [facility] Floor 6 [place] [address] 02/21/[address] [facility] Complete Care [address] [facility] Medical Office Building [address], [address] [place] [address] Kandis Robb NP 02/17/[address] [facility] Complete Care [address] [facility] Medical Office Building [address], [address] [place] [address] Georgia Fairchild, SAVANNA 02/16/[address] [facility] Complete Care [address] [facility] Medical Office Building [address], [address] [place] [address] Georgia Fairchild, SAVANNA 02/11/[address] [facility] Complete Care [address] [facility] Medical Office Building [address], [address] [place] [address] Georgia Fairchild, SAVANNA 02/10/[address] [facility] Complete Care [address] [facility] Medical Office Building [address], [address] [place] [address] Georgia Fairchild, SAVANNA 01/24/[address] [facility] Gastroenterology [address] [facility] Advanced [facility] 12th [place] [address] [place] [address] Sai Mack, SAVANNA 01/24/2025 Results Follow-Up [facility] Gasteroenterology [address] [facility] 12th [place] [address] [place] [address] Rosanna Partida, GAVINO Gamma GT, Hepatic function panel 01/21/[address] [facility] Complete Care [address] [place] [address] Office [address], [address] [place] [address] Georgia Fairchild RN 01/20/[address] [facility] Complete Care [address] [facility] Office Building [address], [address] [place] [address] Edith Miguel, SAVANNA Forms/questionnaire s 01/20/2025 Results Follow-Up [facility] Clinic [facility] 12th [place] [address] [place] [address] Kandis Robb NP Hemoglobin A1c 01/19/2025 7:15 PM CDT Lab [facility] ([facility]) [address] [place] [phone] Liver lesion 01/19/2025 7:00 PM CDT Lab [facility] ([facility]) [address] [place] [phone] Screening for diabetes mellitus; Screening for cholesterol level 01/19/2025 3:40 PM CDT Office Visit [facility] Complete Care Clinic [facility] 12th [place] [address] [place] [address] Kandis Robb NP Wellness examination (Primary Dx); Screening for diabetes mellitus; Screening for cholesterol level; Iron deficiency anemia, unspecified iron deficiency anemia type; Anxiety disorder, unspecified type; Spina bifida, unspecified hydrocephalus presence, unspecified spinal region (HCC) 01/18/2025 3:00 PM CDT Infusion [facility] - Infusion [address] [facility] Floor 5 [place] [address] Iron deficiency anemia, unspecified iron deficiency anemia type (Primary Dx) 01/11/2025 3:00 PM CDT Infusion [facility] - Infusion [address] Floor 6 [place] [address] Iron deficiency anemia, unspecified iron deficiency anemia type (Primary Dx) 01/04/2025 3:00 PM CDT Infusion [facility] - Infusion [address] Floor 6 [place] [address] Iron deficiency anemia, unspecified iron deficiency anemia type (Primary Dx) from Last 3 Months Immunizations Immunization Administration Dates Next Due Hep B, Adolescent or Pediatric 08/13/1999,1997,1998 Influenza, Quadrivalent, Spl it, Preservative Free, Intramuscular 08/01/2015 Influenza, Unspecified 08/01/2015 Surgical History Surgery Date Site/Laterality Comments COLLECTION AGENT SHUNT INSERTION BLADDER AUGMENTATION SUPRAPUBIC CATHETER INSERTION VENTRICULOPERITONEAL SHUNT BIOPSY DEEP BONE 03/15/2025 N/A Medical History Medical History Date Comments Spina bifida (HCC) T 12 level Hydrocephalus (HCC) with COLLECTION AGENT shun t Chiari malformation type II (HCC) [...] on file Legal Sex Female 9:03 PM BARREL RIB MATTING MACHINE OPERATOR Gender Identity Female 04/06/2023 2:19 [...] Vaccines Discontinued Medical Devices Implanted Type Area Electrophysiology Technician Device Identifier Shelf Expiration Date Model / Serial / Lot Shunt Shunt Neck Procedures Procedure Name Priority Date/Time Associated Diagnosis Comments SCAN - LABS 04/05/2025 12:00 AM CDT CBC WITHOUT DIFFERENTIAL Routine 03/17/2025 11:00 PM [...] mellitus from Last 3 Months Results * SCAN - LABS (04/05/2025 12:00 AM CDT) Provider Scanning Final Result * (ABNORMAL) CBC without differential (03/17/2025 11:00 PM CDT) Pathologist [facility] WBC 13.28(H) 3.80 - 9.90 K/cumm Hgb 9.0(L) 11.9 - 15.5 g/dL [facility] Hct 28.3(L) 35.6 - 45.5 % [facility] Plt 486(H) 150 - 400 K/cumm [facility] MPV 8.9(L) 9.1 - 12.3 fL [facility] RBC 3.48(L) 3.90 - 5.20 M/cumm [facility] MCV 81.3 81.3 - 96.4 fL [facility] MCH 25.9(L) 27.1 - 33.3 pg [facility] MCHC 31.8(L) 32.3 - 35.7 g/dL [facility] RDW CV 21.1(H) 11.1 - 14.9 % [facility] RDW SD 62.4(H) 35.7 - 48.1 fL [facility] NRBC abs 0.00 0.00 - 0.01 K/cumm [facility] Blood 03/17/2025 11:0 0 PM CDT 03/17/2025 11:24 PM CDT Sophia George MD LAB BLOOD ORDERABLES Final Re sult [facility] Department [place] [address] * eGFR (03/16/2025 8:24 PM CDT) Pathologist [facility] eGFR >90 >=60 [...] MD LAB BLOOD ORDERABLES Final Re sult [facility] Department [place] [address] * (ABNORMAL) CBC without differential (03/16/2025 8:24 PM CDT) WBC 17.04(H) 3.80 - 9.90 K/cumm Hgb 9.1(L) 11.9 - 15.5 g/dL [facility] Hct 29.7(L) 35.6 - 45.5 % [facility] Plt 504(H) 150 - 400 K/cumm [facility] MPV 9.3 9.1 - 12.3 fL [facility] RBC 3.59(L) 3.90 - 5.20 M/cumm [facility] MCV 82.7 81.3 - 96.4 fL [facility] MCH 25.3(L) 27.1 - 33.3 pg [facility] MCHC 30.6(L) 32.3 - 35.7 g/dL [facility] RDW CV 21.2(H) 11.1 - 14.9 % [facility] RDW SD 63.5(H) 35.7 - 48.1 fL [facility] NRBC abs 0.00 0.00 - 0.01 K/cumm [facility] Blood 03/16/2025 8:24 PM CDT 03/16/2025 10:43 PM CDT Sophia George MD LAB BLOOD ORDERABLES Final Re sult [facility] Department [place] [address] * (ABNORMAL) Basic metabolic panel (03/16/2025 8:24 PM CDT) Sodium 134(L) 135 - 145 mmol/L Potassium, pl 3.9 3.3 - 4.9 mmol/L [facility] Chloride 100 97 - 110 mmol/L [facility] CO2 24 22 - 32 mmol/L [facility] Anion gap 10 2 - 15 mmol/L [facility] BUN 13 6 - 25 mg/dL [facility] Creatinine 0.35(L) 0.60 - 1.10 mg/dL [facility] Glucose 158 70 - 199 mg/dL [facility] Comment: Interpretive Data Fasting glucose >/= [...] 2022. Calcium 8.3(L) 8.5 - 10.3 mg/dL [facility] Blood 03/16/2025 8:24 PM CDT 03/16/2025 10:35 PM CDT Sophia George MD LAB BLOOD ORDERABLES Final Re sult Performing Organization Address [facility] Co de Phone Number [facility] [place] [address] * eGFR (03/15/2025 9:42 PM CDT) [facility] eGFR >90 >=60 [...] 9:42 PM CDT 03/15/2025 10:35 PM CDT Sophia George MD LAB BLOOD ORDERABLES Final Re sult Performing Organization Address [facility] Co de Phone Number [facility] Department [place] [address] * (ABNORMAL) CBC without differential (03/15/2025 9:42 PM CDT) [facility] WBC 12.91(H) 3.80 - 9.90 K/cumm Hgb 10.0(L) 11.9 - 15.5 g/dL [facility] Hct 32.6(L) 35.6 - 45.5 % [facility] Plt 546(H) 150 - 400 K/cumm [facility] MPV 9.0(L) 9.1 - 12.3 fL [facility] RBC 3.96 3.90 - 5.20 M/cumm [facility] MCV 82.3 81.3 - 96.4 fL [facility] MCH 25.3(L) 27.1 - 33.3 pg [facility] MCHC 30.7(L) 32.3 - 35.7 g/dL [facility] RDW CV 21.3(H) 11.1 - 14.9 % [facility] RDW SD 63.5(H) 35.7 - 48.1 fL [facility] NRBC abs 0.00 0.00 - 0.01 K/cumm [facility] Blood 03/15/2025 9:42 PM CDT 03/15/2025 10:38 PM CDT us Sophia George MD LAB BLOOD ORDERABLES Final Re sult Performing Organization Address [facility] Co de Phone Number [facility] Department [place] [address] * Hepatic function panel (03/15/2025 9:42 PM CDT) Bilirubin, total <0.2 0.1 - 1.2 mg/dL Comment:Reviewed Bilirubin, direct <0.2 0.1 - 0.3 mg/dL [facility] Protein, pl 6.7 6.5 - 8.5 g/dL [facility] Albumin 3.6 3.5 - 5.0 g/dL [facility] Alk phos 94 40 - 130 Units/L [facility] ALT 13 7 - 45 Units/L [facility] AST 26 10 - 45 Units/L [facility] Blood 03/15/2025 9:42 PM CDT 03/15/2025 10:35 PM CDT us Lou Castillo MD LAB BLOOD ORDERABLES Final Result Performing Organization Address [facility]/ZIP Co de Phone Number [facility] Department [place] [address] * (ABNORMAL) Basic metabolic panel (03/15/2025 9:42 PM CDT) Sodium 136 135 - 145 mmol/L Potassium, pl 4.1 3.3 - 4.9 mmol/L [facility] Chloride 105 97 - 110 mmol/L [facility] CO2 23 22 - 32 mmol/L [facility] Anion gap 8 2 - 15 mmol/L [facility] BUN 16 6 - 25 mg/dL [facility] Creatinine 0.49(L) 0.60 - 1.10 mg/dL [facility] Glucose 112 70 - 199 mg/dL [facility] Comment: Interpretive Data Fasting glucose >/= [...] 2022. Calcium 8.7 8.5 - 10.3 mg/dL [facility] Blood 03/15/2025 9:42 PM CDT 03/15/2025 10:35 PM CDT us Sophia George MD LAB BLOOD ORDERABLES Final Re sult [facility] Department [place] [address] * IR Biopsy Deep Bone (03/15/2025 10:19 [...] was obtained. Prior to beginning the procedure, [place] Protocol was performed to confirm the patient's [...] Procedure Note Curt Payne MD PhD - 05/27/2025 EXAMINATION: Left ischium bone biopsy under CT [...] was obtained. Prior to beginning the procedure, [place] Protocol was performed to confirm the patient's [...] Final Report: Rare Staphylococcus epidermidis (.) [facility] Organism STAPHYLOCOCCUS EPIDERMIDIS [facility] Biopsy (Pelvic) 03/15/2025 1 0:17 AM CDT 03/15/2025 2:07 PM CDT Narrative [facility] - 03/21/2025 1:44 PM CDT Testing performed by [facility] Microbiology Laboratory ([phone]) Specimens submitted from normally sterile body sites [...] us Lou Castillo MD LAB MICROBIOLOGY - [facility] ORDERABLES Final Result [facility] Department [place] [address] * Aerobic and anaerobic culture and gram stain Aspirate Pelvic (03/15/2025 10:17 AM CDT) Direct Specimen Exam Stain: Few polymorphonuclear leukocytes seen. No organisms seen. Report Final Report: No growth [facility] Aspirate (Pelvic) 03/15/2025 10:17 AM CDT 03/15/2025 2:06 PM CDT Narrative [facility] - 03/18/2025 12:35 PM CDT Left Ischium Aspiration Testing performed by [facility] Microbiology Laboratory ([phone]) Specimens submitted from normally sterile body sites [...] MICROBIOLOGY - GENERA L ORDERABLES Final Result [facility] Department [place] [address] * Surgical pathology (03/15/2025 10:05 AM CDT) Tissue (Bone - Biopsy / Curettings) 03/15/2025 10:05 AM CDT Comment:Left Ischium Bone Bi opsy Narrative PATHOLOGY [facility] - 03/21/2025 9:31 AM CDT EPIC results best viewed via link to PDF [facility] Olga Modi [facility] [place] [address] Note to Patients: This report may contain [...] Gender: F : 1990 (Age: 34) Address: [address] [place], [place] [id number] Hospital #: [id number] Taken:03/15/2025 Received:03/15/2025 Reported: 03/21/2025 Patient Type: [facility] Inpatient Service: Medical Location: [facility] Physician(s): Curt Payne M.D. Diagnosis: Bone, [...] Surgical Pathology and Flow Cytometry Departments at [facility] as part of an ongoing quality control industrial engineer program and in compliance with federally mandated [...] Surgical Pathology and Flow Cytometry Departments of [facility]. It has not been cleared or approved by the U. S. Food and Drug Administration. IMAGES AND SCANNED DOCUMENTS, IF INCLUDED, ONLY VIEWABLE IN PDF VERSION OF REPORT Lew Dewitt MD LAB PATHOLOGY ORDERABLES Final Result PATHOLOGY [facility] 3rd Floor [place], [place] [phone] * eGFR (03/14/2025 10:30 PM CDT) eGFR [...] MD LAB BLOOD ORDERABLES Final Re sult [facility] Department [place] [address] * (ABNORMAL) CBC without differential (03/14/2025 10:30 PM CDT) WBC 12.38(H) 3.80 - 9.90 K/cumm Hgb 9.5(L) 11.9 - 15.5 g/dL [facility] Hct 31.2(L) 35.6 - 45.5 % [facility] Plt 581(H) 150 - 400 K/cumm [facility] MPV 9.1 9.1 - 12.3 fL [facility] RBC 3.78(L) 3.90 - 5.20 M/cumm [facility] MCV 82.5 81.3 - 96.4 fL [facility] MCH 25.1(L) 27.1 - 33.3 pg [facility] MCHC 30.4(L) 32.3 - 35.7 g/dL [facility] RDW CV 21.6(H) 11.1 - 14.9 % [facility] RDW SD 63.4(H) 35.7 - 48.1 fL [facility] NRBC abs 0.00 0.00 - 0.01 K/cumm [facility] Blood 03/14/2025 10:3 0 PM CDT 03/14/2025 10:46 PM CDT us Sophia George MD LAB BLOOD ORDERABLES Final Re sult [facility] Department [place] [address] * (ABNORMAL) Basic metabolic panel (03/14/2025 10:30 PM CDT) Sodium 136 135 - 145 mmol/L Potassium, pl 4.3 3.3 - 4.9 mmol/L [facility] Chloride 104 97 - 110 mmol/L [facility] CO2 24 22 - 32 mmol/L [facility] Anion gap 8 2 - 15 mmol/L [facility] BUN 10 6 - 25 mg/dL [facility] Creatinine 0.29(L) 0.60 - 1.10 mg/dL [facility] Glucose 146 70 - 199 mg/dL [facility] Comment: Interpretive Data Fasting glucose >/= [...] 2022. Calcium 8.6 8.5 - 10.3 mg/dL [facility] Blood 03/14/2025 10:3 0 PM CDT 03/14/2025 10:46 PM CDT us Sophia George MD LAB BLOOD ORDERABLES Final Re sult [facility] [place] [address] * eGFR (03/13/2025 8:47 PM CDT) eGFR [...] MD LAB BLOOD ORDERABLES Final Re sult [facility] [place] [address] * (ABNORMAL) CBC without differential (03/13/2025 8:47 PM CDT) WBC 12.42(H) 3.80 - 9.90 K/cumm Hgb 10.4(L) 11.9 - 15.5 g/dL [facility] Hct 33.6(L) 35.6 - 45.5 % [facility] Plt 575(H) 150 - 400 K/cumm [facility] MPV 9.2 9.1 - 12.3 fL [facility] RBC 4.06 3.90 - 5.20 M/cumm [facility] MCV 82.8 81.3 - 96.4 fL [facility] MCH 25.6(L) 27.1 - 33.3 pg [facility] MCHC 31.0(L) 32.3 - 35.7 g/dL [facility] RDW CV 21.7(H) 11.1 - 14.9 % [facility] RDW SD 64.8(H) 35.7 - 48.1 fL [facility] NRBC abs 0.00 0.00 - 0.01 K/cumm [facility] Blood 03/13/2025 8:47 PM CDT 03/13/2025 9:03 PM CDT Sophia George MD LAB BLOOD ORDERABLES Final Re sult Performing Organization Address [facility]/ZIP Co de Phone Number [facility] Department of [employer] [place] [address] * (ABNORMAL) Basic metabolic panel (03/13/2025 8:47 PM CDT) Pathologist [facility] Sodium 139 135 - 145 mmol/L Potassium, pl 3.8 3.3 - 4.9 mmol/L [facility] Chloride 105 97 - 110 mmol/L [facility] CO2 24 22 - 32 mmol/L [facility] Anion gap 10 2 - 15 mmol/L [facility] BUN 14 6 - 25 mg/dL [facility] Creatinine 0.42(L) 0.60 - 1.10 mg/dL [facility] Glucose 127 70 - 199 mg/dL [facility] Comment: Interpretive Data Fasting glucose >/= [...] 2022. Calcium 9.0 8.5 - 10.3 mg/dL [facility] Blood 03/13/2025 8:47 PM CDT 03/13/2025 9:03 PM CDT Sophia George MD LAB BLOOD ORDERABLES Final Re sult Performing Organization Address [facility] Co de Phone Number GR[facility]EL [facility] Department [place] [address] * eGFR (03/12/2025 8:18 PM CDT) Pathologist [facility] eGFR >90 >=60 [...] MD LAB BLOOD ORDERABLES Final Re sult [facility] [place] [address] * (ABNORMAL) CBC without differential (03/12/2025 8:18 PM CDT) WBC 9.00 3.80 - 9.90 K/cumm Hgb 9.1(L) 11.9 - 15.5 g/dL [facility] Hct 29.5(L) 35.6 - 45.5 % [facility] Plt 494(H) 150 - 400 K/cumm [facility] MPV 9.3 9.1 - 12.3 fL [facility] RBC 3.61(L) 3.90 - 5.20 M/cumm [facility] MCV 81.7 81.3 - 96.4 fL [facility] MCH 25.2(L) 27.1 - 33.3 pg [facility] MCHC 30.8(L) 32.3 - 35.7 g/dL [facility] RDW CV 21.7(H) 11.1 - 14.9 % [facility] RDW SD 63.7(H) 35.7 - 48.1 fL [facility] NRBC abs 0.00 0.00 - 0.01 K/cumm [facility] Blood 03/12/2025 8:18 PM CDT 03/12/2025 8:40 PM CDT Sophia George MD LAB BLOOD ORDERABLES Final Re sult [facility] [place] [address] * (ABNORMAL) Basic metabolic panel (03/12/2025 8:18 PM CDT) Sodium 141 135 - 145 mmol/L Potassium, pl 4.0 3.3 - 4.9 mmol/L [facility] Chloride 108 97 - 110 mmol/L [facility] CO2 24 22 - 32 mmol/L [facility] Anion gap 9 2 - 15 mmol/L [facility] BUN 15 6 - 25 mg/dL [facility] Creatinine 0.39(L) 0.60 - 1.10 mg/dL [facility] Glucose 163 70 - 199 mg/dL [facility] Comment: Interpretive Data Fasting glucose >/= [...] 2022. Calcium 8.7 8.5 - 10.3 mg/dL [facility] Blood 03/12/2025 8:18 PM CDT 03/12/2025 8:40 PM CDT Sophia George MD LAB BLOOD ORDERABLES Final Re sult [facility] [place] [address] * MRI Pelvis MSK W WO Contrast [...] and agrees with it. Electronically signed by: MD Ladarius Vega 03/13/2025 9:36 AM CDT EXAMINATION: MRI PELVIS [...] Jadon Schultz MD us Joni Sweeney MD [facility] MARCO ANTONIO YOSHI Final Result * eGFR (03/11/2025 9:49 PM [...] MD LAB BLOOD ORDERABLES Final Re sult [facility] [place] [address] * (ABNORMAL) CBC without differential (03/11/2025 9:49 PM CDT) WBC 11.05(H) 3.80 - 9.90 K/cumm Hgb 9.1(L) 11.9 - 15.5 g/dL [facility] Hct 29.0(L) 35.6 - 45.5 % [facility] Plt 489(H) 150 - 400 K/cumm [facility] MPV 9.4 9.1 - 12.3 fL [facility] RBC 3.58(L) 3.90 - 5.20 M/cumm [facility] MCV 81.0(L) 81.3 - 96.4 fL [facility] MCH 25.4(L) 27.1 - 33.3 pg [facility] MCHC 31.4(L) 32.3 - 35.7 g/dL [facility] RDW CV 21.9(H) 11.1 - 14.9 % [facility] RDW SD 63.8(H) 35.7 - 48.1 fL [facility] NRBC abs 0.00 0.00 - 0.01 K/cumm [facility] Blood 03/11/2025 9:49 PM CDT 03/11/2025 10:41 PM CDT Sohpia George MD LAB BLOOD ORDERABLES Final Re sult Performing Organization Address City/[facility]/ZIP Co de Phone Number [facility] [place] [address] * (ABNORMAL) Basic metabolic panel (03/11/2025 9:49 PM CDT) Sodium 138 135 - 145 mmol/L Potassium, pl 4.0 3.3 - 4.9 mmol/L [facility] Chloride 106 97 - 110 mmol/L [facility] CO2 25 22 - 32 mmol/L [facility] Anion gap 7 2 - 15 mmol/L [facility] BUN 15 6 - 25 mg/dL [facility] Creatinine 0.39(L) 0.60 - 1.10 mg/dL [facility] Glucose 100 70 - 199 mg/dL [facility] Comment: Interpretive Data Fasting glucose >/= [...] 2022. Calcium 8.3(L) 8.5 - 10.3 mg/dL [facility] Blood 03/11/2025 9:49 PM CDT 03/11/2025 10:39 PM CDT Sophia George MD LAB BLOOD ORDERABLES Final Re sult Performing Organization Address City/[facility]/ZIP Co de Phone Number [facility] [place] [address] * (ABNORMAL) Iron profile w/ IBC (03/11/2025 2:51 PM CDT) [facility] Iron 17(L) 35 - 145 mcg/dL Comment:Reviewed TIBC 182(L) 250 - 400 mcg/dL [facility] Transferrin saturation 9(L) 20 - 50 % [facility] Blood 03/11/2025 2:51 PM CDT 03/11/2025 3:31 PM CDT Joni Sweeney MD LAB BLOOD ORD ERABLES Final Result Performing Organization Address [facility] Co de Phone Number [facility] [place] [address] * (ABNORMAL) Reticulocyte Count (03/11/2025 2:51 PM CDT) [facility] Retics, absolute 58 20 - 87 K/cumm Retics 1.6 0.4 - 2.9 % [facility] Reticulocyte Hgb 23.2(L) 30.5 - 38.0 pg [facility] Blood 03/11/2025 2:51 PM CDT 03/11/2025 3:42 PM CDT Joni Sweeney MD LAB BLOOD ORD ERABLES Final Result Performing Organization Address City/[facility]/ZIP Co de Phone Number [facility] Department [place] [address] * Folate (03/11/2025 2:51 PM CDT) [facility] Folic acid 10.5 >=5.0 ng/mL Blood 03/11/2025 2:51 PM CDT 03/11/2025 3:31 PM CDT Joni Sweeney MD LAB BLOOD ORD [place]AB[place] [address] * Ferritin (03/11/2025 2:51 PM CDT) Ferritin 146 13 - 150 ng/mL Comment:Reviewed Blood 03/11/2025 2:51 PM CDT 03/11/2025 3:31 PM CDT Joni Sweeney MD LAB BLOOD ORD ERABLES Final Result Performing Organization Address City/[facility] Co de Phone Number [facility] [place] [address] * Vitamin B12 (03/11/2025 2:51 PM CDT) Pathologist [facility] Vitamin B12 319 230 - 1,250 pg/mL Blood 03/11/2025 2:51 PM CDT 03/11/2025 3:31 PM CDT Joni Sweeney MD LAB BLOOD ORD ERABLES Final Result Performing Organization Address City/[facility] Co de Phone Number [facility] [place] [address] * Wound Care (03/11/2025 12:04 PM CDT) Narrative Elizabeth Caicedo MD - 03/11/2025 12:04 PM CDT Elizabeth Caicedo MD 03/12/2025 3:19 PM Wound Care Date/Time: 03/11/2025 12:04 PM Performed by: Nargis Mary MD Authorized by: Nargis Mary MD Consent: Consent obtained: Verbal Consent given by: Patient Risks, benefits, and alternatives were discussed: yes [place] protocol: Procedure explained and questions answered to [...] Erythrocyte sedimentation rate (03/11/2025 9:08 AM CDT) Pathologist [facility] Erythrocyte sedimentation rate 66(H) 1 - 20 mm/hr Blood 03/11/2025 9:08 AM CDT 03/11/2025 9:46 AM CDT us Joni Sweeney MD LAB BLOOD ORD ERABLES Final Result Performing Organization Address City/[facility] Co de Phone Number [facility] [place] [address] * (ABNORMAL) CRP (acute phase) (03/11/2025 9:08 AM CDT) Pathologist [facility] CRP 131.5(H) <=10.0 mg/L Blood 03/11/2025 9:08 AM CDT 03/11/2025 9:46 AM CDT us Joni Sweeney MD LAB BLOOD ORD ERABLES Final Result [facility] [place] [address] * Urinalysis reflex to microscopic and culture Urine (03/11/2025 4:42 AM CDT) Color, ur Straw Yellow Clarity, ur Clear Clear [facility] Specific gravity, ur 1.008 1.003 - 1.030 [facility] pH, urine 6.5 [facility] Comment: Interpretive Data U rine pH is affected by diet, medications, systemic acid-base disturbances, and renal tubular function. pH may affect urinary stone formation. For example, urine pH below 6.0 may help reduce the tendency for calcium phosphate stones and pH greater than 6.0 may reduce the tendency for uric acid stone formation. Source: [facility] Current Interpretive Data was last revised on 2017 Protein, ur ql Negative Negative [facility] Glucose, ur ql Negative Negative [facility] Ketones, ur Negative Negative [facility] Bilirubin, ur Negative Negative [facility] Blood, ur Negative Negative [facility] Urobilinogen, ur <2.0 <2.0 mg/dL [facility] Nitrite, ur Negative Negative [facility] Leukocyte esterase, ur Negative Negative [facility] UA reflex comment Reflex conditions for microscopic UA and culture not met. [facility] Urine 03/11/2025 4:42 AM CDT 03/11/2025 4:59 AM CDT Reymundo Sanchez MD LAB MICROBIOLOGY - [facility] ORDERABLES Final Result [facility] [place] [address] * CT Pelvis W Contrast (03/11/2025 3:29 [...] FARHAN CE Final Result Performing Organization Address City/[facility] Co de Phone Number [facility] Department [place] [address] * Sepsis Lactate w/ Reflex (03/11/2025 2:08 AM CDT) [facility] Sepsis Lactate 1.0 0.7 - 2.0 mmol/L Blood 03/11/2025 2:08 AM CDT 03/11/2025 2:16 AM CDT Ciera Browne MD LAB BLOOD ORDERABLES Final Result Performing Organization Address City/[facility] Co de Phone Number [facility] Department [place] [address] * eGFR (03/11/2025 2:08 AM CDT) [facility] Browne MD LAB BLOOD ORDERABLES Final Result [facility] [place] [address] * (ABNORMAL) Differential, auto (03/11/2025 2:08 AM CDT) Neutrophil abs 12.27(H) 1.50 - 6.50 K/cumm Imm gran abs 0.17(H) 0.00 - 0.10 K/cumm [facility] Lymphocyte abs 1.80 0.80 - 3.30 K/cumm [facility] Monocyte abs 1.15(H) 0.20 - 0.80 K/cumm [facility] Eosinophil abs 0.20 0.00 - 0.50 K/cumm [facility] Basophil abs 0.05 0.00 - 0.10 K/cumm [facility] Neutrophil pct 78.4 % [facility] Comment: Interpretive Data Percent cell count reference ranges are not reported, since discordance with absolute values may lead to misinterpretation of CBC data. Current Interpretive Data was last revised on 2018. Imm gran pct 1.1 % [facility] Comment: Interpretive Data Percent cell count reference ranges are not reported, since discordance with absolute values may lead to misinterpretation of CBC data. Current Interpretive Data was last revised on 2018. Lymphocyte pct 11.5 % [facility] Comment: Interpretive Data Percent cell count reference ranges are not reported, since discordance with absolute values may lead to misinterpretation of CBC data. Current Interpretive Data was last revised on 2018. Monocyte pct 7.4 % [facility] Comment: Interpretive Data Percent cell count reference ranges are not reported, since discordance with absolute values may lead to misinterpretation of CBC data. Current Interpretive Data was last revised on 2018. Eosinophil pct 1.3 % [facility] Comment: Interpretive Data Percent cell count reference ranges are not reported, since discordance with absolute values may lead to misinterpretation of CBC data. Current Interpretive Data was last revised on 2018. Basophil pct 0.3 % [facility] Comment: Interpretive Data Percent cell count reference ranges are not reported, since discordance with absolute values may lead to misinterpretation of CBC data. Current Interpretive Data was last revised on 2018. Blood 03/11/2025 2:08 AM CDT 03/11/2025 2:19 AM CDT us Ciera Browne MD LAB BLOOD ORDERABLES Final Result [facility] [place] [address] * (ABNORMAL) CBC with auto differential (03/11/2025 2:08 AM CDT) WBC 15.64(H) 3.80 - 9.90 K/cumm Hgb 9.5(L) 11.9 - 15.5 g/dL [facility] Hct 30.0(L) 35.6 - 45.5 % [facility] Plt 522(H) 150 - 400 K/cumm [facility] MPV 9.2 9.1 - 12.3 fL [facility] RBC 3.73(L) 3.90 - 5.20 M/cumm [facility] MCV 80.4(L) 81.3 - 96.4 fL [facility] MCH 25.5(L) 27.1 - 33.3 pg [facility] MCHC 31.7(L) 32.3 - 35.7 g/dL [facility] RDW CV 22.0(H) 11.1 - 14.9 % [facility] RDW SD 63.6(H) 35.7 - 48.1 fL [facility] NRBC abs 0.00 0.00 - 0.01 K/cumm [facility] Blood 03/11/2025 2:08 AM CDT 03/11/2025 2:19 AM CDT us Ciera Browne MD LAB BLOOD ORDERABLES Final Result [facility] [place] [address] * Blood culture Blood Peripheral (03/11/2025 2:08 AM CDT) Report Final Report: No growth Blood (Peripheral) 03/11/2025 2:08 AM CDT 03/11/2025 2:19 AM CDT Narrative [facility] - 03/15/2025 7:01 AM CDT From [...] performance characteristics have been verified by the [facility]. For questions about this culture, contact the Microbiology Laboratory at [phone]. Interpretive data was last revised on 24. Ciera Browne MD LAB MICROBIOLOGY - GENERAL ORDERABLES Final Result [facility] [place] [address] * Blood culture Blood Peripheral (03/11/2025 2:08 AM CDT) Report Final Report: No growth Blood (Peripheral) 03/11/2025 2:08 AM CDT 03/11/2025 2:19 AM CDT Narrative [facility] - 03/15/2025 7:01 AM CDT Draw Blood [...] performance characteristics have been verified by the [facility]. For questions about this culture, contact the Microbiology Laboratory at [phone]. Interpretive data was last revised on 24. Ciera Browne MD LAB MICROBIOLOGY - GENERAL ORDERABLES Final Result [facility] Department [place] [address] * (ABNORMAL) Comprehensive metabolic panel (03/11/2025 2:08 AM CDT) Sodium 134(L) 135 - 145 mmol/L Potassium, pl 3.8 3.3 - 4.9 mmol/L [facility] Chloride 99 97 - 110 mmol/L [facility] CO2 23 22 - 32 mmol/L [facility] Anion gap 12 2 - 15 mmol/L [facility] BUN 17 6 - 25 mg/dL [facility] Creatinine 0.32(L) 0.60 - 1.10 mg/dL [facility] Glucose 95 70 - 199 mg/dL [facility] Comment: Interpretive Data Fasting glucose >/= [...] 2022. Calcium 8.6 8.5 - 10.3 mg/dL [facility] Bilirubin, total 0.2 0.1 - 1.2 mg/dL [facility] Protein, pl 6.8 6.5 - 8.5 g/dL [facility] Albumin 3.5 3.5 - 5.0 g/dL [facility] Alk phos 99 40 - 130 Units/L [facility] ALT 8 7 - 45 Units/L [facility] AST 12 10 - 45 Units/L [facility] Blood 03/11/2025 2:08 AM CDT 03/11/2025 2:19 AM CDT Ciera Browne MD LAB BLOOD ORDERABLES Final Result Performing Organization Address [facility] Co de Phone Number [facility] [place] [address] * Iron profile w/ IBC (02/24/2025 12:59 PM CDT) Pathologist [facility] Iron 35 35 - 145 mcg/dL TIBC See Comment 250 - 400 mcg/dL [facility] Comment:Unable to calculate Transferrin saturation See Comment 20 - 50 % [facility] Comment:Unable to calculate Blood 02/24/2025 12:5 9 PM CDT 02/24/2025 1:46 PM CDT us Emiliana Myles MD LAB BLOOD ORDERABLES Final R esult Performing Organization Address [facility] Co de Phone Number [facility] [place] [address] * Ferritin (02/24/2025 12:59 PM CDT) Pathologist [facility] Ferritin See Comment 13 - 150 ng/mL Comment:Credited; Hemolyzed Specimen Blood 02/24/2025 12:5 9 PM CDT 02/24/2025 1:46 PM CDT us Emiliana Myles MD LAB BLOOD ORDERABLES Final R esult Performing Organization Address [facility] Co de Phone Number [facility] [place] [address] * Hemoglobin A1c (01/19/2025 5:02 PM CDT) Pathologist [facility] Hgb A1C 4.8 4.0 - 5.6 % Estimated Average Glucose 91 mg/dL [facility] Comment: The ADA recommends reporting an [...] 01/19/2025 5:39 PM CDT us Kandis Robb WEB DESIGN SPECIALIST LAB BLOOD ORDERABLES Katie l Result Performing Organization Address [facility] Co de Phone Number [facility] [place] [address] * Gamma GT (01/19/2025 5:02 PM CDT) Pathologist [facility] GGT 9 5 - 35 Units/L Blood 01/19/2025 5:02 PM CDT 01/19/2025 5:39 PM CDT Narrative [facility] - 01/19/2025 6:19 PM CDT Kristen, Please take these orders to any lab to be completed in late December . If you do not use a [facility] lab, please call [phone] when you complete the lab with the name of the lab so we can obtain results. Please fax results to [phone] call [phone] with any questions. us Rosanna Partida WEB DESIGN SPECIALIST LAB BLOOD ORDERABLES Fin al Result Performing Organization Address [facility] Co de Phone Number [facility] [place] [address] * (ABNORMAL) Hepatic function panel (01/19/2025 5:02 PM CDT) Bilirubin, total 0.2 0.1 - 1.2 mg/dL Bilirubin, direct <0.2 0.1 - 0.3 mg/dL [facility] Protein, pl 6.9 6.5 - 8.5 g/dL [facility] Albumin 4.4 3.5 - 5.0 g/dL [facility] Alk phos 133(H) 40 - 130 Units/L [facility] ALT 14 7 - 45 Units/L [facility] AST 13 10 - 45 Units/L [facility] Blood 01/19/2025 5:02 PM CDT 01/19/2025 5:39 PM CDT Narrative [facility] - 01/19/2025 6:19 PM CDT Kristen, Please take these orders to any lab to be completed in late December . If you do not use a [facility] lab, please call [phone] when you complete the lab with the name of the lab so we can obtain results. Please fax results to [phone] call [phone] with any questions. us Rosanna Partida NP LAB BLOOD ORDERABLES Fin al Result [facility] Department [place] [address] * Lipid panel (01/19/2025 5:02 PM CDT) [...] on 2018. Triglycerides 60 <=149 mg/dL [facility] Comment: Interpretive Data Ages < or [...] on 2018. HDL 51 >=40 mg/dL [facility] Comment: Interpretive Data Ages < or [...] 2018. LDL, calculated 75 <=129 mg/dL [facility] Comment: Interpretive Data Ages < or [...] NCEP Expert Panel. Circulation 2004;110:227 3. Vladislav Epps al. EDITH Cardiol. 2019February 17;5(5):540-548. doi: 10.1001/[email or web address].2020.0013 Current Interpretive Data was last revised on 2024. Non-HDL Cholesterol 88 mg/dL [facility] Comment: Interpretive Data Ages < or [...] last revised on 2018. Chol/HDL ratio 3 [facility] Blood 01/19/2025 5:02 PM CDT 01/19/2025 5:39 PM CDT us Kandis Robb WEB DESIGN SPECIALIST LAB BLOOD ORDERABLES Katie patterson Result [facility] [place] [address] from Last [address] [place] [place] [address] [place] [address] [facility] [place] Advance Directives For more information, please contact: [phone] * Full Code (Latest Code Status on File) Date Activated Date Inactivated Comments 03/11/2025 6:39 PM 03/18/2025 9:51 PM * Full Code Date Activated Date Inactivated Comments 01/20/2024 9:37 AM 01/20/2024 5:42 PM * Full Code Date Activated Date Inactivated Comments 04/29/2023 10:54 AM 04/30/2023 5:26 AM Care Teams Health And Safety Specialist Relationship Specialty Start Date End Date Kandis Robb NP [address] [place] [address] PCP - General Nurse Practitioner 03/08/25 Pavan Rockwell MD [address] IM INFECTIOUS DISEASE, [facility] [address] [place] [address] PCP - Home Infusion Attending Infectious Diseases 03/22/25 Arnoldo Longoria [facility] Pharmacist Pharmacy 03/22/25
--- OUTSIDE RECORDS SUMMARY | 2025-04-06 16:09 | XMS_ITS ---
Author Organization [facility] [address] [facility] Address [address] [place] [address] Care Team Providers Care Planing Machine Operator Name Role Phone Kandis Robb MANAGER FACILITY Primary Care Provider [phone] Pavan [place] MD Unavailable [phone] Arnoldo Longoria [facility] Unavailable Unavail able Home Infusion Status:Enrolled (Active) Start date:03/21/2025 Enrollment date:03/21/2025 Related service episodes:Antiemetic (Closed), Anti-Infective (Active) Overview Cutover complete Norm Smith 03/22/2025 9:28 AM Continued Care and Services Coordination
--- OUTSIDE RECORDS SUMMARY | 2025-04-06 16:09 | XMS_ITS | Referral Summary ---
Author Organization [facility] [address] [facility] Address [address] [place] [address] Care Team Providers Care Siebel Administrator Name Role Phone Kandis Robb NP Primary Care Provider [phone] Pavan Rockwell MD Unavailable Arnoldo Longoria beatrice Unavailable Unavail able Encounters Date Type Department Care Team Description 04/05/2025 Home Infusion [facility] [address] [place] [address] Arnoldo Longoria RPh Cellulitis and abscess of buttock 04/04/2025 2:00 PM CDT Orders Only [facility] [address] [place] [address] 03/31/2025 Telephone [facility] [address] [place] [address] Arnoldo Longoria RPh 03/31/2025 Documentation [facility] Infectious Diseases [address] [place] [phone] Fadumo Addison Opat Progress/Monitoring 03/30/2025 Telephone [facility] Infectious Diseases [address] [place] [address] [phone] Fadumo Addison Labs Only 03/28/2025 2:00 PM CDT Orders Only [facility] [address] [place] [address] 03/23/2025 11:47 PM CDT - 03/24/2025 1:01 AM CDT Emergency [facility] Emergency Department 1 [place] [address] Derrick Garza MD Malfunction of peripheral inserted central catheter, initial encounter (Primary Dx) Discharge Disposition: Discharge to home or self care 03/22/[address] [facility] Home Infusion Therapy [address] [place] [address] [place], [facility] Cellulitis and abscess of buttock (Primary Dx) 03/21/2025 Transitional Care Outreach [facility] Care Coordination [address] [place] [phone] Loni Nascimento RN 03/21/2025 1:00 PM CDT Orders Only [facility] 1 [place] [address] Pressure injury, unstageable, unspecified location (HCC) 03/11/2025 12:24 AM CDT - 03/18/2025 5:35 PM CDT Hospital Encounter [address] [phone] Ciera Browne MD Baum, MD Patel Siddiqui, [...] home, home health skilled care 03/16/2025 Documentation [facility] Infectious Diseases [address] [phone] Joni Hernandez MD OPAT Sign-Off 03/15/2025 Orders Only [facility] Neuro Interventional Radiology [address] [facility] [place] [address] Jessica Schultz, SAVANNA 03/10/2025 Telephone [facility] Complete Care [address] [facility] Medical Office Building [address], [address] [place] [phone] Georgia Fairchild, staff psychologist Check 03/10/2025 Telephone [facility] Epilepsy [address] [facility] Advanced Medicine 6th [place] [address] [place] [phone] Gatito Foreman MD Med Refill 03/09/2025 Documentation [facility] Surgery [address] [place] [address] Ashley Alexandra 03/08/2025 Telephone [facility] Hematology [address] [place] [address] Floor 6 [place] [address] Fidelina Mancera, SAVANNA 02/28/2025 Telephone [facility] Complete Care [facility] Medical Office Building [address], [address] [place] [phone] Valentine Murillo, SAVANNA Spoke With Home Health Provider 02/25/2025 Telephone [facility] Hematology [facility] Floor 6 [place] [address] Fidelina Mancera, SAVANNA 02/25/2025 Orders Only [facility] Hematology [facility] Floor 6 [place] [phone] Fidelina Mancera, RN Iron deficiency anemia, unspecified iron deficiency anemia type (Primary Dx) 02/24/2025 2:20 PM CDT Lab [facility] Advanced [facility], [facility] [place] [phone] Iron deficiency anemia, unspecified iron deficiency anemia type 02/24/2025 12:15 PM CDT Lab [facility] Oncology Lab [facility] Floor 6 [place] [address] 02/24/2025 1:15 PM CDT Office Visit [facility] Hematology [facility] 6 [place] [address] Emiliana Myles MD Iron deficiency anemia, unspecified iron deficiency anemia type (Primary Dx) 02/21/2025 Telephone [facility] Complete Care [facility] Office Building [address], [address] [place] [address] Kandis Robb NP 02/17/2025 Telephone [facility] Complete Care [address] [place] [address] Office Building [address], [address] [place] [address] Georgia Fairchild, SAVANNA 02/16/2025 Telephone [facility] Complete Care [address] [place] [address] Office Building [address], [address] [place] [address] Georgia Fairchild, SAVANNA 02/11/2025 Telephone [facility] Complete Care [address] [place] [address] Office [address], [address] [place] [address] Georgia Fairchild, SAVANNA 02/10/2025 Telephone [facility] Complete Care [address] [place] [address] Office [address], [address] [place] [phone] Georgia Fairchild, SAVANNA 01/24/2025 Documentation [facility] Gastroenterology [facility], [facility] 12th [place] [address] [place] [address] Sai Mack, SAVANNA 01/24/2025 Results Follow-Up [facility] Gasteroenterology [facility], [facility] 12th [place] [address] [place] [address] Rosanna Partida, GAVINO Gamma GT, Hepatic function panel 01/21/2025 Telephone [facility] Complete Care [address] [place] [address] Office [facility] 4, [address] [place] [phone] Georgia Fairchild, SAVANNA 01/20/2025 Telephone [facility] Complete Care [address] [place] [address] Office [facility] 4, [address] [place] [address] Edith Miguel, RN Forms/questionnaire s 01/20/2025 Results Follow-Up [facility] Complete Care Clinic [address] [facility] 12th [place] [address] [place] [address] Kandis Robb, GAVINO Hemoglobin A1c 01/19/2025 7:15 PM CDT Lab [facility] Advanced Medicine (CAM) [address] [place] [phone] Liver lesion 01/19/2025 7:00 PM CDT Lab [facility] Advanced Medicine (CAM) [address] [place] [phone] Screening for diabetes mellitus; Screening for cholesterol level 01/19/2025 3:40 PM CDT Office Visit [facility] Complete Care Clinic [facility], [facility] 12th [place] [address] [place] [address] Kandis Robb NP Wellness examination (Primary Dx); Screening for diabetes mellitus; Screening for cholesterol level; Iron deficiency anemia, unspecified iron deficiency anemia type; Anxiety disorder, unspecified type; Spina bifida, unspecified hydrocephalus presence, unspecified spinal region (HCC) 01/18/2025 3:00 PM CDT Infusion [facility] - Infusion [address] Floor 5 [place] [address] Iron deficiency anemia, unspecified iron deficiency anemia type (Primary Dx) 01/11/2025 3:00 PM CDT Infusion [facility] - Infusion [address] Floor 6 [place] [address] Iron deficiency anemia, unspecified iron deficiency anemia type (Primary Dx) 01/04/2025 3:00 PM CDT Infusion [facility] - Infusion [address] Floor 6 [place] [address] Iron deficiency anemia, unspecified iron deficiency anemia [...] total) by mouth daily 90 capsule 1 Active lamoTRIgine (LaMICtal) 100 mg tablet Take [...] mL IV as needed for line care 38841 mL 06/14/202 5 11:59 PM CDT 025 2025 Active heparin 10 unit/mL syringe flush syringeIndicati ons:Maintain Patency of Indwelling Vascular Catheter Infuse 5 mL (50 Units total) IV as needed (line care) 60529 mL 5 11:59 PM CDT 025 2025 [...] ORAL)Indication s:Supplement Take 1 tablet 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 950 mL 5 11:59 PM CDT 025 2024 Discontinued(R eoaltaer) Active Problems Problem Noted Date Diagnosed Date [...] 12/09/2024 Assessment & Plan (12/09/2024 9:50 AM TYPE BAR AND SEGMENT ASSEMBLER): Patient with liver lesions incidentally found during [...] MR Assessment & Plan (10/21/2024 2:13 PM TYPE BAR AND SEGMENT ASSEMBLER): Update specs as desired. 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. Acute serous otitis media, right ear 06/27/2023 [...] 01/16/2023 Assessment & Plan (10/21/2024 2:15 PM TYPE BAR AND SEGMENT ASSEMBLER): Stable exam with excellent visual function (BCVA, [...] B12/folate. Assessment & Plan (12/09/2024 9:51 AM TYPE BAR AND SEGMENT ASSEMBLER): Has upcoming appt with hematology. Ordered CBC, [...] on file Legal Sex Female 9:03 PM TYPE BAR AND SEGMENT ASSEMBLER Gender Identity Female 04/06/2023 2:19 PM [...] on file Medical Devices Implanted Type Area Stevedoring Superintendent Device Identifier Shelf Expiration Date Model / [...] AM CDT) us Provider Scanning Final Result * (ABNORMAL) CBC without differential (03/17/2025 11:00 PM CDT) WBC 13.28(H) 3.80 - 9.90 K/cumm Hgb 9.0(L) 11.9 - 15.5 g/dL [facility] Hct 28.3(L) 35.6 - 45.5 % [facility] Plt 486(H) 150 - 400 K/cumm [facility] MPV 8.9(L) 9.1 - 12.3 fL [facility] RBC 3.48(L) 3.90 - 5.20 M/cumm [facility] MCV 81.3 81.3 - 96.4 fL [facility] MCH 25.9(L) 27.1 - 33.3 pg [facility] MCHC 31.8(L) 32.3 - 35.7 g/dL [facility] RDW CV 21.1(H) 11.1 - 14.9 % [facility] RDW SD 62.4(H) 35.7 - 48.1 fL [facility] NRBC abs 0.00 0.00 - 0.01 K/cumm [facility] Blood 03/17/2025 11:0 0 PM CDT 03/17/2025 11:24 PM CDT Sophia George MD LAB BLOOD ORDERABLES Final Re sult Performing Organization Address [facility] Co de Phone Number [facility] [place] [address] * eGFR (03/16/2025 8:24 PM CDT) eGFR [...] ORDERABLES Final Re sult Performing Organization Address [facility] Co de Phone Number GRISEL [facility] Department [place] [address] * (ABNORMAL) CBC without differential (03/16/2025 8:24 PM CDT) WBC 17.04(H) 3.80 - 9.90 K/cumm Hgb 9.1(L) 11.9 - 15.5 g/dL [facility] Hct 29.7(L) 35.6 - 45.5 % [facility] Plt 504(H) 150 - 400 K/cumm [facility] MPV 9.3 9.1 - 12.3 fL [facility] RBC 3.59(L) 3.90 - 5.20 M/cumm [facility] MCV 82.7 81.3 - 96.4 fL [facility] MCH 25.3(L) 27.1 - 33.3 pg [facility] MCHC 30.6(L) 32.3 - 35.7 g/dL [facility] RDW CV 21.2(H) 11.1 - 14.9 % [facility] RDW SD 63.5(H) 35.7 - 48.1 fL [facility] NRBC abs 0.00 0.00 - 0.01 K/cumm [facility] Blood 03/16/2025 8:24 PM CDT 03/16/2025 10:43 PM CDT Sophia George MD LAB BLOOD ORDERABLES Final Re sult [facility] Department [place] [address] * (ABNORMAL) Basic metabolic panel (03/16/2025 8:24 PM CDT) Sodium 134(L) 135 - 145 mmol/L Potassium, pl 3.9 3.3 - 4.9 mmol/L [facility] Chloride 100 97 - 110 mmol/L [facility] CO2 24 22 - 32 mmol/L [facility] Anion gap 10 2 - 15 mmol/L [facility] BUN 13 6 - 25 mg/dL [facility] Creatinine 0.35(L) 0.60 - 1.10 mg/dL [facility] Glucose 158 70 - 199 mg/dL [facility] Comment: Interpretive Data Fasting glucose >/= [...] 2022. Calcium 8.3(L) 8.5 - 10.3 mg/dL [facility] Blood 03/16/2025 8:24 PM CDT 03/16/2025 10:35 PM CDT us Sophia George MD LAB BLOOD ORDERABLES Final Re sult Performing Organization Address [facility]/ZIP Co de Phone Number [facility] Department [place] [address] * eGFR (03/15/2025 9:42 PM CDT) eGFR [...] ORDERABLES Final Re sult Performing Organization Address City/[facility]/ZIP Co de Phone Number [facility] [place] [address] * (ABNORMAL) CBC without differential (03/15/2025 9:42 PM CDT) [facility] WBC 12.91(H) 3.80 - 9.90 K/cumm Hgb 10.0(L) 11.9 - 15.5 g/dL [facility] Hct 32.6(L) 35.6 - 45.5 % [facility] Plt 546(H) 150 - 400 K/cumm [facility] MPV 9.0(L) 9.1 - 12.3 fL [facility] RBC 3.96 3.90 - 5.20 M/cumm [facility] MCV 82.3 81.3 - 96.4 fL [facility] MCH 25.3(L) 27.1 - 33.3 pg [facility] MCHC 30.7(L) 32.3 - 35.7 g/dL [facility] RDW CV 21.3(H) 11.1 - 14.9 % [facility] RDW SD 63.5(H) 35.7 - 48.1 fL [facility] NRBC abs 0.00 0.00 - 0.01 K/cumm [facility] Blood 03/15/2025 9:42 PM CDT 03/15/2025 10:38 PM CDT Sophia George MD LAB BLOOD ORDERABLES Final Re sult [facility] [place] [address] * Hepatic function panel (03/15/2025 9:42 PM CDT) [facility] Bilirubin, total <0.2 0.1 - 1.2 mg/dL Comment:Reviewed Bilirubin, direct <0.2 0.1 - 0.3 mg/dL [facility] Protein, pl 6.7 6.5 - 8.5 g/dL [facility] Albumin 3.6 3.5 - 5.0 g/dL [facility] Alk phos 94 40 - 130 Units/L [facility] ALT 13 7 - 45 Units/L [facility] AST 26 10 - 45 Units/L [facility] Blood 03/15/2025 9:42 PM CDT 03/15/2025 10:35 PM CDT us Lou Castillo MD LAB BLOOD ORDERABLES Final Result [facility] Department [place] [address] * (ABNORMAL) Basic metabolic panel (03/15/2025 9:42 PM CDT) Sodium 136 135 - 145 mmol/L Potassium, pl 4.1 3.3 - 4.9 mmol/L [facility] Chloride 105 97 - 110 mmol/L [facility] CO2 23 22 - 32 mmol/L [facility] Anion gap 8 2 - 15 mmol/L [facility] BUN 16 6 - 25 mg/dL [facility] Creatinine 0.49(L) 0.60 - 1.10 mg/dL [facility] Glucose 112 70 - 199 mg/dL [facility] Comment: Interpretive Data Fasting glucose >/= [...] 2022. Calcium 8.7 8.5 - 10.3 mg/dL [facility] Blood 03/15/2025 9:42 PM CDT 03/15/2025 10:35 PM CDT us Sophia George MD LAB BLOOD ORDERABLES Final Re sult [facility] Department [place] [address] * IR Biopsy Deep Bone (03/15/2025 10:19 [...] was obtained. Prior to beginning the procedure, Leslie Protocol was performed to confirm the patient's [...] was obtained. Prior to beginning the procedure, Leslie Protocol was performed to confirm the patient's [...] Report Final Report: Rare Staphylococcus epidermidis (.) [facility] Organism STAPHYLOCOCCUS EPIDERMIDIS [facility] Biopsy (Pelvic) 03/15/2025 1 0:17 AM CDT 03/15/2025 2:07 PM CDT Narrative [facility] - 03/21/2025 1:44 PM CDT Testing performed by [facility] Microbiology Laboratory ([phone]) Specimens submitted from normally sterile body sites [...] NERAL ORDERABLES Final Result Performing Organization Address City/[facility]/ZIP Co de Phone Number [facility] Department [place] [address] * Aerobic and anaerobic culture and gram stain Aspirate Pelvic (03/15/2025 10:17 AM CDT) Direct Specimen Exam Stain: Few polymorphonuclear leukocytes seen. No organisms seen. Report Final Report: No growth [facility] Aspirate (Pelvic) 03/15/2025 10:17 AM CDT 03/15/2025 2:06 PM CDT Narrative [facility] - 03/18/2025 12:35 PM CDT Left Ischium Aspiration Testing performed by [facility] Microbiology Laboratory ([phone]) Specimens submitted from normally sterile body sites [...] L ORDERABLES Final Result Performing Organization Address [facility] Co de Phone Number [facility] Department [place] [address] * Surgical pathology (03/15/2025 10:05 AM CDT) Tissue (Bone - Biopsy / Curettings) 03/15/2025 10:05 AM CDT Comment:Left Ischium Bone Bi opsy Narrative PATHOLOGY [facility] - 03/21/2025 9:31 AM CDT EPIC results best viewed via link to PDF [facility] [place] [address] Note to Patients: This report may contain [...] Gender: F : 1990 (Age: 34) Address: [address] [place] [address] Hospital #: [id number] Taken:03/15/2025 Received:03/15/2025 Reported: 03/21/2025 Patient Type: [facility] Inpatient Service: Medical Location: [facility] Physician(s): Curt Payne M.D. Diagnosis: Bone, left ischium, biopsy - Bone with periosteal reaction (see comment) [facility] 13:38 By this signature, I attest that [...] and Flow Cytometry Departments at [facility] as part of an ongoing water quality assistant program and in compliance with federally mandated [...] and Flow Cytometry Departments of [facility]. It has not been cleared or approved by the U. S. Food and Drug Administration. IMAGES AND SCANNED DOCUMENTS, IF INCLUDED, ONLY VIEWABLE IN PDF VERSION OF REPORT us Lew Dewitt MD LAB PATHOLOGY ORDERABLES Final Result PATHOLOGY [facility] 3rd Floor [place], [place] [phone] * eGFR (03/14/2025 10:30 PM CDT) eGFR [...] MD LAB BLOOD ORDERABLES Final Re sult [facility] Department [place] [address] * (ABNORMAL) CBC without differential (03/14/2025 10:30 PM CDT) WBC 12.38(H) 3.80 - 9.90 K/cumm Hgb 9.5(L) 11.9 - 15.5 g/dL [facility] Hct 31.2(L) 35.6 - 45.5 % [facility] Plt 581(H) 150 - 400 K/cumm [facility] MPV 9.1 9.1 - 12.3 fL [facility] RBC 3.78(L) 3.90 - 5.20 M/cumm [facility] MCV 82.5 81.3 - 96.4 fL [facility] MCH 25.1(L) 27.1 - 33.3 pg [facility] MCHC 30.4(L) 32.3 - 35.7 g/dL [facility] RDW CV 21.6(H) 11.1 - 14.9 % [facility] RDW SD 63.4(H) 35.7 - 48.1 fL [facility] NRBC abs 0.00 0.00 - 0.01 K/cumm [facility] Blood 03/14/2025 10:3 0 PM CDT 03/14/2025 10:46 PM CDT Sophia George MD LAB BLOOD ORDERABLES Final Re sult Performing Organization Address City/[facility]/ZIP Co de Phone Number [facility] Department [place] [address] * (ABNORMAL) Basic metabolic panel (03/14/2025 10:30 PM CDT) [facility] Sodium 136 135 - 145 mmol/L Potassium, pl 4.3 3.3 - 4.9 mmol/L [facility] Chloride 104 97 - 110 mmol/L [facility] CO2 24 22 - 32 mmol/L [facility] Anion gap 8 2 - 15 mmol/L [facility] BUN 10 6 - 25 mg/dL [facility] Creatinine 0.29(L) 0.60 - 1.10 mg/dL [facility] Glucose 146 70 - 199 mg/dL [facility] Comment: Interpretive Data Fasting glucose >/= [...] 2022. Calcium 8.6 8.5 - 10.3 mg/dL [facility] Blood 03/14/2025 10:3 0 PM CDT 03/14/2025 10:46 PM CDT Sophia George MD LAB BLOOD ORDERABLES Final Re sult Performing Organization Address [facility] Co de Phone Number [facility] Department [place] [address] * eGFR (03/13/2025 8:47 PM CDT) [facility] eGFR >90 >=60 mL/min/1. 73 m2 Comment: [...] MD LAB BLOOD ORDERABLES Final Re sult [facility] Department [place] [address] * (ABNORMAL) CBC without differential (03/13/2025 8:47 PM CDT) [facility] WBC 12.42(H) 3.80 - 9.90 K/cumm Hgb 10.4(L) 11.9 - 15.5 g/dL [facility] Hct 33.6(L) 35.6 - 45.5 % [facility] Plt 575(H) 150 - 400 K/cumm [facility] MPV 9.2 9.1 - 12.3 fL [facility] RBC 4.06 3.90 - 5.20 M/cumm [facility] MCV 82.8 81.3 - 96.4 fL [facility] MCH 25.6(L) 27.1 - 33.3 pg [facility] MCHC 31.0(L) 32.3 - 35.7 g/dL [facility] RDW CV 21.7(H) 11.1 - 14.9 % [facility] RDW SD 64.8(H) 35.7 - 48.1 fL [facility] NRBC abs 0.00 0.00 - 0.01 K/cumm [facility] Blood 03/13/2025 8:47 PM CDT 03/13/2025 9:03 PM CDT us Sophia George MD LAB BLOOD ORDERABLES Final Re sult [facility] Department [place] [address] * (ABNORMAL) Basic metabolic panel (03/13/2025 8:47 PM CDT) Pathologist [facility] Sodium 139 135 - 145 mmol/L Potassium, pl 3.8 3.3 - 4.9 mmol/L [facility] Chloride 105 97 - 110 mmol/L [facility] CO2 24 22 - 32 mmol/L [facility] Anion gap 10 2 - 15 mmol/L [facility] BUN 14 6 - 25 mg/dL [facility] Creatinine 0.42(L) 0.60 - 1.10 mg/dL [facility] Glucose 127 70 - 199 mg/dL [facility] Comment: Interpretive Data Fasting glucose >/= [...] 2022. Calcium 9.0 8.5 - 10.3 mg/dL [facility] Blood 03/13/2025 8:47 PM CDT 03/13/2025 9:03 PM CDT Sophia George MD LAB BLOOD ORDERABLES Final Re sult Performing Organization Address [facility] Co de Phone Number [facility] [place] Department [place] [address] * eGFR (03/12/2025 8:18 PM CDT) Pathologist [facility] eGFR >90 >=60 mL/min/1. 73 m2 [...] ORDERABLES Final Re sult Performing Organization Address City/[facility]/ZIP Co de Phone Number GRISEL [facility] Department [place] [address] * (ABNORMAL) CBC without differential (03/12/2025 8:18 PM CDT) Pathologist [facility] WBC 9.00 3.80 - 9.90 K/cumm Hgb 9.1(L) 11.9 - 15.5 g/dL [facility] Hct 29.5(L) 35.6 - 45.5 % [facility] Plt 494(H) 150 - 400 K/cumm [facility] MPV 9.3 9.1 - 12.3 fL [facility] RBC 3.61(L) 3.90 - 5.20 M/cumm [facility] MCV 81.7 81.3 - 96.4 fL [facility] MCH 25.2(L) 27.1 - 33.3 pg [facility] MCHC 30.8(L) 32.3 - 35.7 g/dL [facility] RDW CV 21.7(H) 11.1 - 14.9 % [facility] HOSPITAL RDW SD 63.7(H) 35.7 - 48.1 fL [facility] NRBC abs 0.00 0.00 - 0.01 K/cumm [facility] Blood 03/12/2025 8:18 PM CDT 03/12/2025 8:40 PM CDT Sophia George MD LAB BLOOD ORDERABLES Final Re sult [facility] [place] [address] * (ABNORMAL) Basic metabolic panel (03/12/2025 8:18 PM CDT) Sodium 141 135 - 145 mmol/L Potassium, pl 4.0 3.3 - 4.9 mmol/L [facility] Chloride 108 97 - 110 mmol/L [facility] CO2 24 22 - 32 mmol/L [facility] Anion gap 9 2 - 15 mmol/L [facility] BUN 15 6 - 25 mg/dL [facility] Creatinine 0.39(L) 0.60 - 1.10 mg/dL [facility] Glucose 163 70 - 199 mg/dL [facility] Comment: Interpretive Data Fasting glucose >/= [...] Calcium 8.7 8.5 - 10.3 mg/dL [facility] Blood 03/12/2025 8:18 PM CDT 03/12/2025 8:40 PM CDT us Sophia George MD LAB BLOOD ORDERABLES Final Re sult [facility] [facility] [place] [address] * MRI Pelvis MSK W WO Contrast [...] MD us Joni Sweeney MD IMG MRI MARCO ANTONIO BELLE Final Result * eGFR (03/11/2025 9:49 PM [...] MD LAB BLOOD ORDERABLES Final Re sult [facility] [place] [address] * (ABNORMAL) CBC without differential (03/11/2025 9:49 PM CDT) WBC 11.05(H) 3.80 - 9.90 K/cumm Hgb 9.1(L) 11.9 - 15.5 g/dL [facility] Hct 29.0(L) 35.6 - 45.5 % [facility] Plt 489(H) 150 - 400 K/cumm [facility] MPV 9.4 9.1 - 12.3 fL [facility] RBC 3.58(L) 3.90 - 5.20 M/cumm [facility] MCV 81.0(L) 81.3 - 96.4 fL [facility] MCH 25.4(L) 27.1 - 33.3 pg [facility] MCHC 31.4(L) 32.3 - 35.7 g/dL [facility] RDW CV 21.9(H) 11.1 - 14.9 % [facility] RDW SD 63.8(H) 35.7 - 48.1 fL [facility] NRBC abs 0.00 0.00 - 0.01 K/cumm [facility] Blood 03/11/2025 9:49 PM CDT 03/11/2025 10:41 PM CDT Sophia George MD LAB BLOOD ORDERABLES Final Re sult [facility] Department [place] [address] * (ABNORMAL) Basic metabolic panel (03/11/2025 9:49 PM CDT) Sodium 138 135 - 145 mmol/L Potassium, pl 4.0 3.3 - 4.9 mmol/L [facility] Chloride 106 97 - 110 mmol/L [facility] CO2 25 22 - 32 mmol/L [facility] Anion gap 7 2 - 15 mmol/L [facility] BUN 15 6 - 25 mg/dL [facility] Creatinine 0.39(L) 0.60 - 1.10 mg/dL [facility] Glucose 100 70 - 199 mg/dL [facility] Comment: Interpretive Data Fasting glucose >/= [...] 2022. Calcium 8.3(L) 8.5 - 10.3 mg/dL [facility] Blood 03/11/2025 9:49 PM CDT 03/11/2025 10:39 PM CDT Sophia George MD LAB BLOOD ORDERABLES Final Re sult Performing Organization Address [facility] Co de Phone Number [facility] Department [place] [address] * (ABNORMAL) Iron profile w/ IBC (03/11/2025 2:51 PM CDT) Iron 17(L) 35 - 145 mcg/dL Comment:Reviewed TIBC 182(L) 250 - 400 mcg/dL [facility] Transferrin saturation 9(L) 20 - 50 % [facility] Blood 03/11/2025 2:51 PM CDT 03/11/2025 3:31 PM CDT Result [facility] Joni Sweeney MD LAB BLOOD ORD ERABLES Final Result Performing Organization Address [facility] Co de Phone Number [facility] Department [place] [address] * (ABNORMAL) Reticulocyte Count (03/11/2025 2:51 PM CDT) Retics, absolute 58 20 - 87 K/cumm Retics 1.6 0.4 - 2.9 % [facility] Reticulocyte Hgb 23.2(L) 30.5 - 38.0 pg [facility] Blood 03/11/2025 2:51 PM CDT 03/11/2025 3:42 PM CDT Joni Sweeney MD LAB BLOOD ORD ERABLES Final Result [facility] [place] [address] * Folate (03/11/2025 2:51 PM CDT) Pathologist [facility] Folic acid 10.5 >=5.0 ng/mL Blood 03/11/2025 2:51 PM CDT 03/11/2025 3:31 PM CDT us Joni Sweeney MD LAB BLOOD ORD ERABLES Final Result Performing Organization Address City/[facility] [place] [address] * Ferritin (03/11/2025 2:51 PM CDT) [facility] Ferritin 146 13 - 150 ng/mL Comment:Reviewed Blood 03/11/2025 2:51 PM CDT 03/11/2025 3:31 PM CDT Joni Sweeney MD LAB BLOOD ORD ERABLES Final Result Performing Organization Address City/[facility]/ZIP Co de Phone Number [facility] [place] [address] * Vitamin B12 (03/11/2025 2:51 PM CDT) [facility] Vitamin B12 319 230 - 1,250 pg/mL Blood 03/11/2025 2:51 PM CDT 03/11/2025 3:31 PM CDT Joni Sweeney MD LAB BLOOD ORD ERABLES Final Result [facility] [place] [address] * Wound Care (03/11/2025 12:04 PM CDT) Narrative Elizabeth Caicedo MD - 03/11/2025 12:04 PM CDT Elizabeth Caicedo MD 03/12/2025 3:19 PM Wound Care Date/Time: 03/11/2025 12:04 PM Performed by: Nargis Mary MD Authorized by: Nargis Mary MD Consent: Consent obtained: Verbal Consent given by: Patient Risks, benefits, and alternatives were discussed: yes Leslie protocol: Procedure explained and questions answered to [...] LAB BLOOD ORD ERABLES Final Result [facility] Department of Laboratories [place], [place] [id number] * (ABNORMAL) CRP (acute phase) (03/11/2025 9:08 AM CDT) CRP 131.5(H) <=10.0 mg/L Blood 03/11/2025 9:08 AM CDT 03/11/2025 9:46 AM CDT us Joni Sweeney MD LAB BLOOD ORD ERABLES Final Result [facility] [place] [address] * Urinalysis reflex to microscopic and culture Urine (03/11/2025 4:42 AM CDT) Color, ur Straw Yellow Clarity, ur Clear Clear [facility] Specific gravity, ur 1.008 1.003 - 1.030 [facility] pH, urine 6.5 [facility] Comment: Interpretive Data U rine pH is affected by diet, medications, systemic acid-base disturbances, and renal tubular function. pH may affect urinary stone formation. For example, urine pH below 6.0 may help reduce the tendency for calcium phosphate stones and pH greater than 6.0 may reduce the tendency for uric acid stone formation. Source: [facility] Current Interpretive Data was last revised on 2017 Protein, ur ql Negative Negative [facility] Glucose, ur ql Negative Negative [facility] Ketones, ur Negative Negative [facility] Bilirubin, ur Negative Negative [facility] Blood, ur Negative Negative [facility] Urobilinogen, ur <2.0 <2.0 mg/dL [facility] Nitrite, ur Negative Negative [facility] Leukocyte esterase, ur Negative Negative [facility] UA reflex comment Reflex conditions for microscopic UA and culture not met. [facility] Urine 03/11/2025 4:42 AM CDT 03/11/2025 4:59 AM CDT us Reymundo Sanchez MD LAB MICROBIOLOGY - GE NERAL ORDERABLES Final Result [facility] [place] [address] * CT Pelvis W Contrast (03/11/2025 3:29 [...] (ABNORMAL) POCT creatinine (03/11/2025 2:44 AM CDT) [facility] Creatinine POC <0.5(L) 0.6 - 1.1 mg/dL Blood 03/11/2025 2:44 AM CDT 03/11/2025 2:44 AM CDT Ciera Browne MD LAB POCT ORDERABLES - FARAHN CE Final Result [facility] Department of Laboratories [place], [place] [id number] * Sepsis Lactate w/ Reflex (03/11/2025 2:08 AM CDT) [facility] Sepsis Lactate 1.0 0.7 - 2.0 mmol/L Blood 03/11/2025 2:08 AM CDT 03/11/2025 2:16 AM CDT us Ciera Borwne MD LAB BLOOD ORDERABLES Final Result Performing Organization Address City/[facility]/ZIP Co de Phone Number [facility] [place] [address] * eGFR (03/11/2025 2:08 AM CDT) eGFR [...] BLOOD ORDERABLES Final Result Performing Organization Address [facility] Co de Phone Number [facility] [place] [address] * (ABNORMAL) Differential, auto (03/11/2025 2:08 AM CDT) Neutrophil abs 12.27(H) 1.50 - 6.50 K/cumm Imm gran abs 0.17(H) 0.00 - 0.10 K/cumm [facility] Lymphocyte abs 1.80 0.80 - 3.30 K/cumm [facility] Monocyte abs 1.15(H) 0.20 - 0.80 K/cumm [facility] Eosinophil abs 0.20 0.00 - 0.50 K/cumm [facility] Basophil abs 0.05 0.00 - 0.10 K/cumm [facility] Neutrophil pct 78.4 % [facility] Comment: Interpretive Data Percent cell count reference ranges are not reported, since discordance with absolute values may lead to misinterpretation of CBC data. Current Interpretive Data was last revised on 2018. Imm gran pct 1.1 % [facility] Comment: Interpretive Data Percent cell count reference ranges are not reported, since discordance with absolute values may lead to misinterpretation of CBC data. Current Interpretive Data was last revised on 2018. Lymphocyte pct 11.5 % [facility] Comment: Interpretive Data Percent cell count reference ranges are not reported, since discordance with absolute values may lead to misinterpretation of CBC data. Current Interpretive Data was last revised on 2018. Monocyte pct 7.4 % [facility] Comment: Interpretive Data Percent cell count reference ranges are not reported, since discordance with absolute values may lead to misinterpretation of CBC data. Current Interpretive Data was last revised on 2018. Eosinophil pct 1.3 % [facility] Comment: Interpretive Data Percent cell count reference ranges are not reported, since discordance with absolute values may lead to misinterpretation of CBC data. Current Interpretive Data was last revised on 2018. Basophil pct 0.3 % [facility] Comment: Interpretive Data Percent cell count reference ranges are not reported, since discordance with absolute values may lead to misinterpretation of CBC data. Current Interpretive Data was last revised on 2018. Blood 03/11/2025 2:08 AM CDT 03/11/2025 2:19 AM CDT us Ciera Browne MD LAB BLOOD ORDERABLES Final Result [facility] Department [place] [address] * (ABNORMAL) CBC with auto differential (03/11/2025 2:08 AM CDT) WBC 15.64(H) 3.80 - 9.90 K/cumm Hgb 9.5(L) 11.9 - 15.5 g/dL [facility] Hct 30.0(L) 35.6 - 45.5 % [facility] Plt 522(H) 150 - 400 K/cumm [facility] MPV 9.2 9.1 - 12.3 fL [facility] RBC 3.73(L) 3.90 - 5.20 M/cumm [facility] MCV 80.4(L) 81.3 - 96.4 fL [facility] MCH 25.5(L) 27.1 - 33.3 pg [facility] MCHC 31.7(L) 32.3 - 35.7 g/dL [facility] RDW CV 22.0(H) 11.1 - 14.9 % [facility] RDW SD 63.6(H) 35.7 - 48.1 fL [facility] NRBC abs 0.00 0.00 - 0.01 K/cumm [facility] Blood 03/11/2025 2:08 AM CDT 03/11/2025 2:19 AM CDT us Ciera Browne MD LAB BLOOD ORDERABLES Final Result [facility] [place] [address] * Blood culture Blood Peripheral (03/11/2025 2:08 AM CDT) Pathologist [facility] Report Final Report: No growth Blood (Peripheral) 03/11/2025 2:08 AM CDT 03/11/2025 2:19 AM CDT Narrative [facility] - 03/15/2025 7:01 AM CDT From [...] have been verified by the [facility] Microbiology Laboratory. For questions about this culture, contact the Microbiology Laboratory at [phone]. Interpretive data was last revised on 24. Ciera Browne MD LAB MICROBIOLOGY - GENERAL ORDERABLES Final Result [facility] [place] [address] * Blood culture Blood Peripheral (03/11/2025 2:08 AM CDT) Report Final Report: No growth Blood (Peripheral) 03/11/2025 2:08 AM CDT 03/11/2025 2:19 AM [facility]T [facility] 03/15/2025 7:01 AM CDT Draw Blood cultures [...] have been verified by the [facility] Microbiology Laboratory. For questions about this culture, contact the Microbiology Laboratory at [phone]. Interpretive data was last revised on 24. us Ciera Browne MD LAB MICROBIOLOGY - GENERAL ORDERABLES Final Result [facility] [place] [address] * (ABNORMAL) Comprehensive metabolic panel (03/11/2025 2:08 AM CDT) Sodium 134(L) 135 - 145 mmol/L Potassium, pl 3.8 3.3 - 4.9 mmol/L [facility] Chloride 99 97 - 110 mmol/L [facility] CO2 23 22 - 32 mmol/L [facility] Anion gap 12 2 - 15 mmol/L [facility] BUN 17 6 - 25 mg/dL [facility] Creatinine 0.32(L) 0.60 - 1.10 mg/dL [facility] Glucose 95 70 - 199 mg/dL [facility] Comment: Interpretive Data Fasting glucose >/= [...] 2022. Calcium 8.6 8.5 - 10.3 mg/dL [facility] Bilirubin, total 0.2 0.1 - 1.2 mg/dL [facility] Protein, pl 6.8 6.5 - 8.5 g/dL [facility] Albumin 3.5 3.5 - 5.0 g/dL [facility] Alk phos 99 40 - 130 Units/L [facility] ALT 8 7 - 45 Units/L [facility] AST 12 10 - 45 Units/L [facility] Blood 03/11/2025 2:08 AM CDT 03/11/2025 2:19 AM CDT us Ciera Browne MD LAB BLOOD ORDERABLES Final Result Performing Organization Address City/[facility]/ZIP Co de Phone Number [facility] [place] [address] * Iron profile w/ IBC (02/24/2025 12:59 PM CDT) Iron 35 35 - 145 mcg/dL TIBC See Comment 250 - 400 mcg/dL [facility] Comment:Unable to calculate Transferrin saturation See Comment 20 - 50 % [facility] Comment:Unable to calculate Blood 02/24/2025 12:5 9 PM CDT 02/24/2025 1:46 PM CDT us Emiliana Myles MD LAB BLOOD ORDERABLES Final R esult Performing Organization Address [facility] Co de Phone Number [facility] [place] [address] * Ferritin (02/24/2025 12:59 PM CDT) Ferritin See Comment 13 - 150 ng/mL Comment:Credited; Hemolyzed Specimen Blood 02/24/2025 12:5 9 PM CDT 02/24/2025 1:46 PM CDT Emiliana Myles MD LAB BLOOD ORDERABLES Final R esult Performing Organization Address City/[facility] Co de Phone Number [facility] [place] [address] * Hemoglobin A1c (01/19/2025 5:02 PM CDT) Pathologist [facility] Hgb A1C 4.8 4.0 - 5.6 % Estimated Average Glucose 91 mg/dL [facility] Comment: The ADA recommends reporting an [...] 01/19/2025 5:39 PM CDT us Kandis Robb [employer] LAB BLOOD ORDERABLES Katie l Result Performing Organization Address City/[facility]/[place] [address] * Gamma GT (01/19/2025 5:02 PM CDT) [facility] GGT 9 5 - 35 Units/L Blood 01/19/2025 5:02 PM CDT 01/19/2025 5:39 PM CDT Narrative [facility] - 01/19/2025 6:19 PM CDT Kristen, Please take these orders to any lab to be completed in late December . If you do not use a [place] lab, please call [phone] when you complete the lab with the name of the lab so we can obtain results. Please fax results to [phone] call [phone] with any questions. us Rosanna Partida [employer] LAB BLOOD [place] [address] * (ABNORMAL) Hepatic function panel (01/19/2025 5:02 PM CDT) Pathologist [facility] Bilirubin, total 0.2 0.1 - 1.2 mg/dL Bilirubin, direct <0.2 0.1 - 0.3 mg/dL [facility] Protein, pl 6.9 6.5 - 8.5 g/dL [facility] Albumin 4.4 3.5 - 5.0 g/dL [facility] Alk phos 133(H) 40 - 130 Units/L [facility] ALT 14 7 - 45 Units/L [facility] AST 13 10 - 45 Units/L [facility] Blood 01/19/2025 5:02 PM CDT 01/19/2025 5:39 PM CDT Narrative [facility] - 01/19/2025 6:19 PM CDT Kristen, Please take these orders to any lab to be completed in late December . If you do not use a [place] lab, please call [phone] when you complete the lab with the name of the lab so we can obtain results. Please fax results to [phone] call [phone] with any questions. us Rosanna Partida NP LAB BLOOD ORDERABLES [facility] al Result [facility] [place] [address] * Lipid panel (01/19/2025 5:02 PM CDT) Pathologist [facility] Cholesterol 139 30 - 199 mg/dL Comment: [...] revised on 2018. Triglycerides 60 <=149 mg/dL [facility] Comment: Interpretive Data Ages < or [...] revised on 2018. HDL 51 >=40 mg/dL [facility] Comment: Interpretive Data Ages < or [...] on 2018. LDL, calculated 75 <=129 mg/dL [facility] Comment: Interpretive Data Ages < or [...] revised on 2024. Non-HDL Cholesterol 88 mg/dL [facility] Comment: Interpretive Data Ages < or [...] last revised on 2018. Chol/HDL ratio 3 [facility] Blood 01/19/2025 5:02 PM CDT 01/19/2025 5:39 PM CDT us Kandis Robb NP LAB BLOOD ORDERABLES Katie patterson Result [facility] [place] [address] from Last 3 Months Insurance [facility] [address] [place] [address] [facility] [place] [address] [employer]PA Advance Directives For more information, please contact: [phone] * Full Code (Latest Code Status on File) Date Activated Date Inactivated Comments 03/11/2025 6:39 PM 03/18/2025 9:51 PM * Full Code Date Activated Date Inactivated Comments 01/20/2024 9:37 AM 01/20/2024 5:42 PM * Full Code Date Activated Date Inactivated Comments 04/29/2023 10:54 AM 04/30/2023 5:26 AM Care Teams Siebel Administrator Relationship Specialty Start Date End Date Kandis Robb, GAVINO [address] [place] [address] PCP - General Nurse Practitioner 03/08/25 Pavan Rockwell MD [address] IM INFECTIOUS DISEASE, [address] [place] [address] PCP - Home Infusion Attending Infectious Diseases 03/22/25 Arnoldo Longoria, [facility] Pharmacist Pharmacy 03/22/25
--- OUTSIDE RECORDS SUMMARY | 2025-04-06 16:10 | XMS_ITS | Continuity of Care Document ---
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 [facility] REFRACTIVE ERROR - MYOPIA Active Condition SRx: MR [facility] visit for: routine eye exam Inactive Condition Post. pole wnl OU; DFE at next exam DoD DEPRESSION Active Condition POORLY CONTROLLED W/ [id number] IC WORSENING PAST FEW MONTHS DoD visit [...] HCl), 150 MG, TAB ER 24H, ORAL, Dige[employer], 500 ea. BOTTLE Active [id number] 2023 30 Pharmac y Data Transac tion Service Facilit y citalopram 20 mg oral tablet 1 tab(s), Oral, Daily, # 90 tab(s), 3 total refill(s ), Yahaira medeirose, Pharmacy : [facility] Oral (given by mouth) Discont inued 08/06/2022 2 2021 90.0 0098C-A HC Ketan s-Sill citalopram 20 mg oral tablet 1 tab(s), Oral, Daily, # 90 tab(s), 3 total refill(s ), Yahaira zhu, Pharmacy : [facility] Oral (given by mouth) Discont inued [...] ORAL, [employer], 100 ea. BOTTLE Active [id number] 2023 30 Pharmac y Data Transac tion Service Facilit y FLUOXETINE HCL (FLUOXETINE HCL), 20MG, CAPSULE, ORAL, [employer], 100 ea. BOTTLE Active [id number] 2023 30 Pharmac y Data Transac tion Service Facilit y LAMOTRIGINE (lamotrigin e), 100 MG, TABLET, ORAL, ALEMBIC PHARMAC, 100 ea. BOTTLE Cancele d [id number] : 2023 0 Pharmac y Data Transac tion Service Facilit y LAMOTRIGINE (lamotrigin e), 200 MG, TABLET, ORAL, ALEMBIC PHARMAC, 60 ea. BOTTLE Cancele d [id number] : 2023 0 Pharmac y Data Transac tion Service Facilit y LAMOTRIGINE (lamotrigin e), 200 MG, TABLET, ORAL, ALEMBIC PHARMAC, 60 ea. BOTTLE Active [id number] 4 2023 90 Pharmac y Data Transac tion Service Facilit y lamoTRIgine 100 mg oral tablet 1 tab(s), Oral, Daily, in combinat ion with 200mg tablet, # 90 tab(s), 3 total refill(s ), [facility], Pharmacy : [facility] Oral (given by mouth) Ordered 3 2021 90.0 0098C-A Ketan s-Sill lamoTRIgine 100 mg oral tablet lamoTRIg ine 100 mg oral tablet Start Date: 03/07/21 Stop Date: 08/06/22 Status: Mary Loui marleen Repeat number: 1 Discont inued 08/06/20222021 No Facilit y Access lamoTRIgine 200 mg oral tablet 1 tab(s), Oral, BID, # 180 tab(s), 3 total refill(s ), [facility], Pharmacy : [facility] Oral (given by mouth) Ordered 2021 [...] 90 cap(s), 0 total refill(s ), Yahaira [facility], Pharmacy : [facility] Oral (given by mouth) Ordered 3 [...] Source AMOXICILLIN Drug allergy (disorder) active [address] [place] [address] Faheem MONROY ([facility]) amoxicillin Propensity to adverse reactions to substance Active Reaction( s): Unknown; Note: 3066 12-10-20 Unknown Organizati on AMPICILLIN Drug allergy (disorder) active [address] [place] [address] Faheem MONROY [facility] ampicillin Propensity to adverse reactions to substance Active Reaction( s): Unknown Unknown Organizati on ANCEF Drug allergy (disorder) active [address] [place] [address] Faheem MONROY [facility]) ceFAZolin Propensity to adverse reactions to substance Active Reaction( s): Unknown Unknown Organizati on Latex Allergy to substance Swelling, Rash Mild Active Ambulatory Pharmacy LATEX (LATEX) Drug allergy (disorder) Rash or Itch active 8 [place], [place] OTHER Drug allergy (disorder) Unknown active 4 [facility] [place] [address] OTHER Drug allergy (disorder) active 8 [facility] [place] [address] Immunizations Combined list of available immunizations from the Department of Defense and Veterans Affairs facilities. Immunization Series Date Given Administered By Site Reaction Lot Number CVX Code Drug Boot Lace Cutter Machine Status Comments Source hepatitis B pediatric/ado lescent 1998 [id number] 08 [employer] ne complet ed hepatitis B pediatric /adolesce nt 08/13/99 Given Ambulat ory Pharmac y hepatitis B vaccine, pediatric or pediatric/ado lescent dosage 3 1998 Unknown, Provider [id number] 08 [place] complet ed hepatitis B vaccine, pediatric [...] ADM Date DC Date Status Disposition [place] [address]([facility]) OUTPATIENT [id number] blood in urine CHA ROSE P 04/11 Released w/o Limitations [facility] [place] [address]([facility]) [place] [address]([facility]) TELE CONSULT [id number] UTI CHA ROSE P 04/12 [facility] [place] [address]([facility]) [place] [address]([facility]) TELE CONSULT [id number] f/u uti CHA ROSE P 04/15 [facility] [place] [address]([facility]) [place] [address](ZP ed Neurology [facility]) OUTPATIENT [id number] f/up EUSEBIA GUILLORY W 05/13 Released w/o Limitations [facility] [place] [address](Z Ped Neurolo gy [facility]) [place] [address](Wou nd and Ostomy Clinic [facility]) OUTPATIENT [id number] Wound care ANGEL DEAN S 05/15 Released w/o Limitations [facility] [place] [address](W ound and Ostomy Clinic [facility]) [place] [address](Ped iatrics, [facility]) OUTPATIENT [id number] AHLTA SYSTEM ADMINISTRA TOR 05/30 [facility] [place] [address](Marzena camarilloiatrosmin ramirez, [facility]) [place] [address]([facility]) OUTPATIENT [id number] CHA Laws P 07/25 Released w/o Limitations [facility] [place] [address]([facility]) [place] [address]([facility]) TELE CONSULT [id number] f/u labs CHA ROSE P 07/26 [facility] [place] [address]([facility]) [place] [address]([facility]) OUTPATIENT [id number] per CHA Caraballo P 08/14 Released w/o Limitations [facility] [place] [address]([facility]) [place] [address]([facility]) TELE CONSULT [id number] f/u uti CHA ROSE P 08/16 [facility] [place] [address]([facility]) [place] [address]([facility]) TELE CONSULT [id number] f/u CHA Flores P 08/28 [facility] [place] [address]([facility]) [place] [address]([facility]) TELE CONSULT [id number] f/u CHA Flores P 09/05 [facility] [place] [address]([facility]) [place] [address]([facility]) TELE CONSULT [id number] CHA ROSE P 09/09 [facility] [place] [address]([facility]) [place] [address](BDO Optometry [facility] OUTPATIENT [id number] gen eye exam... .appt sep 24 @ 1330... lve..ca SB Espitia 09/24 Released w/o Limitations [facility] [address](B DO Optomet ry [facility] [facility] [place] [address]([facility] ed Neurology [facility]) TELE CONSULT [id number] EUSEBIA GUILLORY W 09/25 [facility] [place] [address]([facility] Neurolo [facility]) [place] [address]([facility]) TELE CONSULT [id number] seizure at [facility] PAPO OZUNA A 09/26 [facility] [place] [address]([facility]) [place] [address]([facility] Neurology [facility]) TELE CONSULT [id number] EUSEBIA GUILLORY W 12/11 [facility] [place] [address]([facility] Neurolo [facility]) [place] [address]([facility]) TELE CONSULT [id number] r/o uti CHA ROSE P 12/17 [facility] [place] [address]([facility]) [place] [address]([facility]) TELE CONSULT [id number] CHA ROSE P 12/19 [facility] [place] [address]([facility]) [place] [address]([facility]) TELE CONSULT [id number] CHA ROSE P 12/24 [facility] [place] [address]([facility]) [place] [address](Ped Developme ntal, [facility]) OUTPATIENT [id number] SPINA BIFIDA CLINIC ANGEL TERRY 12/26 Released w/o Limitations [facility] [place] [address](P ed Develop mental, [facility]) [place] [address](ZZP ed Neurology [facility]) TELE CONSULT [id number] MOTHER CALLED SAID THAT PATIENT IS HAVING SOME MEMORY LOSS MOM CONCERN EUSEBIA GUILLORY W 01/24 [facility] [place] [address]([facility] Neurolo [facility]) [place] [address]([facility] Neurology [facility]) TELE CONSULT [id number] Seizure , Please call EUSEBIA GUILLORY W 01/28 [facility] [place] [address]([facility] Neurolo [facility]) [place] [address]([facility]) TELE CONSULT [id number] f/u appt CHA ROSE P 01/31 [place] [address]([facility]) [place] [address]([facility]/) TELE CONSULT [id number] Shower chair presGUANAKO Bansal 02/20 [place] [address]([facility] ) [place] [address]([facility]) OUTPATIENT [id number] f/u CHA ROSE P 02/26 [facility] w/o Limitations [facility] [place] [address]([facility]) [place] [address]([facility]) TELE CONSULT [id number] CHA ROSE P 03/10 [place] [address]([facility]) [place] [address]([facility]) TELE CONSULT [id number] CHA ROSE P 04/10 [place] [address]([facility]) [place] [address](Ped Developme ntal, [facility]) OUTPATIENT [id number] spina bifida clinic MARCOS RIOJAS 05/01 Released w/o Limitations [facility] [address](P ed Develop mental, [facility]) [place] [address]([facility]) TELE CONSULT [id number] med statedc nt CHA ROSE P 05/05 [place] [address]([facility]) [place] [address]([facility]) TELE CONSULT [id number] f/u informa tion CHA ROSE P 05/28 [place] [address]([facility]) [place] [address]([facility]) TELE CONSULT [id number] request s rx for shower chair GUANAKO MCCLOUD A 07/30 [place] [address](P hysical Med [facility]/[place] ) [place] [address]([facility] sical [facility]) TELE CONSULT [id number] DME Rx GUANAKO MCCLOUD A 08/14 [place] [address](P hysical [facility] ) [place] [address]([facility]) OUTPATIENT [id number] acut: painful urinati on DILMA HILL A 09/03 Released w/o Limitations [place] [address]([facility]) [place] [address]([facility]) TELE CONSULT [id number] Urine Culture Results DILMA HILL A 09/05 [place] [address]([facility]) [place] [address]([facility] Neurology [facility]) TELE CONSULT [id number] MOTHER CALLED CHILD HAD A SEIZURE LASTED FOR AN HOUR PLEASE ADVISE MOM EUSEBIA GUILLORY W 09/22 [place] [address](Z ZPed Neurolo gy [facility]) [place] [address]([facility] OUTPATIENT [id number] ALAYNA WALSH 11/11 Released w/o Limitations [place] [address](Bryan espinoza, [facility]) [place] [address](Hol ter Event [facility]) OUTPATIENT [id number] PALPITA TIONS ALAYNA WALSH 11/11 Released w/o Limitations [facility] [place] [address](H olter Event [facility]) [place] [address]([facility] Neurology [facility]) TELE CONSULT [id number] MOTHER CAME IN SAID THAT SHE NEEDS TO SPEAK TO YOU PLEASE ADVISE MOM EUSEBIA GUILLORY W 11/11 [facility] [place] [address](Z ZPed Neurolo [facility]) [place] [address]([facility] TELE CONSULT [id number] MONITOR RESULTS ALAYNA WALSH 11/14 [facility] [place] [address](Bryan espinoza, [facility]) [place] [address](BDO Optometry [facility]) OUTPATIENT [id number] needing new rx for glasses GOLDMANJANICE-NOLVIA H T 11/26 Released w/o Limitations [facility] [place] [address](B DO Optomet ry [facility]) [place] [address]([facility] ed Neurology [facility]) TELE CONSULT [id number] needs med alphonse EUSEBIA GUILLORY W 11/26 [facility] [place] [address](Z ZPed Neurolo gy [facility]) [place] [address](Ech o [facility]) OUTPATIENT [id number] UZAIR KELLOGG 11/26 Released w/o Limitations [facility] [place] [address](E cho [facility]) [place] [address]([facility]) OUTPATIENT [id number] acut: pts mother suspect s UTI GV_SWAPNA FERRO 12/03 Released w/o Limitations [place] [address]([facility]) [place] [address](Ped Developme ntal, [facility]) OUTPATIENT [id number] SPINA BIFIDA CLINIC ANGEL TERRY 01/29 Released w/o Limitations [facility] [place] [address](P ed Develop mental, [facility]) [place] [address](Phy sical Therapy, [facility]) OUTPATIENT [id number] CHRISTY TRUONG 01/29 Released w/o Limitations [facility] [place] [address](P hysical Therapy , [facility]) [place] [address](Kay rosurgery , [facility]) OUTPATIENT [id number] ARTIS WALSH JR 02/13 Released w/o Limitations [facility] [place] [address](N eurosur mateo, [facility]) [place] [address]([facility]) TELE CONSULT [id number] refill of CHA Copeland P 05/22 [facility] [place] [address]([facility]) [place] [address]([facility]) OUTPATIENT [id number] per CHA Caraballo P 06/02 Released w/o Limitations [facility] [place] [address]([facility]) [place] [address](Phy sical Med [facility]) TELE CONSULT [id number] Durable Medical Equipme nt TABARES EVERETT D 07/20 [facility] [place] [address](P hysical Med [facility] ) [place] [address](Phy sical Med [facility]/[place]) TELE CONSULT [id number] Medicai d keren gracesujey TABARESEVERETT D 07/21 [facility] [place] [address](P hysical Med [facility]/[place] ) [place] [address]([facility] Neurology [facility]) TELE CONSULT [id number] needs refill on meds please call mom for more info [phone] EUSEBIA GUILLORY W 07/22 [facility] [place] [address](Z ZPed Neurolo gy [facility]) [place] [address]([facility] Neurology [facility]) TELE CONSULT [id number] refill of med GUILLORYEUSEBIA AJ W 07/28 [facility] [place] [address](Z ZPed Neurolo gy [facility]) [place] [address]([facility] Neurology [facility]) TELE CONSULT [id number] please call needs refill on meds [phone] EUSEBIA GUILLORY W 07/29 [facility] [place] [address](Z ZPed Neurolo gy [facility]) [place] [address]([facility] Neurology [facility]) OUTPATIENT [id number] f/u EUSEBIA GUILLORY W 09/07 Released w/o Limitations [facility] [place] [address](Z ZPed Neurolo gy [facility]) [employer] OUTPATIENT [id number] uti MARVIN MARRUFO D 10/22 Released w/o Limitations [employer]([facility]) [employer](Pha rmacy Care [facility]) OUTPATIENT [id number] TARAH PARIS 12/02 Released w/o Limitations [employer](P [facility]) [employer] OUTPATIENT [id number] follow up on meds JAYCOB REYNOLDS Released w/o Limitations [employer](F amily Medicin e Residen cy) [employer]([facility] daniel Medicine Residency ) OUTPATIENT [id number] possibl e UTI FAHEEM CHINCHILLA 12/30 Released w/o Limitations [employer](F amily Medicin e Residen cy) [employer]([facility] daniel Medicine Residency ) TELE CONSULT [id number] PCM: Reynolds PRP: No SUB: paper RX JAYCOB REYNOLDS 03/16 [employer](F amily Medicin e Residen cy) [employer]([facility] daniel Medicine Residency ) TELE CONSULT [id number] PCM: Reynolds PRP: No SUB: referra ls and DME's needed JAYCOB REYNOLDS 03/17 [employer](F amily Medicin e Residen cy) [employer]([facility]) OUTPATIENT [id number] uti 3-4 days ANGEL MONTELONGO 05/03 Released w/o Limitations [employer]([facility]) [employer]([facility] OUTPATIENT [id number] F/U Spina Bifida referra ls needed. JAYCOB REYNOLDS 05/12 Released w/o Limitations [employer](F amily Medicin e Residen cy) [employer]([facility] daniel Medicine Residency ) TELE CONSULT [id number] JAYCOB REYNOLDS 05/18 [employer](F amily Medicin e Residen cy) [employer]([facility]) TELE CONSULT [id number] appt resched BIANCA Lyons 06/07 [employer]([facility]) [employer]([facility] daniel Medicine Residency ) TELE CONSULT [id number] PCM- Reynolds SUB- differe nt Ref JAYCOB REYNOLDS 07/06 [employer](F amily Medicin e Residen cy) [employer](Fam daniel Medicine Residency ) TELE CONSULT [id number] PCM: Reynolds PRP: No SUB: referra ls needed JAYCOB REYNOLDS 07/14 [employer]([facility] [employer]([facility]) TELE CONSULT [id number] Resched BIANCA Hunt 07/20 [employer]([facility]) [employer]([facility]) OUTPATIENT [id number] BIANCA HENDRICKSON 08/05 Released w/o Limitations [employer]([facility]) [employer]([facility] Medicine Residency ) TELE CONSULT [id number] PCM Reynolds PRP No Sub referra l request ed JAYCOB REYNOLDS 08/10 [employer]( amily Medicin e Residen ) [employer]([facility]) OUTPATIENT [id number] BIANCA HENDRICKSON 08/16 Released w/o Limitations [employer]([facility]) [employer](Acu te [facility]) OUTPATIENT [id number] uti JEREMIAH BLAKELY 08/17 Released w/o Limitations [employer](A cute [facility]) [employer]([facility]) OUTPATIENT [id number] BIANCA HENDRICKSON 09/05 Released w/o Limitations [employer]([facility]) [facility]) OUTPATIENT [id number] BIANCA HENDRICKSON 09/28 Released w/o Limitations [employer]([facility]) [employer]([facility] Medicine Residency ) TELE CONSULT [id number] PCM- Reynolds SUB- needs appt and refils JAYCOB REYNOLDS 10/24 [employer](F amily Medicin e Residen ) [employer]([facility]) TELE CONSULT [id number] preop labs CRISTIAN DE LEON 11/02 [employer]([facility]) [employer]([facility] Medicine Residency ) OUTPATIENT [id number] H&P-nee ds med refills POLINA ROSE 11/04 Released w/o Limitations [employer](F amily Medicin e Residen cy) [employer]([facility] Medicine [facility] ) TELE CONSULT [id number] PCM: Marie PRP: No SUB: med refills MALCOLMConrad FABIAN Quigley 03/27 [employer](F amily Medicin e Residen cy) [employer]([facility] Medicine Residency ) OUTPATIENT [id number] wanting referra l for spina bifida issues ROB MULLIGAN 02/06 Released w/o Limitations [employer](F amily Medicin e Residen cy) [employer]([facility] [facility] ) OUTPATIENT [id number] f/u for spina bifida/ scolios is--villa garibay ref to [facility] ELMIRA TAYLOR 09/05 Released w/o Limitations [employer](F amily Medicin e Residen cy) [employer]([facility] ) OUTPATIENT [id number] RAI Khanna 09/17 Released w/o Limitations [employer](F amily Medicin e Residen cy) [employer]([facility] ) OUTPATIENT [id number] right foot hurting JESS BECKER 01/29 Released w/o Limitations [employer]([facility] Medicin [facility] Residen cy) [employer]([facility] ) OUTPATIENT [id number] f/u for renewal of referra ls neurolo gy,urol ogy,lif t for electri c JAYCOB Anthony 02/27 Released w/o Limitations [employer]([facility] Medic[facility] Residen cy) [employer]([facility] ) OUTPATIENT [id number] POSSIBL E UTI DAVID SEWELL 07/02 Released w/o Limitations [employer](F amily Medicin e Residen cy) [employer](Beh avior FMR) OUTPATIENT [id number] Major depress ion, recurre nt ADELFO CARROLL 07/18 Released w/o Limitations [employer](B ehavior FMR) [employer](Beh [facility]ior FMR) OUTPATIENT [id number] recurre nt rosa depress ADELFO CARROLL R 08/01 Released w/o Limitations [employer]([facility]) [employer]([facility] ) OUTPATIENT [id number] referra l for wheel chair AMITA GIBBS P 08/05 Released w/o Limitations [employer](F [facility] Medicin e Residen cy) [employer]([facility]) OUTPATIENT [id number] depress ADELFO CARROLL R 08/16 Released w/o Limitations [employer] [employer]([facility] ) TELE CONSULT [id number] PCM Sai PRP No SUB referra l SAIAMITA Ahuja P 09/06 [employer]([facility]) [employer]([facility]) OUTPATIENT [id number] resched uled; anger/a nxiety DONNAADELFO CRESPO R 09/19 Released w/o Limitations [employer]([facility]) [employer]([facility] ) OUTPATIENT [id number] pt has blister @ bottom of foot-on left side. KARIS ANDREW 11/22 Released w/o Limitations [employer](F [facility] Medicin e Residen cy) [employer]([facility] ) OUTPATIENT [id number] referre ls KARIS ANDREW 12/17 Released w/o Limitations [employer]([facility] Medicin [facility] Residen cy) [employer]([facility] ) OUTPATIENT [id number] pt needs to have lab for UTI will report to lab 1 hour before EVA SANCHEZ 02/02 Released w/o Limitations [employer](F am[facility] Medicin e Residen cy) [place] [facility] Loyalty) OUTPATIENT [id number] new patient /referr PAULINE Cisse 12/02 Released w/o Limitations [facility] [place] ) [place] [facility](Case Managemen t) OUTPATIENT [id number] Notes Entered by: Leigha OCY 03 Dec 2017 1357 ------- ------- ------- ------- -- [facility] CM service s BERT COY 12/03 Released w/o Limitations [facility] [place] [place] [facility] [place] [id number] Notes Entered by: Leigha COY 19 Dec 2017 1013 ------- ------- ------- ------- -- PCMH CM BERT COY 12/19 Released w/o Limitations [facility] [place] [place] [facility] [place] [place] TELE CONSULT [id number] Notes Entered by: Leigha COY 19 Dec 2017 1438 ------- ------- ------- ------- -- Home Health Request LORDPAULINE MARCUM Angelo 12/19 [facility] [place] [place] [facility] [place] [id number] Notes Entered by: Leigha COY 22 Dec 2017 1130 ------- ------- ------- ------- -- PCMH CM BERT COY 12/22 Released w/o Limitations [facility] [place] [place] [facility] [place] [id number] Other seizure s PABLO INTERIANO 12/23 Released w/o Limitations [facility] [place] [facility] [id number] Notes Entered by: Leigha COY 05 Jan 2018 1022 ------- ------- ------- ------- -- PCMH CM BERT COY 01/05 Released w/o Limitations [facility] [place] [facility] TELE CONS[place] [id number] Notes Entered by: Leigha COY 05 Jan 2018 1034 ------- ------- ------- ------- -- LAB RESULTS PABLO INTERIANO 01/05 [facility] [place] [facility] [place] [place] TELE CONSULT [id number] Notes Entered by: Leigha COY 24 Feb 2018 1102 ------- ------- ------- ------- -- Neurolo gy ANNA Hdz 02/24 [facility] [place] [place] [facility] [place] OUTPATIENT [id number] Notes Entered by: Leigha COY 24 Feb 2018 1558 ------- ------- ------- ------- -- [facility] BERT COY 02/24 Released w/o Limitations [facility] [place] [facility] [id number] F/u spina bifidia PABLO INTERIANO 02/27 Released w/o Limitations [facility] [place] [facility] [place] [place] TELE CONSULT [id number] Notes Entered by: Prashanth SHEPARD 03 Mar 2018 1333 ------- ------- ------- ------- -- prevent kristel ALLISON Guillen 03/03 [facility] [place] [place] [facility] [place] TELE CONSULT [id number] Notes Entered by: Prashanth SHEPARD 28 Jul 2018 1323 ------- ------- ------- ------- -- prevent kristel angeles ALLISON Gannon 07/28 [facility] [place] [place] [facility] [place] [id number] Notes Entered by: Leigha COY 25 Aug 2018 1334 ------- ------- ------- ------- -- PCMH CM - Continu e BERT COY 08/25 Released w/o Limitations [facility] [place] [facility] [place] [place] OUTPATIENT [id number] initial appt. med update ANNA BAINS 08/26 Released w/o Limitations [facility] [place] [facility] [place] [place] OUTPATIENT [id number] check up/refe rral needed ANNA BAINS 12/22 Released w/o Limitations [facility] [place] [place] [facility] [id number] Notes Entered by: Leigha COY 23 Dec 2018 0830 ------- ------- ------- ------- -- PCMH CM - Care Coordin BERT Redmond 12/23 Released w/o Limitations [facility] [facility] [id number] Notes Entered by: Leigha COY 28 Dec 2018 1450 ------- ------- ------- ------- -- PCMH CM - Care Coordin BERT Redmond 12/28 Released w/o Limitations [facility] [place] [facility] [place] TELE CONSULT [id number] Notes Entered by: Leigha COY 28 Dec 2018 1515 ------- ------- ------- ------- -- Referra l request for Psychol ANNA Enriquez 12/28 [facility] [place] [facility] [id number] Spina bifida, unspeci PABLO Juarez 01/08 Released w/o Limitations [facility] [facility] [place] [place] TELE CONSULT [id number] 9 Notes Entered by: LAURENCE GRIJALVA 14 Jan 2019 1232 ------- ------- ------- ------- -- Provide r glenysq a call back DWAYNEJAC Tan 01/14 [facility] [place] [place] [facility] [place] [id number] Notes Entered by: Leigha COY 18 Jan 2019 1410 ------- ------- ------- ------- -- [facility] CM - update/ follow up BERT COY 01/18 Released w/o Limitations [facility] [place] [facility]) [place] [id number] 1 1 Mo F/U PABLO INTERIANO 02/09 [facility]ased w/o Limitations [facility] [place] [facility] [place] [place] TELE CONSULT [id number] 2 Notes Entered by: WEI MAN 15 Apr 2019 1348 ------- ------- ------- ------- -- ANNA Reyes 04/15 [facility] [place] [place] [facility] [place] TELE CONSULT [id number] 6 Notes Entered by: CANDI PLASENCIA 20 Apr 2019 1325 ------- ------- ------- ------- -- KAMLESH Dickerson 04/20 [facility] [place] [facility] [place]LE CONS[place] [id number] 5 Notes Entered by: BEKAH TIRADO 09 Jun 2019 1121 ------- ------- ------- ------- -- Rx SHRAVAN Davis 06/09 [facility] [place] [facility] [place] OUTPATIENT [id number] 0 bump on neck concern KAYLEN GOLDMAN 06/11 Released w/o Limitations [facility] [place] [place] [facility] [place]) [place] [id number] 3 3 mth f/u PABLO INTERIANO 06/11 Released w/o Limitations [facility] [place] [facility] [place] [place] TELE CONSULT [id number] 9 Notes Entered by: KAYLEN GOLDMAN 12 Jun 2019 0852 ------- ------- ------- ------- -- EUGENE DIAZ 06/12 [facility] [place] [place] [facility] [place] TELE CONSULT [id number] 7 Notes Entered by: LETI POLLACK 17 Jun 2019 1551 ------- ------- ------- ------- -- paperwo rk/ lab results EUGENE LOVETT 06/17 [facility] [place] [facility] [place] [id number] 2 spina bifida, headach e, neck pain PABLO INTERIANO 06/23 Released w/o Limitations [facility] [place] [facility] [place] [place] OUTPATIENT [id number] 3 per nurse KAYLEN GOLDMAN 06/23 Released w/o Limitations [facility] [place] [facility] TELE CONSULT [id number] 7 Notes Entered by: KAYLEN GOLDMAN 23 Jun 2019 1440 ------- ------- ------- ------- -- lab EUGENE LOVETT 06/23 [facility] [place] [facility] [place] TELE CONSULT [id number] 4 Notes Entered by: KAYLEN GOLDMAN 24 Jun 2019 1032 ------- ------- ------- ------- -- labs KAYLEN GOLDMAN 06/24 [facility] [place] [facility] TELE CONS[place] [id number] 3 Notes Entered by: BEKAH TIRADO 29 Jun 2019 1355 ------- ------- ------- ------- -- Medicat ion Issues PABLO INTERIANO 06/29 [facility] [facility] [place] TELE CONSULT [id number] 6 Notes Entered by: LETI POLLACK 05 Jul 2019 1405 ------- ------- ------- ------- -- DidiertJAC Schofield 07/05 [facility] [place] [place] [facility] [place] TELE CONSULT [id number] 6 Notes Entered by: DAINA GARCIA 16 Jul 2019 1306 ------- ------- ------- ------- -- Patient dissati sfied with Fam Stacy JOYNITA 07/16 [facility] [place] [place] [facility] [place] TELE CONSULT [id number] 3 Notes Entered by: DAINA GARCIA 16 Jul 2019 1315 ------- ------- ------- ------- -- MOP is request ing a Neurolo gy referra l for [facility] BEKA Amado 07/16 [facility] [place] [facility] [id number] 4 Spina bifida, unspeci fied DALIA DENIS 07/21 [facility]ased w/o Limitations [facility] [facility] [place] [place] TELE CONSULT [id number] 1 Notes Entered by: ABBY LEZAMA 21 Jul 2019 1408 ------- ------- ------- ------- -- DILMA Cano 07/21 [facility] [place] [place] [facility] [place] [id number] 5 Notes Entered by: RICHARD BOSCH 22 Jul 2019 0902 ------- ------- ------- ------- -- [facility] CM- Care Coordin axel RICHARD BOSCH 07/22 Released w/o Limitations [facility] [place] [place] [facility] [employer] OUTPATIENT [id number] initial visit DILMA RESENDIZ 07/27 Released w/o Limitations [facility] [place] [facility] [place] [place] TELE CONSULT [id number] 1 Notes Entered by: CHARLES FLEMING 09 Aug 2019 1127 ------- ------- ------- ------- -- BEKA COBURN 08/09 [facility] [place] [place] [facility] [place] TELE CONSULT [id number] 6 Notes Entered by: DAINA GARCIA 09 Aug 2019 1421 ------- ------- ------- ------- -- Servando ingram ed for DME DILMA RESENDIZ 08/09 [facility] [place] [place] [facility] [place]) [place] [id number] EMG-DALIA STORY 08/10 [facility]ased w/o Limitations [facility] [facility] [employer] [place] TELE CONSULT [id number] 8 Notes Entered by: MATT COOK 16 Aug 2019 1440 ------- ------- ------- ------- -- fax number update BEKA VILLAGRAN 08/16 [facility] [place] [place] [facility] [employer] [place] [id number] 4 Notes Entered by: RICHARD BOSCH 03 Sep 2019 1556 ------- ------- ------- ------- -- PCMH CM-Cont inRICHARD Gómez Angelo 09/03 Released w/o Limitations [facility] [place] [place] [facility] [place] [place] TELE CONSULT [id number] 3 Notes Entered by: AMARJIT REED 09 Sep 2019 1621 ------- ------- ------- ------- -- Power of attorne [employer] AMARJIT REED 09/09 [facility] [place] [place] [facility] [place] [id number] 9 Notes Entered by: RICHARD BOSCH 28 Oct 2019 1615 ------- ------- ------- ------- -- PCMH CM-Cont incammie BOSCHRICHARD 10/28 Released w/o Limitations [facility] [place] [facility] [place] [place] TELE CONSULT [id number] 9 Notes Entered by: CANDI PLASENCIA 29 Dec 2019 1215 ------- ------- ------- ------- -- Refills BEKA VILLAGRAN 12/28 [facility] [place] [place] [facility] [place] [place]) [place] [id number] COVID19 SCREENI NILES MILNER 03/02 Released w/o Limitations [facility] [place] [facility] [place] [place] OUTPAT[place] [id number] 3 well woman BEKA PLASCENCIA 03/19 Released w/o Limitations [facility] [place] [facility] [place] TELE CONSULT [id number] 4 Notes Entered by: MATT COOK 05 Apr 2020 1401 ------- ------- ------- ------- -- DILMA Ramos 04/05 [facility] [place] [place] [facility] [place] [place] TELE CONSULT [id number] 5 Notes Entered by: LAURENCE GRIJALVA 11 Apr 2020 1206 ------- ------- ------- ------- -- BEKA COBURN 04/11 [facility] [place] [place] [facility] [place] [place] TELE CONSULT [id number] 3 Notes Entered by: LETI POLLACK 04 Jul 2020 1449 ------- ------- ------- ------- -- DILMA Morales 07/04 [facility] [place] [facility] [place] [place] TELE CONSULT [id number] 1 Notes Entered by: WEI MAN 29 Sep 2020 1506 ------- ------- ------- ------- -- BELKYS Lopez 09/29 [facility] [place] [place] [facility] [place] [place] [id number] 2 Notes Entered by: JERILYN VALVERDE 07 Oct 2020 1402 ------- ------- ------- ------- -- UMA Medina 10/07 Released w/o Limitations [facility] [place] [facility] [place] [place] TELE CONSULT [id number] Notes Entered by: MATT COOK 24 Oct 2020 1149 ------- ------- ------- ------- -- pt request BELKYS Park 10/24 [facility] [place] [place] [facility] [place] [place] OUTPATIENT [id number] Referra l/med refills /medica l device referra l DILMA RESENDIZ 10/30 Released w/o Limitations [facility] [place] [facility] [place] [place] TELE CONSULT [id number] Notes Entered by: DALIA MASTERS 31 Oct 2020 1344 ------- ------- ------- ------- -- Letter request DALIA MASTERS 10/31 [facility] [place] [place] [facility] [place] [place] TELE CONSULT [id number] 9 Notes Entered by: WEI MAN 12 Dec 2020 1210 ------- ------- ------- ------- -- rxr ESTEBAN CLINE 12/12 [facility] [place] [place] [facility] [place] [place] TELE CONSULT [id number] 7 Notes Entered by: DILMA RAYMOND 25 Dec 2020 1604 ------- ------- ------- ------- -- lab results ESTEBAN CLINE 12/25 [facility] [place] [place] [facility] [place] TELE CONSULT [id number] 3 Notes Entered by: RICHARD BOSCH 05 Jan 2021 1353 ------- ------- ------- ------- -- PCMH CM-Care Coordin axel RICHARD BOSCH 01/05 [facility] [place] [place] [facility] [place] [place] TELE CONSULT [id number] 0 Notes Entered by: LUZ ENCISO 18 Jan 2021 1316 ------- ------- ------- ------- -- ESTEBAN Lancaster 01/18 [facility] [place] [place] [facility] [place] [place] [id number] 9 Notes Entered by: RICHARD BOSCH 19 Jan 2021 1526 ------- ------- ------- ------- -- PCMH CM-Care Coordin axel RICHARD BOSCH 01/19 [facility]ased w/o Limitations [facility] [place] [facility] [place] [place] TELE CONSULT [id number] 5 Notes Entered by: ENZO SCOTT 24 Jan 2021 1021 ------- ------- ------- ------- -- NETWORK RESULTS -HEMATO LOGY/ON COLOGY 01/16/20 21 LOOK IN ARTIFAC TS and IMAGES UMA MORALES 01/24 [facility] [place] [place] [facility] [place] [place] [id number] Notes Entered by: RICHARD BOSCH 05 Feb 2021 1422 ------- ------- ------- ------- -- PCMH CM-Cont incammie RICHARD BOSCH 02/05 [facility]ased w/o Limitations [facility] [place] [facility] [place] [place] TELE CONSULT [id number] 5 Notes Entered by: RICHARD BOSCH 06 Feb 2021 1402 ------- ------- ------- ------- -- Medicat ion Refill: [place] RICHARD BOSCH 02/06 [facility] [employer] [place]([facility] ) [facility] [id number] Notes Entered by: RICHARD BOSCH 16 Feb 2021 1449 ------- ------- ------- ------- -- PCMH CM-Cont inue RICHARD BOSCH 02/16 [facility]ased w/o Limitations [facility] [place] [facility] [place] [id number] Notes Entered by: RICHARD BOSCH 07 Mar 2021 0847 ------- ------- ------- ------- -- PCMH CM-Cont inue RICHARD BOSCH 03/07 [facility]ased w/o Limitations [facility] [place] [facility] [employer] [place] [facility]ty) TELE CONSULT [id number] 0 Notes Entered by: RICHARD BOSCH 07 Mar 2021 1201 ------- ------- ------- ------- -- PCMH CM-Care Coordin axel KRAUSEBELKYS 03/07 [facility] [place] [facility] ) [facility] [place] [id number] Notes Entered by: RICHARD BOSCH 02 Apr 2021 1502 ------- ------- ------- ------- -- PCMH CM-Cont inue RICHARD BOSCH 04/02 [facility]ased w/o Limitations [facility] [place] [facility] [employer] TELE CONSULT [id number] 0 Notes Entered by: WEI MAN 2021 1507 ------- ------- ------- ------- -- referra l request RICHARD BOSCH 04/03 [facility] [place] [facility] [place] [id number] Notes Entered by: RICHARD BOSCH 27 Apr 2021 1544 ------- ------- ------- ------- -- PCM CM-Cont inue RICHARD BOSCH 04/27 [facility]ased w/o Limitations [facility] [place] [facility] [place] TELE CONSULT [id number] 0 Notes Entered by: RICHARD BOSCH 17 May 2021 1429 ------- ------- ------- ------- -- PCM CM-Care Coordin ation RICHARD BOSCH 05/17 [facility] [place] [facility] [employer] [place] OUTPAT[place] [id number] BACK PAIN DILMA RESENDIZ 05/18 Released w/o Limitations [facility] [place] [facility] [place] TELE CONSULT [id number] 1 Notes Entered by: Stephie CHIN V 13 Jun 2021 1017 ------- ------- ------- ------- -- Referra patterson request ANDREEA CHIN V 06/13 [facility] [place] [facility] [place] [place] TELE CONSULT [id number] Notes Entered by: KASSIE GARCIA 21 Jun 2021 1702 ------- ------- ------- ------- -- NETWORK RESULTS - PHYSICA L THERAPY 04/30/20 21 LOOK IN ARTIFAC TS AND IMAGES DILMA RESENDIZ 06/21 [facility] [place] [place] [facility] [employer] [id number] Notes Entered by: RICHARD BOSCH 27 Jun 2021 0932 ------- ------- ------- ------- -- PCMH CM-Cont inue RICHARD BOSCH 06/27 Released w/o Limitations [facility] [place] [facility] [place] [id number] Notes Entered by: RICHARD BOSCH 09 Jul 2021 0819 ------- ------- ------- ------- -- PCMH CM-Cont inue RICHARD BOSCH 07/09 Released w/o Limitations [facility] [place] [facility] [employer] TELE CONSULT [id number] 4 Notes Entered by: DILMA RAYMOND 23 Jul 2021 112 ------- ------- ------- ------- -- MRI results DILMA RESENDIZ 07/23 [facility] [place] [facility] [employer] TELE CONSULT [id number] Notes Entered by: JORDON PINA 06 Aug 2021 1149 ------- ------- ------- ------- -- Network Results - Gastroe nterolo gy - 021 - Look in Artifac ts and Images UMA MORALES 08/06 [facility] [place] [place] [facility] [employer] [id number] 3 Notes Entered by: RICHARD BOSCH 07 Aug 2021 1612 ------- ------- ------- ------- -- PCMH CM-Cont inue RICHARD BOSCH 08/07 [facility]ased w/o Limitations [facility] [place] [facility] [employer] TELE CONSULT [id number] 4 Notes Entered by: ALEKSANDR KISER ED 09 Aug 2021 0844 ------- ------- ------- ------- -- Network Results - Cervica l MRI 021 Look in Artifac ts and Images DILMA RESENDIZ 08/09 [facility] [place] [place] [facility] [employer] [id number] Notes Entered by: RICHARD BOSCH 19 Sep 2021 1236 ------- ------- ------- ------- -- PCMH CM-Cont inue RICHARD BSOCH 09/19 [facility]ased w/o Limitations [facility] [place] [facility] [employer] [id number] Notes Entered by: RICHARD BOSCH 02 Oct 2021 1122 ------- ------- ------- ------- -- PCMH CM-Cont inue RICHARD BOSCH 10/02 [facility]ased w/o Limitations [facility] [place] [facility] [employer] [place] TELE CONSULT [id number] 2 Notes Entered by: MORGAN LORENZANA 16 Oct 2021 0908 ------- ------- ------- ------- -- Servando Giordano s MELANIEJOI Tan ALFRED Carolee 10/16 [facility] [place] [facility] [place] TELE CONSULT [id number] 3 Notes Entered by: CANDI PLASENCIA 22 Oct 2021 1237 ------- ------- ------- ------- -- Refills ESTEBAN CLINE 10/22 [facility] [place] [facility] [place] TELE CONSULT [id number] 5 Notes Entered by: VIOLETA FELTON 06 Nov 2021 1009 ------- ------- ------- ------- -- [facility], pt need [facility] care at [facility] for two days ESTEBAN CLINE 11/06 [facility] [place] [place] [place] [facility] [place] [id number] Notes Entered by: RICHARD BOSCH 06 Nov 2021 1329 ------- ------- ------- ------- -- PCMH CM-Cont inue RICHARD BOSCH 11/06 Released w/o Limitations [facility] [employer] [place](Case Managem ent) [facility] [place] TELE CONSULT [id number] 2 Notes Entered by: RICHARD BOSCH 07 Nov 2021 1603 ------- ------- ------- ------- -- PCMH CM-Care Coordin atsujey RICHARD BOSCH 11/07 [facility] [place] [place] [facility] OUTPATIENT [id number] Notes Entered by: RICHARD BOSCH 26 Nov 2021 1604 ------- ------- ------- ------- -- PCMH CM-Cont inue RICHARD BOSCH 11/26 Released w/o Limitations [facility] [place] [facility] TELE CONSULT [id number] Notes Entered by: [facility] 05 Dec 2021 0813 ------- ------- ------- ------- -- Network Results - Wound Care 11/08/19 22 Look in Artifac ts and Images. UMA MORALES 12/05 [facility] [place]PAT[place] [id number] OPEN WOUND ON BELLY FOLD ALSO FELL OUT SIDE INJURED LIP NIXON ALCARAZ I 12/22 Immediate Referral [facility] [place] [facility] OUTPATIENT [id number] Notes Entered by: RICHARD BOSCH 25 Dec 2021 1316 ------- ------- ------- ------- -- PCMH CM-Cont incammie RICHARD BOSCH 12/25 Released w/o Limitations [facility] [facility] [place] TELE CONSULT [id number] Notes Entered by: LETI POLLACK 26 [...] Type Code Date Perfomer Comments Sourc e stent placed back of head [facility] back closure T-12 8C- [facility] bladder augmentation 009 [facility] ANCHOR TACKER shunt revisions x 12 [facility] suprapubic in/out catheter [facility] Abductor release 0098C-[facility] MYRINGOTOMY WITH INSERTION OF TUBE 992 [facility] INDIVIDUAL PSYCHOTHERAPY, INSIGHT ORIENTED, BEHAVIOR MODIFYING AND/OR SUPPORTIVE, IN AN OFFICE OR OUTPATIENT FACILITY, APPROXIMATELY 45 TO 50 MINUTES [id number]-[id number] WITH THE PATIENT [facility] INDIVIDUAL PSYCHOTHERAPY, INSIGHT ORIENTED, BEHAVIOR MODIFYING AND/OR SUPPORTIVE, IN AN OFFICE OR OUTPATIENT FACILITY, APPROXIMATELY 45 TO 50 MINUTES [id number]-KG-[id number] WITH THE PATIENT [facility] INDIVIDUAL PSYCHOTHERAPY, INSIGHT ORIENTED, BEHAVIOR MODIFYING AND/OR SUPPORTIVE, IN AN OFFICE OR OUTPATIENT FACILITY, APPROXIMATELY 45 TO 50 MINUTES DBNN-HP-MNSW WITH THE PATIENT [facility] HEALTH AND BEHAVIOR INTERVENTION, EACH 15 MINUTES, [id number]-[id number]; INDIVIDUAL [facility] INDIVIDUAL PSYCHOTHERAPY, INSIGHT ORIENTED, BEHAVIOR MODIFYING AND/OR SUPPORTIVE, IN AN OFFICE OR OUTPATIENT FACILITY, APPROXIMATELY 20 TO 30 MINUTES [id number] WITH THE PATIENT [facility] INDIVIDUAL PSYCHOTHERAPY, INSIGHT ORIENTED, BEHAVIOR MODIFYING AND/OR SUPPORTIVE, IN AN OFFICE OR OUTPATIENT FACILITY, APPROXIMATELY 20 TO 30 MINUTES [id number] WITH THE PATIENT [facility] INDIVIDUAL PSYCHOTHERAPY, INSIGHT ORIENTED, BEHAVIOR MODIFYING AND/OR SUPPORTIVE, IN AN OFFICE OR OUTPATIENT FACILITY, APPROXIMATELY 45 TO 50 MINUTES [id number]-[id number] WITH THE PATIENT [facility] PSYCHIATRIC DIAGNOSTIC INTERVIEW EXAMINATION [facility] MEDICATION THERAPY MANAGEMENT SERVICE(S) PROVIDED BY A PHARMACIST, INDIVIDUAL, [id number] WITH PATIENT, INITIAL 15 MINUTES, WITH ASSESSMENT, AND INTERVENTION IF PROVIDED; SUBSEQUENT ENCOUNTER [facility] CASE MANAGEMENT, EACH 15 MINUTES [facility] CASE MANAGEMENT, EACH 15 MINUTES [facility] CASE MANAGEMENT, EACH 15 MINUTES [facility] CASE MANAGEMENT, EACH 15 MINUTES [facility] CASE MANAGEMENT, EACH 15 MINUTES [facility] CASE MANAGEMENT, EACH 15 MINUTES DoD CASE MANAGEMENT, EACH 15 MINUTES [facility] CASE MANAGEMENT, EACH 15 MINUTES DoD CASE MANAGEMENT, EACH 15 MINUTES DoD CASE MANAGEMENT, EACH 15 MINUTES DoD CASE MANAGEMENT, EACH 15 MINUTES DoD CASE MANAGEMENT, EACH 15 MINUTES [facility] CASE MANAGEMENT, EACH 15 MINUTES [facility] CASE MANAGEMENT, EACH 15 MINUTES [facility] CASE MANAGEMENT, EACH 15 MINUTES [facility] COORDINATED CARE FEE, RISK ADJUSTED MAINTENANCE [facility] CASE MANAGEMENT, EACH 15 MINUTES [facility] CASE MANAGEMENT, EACH 15 MINUTES [facility] CASE MANAGEMENT, EACH 15 MINUTES [facility] NEEDLE ELECTROMYOGRAPHY,EA EXTREMITY,W RELATED PARASPINAL AREAS,WHEN PERFORMED,DONE W NERVE CONDUCTION,AMP &LATENCY/VELOCITY STUDY;COMP,5/MORE MUSC STUDIED,INNERVATED,3 /MORE NERV/4/MORE SPINAL LEVELS [facility] CASE MANAGEMENT, EACH 15 MINUTES [facility] TELE ASSESS & MGT SRV PROV QUAL NONPHYS HLTH CARE PRO TO EST PAT,PARENT,GUARD NOT ORIG REL ASSESS & MGT SRV PROV W/IN PREV 7 DAYS NOR LEAD ASSESS & MGT SRV/PX W/IN NXT 24 HR/SOON APT;5-10 MIN MED DIS [facility] CASE MANAGEMENT, EACH 15 MINUTES [facility] CASE MANAGEMENT, EACH 15 MINUTES [facility] CASE MANAGEMENT, EACH 15 MINUTES [facility] CASE MANAGEMENT, EACH 15 MINUTES [facility] CASE MANAGEMENT, EACH 15 MINUTES [facility] CASE MANAGEMENT, EACH 15 MINUTES [facility] CASE MANAGEMENT, EACH 15 MINUTES [facility] CASE MANAGEMENT, EACH 15 MINUTES [facility] CASE MANAGEMENT, EACH 15 MINUTES [facility] Case Management, each 15 minutes BERT COY [facility] Coordinated care fee, maintenance rate BERT COY [facility] Coordinated care fee, risk adjusted maintenance BERT COY [facility] Case Management, each 15 minutes 018 BERT COY A DoD Case Management, each 15 minutes 018 BERT COY A DoD Coordinated care fee, risk adjusted maintenance, Level 5 018 BERT COY A DoD Case Management, each 15 minutes 018 BERT COY A DoD Coordinated care fee, risk adjusted maintenance, Level 4 018 BERT COY DoD Case Management, each 15 minutes 018 BERT COY A DoD Coordinated care fee, risk adjusted maintenance, Level 4 018 BERT COY DoD Coordinated care fee, risk adjusted maintenance 018 BERT COY [facility] Case Management, each 15 minutes 018 BERT COY [facility] Social Work Individual Outpatient Counseling 45-50 Minutes Social Work Individual Outpatient Counseling 45-50 Minutes [id number] ADELFO CARROLL [facility] Social Work Individual Outpatient Counseling 45-50 Minutes Social Work Individual Outpatient Counseling 45-50 Minutes [id number] ADELFO CARROLL Social Work Individual Outpatient Counseling 45-50 Minutes Social Work Individual Outpatient Counseling 45-50 Minutes [id number] ADELFO CARROLL [facility] Health And Behavior Intervention, Each 15 Minutes Individual Health And Behavior Intervention, Each 15 Minutes Individual [id number] ADELFO CARROLL [facility] Psychiatric Therapy Individual Approximately 20-30 Minutes Psychiatric Therapy Individual Approximately 20-30 Minutes [id number] BIANCA HENDRICKSON [facility] Psychiatric Therapy Individual Approximately 20-30 Minutes Psychiatric Therapy Individual Approximately 20-30 Minutes [id number] BIANCA HENDRICKSON [facility] Psychiatric Therapy Individual Approximately 45-50 Minutes Psychiatric Therapy Individual Approximately 45-50 Minutes [id number] BIANCA HENDRICKSON [facility] Psychiatric Evaluation Comprehensive Examination Psychiatric Evaluation Comprehensive Examination [id number] BIANCA HENDRICKSON [facility] Medication Management By Pharmacist Subsequent Encounter Medication Management By Pharmacist Subsequent Encounter [id number] TARAH PARIS [facility] Physical Medicine Physical Therapy Re-Evaluation Physical Medicine Physical Therapy Re-Evaluation [id number] CHRISTY TRUONG [facility] Echo (Doppler) Color Flow Velocity Mapping Echo (Doppler) Color Flow Velocity Mapping [id number] UZAIR SHAY Echo (Doppler) Echo (Doppler) [id number] UZAIR SHAY Echo (2-D) Mode Complete 007 UZAIR SHAY Holter Monitor 24-Hour 007 POLINA VINCENT Determination Of Refractive State Determination Of Refractive State [id number] JANICE GOLDMANSOFIYA [place] [facility] Ophthalmological New Patient Start Comprehensive Care Ophthalmological New Patient Start Comprehensive Care [id number] JANICE GOLDMANSOFIYA [place] [facility] ECG 12-Lead ECG 12-Lead [id number] ALAYNA WALSH [facility] Psychiatric Evaluation Comprehensive Examination Psychiatric Evaluation Comprehensive Examination [id number] JANNETH NGUYEN Ophthalmological Prior Patient Start Comprehensive Care Ophthalmological Prior Patient Start Comprehensive Care [id number] SB BROWN Determination Of Refractive State Determination Of Refractive State [id number] SB BROWN Wound cleansers, any type, any size 005 ANGEL DEAN Alginate or other fiber gelling pa ing, wound cover, sterile, pad size 16 sq. in. or le , each pa ing 005 ANGEL DEAN Gauze, non-impregnated, non-sterile, pad size 16 sq. in. or le , without adhesive border, each pa ing 005 ANGEL DEAN Coordinated care fee, maintenance rate BERT COY Case Management, each 15 minutes BERT COY Coordinated care fee, risk adjusted maintenance, Level 3 BERT COY Non-Physician Phone Call To Patient/Provider Brief (5-10min) Non-Physician Phone Call To Patient/Provider Brief (5-10min) [id number] SHRAVAN MARQUEZ [facility] Coordinated care fee, risk adjusted maintenance RICHARD BOSCH Case Management, each 15 minutes RICHARD BOSCH AT:2,11,16,1 8 DoD Case Management, each 15 [...] each 15 minutes BOSCH, RICHARD E AT:3,9,11x2, 16=345 min total time spent per acuity generator [...] each 15 minutes BOSCH, RICHARD E AT:3,9x3,11x 2,75c0=765 min total time spent per acuity generator DoD Social History Combined list of available smoking, tobacco, and other social history from [facility] facilities. Social History Type Response Date Comment [facility] e Sex Representation Female (finding) 11/08/2021 Unknown Organization Tobacco Never-cigarette user Cigarette use:. Never-other tobacco user (not cigarettes) Other Tobacco use:. [facility] Sexual Orientation Ambula [facility] Pharmacy Gender identity [facility] y [facility] This section is an empty social history section. [facility] Assessment and Plan Combined list of future care activities from [facility] and [facility] facilities (e.g., assessment and plan notes, appointments, orders, and referrals). Additional future care activities may be listed in the Plan of Care section. Result Assessment and Plan Date Source Assessment and Plan Extracted from:Title : Anxiety Author: DILMA RESENDIZ, Date: 11/25/22 1. A nxiety disorder, unspecified Will switch patient to prozac, and have patient follow up to monitor improvement. Orders: FLUoxetine(PROzac 20 mg oral capsule), 1 cap(s), Oral, Daily, # 90 cap(s), 0 total refill(s), Maintenance, 1 cap(s) Oral Daily, Pharmacy: [facility] [Not filled] 04/06/[address] [place] [address] Functional Status Combined list of recent functional and cognitive assessments recorded at [facility] Functional [place] Measurement (FIM) Scale: 1 = Total Assistance (Subject = 0% +), 2 = Maximal Assistance (Subject = 25% +), 3 = Moderate Assistance (Subject = 50% +), 4 = Minimal Assistance (Subject = 75% +), 5 = Supervision, 6 = Modified [place] (Device), 7 = Complete [place] (Timely, Safely). Assessment Date/Time Source Assessment Type Assessment Skill Assessment Score Assessment Details No data available for this section
[2025-04-06 18:35] LABS: Basophils Percent Auto 0.6 % (0.2-1.2); Eosinophils Absolute Auto 0.3 K/mm3 (0-0.3); Eosinophils Percent Auto 4.2 % (0-4.4); Hematocrit 34.8 % (37.0-47.0); Hemoglobin 10.1 g/dL (12.0-15.0); Immature Granulocyte Absolute 0.04 K/mm3 (0.00-0.031); Immature Granulocyte Percent A 0.6 % (0-0.5); Lymphocytes Absolute Auto 1.37 K/mm3 (0.9-3.2); Lymphocytes Percent Auto 19.7 % (18.3-44.2); Mean Corpuscular Hemoglobin 25.8 pg (26-34); Mean Platelet Volume 9.8 fl (7.4-10.4); Monocytes Absolute Auto 0.5 K/mm3 (0.1-0.6); Monocytes Percent Auto 7.2 % (2.6-8.5); Neutrophils Absolute Auto 4.7 K/mm3 (1.3-6.7); Neutrophils Percent Auto 67.7 % (45.5-73.1); Platelet Count Result 350 k/mm3 (150-375); Red Blood Count 3.91 M/mm3 (4.2-5.4); Red Cell Distribution Width 19.1 % (11.5-14.5)
[2025-04-06 18:44] LABS: Alanine Aminotransferase 10 U/L (6-35); Albumin Level 3.3 g/dL (3.5-5.1); Alkaline Phosphatase 77 U/L (38-126); Anion Gap 5 mmol/L (4-12); Aspartate Amino Transferase 31 U/L (14-36); Bilirubin,Total 0.1 mg/dL (0.2-1.3); Blood Urea Nitrogen 12 mg/dL (7-17); CRP 1.5 mg/dL (<1.0); Calcium 8.8 mg/dL (8.4-10.2); Carbon Dioxide 26 mmol/L (22-30); Chloride 106 mmol/L (98-107); Estimated Glomerular Filt Rate > 60; Glucose 75 mg/dL (65-110); Potassium 4.1 mmol/L (3.4-5.0); Sodium 137 mmol/L (137-145)
[2025-04-06 18:58] LABS: Platelet Estimate Adequate (Adequate)
[2025-04-06 18:59] LABS: Band Neutrophils Percent 0 % (0-6); Hypochromasia 1+; Schistocytes None Seen
[2025-04-06 19:00] LABS: Anisocytosis 2+
[2025-04-06 19:07] LABS: Erythrocyte Sedimentation Rate 35 mm/hr (0-20)
== END 2025-04-06 14:10 | disposition home or self-care (01) ==
LOC: HOME HLTH 14:13
PROVIDERS: Visit Provider Nurse Practitioner Gerontology
DX: L03.317 Cellulitis of buttock (principal); M86.08 Acute hematogenous osteomyelitis, other sites; Z45.2 Encounter for adjustment and management of vascular access device; Z79.2 Long term (current) use of antibiotics
CPT/HCPCS: 80053; 85025; 85652; 86140

== ENCOUNTER 2025-04-13 12:58 | Outpatient (NON) | payer OTHER, SELFPAY ==
[2025-04-13 13:13] LABS: Basophils Percent Auto 0.7 % (0.2-1.2); Eosinophils Absolute Auto 0.3 K/mm3 (0-0.3); Eosinophils Percent Auto 5.5 % (0-4.4); Hematocrit 33.4 % (37.0-47.0); Hemoglobin 9.9 g/dL (12.0-15.0); Immature Granulocyte Absolute 0.04 K/mm3 (0.00-0.031); Immature Granulocyte Percent A 0.7 % (0-0.5); Lymphocytes Absolute Auto 1.34 K/mm3 (0.9-3.2); Lymphocytes Percent Auto 22.3 % (18.3-44.2); Mean Corpuscular HGB Conc 29.6 g/dl (32-36); Mean Corpuscular Hemoglobin 26.4 pg (26-34); Mean Corpuscular Volume 89.1 fl (80-100); Mean Platelet Volume 9.6 fl (7.4-10.4); Monocytes Absolute Auto 0.4 K/mm3 (0.1-0.6); Monocytes Percent Auto 6.8 % (2.6-8.5); Neutrophils Absolute Auto 3.9 K/mm3 (1.3-6.7); Platelet Count Result 339 k/mm3 (150-375); Red Blood Count 3.75 M/mm3 (4.2-5.4); Red Cell Distribution Width 18.5 % (11.5-14.5)
[2025-04-13 13:52] LABS: Alanine Aminotransferase 11 U/L (6-35); Albumin Level 3.6 g/dL (3.5-5.1); Alkaline Phosphatase 76 U/L (38-126); Anion Gap 9 mmol/L (4-12); Aspartate Amino Transferase 20 U/L (14-36); Bilirubin,Total 0.1 mg/dL (0.2-1.3); Blood Urea Nitrogen 14 mg/dL (7-17); Carbon Dioxide 26 mmol/L (22-30); Chloride 104 mmol/L (98-107); Estimated Glomerular Filt Rate > 60; Glucose 68 mg/dL (65-110); Potassium 3.9 mmol/L (3.4-5.0); Sodium 139 mmol/L (137-145); Total Protein 6.1 g/dL (6.3-8.2)
[2025-04-13 14:05] LABS: Platelet Estimate Adequate (Adequate)
[2025-04-13 14:06] LABS: Anisocytosis 1+; Hypochromasia 1+; Schistocytes None Seen
== END 2025-04-13 12:59 | disposition home or self-care (01) ==
PROVIDERS: Visit Provider Nurse Practitioner Gerontology
DX: Z45.2 Encounter for adjustment and management of vascular access device (principal); M86.08 Acute hematogenous osteomyelitis, other sites; L03.317 Cellulitis of buttock; Z79.2 Long term (current) use of antibiotics
CPT/HCPCS: 80053; 85025